=== PATIENT | female | born 1945 | race Caucasian/White ===

== ENCOUNTER 2017-09-01 10:08 | Inpatient (IN) | payer MEDICARE, OTHER, SELFPAY ==
[2017-09-01] VITALS (12 sets, daily range): BP systolic 94–143; BP diastolic 57–99; PULSE 80–101; RESP 16–22; TEMP 36.3–36.8; O2SAT 88–100; BMI 32.6; BMI 32.4; BMI 32.7
--- NOTE | 2017-09-01 10:24 | EKG12_ITS ---
Test Reason : SOB Blood Pressure : / mmHG Vent. Rate : 092 BPM Atrial Rate : 092 BPM P-R Int : 146 ms QRS Dur : 108 ms QT Int : 354 ms P-R-T Axes : 019 -01 181 degrees QTc Int : 437 ms Sinus rhythm with occasional Premature ventricular complexes T wave abnormality, consider inferolateral ischemia Abnormal ECG Confirmed by CT MCCOLLUM ([id number]), sports editor MAT VARGAS ([id number]) on 09/05/2017 1:48:45 PM Referred By: PAOLO Confirmed By:CT MCCOLLUM
--- NOTE | 2017-09-01 10:30 | RAD_ITS ---
STUDY: X-RAY CHEST REASON FOR EXAM: Female, 72 years old. Dyspnea. Lower extremity edema. History of prior aortic valve replacement. TECHNIQUE: Single AP portable view of the chest. COMPARISON: None. FINDINGS: EKG electrodes are seen. There is elevation of the right hemidiaphragm. Small bilateral pleural effusions with bibasilar atelectasis superimposed on CHF. Sternal cerclage wires are present from a prior sternotomy. Mild cardiomegaly. Normal mediastinum and micaela. Normal visualized pulmonary arteries. There is atherosclerotic tortuosity of the aortic arch and descending thoracic aorta. There are diffuse degenerative changes of the visualized thoracic spine. Normal visualized ribs, clavicles, and shoulders. There is no demonstrated abnormality of the visualized soft tissue structures of the upper abdomen. RAD/Chest 1 View (Portable) IMPRESSION: CHF with small bilateral pleural effusions and bibasilar atelectasis. Elevation of the right hemidiaphragm. Electronically Signed: Lloyd Johnson MD at 10:56 EDT Tel [phone], Service support ,
[2017-09-01 11:00] LABS: International Normalized Ratio 1.2; Prothrombin Time (Protime)PT. 15.2 SECONDS (11.7-14.9)
[2017-09-01 11:01] LABS: Partial Thromboplast Time 30.1 Seconds (24.1-36.2)
--- NOTE | 2017-09-01 11:01 | ED.VISSUMM ---
- ER Visit Summary Date of Service: 09/01/17 Chief Complaint: [Shortness of breath and bilateral leg swelling] History of Present Illness: The patient is a 72 F [resents the emergency department with complaint of progressive swelling in her legs and shortness of breath for several months. Patient developed some erythema of her lower extremities about a week and a half ago and was seen at urgent care 4 days ago and started on antibiotic. Per caregiver patient has gained about 20 pounds within the last month. Patient has a history of an aortic valve replacement but is not currently on any blood thinners. Patient only takes a baby aspirin a day. No other significant medical history. Patient denies any chest pain. Patient does describe exertional dyspnea and orthopnea. Patient denies any fever. She has had a nonproductive cough.] Physical Examination: [HEENT-PERRLA, EOMI. Cranial nerves II through XII grossly intact. TMs clear. Mucous membranes moist. No adenopathy. Cardiovascular-regular rate and rhythm with occasional ectopy noted. Heart sounds are somewhat distant without any obvious murmurs noted. Lungs-diminished breath sounds in both lung bases with some Rales noted bilaterally. Mild tachypnea. No accessory muscle use or retractions. Abdomen-normoactive bowel sounds, soft, nontender, no rebound or rigidity, no peritoneal signs. Extremities-intact ?4, normal range of motion, normal pulses, atraumatic. Patient has +3 edema both lower extremities with faint erythema noted to both lower extremities below the knee to the feet. Test Results: [On arrival showed a sinus rhythm with a ventricular rate of 92 bpm with occasional PVCs. Patient had nonspecific ST changes noted. No old EKGs available for comparison. Chest x-ray obtained showed CHF with bilateral effusions.] CBC with differential showed a white count 6.5, hemoglobin 14, hematocrit 47, platelets 103. Chemistries unremarkable. LFTs unremarkable. INR was 1.2. BNP was 2877. Troponin was less than 0.02. TSH was slightly elevated 3.78. Emergency Department Course and Treatment: [Patient received Lasix 40 mg IV in the department. Patient case was discussed with hospitalist Dr. Bubba Lee who will evaluate patient for admission.] Treatment Plan: [Admit for further workup and evaluation of new onset CHF as well as diuresis.] Disposition: [Admit Impression: [CHF-new onset Cellulitis bilateral lower extremities] This note was generated with [employer] dictation software. It may contain incorrect words, spelling, and punctuation that were not noted in review of the chart prior to signing ED Disposition - Plan for ED Patient: Chief Complaint: Edema Referrals: Care Physician,No Primary [Primary Care Provider] -
[2017-09-01 11:07] LABS: Absolute Lymphocyte Count 0.53 X10^3/ul (0.83-4.51); Absolute Neutrophil Count 5.4 X10^3/uL (2.0-7.7); Basophil# 0.02 X10^3/uL; Basophil% 0.3 % (0-1); Differential Indicated SCAN CRITERIA MET; Eosinophil# 0.06 X10^3/uL; Eosinophils% 0.9 % (0-5); Hematocrit 46.7 % (37-47); Lymphocyte # 0.53 X10^3/ul (4.0); Lymphocyte % 8.1 % (19-41); Mean Corpuscular Hgb 25.8 pg (27.0-32.0); Mean Corpuscular Volume 86.2 fL (81-99); Monocyte# 0.47 X10^3/uL; Monocyte% 7.2 % (0-10); Neutrophil # 5.43 X10^3/uL (2.7-7.7); Neutrophil % 83.3 % (47-70); POSITIVE COUNT NO; POSITIVE DIFFERENTIAL YES; POSITIVE MORPHOLOGY YES; Platelet Count 103 K/mm3 (150-450); RBC Distribution Width CV 18.4 % (11.6-14.6); RBC Distribution Width SD 56.6 fl (35.1-43.9); Red Blood Count 5.42 M/mm3 (4.2-5.4); White Blood Count 6.5 K/mm3 (4.4-11.0)
[2017-09-01 11:12] LABS: ALB/GLOB Ratio 1.2 RATIO (0.9-2.4); AST(SGOT) 31 U/L (15-37); Alanine Aminotransfer ALT/SGPT 20 U/L (13-56); Albumin, Serum 3.6 g/dL (3.2-5.0); Alkaline Phosphatase 89 U/L (45-117); Anion Gap 8 (5-15); BUN 21 mg/dL (7-18); BUN/Creat Ratio 18.9 RATIO (10-20); Calcium,Total 9.2 mg/dL (8.5-10.1); Chloride 107 mmol/L (98-107); Creatinine, Serum 1.11 mg/dL (0.55-1.02); EST Glomerular Filtration Rate 51 mL/min (>60); Est Glom Filt Rate - Afr Amer 62 mL/min (>60); Estimated Creatinine Clearance 34.57 ml/min; Globulin 3.1 g/dL (2.2-4.2); Glucose 97 mg/dL (74-106); Potassium 4.4 mmol/L (3.5-5.1); Protein, Total 6.7 g/dL (6.4-8.2); Sodium Level 143 mmol/L (136-145); Thyroid Stim Hormone (TSH) 3.78 uIU/mL (0.358-3.74)
[2017-09-01] MEDS: Furosemide 40 MG/4 ML Vial IV ×3 (11:12→21:33)
--- NOTE | 2017-09-01 11:56 | HP.PCM_ITS ---
Problem List (1) CHF (congestive heart failure) Status: Acute Qualifiers: Heart failure type: unspecified Heart failure chronicity: acute Qualified Code(s): I50.9 - Heart failure, unspecified (2) H/O aortic valve replacement Status: Chronic (3) Stasis dermatitis of both legs Status: Chronic (4) General learning disability Status: Chronic (5) BMI 32.0-32.9,adult Status: Chronic History of Present Illness Date of Admission: 09/01/17 Chief Complaint: Shortness of breath and weight gain The patient is a 72 year old F with past medical history significant for aortic valve replacement, learning disability brought to the emergency department by sister on account of shortness of breath. Review of patient's learning disability much of the history was taken from the sister who did notice increasing weight gain and swelling involving both lower and upper extremities. Patient was also noted to be more dyspneic at rest. Patient symptoms have been ongoing apparently for months however in view of the progressive of his symptoms she was brought to the emergency department where assessment was consistent with acute congestive heart failure. Lasix was initiated and patient admitted to a regular nursing floor for further management Past Medical History Past Medical History (Chronic Problems): Chronic Problems H/O aortic valve replacement (Chronic) Stasis dermatitis of both legs (Chronic) General learning disability (Chronic) BMI 32.0-32.9,adult (Chronic) Allergies Sulfa (Sulfonamide Antibiotics) Allergy (Verified 09/01/17 10:09) Other Home Medications: Ambulatory Orders Medication Instructions Recorded Aspirin [Aspirin, Baby] 81 mg PO DAILY@0800 09/01/17 Smoking Status: Never smoker - *Family History Maternal History Items: Heart Disease - mom had congestive heart failure Review of Systems Constitutional: Denies: Anorexia, Chills, Fever, Night Sweats, Weight Change Eyes: Denies: Blurred vision HEENT: Denies: Head Aches, Sinus Congestion, Sinus Drainage Cardiovascular: Reports: Edema. Denies: Chest Pain Respiratory: Reports: Cough, Shortness of breath upon exertion Gastrointestinal: Denies: Abdominal Pain, Hematemesis, Hematochezia, Nausea, Melena, Vomiting Genitourinary: Denies: Dysuria, Frequency, Hematuria, Urgency Musculoskeletal: Denies: Joint Pain, Joint Tenderness Skin: Reports: Pruritis, Rash, Skin Changes Neurological: Denies: Focal weakness, Numbness, Tingling Psychiatric: Denies: Homicidal Ideations, Suicidal Ideations Hematologic/ Lymphatic: Denies: Easy Bruising, Easy Bleeding VTE Information - Inpt Only VTE Present on Admission: No VTE Mechan Device Prophylaxis: Knee High TRA Hose VTE Pharm Prophylaxis ordered?: Yes Patient Problems: Active and Suspected Problems CHF (congestive heart failure) (Acute) Objective: GENERAL: Patient dyspneic at rest HEENT: Clear conjunctiva, NECK; supple, normal thyroid, CHEST: Diminished to auscultation bilaterally, with bibasilar Rales HEART: Regular S1 S2, no audible murmurs ABDOMEN: soft, non-tender, normoactive bowel sounds, RECTAL: deferred EXTREMITIES: +1 bilateral edema 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 SKIN: Dermatitis involving both lower extremities, - Physical Exam Vital Signs Temp Pulse Resp BP Pulse Ox 98.2 F 99 22 H 115/91 H 98 09/01/17 10:10 09/01/17 11:23 09/01/17 11:23 09/01/17 11:23 09/01/17 11:24 Oxygen Flow Rate (L/min) 2 Oxygen Delivery Method Nasal Cannula Weight: 78.471 kg Body Mass Index (BMI) 32.6 Laboratory Tests Past 24 Hrs 09/01/17 09/01/17 09/01/17 10:34 10:34 10:34 WBC 6.5 RBC 5.42 H Hgb 14.0 Hct 46.7 MCV 86.2 MCH 25.8 L MCHC 30.0 L RDW 18.4 H RDW Differential 56.6 H Plt Count 103 L Immature Gran % (Auto) 0.200 Neut % (Auto) 83.3 H Lymph % (Auto) 8.1 L [place] % (Auto) 7.2 Eos % (Auto) 0.9 Baso % (Auto) 0.3 Absolute Neuts (auto) 5.4 Absolute Lymphs (auto) 0.53 L Total Counted Not Reportable Differential Comment COMMENT PT 15.2 H INR 1.2 APTT 30.1 Sodium 143 Potassium 4.4 Chloride 107 Carbon Dioxide 28.0 Anion Gap 8 BUN 21 H Creatinine 1.11 H Estim Creat Clear Calc 34.57 Est GFR (MDRD) Af Amer 62 Est GFR (MDRD) Non-Af 51 L BUN/Creatinine Ratio 18.9 Glucose 97 Calcium 9.2 Total Bilirubin 1.30 H AST 31 ALT 20 Alkaline Phosphatase 89 Troponin I 0.06 B-Natriuretic Peptide Total Protein 6.7 Albumin 3.6 Globulin 3.1 Albumin/Globulin Ratio 1.2 TSH 3.78 H 09/01/17 10:34 WBC RBC Hgb Hct MCV MCH MCHC RDW RDW Differential Plt Count Immature Gran % (Auto) Neut % (Auto) Lymph % (Auto) [place] % (Auto) Eos % (Auto) Baso % (Auto) Absolute Neuts (auto) Absolute Lymphs (auto) Total Counted Differential Comment PT INR APTT Sodium Potassium Chloride Carbon Dioxide Anion Gap BUN Creatinine Estim Creat Clear Calc Est GFR (MDRD) Af Amer Est GFR (MDRD) Non-Af BUN/Creatinine Ratio Glucose Calcium Total Bilirubin AST ALT Alkaline Phosphatase Troponin I B-Natriuretic Peptide 2877.1 H Total Protein Albumin Globulin Albumin/Globulin Ratio TSH Assessment/Plan Active and Suspected Problems CHF (congestive heart failure) (Acute) Patient is a 72-year-old lady presented with progressive shortness of breath and assessment of acute congestive heart failure made admitted to monitored bed for subsequent management 1. Acute congestive heart failure: Patient has been admitted to monitored bed managed with strict input and output, daily weights, fluid restriction to 1500 cc per 24 hours, IV Lasix. 2D echo was ordered for further evaluation 2. History of aortic valve replacement. Patient is not aware of the history however sister suspect patient had a bioprosthetic valve and echo has been ordered for further evaluation as stated above 3. Learning disability ~ supportive care 4. Obesity with BMI of 32.4 weight loss advised 5. Chronic stasis dermatitis involving both lower extremities 6. DVT prophylaxis SC Lovenox Code Visit Inpatient E&M: 45706 Subs Hosp L3
--- NOTE | 2017-09-01 12:57 | ECHOCS_ITS ---
Reason For Study: CHF Procedure This was a 2D Doppler, Color Flow transthoracic echocardiogram. Exam performed portable in patient room. Left Ventricle Severely dilated left ventricle. The estimated ejection fraction is 10-15 %. Stage 2 diastolic dysfunction. There is severe global hypokinesis of the left ventricle. Right Ventricle Moderately dilated right ventricle. Moderately severe global right ventricular systolic dysfunction. Atria The left atrium is mildly enlarged. Normal right atrium. Normal atrial septum. Mitral Valve The mitral valve is structurally normal. No prolapse or stenosis seen. Tricuspid Valve Normal tricuspid valve. Mild (1+) tricuspid valve insufficiency. Right ventricular systolic pressure estimated to be 42 mmHg. Mild pulmonary hypertension. Aortic Valve Peak aortic valve gradient 46 mmHg. Mean aortic valve gradient 30 mmHg. Calculated aortic valve area (continuity equation) is 1.1 cm2. Moderate aortic stenosis. Trivial aortic valve insufficiency. Bioprosthetic aortic valve. Pulmonic Valve Normal pulmonic valve. Mild (1+) pulmonic valve insufficiency. Great Vessels Calcified aortic root. Normal arch. The inferior vena cava is dilated. No collapse of the inferior vena cava. Pericardium/Pleural No pericardial effusion. Moderate size left pleural effusion. Medication Definity0.3ml given slow IV push to enhance endocardial definition. MMode/2D Measurements & Calculations LVIDd: 5.4 cm IVSd: 0.87 cm LVOT diam: 2.0 cm LVIDs: 5.1 cm LVPWd: 0.80 cm LVOT area: 3.2 cm2 RVDd: 4.2 cm FS: 5.3 % Ao root diam: 3.2 cm LAV(MOD-bp): 61.2 ml LA dimension: 3.9 cm LAV(MOD-bp) Indexed: 34.4 ml/m2 LA A4 area: 19.5 cm2 LAV(MOD-sp2): 61.9 ml LAV(MOD-sp4): 51.7 ml RA A4 area: 11.1 cm2 Doppler Measurements & Calculations MV E max salo: 86.1 cm/sec Lat Peak E' Salo: 10.5 cm/sec Med Peak E' Salo: 3.7 cm/sec MV A max salo: 54.2 cm/sec E/E' lat: 8.2 E/E' med: 23.0 MV E/A: 1.6 Ao V2 max: 339.2 cm/sec LV V1 max: 112.4 cm/sec SV(LVOT): 71.9 ml Ao max P.0 mmHg LV V1 max P.1 mmHg Ao V2 mean: 254.0 cm/sec LV V1 mean P.1 mmHg Ao mean P.8 mmHg LV V1 mean: 83.0 cm/sec Ao V2 VTI: 65.1 cm LV V1 VTI: 22.4 cm CE(I,D): 1.1 cm2 CE(V,D): 1.1 cm2 PA V2 max: 118.4 cm/sec PI end-d salo: 150.1 cm/sec TR max salo: 269.4 cm/sec TR max P.1 mmHg Interpretation Summary Severely dilated left ventricle. The estimated ejection fraction is 10-15 %. There is severe global hypokinesis of the left ventricle. Stage 2 diastolic dysfunction. Moderately dilated right ventricle. Moderately severe global right ventricular systolic dysfunction. The left atrium is mildly enlarged. Mild (1+) tricuspid valve insufficiency. Right ventricular systolic pressure estimated to be 42 mmHg. Mild pulmonary hypertension. Moderate aortic stenosis. Trivial aortic valve insufficiency. Moderate size left pleural effusion. The study was technically difficult. There is no comparison study available. Contrast injection was performed. Ordering Physician: Bubba Lee Performed By: Gretel Maurice, KING, RVT
[2017-09-01] MEDS: 0.9% Saline Lock 10 ML Syringe IV (15:08)
[2017-09-01] MEDS: 0.9% NaCl Peripheral Flush Adult/Peds IV (21:33)
[2017-09-01] MEDS: Docusate Sodium 100 MG Capsule PO (21:33)
[2017-09-02] VITALS (12 sets, daily range): BP systolic 97–110; BP diastolic 59–65; PULSE 76–153; RESP 14–18; TEMP 36.3–36.8; O2SAT 93–98
[2017-09-02] MEDS: Furosemide 40 MG/4 ML Vial IV ×2 (05:22→13:43)
[2017-09-02] MEDS: 0.9% NaCl Peripheral Flush Adult/Peds IV (05:23)
[2017-09-02 07:46] LABS: Anion Gap 8 (5-15); BUN 20 mg/dL (7-18); BUN/Creat Ratio 18.3 RATIO (10-20); Calcium,Total 8.8 mg/dL (8.5-10.1); Chloride 104 mmol/L (98-107); Creatinine, Serum 1.09 mg/dL (0.55-1.02); EST Glomerular Filtration Rate 52 mL/min (>60); Est Glom Filt Rate - Afr Amer 63 mL/min (>60); Glucose 83 mg/dL (74-106); Potassium 3.6 mmol/L (3.5-5.1); Sodium Level 140 mmol/L (136-145)
[2017-09-02 08:25] LABS: Hematocrit 42.8 % (37-47); Hemoglobin 12.9 g/dl (12.0-15.0); Mean Corp Hgb Conc 30.1 g/gl (32-36); Mean Corpuscular Hgb 25.7 pg (27.0-32.0); Mean Corpuscular Volume 85.3 fL (81-99); Platelet Count 74 K/mm3 (150-450); RBC Distribution Width CV 18.4 % (11.6-14.6); RBC Distribution Width SD 56.6 fl (35.1-43.9); Red Blood Count 5.02 M/mm3 (4.2-5.4); Scan Indicated on CBC? Y/N YES- FLAGS NOTED; White Blood Count 4.3 K/mm3 (4.4-11.0)
[2017-09-02] MEDS: Aspirin 81 MG TAB.CHEW PO (10:01)
[2017-09-02] MEDS: Docusate Sodium 100 MG Capsule PO ×2 (10:01→22:34)
--- NOTE | 2017-09-02 11:47 | PCM.PN.HOSP ---
Patient Problems: Active and Suspected Problems CHF (congestive heart failure) (Acute) Subjective: Negative fluid balance of 2.1 L been admitted. 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 SKIN: Dermatitis involving both lower extremities, Vitals/I&O's: Vital Signs Temp Pulse Resp BP Pulse Ox 98.2 F 94 16 97/65 97 09/02/17 11:18 09/02/17 11:18 09/02/17 11:18 09/02/17 11:18 09/02/17 11:18 Oxygen Flow Rate (L/min) 2 Oxygen Delivery Method Room Air Weight: 75.1 kg Body Mass Index (BMI) 32.4 Intake and Output for Last 24 Hours 08/31/17 09/01/17 09/02/17 23:59 23:59 23:59 Intake Total 960 / 960 400 / 400 Output Total 1550 / 1550 2500 / 2500 Balance -590 / -590 -2100 / -2100 Laboratory Results 09/01/17 14:05: Troponin I 0.06 09/01/17 18:29: Troponin I 0.08 H 09/02/17 00:24: Troponin I 0.07 H 09/02/17 06:55: Sodium 140, Potassium 3.6, Chloride 104, Carbon Dioxide 28.0, Anion Gap 8, BUN 20 H, Creatinine 1.09 H, Estim Creat Clear Calc 35.20, Est GFR (MDRD) Af Amer 63, Est GFR (MDRD) Non-Af 52 L, BUN/Creatinine Ratio 18.3, Glucose 83, Calcium 8.8, Magnesium 2.0 09/02/17 06:55: WBC 4.3 L, RBC 5.02, Hgb 12.9, Hct 42.8, MCV 85.3, MCH 25.7 L, MCHC 30.1 L, RDW 18.4 H, RDW Differential 56.6 H, Plt Count 74 L, Differential Comment Current Medications Acetaminophen (Tylenol) 650 mg PO Q6H PRN PRN PRN Reason: Mild Pain (scale 0-3)/T>100.7 Al Hydroxide/Mg Hydroxide (Mylanta Ii) 30 ml PO Q6H PRN PRN PRN Reason: Gastric burning Aspirin (Aspirin, Baby) 81 mg PO DAILY@0800 [facility] Last Admin: 09/02/17 10:01 Dose: 81 mg Docusate Sodium (Colace) 100 mg PO BID [facility] Last Admin: 09/02/17 10:01 Dose: 100 mg Enoxaparin Sodium (Lovenox) 40 mg SC DAILY@1000 [facility] Last Admin: 09/02/17 10:44 Dose: Not Given Furosemide (Lasix) 40 mg IV Q8 [facility] Last Admin: 09/02/17 05:22 Dose: 40 mg Magnesium Hydroxide (Milk Of Magnesia) 30 ml PO DAILY PRN PRN Reason: Constipation Multi-Ingredient Cream (Eucerin) 1 applic TOPICAL BID [facility] PRN Reason: Protocol Last Admin: 09/02/17 10:01 Dose: 1 applicatio Ondansetron HCl (Zofran) 4 mg IV Q8H PRN PRN PRN Reason: NAUSEA Oxycodone HCl (Oxyir) 5 mg PO Q4H PRN PRN PRN Reason: Moderate Pain (pain scale 4-5) Psyllium Hydrophilic Mucilloid (Metamucil) 1 packet PO DAILY PRN PRN PRN Reason: CONSTIPATION Sodium Chloride () 5 - 30 ml IV UD PRN PRN Reason: SALINE FLUSH Last Admin: 09/02/17 05:23 Dose: 10 ml Zolpidem Tartrate (Ambien (Generic)) 5 mg PO QHS PRN PRN PRN Reason: INSOMNIA Assessment/Plan Active and Suspected Problems CHF (congestive heart failure) (Acute) Patient is a 72-year-old lady presented with progressive shortness of breath and assessment of acute congestive heart failure made admitted to monitored bed for subsequent management 1. Acute congestive heart failure: Patient has been admitted to monitored bed managed with strict input and output, daily weights, fluid restriction to 1500 cc per 24 hours, IV Lasix. 2D echo was ordered for further evaluation Severely dilated left ventricle. The estimated ejection fraction is 10-15 %. There is severe global hypokinesis of the left ventricle. Stage 2 diastolic dysfunction. Moderately dilated right ventricle. Moderately severe global right ventricular systolic dysfunction. The left atrium is mildly enlarged. Mild (1+) tricuspid valve insufficiency. Right ventricular systolic pressure estimated to be 42 mmHg. Mild pulmonary hypertension. Moderate aortic stenosis. Trivial aortic valve insufficiency. Moderate size left pleural effusion. Patient's 2D echo results are as above. Based on patient's Low EF of 10-15% consultation was placed to cardiology. Dr FernandezInformed of consult patient placed on martita inhibitors as well as 2. History of aortic valve replacement. Patient is not aware of the history however sister suspect patient had a bioprosthetic valve and echo has been ordered for further evaluation as stated above 3. Learning disability ~ supportive care 4. Obesity with BMI of 32.4 weight loss advised 5. Chronic stasis dermatitis involving both lower extremities 6. DVT prophylaxis bilateral TRA hoses for now Lovenox discontinued in view of low platelet counts Code Visit Inpatient E&M: 01014 Subs Hosp L3
--- NOTE | 2017-09-02 11:50 | PN_ITS ---
Patient Problems: Active and Suspected Problems CHF (congestive heart failure) (Acute) Subjective: Negative fluid balance of 2.1 L been admitted. 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 SKIN: Dermatitis involving both lower extremities, Vitals/I&O's: Vital Signs Temp Pulse Resp BP Pulse Ox 98.2 F 94 16 97/65 97 09/02/17 11:18 09/02/17 11:18 09/02/17 11:18 09/02/17 11:18 09/02/17 11:18 Oxygen Flow Rate (L/min) 2 Oxygen Delivery Method Room Air Weight: 75.1 kg Body Mass Index (BMI) 32.4 Intake and Output for Last 24 Hours 08/31/17 09/01/17 09/02/17 23:59 23:59 23:59 Intake Total 960 / 960 400 / 400 Output Total 1550 / 1550 2500 / 2500 Balance -590 / -590 -2100 / -2100 Laboratory Results 09/01/17 14:05: Troponin I 0.06 09/01/17 18:29: Troponin I 0.08 H 09/02/17 00:24: Troponin I 0.07 H 09/02/17 06:55: Sodium 140, Potassium 3.6, Chloride 104, Carbon Dioxide 28.0, Anion Gap 8, BUN 20 H, Creatinine 1.09 H, Estim Creat Clear Calc 35.20, Est GFR (MDRD) Af Amer 63, Est GFR (MDRD) Non-Af 52 L, BUN/Creatinine Ratio 18.3, Glucose 83, Calcium 8.8, Magnesium 2.0 09/02/17 06:55: WBC 4.3 L, RBC 5.02, Hgb 12.9, Hct 42.8, MCV 85.3, MCH 25.7 L, MCHC 30.1 L, RDW 18.4 H, RDW Differential 56.6 H, Plt Count 74 L, Differential Comment Current Medications Acetaminophen (Tylenol) 650 mg PO Q6H PRN PRN PRN Reason: Mild Pain (scale 0-3)/T>100.7 Al Hydroxide/Mg Hydroxide (Mylanta Ii) 30 ml PO Q6H PRN PRN PRN Reason: Gastric burning Aspirin (Aspirin, Baby) 81 mg PO DAILY@0800 [facility] Last Admin: 09/02/17 10:01 Dose: 81 mg Docusate Sodium (Colace) 100 mg PO BID [facility] Last Admin: 09/02/17 10:01 Dose: 100 mg Enoxaparin Sodium (Lovenox) 40 mg SC DAILY@1000 [facility] Last Admin: 09/02/17 10:44 Dose: Not Given Furosemide (Lasix) 40 mg IV Q8 [facility] Last Admin: 09/02/17 05:22 Dose: 40 mg Magnesium Hydroxide (Milk Of Magnesia) 30 ml PO DAILY PRN PRN Reason: Constipation Multi-Ingredient Cream (Eucerin) 1 applic TOPICAL BID [facility] PRN Reason: Protocol Last Admin: 09/02/17 10:01 Dose: 1 applicatio Ondansetron HCl (Zofran) 4 mg IV Q8H PRN PRN PRN Reason: NAUSEA Oxycodone HCl (Oxyir) 5 mg PO Q4H PRN PRN PRN Reason: Moderate Pain (pain scale 4-5) Psyllium Hydrophilic Mucilloid (Metamucil) 1 packet PO DAILY PRN PRN PRN Reason: CONSTIPATION Sodium Chloride () 5 - 30 ml IV UD PRN PRN Reason: SALINE FLUSH Last Admin: 09/02/17 05:23 Dose: 10 ml Zolpidem Tartrate (Ambien (Generic)) 5 mg PO QHS PRN PRN PRN Reason: INSOMNIA Assessment/Plan Active and Suspected Problems CHF (congestive heart failure) (Acute) Patient is a 72-year-old lady presented with progressive shortness of breath and assessment of acute congestive heart failure made admitted to monitored bed for subsequent management 1. Acute congestive heart failure: Patient has been admitted to monitored bed managed with strict input and output, daily weights, fluid restriction to 1500 cc per 24 hours, IV Lasix. 2D echo was ordered for further evaluation Severely dilated left ventricle. The estimated ejection fraction is 10-15 %. There is severe global hypokinesis of the left ventricle. Stage 2 diastolic dysfunction. Moderately dilated right ventricle. Moderately severe global right ventricular systolic dysfunction. The left atrium is mildly enlarged. Mild (1+) tricuspid valve insufficiency. Right ventricular systolic pressure estimated to be 42 mmHg. Mild pulmonary hypertension. Moderate aortic stenosis. Trivial aortic valve insufficiency. Moderate size left pleural effusion. Patient's 2D echo results are as above. Based on patient's Low EF of 10-15% consultation was placed to cardiology. Dr FernandezInformed of consult patient placed on martita inhibitors as well as 2. History of aortic valve replacement. Patient is not aware of the history however sister suspect patient had a bioprosthetic valve and echo has been ordered for further evaluation as stated above 3. Learning disability ~ supportive care 4. Obesity with BMI of 32.4 weight loss advised 5. Chronic stasis dermatitis involving both lower extremities 6. DVT prophylaxis bilateral TRA hoses for now Lovenox discontinued in view of low platelet counts Code Visit Inpatient E&M: 46645 Subs Hosp L3
--- NOTE | 2017-09-02 11:50 | CASEMGMT ---
Face to Face with patient for initial transition planning/care coordination assessment. RN JAK introduced self and role at [facility], pt voices understanding and consents to assessment but asks this RN CM to call Sofia su for all questions. Pt sitting up in chair in no distress at this time. This RN CM spoke with Sofia su, via phone at this time and she answers all questions at this time. Care providers, pharmacy, and demographics verified. See attached link. Sister voices no further concerns/needs at this time. Advised sister to ask for CM if any further questions/concerns/needs arise, voices understanding. Sister did state that she missed Dr. Lee this am and would like to know update on pt. Dr. Lee willing to speak with sister via phone at this time. [place]AN[place] [facility]
--- NOTE | 2017-09-02 15:48 | PCM.CONS.C ---
Problem List (1) Lower extremity edema Status: Acute (2) Cardiomyopathy Status: Acute (3) CHF (congestive heart failure) Status: Acute Qualifiers: Heart failure type: unspecified Heart failure chronicity: acute Qualified Code(s): I50.9 - Heart failure, unspecified (4) H/O aortic valve replacement Status: Chronic Reason for Consult Date of Consultation: 09/02/17 Reason for Consultation: New onset congestive heart failure, cardiomyopathy, status post aortic valve replacement, lower extremity edema History of Present Illness: The patient is a 72 year old F, with a history of bioprosthetic aortic valve replacement on 02/23/2007 at [facility] by Dr. Guerrero. As best the patient can remember she did not have associated bypass surgery although she cannot recall. Patient has never been told she had congestive heart failure, and apparently she has never followed up with a rhythmic gymnastics coach that she can recall. Patient may have some mental challenges, and a baseline learning disability, and has requested that I contact her sister regarding clarification of her medical history. The patient is a nondiabetic, and apparently lives with her 2 sisters all of which apparently caught the flu in June. Her 2 sisters improved, however the patient developed worsening lower extremity edema, orthopnea with 8 pillows, shortness of breath, dyspnea on exertion. She apparently went to the emergency room on Tuesday of this past week, and was subsequently sent home despite her lower extremity edema. When her symptoms did not improve she returned yesterday and was admitted with new onset heart failure. An echocardiogram was performed today which demonstrated severe global LV dysfunction with an EF around 10-15%, bioprosthetic aortic valve, with moderate aortic stenosis, RVSP of 42 mmHg, with a left-sided pleural effusion. Currently the patient is sitting in a chair, no acute distress, conversing well. She states that she was never told she had heart failure prior to her illness in June. She denies any lower extremity edema prior to the recent weeks. She denies any chest pain, angina, presyncope or syncope. [] Past Medical History Allergies/Adverse Reactions: Allergies Sulfa (Sulfonamide Antibiotics) Allergy (Verified 09/01/17 10:09) Other Home Medications: Ambulatory Orders Medication Instructions Recorded Aspirin [Aspirin, Baby] 81 mg PO DAILY@0800 09/01/17 Past Medical History (Chronic Problems): Chronic Problems H/O aortic valve replacement (Chronic) Stasis dermatitis of both legs (Chronic) General learning disability (Chronic) BMI 32.0-32.9,adult (Chronic) - *Family History Maternal History Items: Heart Disease - mom had congestive heart failure Smoking Status: Never smoker Review of Systems - Review of Systems Cardiovascular: Reports: Shortness of Breath at Rest, Shortness of Breath with Exertion Respiratory: Denies: Cough, Sputum Production, Hemoptysis Gastrointestinal: Denies: Hematemesis, Hematochezia, Melena Genitourinary: Denies: Dysuria, Hematuria Skin: Denies: Rash Subjectve: Patient sitting in a chair, no acute distress. Objective: Vital Signs Temp Pulse Resp BP Pulse Ox 98.2 F 94 16 97/65 97 09/02/17 11:18 09/02/17 11:18 09/02/17 11:18 09/02/17 11:18 09/02/17 11:18 Oxygen Flow Rate (L/min) 2 Oxygen Delivery Method Room Air Weight: 165 lb 9.074 oz Body Mass Index (BMI) 32.4 Intake and Output for Last 24 Hours 08/31/17 09/01/17 09/02/17 23:59 23:59 23:59 Intake Total 960 / 960 400 / 400 Output Total 1550 / 1550 2500 / 2500 Balance -590 / -590 -2100 / -2100 General: Awake, Alert, Oriented x 3 HEENT: PERRL, EOMI, Sclera Non Icteric Neck: Supple, Good ROM, No Lymph Node Enlargement Lungs: Diminished Left Base, Rales - Iker Bases Cardiovascular: Regular Rhythm, Normal S1, Normal S2, No Rubs, No Gallops Murmur Murmur: Grade 3/6, Crescendo-Decrescendo Vascular: No Carotid Bruits, Normal Femoral Pulses, Normal Radial Pulses, Normal Dorsalis Pedal Pulse, Normal Posterior Tibial Pulses Abdomen: Bowel Sounds Present, Soft, Non Tender, No HSM, No Organomegaly Extremities: No Cyanosis, No Clubbing, Bilateral Edema +3 Neurological: No Focal Motor or Sensory Deficit 09/01/17 18:29: Troponin I 0.08 H 09/02/17 00:24: Troponin I 0.07 H 09/02/17 06:55: Sodium 140, Potassium 3.6, Chloride 104, Carbon Dioxide 28.0, Anion Gap 8, BUN 20 H, Creatinine 1.09 H, Est GFR (MDRD) Af Amer 63, Est GFR (MDRD) Non-Af 52 L, BUN/Creatinine Ratio 18.3, Glucose 83, Calcium 8.8, Magnesium 2.0 09/02/17 06:55: WBC 4.3 L, RBC 5.02, Hgb 12.9, Hct 42.8, MCV 85.3, MCH 25.7 L, MCHC 30.1 L, RDW 18.4 H, RDW Differential 56.6 H, Plt Count 74 L Rhythm: EKG: Normal sinus rhythm with left bundle branch block, PVCs. ECHO: As above Stress Test: Cardiac Cath: PCI: CT Surgery: Holter monitor: EPS: PPM: CXR: Large right pleural effusion, moderate left pleural effusion. Chest CT Scan: Assessment/Plan 1. 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 Her 2 sisters appeared to improve, but she never quite felt better. She has evidence of severe biventricular failure with bilateral pleural effusions, right greater than left, bilateral lower extremity edema, orthopnea, PND. Given the patient's massive fluid overload, I recommend that we start her on a Bumex drip at 0.5 mg/h, followed by metolazone 2.5 mg ?1 now. Would repeat metolazone every 3 days in order to facilitate diuresis. A Crandall has already been started. In addition I would recommend holding beta-ramakrishna therapy until she is optimized her dry weight, and would recommend a 1500 cc fluid restriction until she is reached her dry weight. When she is able to lay down flat, she will require a repeat left and right heart catheterization to assess her pulmonary pressures, and coronary anatomy. It is possible the patient may have contracted a viral illness in June [address] to a viral cardiomyopathy. Previous echocardiograms would be very helpful. Unfortunately the patient does not recall her previous rhythmic gymnastics coach. In addition to may be beneficial for therapeutic thoracentesis particularly of the right pleural space. 2. Aortic valve replacement: We will need to try and get a hold of her previous rhythmic gymnastics coach to determine when her LV function deteriorated. The patient has a generalized learning disability, and may not fully recall the specifics of her cardiac issues. Patient's bioprosthetic aortic valve is approximately 11 years old, and may require replacement if this is an option given her severe LV dysfunction. 3. Lower extremity edema: I agree with DVT prophylaxis as well as Stalin bandage wraps to facilitate venous return. 4. Discussed with Dr. Lee. Thank you very much for the opportunity to participate in the cardiac care of your patient. Consultation time between 330 and 4 PM.
--- NOTE | 2017-09-02 16:00 | CON.PCM_ITS ---
Problem List (1) Lower extremity edema Status: Acute (2) Cardiomyopathy Status: Acute (3) CHF (congestive heart failure) Status: Acute Qualifiers: Heart failure type: unspecified Heart failure chronicity: acute Qualified Code(s): I50.9 - Heart failure, unspecified (4) H/O aortic valve replacement Status: Chronic Reason for Consult Date of Consultation: 09/02/17 Reason for Consultation: New onset congestive heart failure, cardiomyopathy, status post aortic valve replacement, lower extremity edema History of Present Illness: The patient is a 72 year old F, with a history of bioprosthetic aortic valve replacement on 02/23/2007 at [facility] by Dr. Guerrero. As best the patient can remember she did not have associated bypass surgery although she cannot recall. Patient has never been told she had congestive heart failure, and apparently she has never followed up with a sign language teacher that she can recall. Patient may have some mental challenges, and a baseline learning disability, and has requested that I contact her sister regarding clarification of her medical history. The patient is a nondiabetic, and apparently lives with her 2 sisters all of which apparently caught the flu in June. Her 2 sisters improved, however the patient developed worsening lower extremity edema, orthopnea with 8 pillows , shortness of breath, dyspnea on exertion. She apparently went to the emergency room on Tuesday of this past week, and was subsequently sent home despite her lower extremity edema. When her symptoms did not improve she returned yesterday and was admitted with new onset heart failure. An echocardiogram was performed today which demonstrated severe global LV dysfunction with an EF around 10-15%, bioprosthetic aortic valve, with moderate aortic stenosis, RVSP of 42 mmHg, with a left-sided pleural effusion. Currently the patient is sitting in a chair, no acute distress, conversing well. She states that she was never told she had heart failure prior to her illness in June. She denies any lower extremity edema prior to the recent weeks. She denies any chest pain, angina, presyncope or syncope. [] Past Medical History Allergies/Adverse Reactions: Allergies Sulfa (Sulfonamide Antibiotics) Allergy (Verified 09/01/17 10:09) Other Home Medications: Ambulatory Orders Medication Instructions Recorded Aspirin [Aspirin, Baby] 81 mg PO DAILY@0800 09/01/17 Past Medical History (Chronic Problems): Chronic Problems H/O aortic valve replacement (Chronic) Stasis dermatitis of both legs (Chronic) General learning disability (Chronic) BMI 32.0-32.9,adult (Chronic) - *Family History Maternal History Items: Heart Disease - mom had congestive heart failure Smoking Status: Never smoker Review of Systems - Review of Systems Cardiovascular: Reports: Shortness of Breath at Rest, Shortness of Breath with Exertion Respiratory: Denies: Cough, Sputum Production, Hemoptysis Gastrointestinal: Denies: Hematemesis, Hematochezia, Melena Genitourinary: Denies: Dysuria, Hematuria Skin: Denies: Rash Subjectve: Patient sitting in a chair, no acute distress. Objective: Vital Signs Temp Pulse Resp BP Pulse Ox 98.2 F 94 16 97/65 97 09/02/17 11:18 09/02/17 11:18 09/02/17 11:18 09/02/17 11:18 09/02/17 11:18 Oxygen Flow Rate (L/min) 2 Oxygen Delivery Method Room Air Weight: 165 lb 9.074 oz Body Mass Index (BMI) 32.4 Intake and Output for Last 24 Hours 08/31/17 09/01/17 09/02/17 23:59 23:59 23:59 Intake Total 960 / 960 400 / 400 Output Total 1550 / 1550 2500 / 2500 Balance -590 / -590 -2100 / -2100 General: Awake, Alert, Oriented x 3 HEENT: PERRL, EOMI, Sclera Non Icteric Neck: Supple, Good ROM, No Lymph Node Enlargement Lungs: Diminished Left Base, Rales - Iker Bases Cardiovascular: Regular Rhythm, Normal S1, Normal S2, No Rubs, No Gallops Murmur Murmur: Grade 3/6, Crescendo-Decrescendo Vascular: No Carotid Bruits, Normal Femoral Pulses, Normal Radial Pulses, Normal Dorsalis Pedal Pulse, Normal Posterior Tibial Pulses Abdomen: Bowel Sounds Present, Soft, Non Tender, No HSM, No Organomegaly Extremities: No Cyanosis, No Clubbing, Bilateral Edema +3 Neurological: No Focal Motor or Sensory Deficit 09/01/17 18:29: Troponin I 0.08 H 09/02/17 00:24: Troponin I 0.07 H 09/02/17 06:55: Sodium 140, Potassium 3.6, Chloride 104, Carbon Dioxide 28.0, Anion Gap 8, BUN 20 H, Creatinine 1.09 H, Est GFR (MDRD) Af Amer 63, Est GFR ( MDRD) Non-Af 52 L, BUN/Creatinine Ratio 18.3, Glucose 83, Calcium 8.8, Magnesium 2.0 09/02/17 06:55: WBC 4.3 L, RBC 5.02, Hgb 12.9, Hct 42.8, MCV 85.3, MCH 25.7 L, MCHC 30.1 L, RDW 18.4 H, RDW Differential 56.6 H, Plt Count 74 L Rhythm: EKG: Normal sinus rhythm with left bundle branch block, PVCs. ECHO: As above Stress Test: Cardiac Cath: PCI: CT Surgery: Holter monitor: EPS: PPM: CXR: Large right pleural effusion, moderate left pleural effusion. Chest CT Scan: Assessment/Plan 1. 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 Her 2 sisters appeared to improve, but she never quite felt better. She has evidence of severe biventricular failure with bilateral pleural effusions, right greater than left, bilateral lower extremity edema, orthopnea, PND. Given the patient's massive fluid overload, I recommend that we start her on a Bumex drip at 0.5 mg/h, followed by metolazone 2.5 mg ?1 now. Would repeat metolazone every 3 days in order to facilitate diuresis. A Crandall has already been started. In addition I would recommend holding beta-ramakrishna therapy until she is optimized her dry weight, and would recommend a 1500 cc fluid restriction until she is reached her dry weight. When she is able to lay down flat, she will require a repeat left and right heart catheterization to assess her pulmonary pressures, and coronary anatomy. It is possible the patient may have contracted a viral illness in June [address] to a viral cardiomyopathy. Previous echocardiograms would be very helpful. Unfortunately the patient does not recall her previous sign language teacher. In addition to may be beneficial for therapeutic thoracentesis particularly of the right pleural space. 2. Aortic valve replacement: We will need to try and get a hold of her previous sign language teacher to determine when her LV function deteriorated. The patient has a generalized learning disability, and may not fully recall the specifics of her cardiac issues. Patient's bioprosthetic aortic valve is approximately 11 years old, and may require replacement if this is an option given her severe LV dysfunction. 3. Lower extremity edema: I agree with DVT prophylaxis as well as Stalin bandage wraps to facilitate venous return. 4. Discussed with Dr. Lee. Thank you very much for the opportunity to participate in the cardiac care of your patient. Consultation time between 330 and 4 PM.
[2017-09-02] MEDS: Metolazone 2.5 MG Tablet PO (16:56)
[2017-09-02] MEDS: Bumetanide 25 MG in CONTAINER,EMPTY 1 BAG CONT INF (16:56)
[2017-09-03] VITALS (13 sets, daily range): BP systolic 88–102; BP diastolic 54–60; PULSE 86–114; RESP 14–18; TEMP 36.6–36.7; O2SAT 92–97
[2017-09-03 07:40] LABS: Hematocrit 42.9 % (37-47); Hemoglobin 13.3 g/dl (12.0-15.0); Mean Corpuscular Hgb 26.2 pg (27.0-32.0); Mean Corpuscular Volume 84.6 fL (81-99); Platelet Count 76 K/mm3 (150-450); RBC Distribution Width CV 18.3 % (11.6-14.6); RBC Distribution Width SD 54.8 fl (35.1-43.9); Red Blood Count 5.07 M/mm3 (4.2-5.4); White Blood Count 4.9 K/mm3 (4.4-11.0)
[2017-09-03 07:43] LABS: Scan Indicated on CBC? Y/N YES- FLAGS NOTED
[2017-09-03 07:48] LABS: Anion Gap 10 (5-15); BUN 20 mg/dL (7-18); BUN/Creat Ratio 18.3 RATIO (10-20); Chloride 99 mmol/L (98-107); Creatinine, Serum 1.09 mg/dL (0.55-1.02); EST Glomerular Filtration Rate 52 mL/min (>60); Est Glom Filt Rate - Afr Amer 63 mL/min (>60); Glucose 95 mg/dL (74-106); Sodium Level 142 mmol/L (136-145)
--- NOTE | 2017-09-03 07:51 | NURSING ---
pt with episodes of nonsustaining a-fib w/ RVR. pt's rhythm goes back into SR or Stach. Per Dr. Fernandez's note, he is aware
[2017-09-03] MEDS: Docusate Sodium 100 MG Capsule PO ×2 (08:43→21:26)
[2017-09-03] MEDS: Aspirin 81 MG TAB.CHEW PO (08:43)
[2017-09-03 08:55] LABS: Differential Comment SCANNED
--- NOTE | 2017-09-03 10:28 | PCM.PN.CARD ---
Subjectve: Patient markedly improved over yesterday. Diuresing nicely. Net -7 L since admission, and lower extremity edema has markedly improved although still present. Patient reports that her shortness of breath has improved but still not able to lay down flat. Chest x-ray yesterday demonstrated a large right pleural effusion and a moderate-sized left pleural effusion. Telemetry overnight showed normal sinus rhythm with occasional atrial fibrillation with rapid ventricular response, PVC. Objective: Vital Signs Temp Pulse Resp BP Pulse Ox 97.8 F 89 16 102/54 L 94 09/03/17 09:10 09/03/17 09:10 09/03/17 09:10 09/03/17 09:10 09/03/17 09:10 Oxygen Flow Rate (L/min) 2 Oxygen Delivery Method Room Air Weight: 154 lb 8.705 oz Body Mass Index (BMI) 32.4 Intake and Output for Last 24 Hours 09/01/17 09/02/17 09/03/17 23:59 23:59 23:59 Intake Total 960 / 960 774.5 / 774.5 131.2 / 131.2 Output Total 1550 / 1550 6150 / 6150 2300 / 2300 Balance -590 / -590 -5375.5 / -5375.5 -2168.8 / -2168.8 General: Awake, Alert, Oriented x 3 HEENT: PERRL, EOMI, Sclera Non Icteric Neck: Supple, Good ROM, No Lymph Node Enlargement Lungs: Diminished Iker Bases, Dullness to Percussion-Iker Cardiovascular: Regular Rhythm, Normal S1, Normal S2, No Rubs, No Gallops Murmur Murmur: Grade 3/6, Crescendo-Decrescendo Vascular: No Carotid Bruits, Normal Femoral Pulses, Normal Radial Pulses, Normal Dorsalis Pedal Pulse, Normal Posterior Tibial Pulses Abdomen: Bowel Sounds Present, Soft, Non Tender, No HSM, No Organomegaly Extremities: No Cyanosis, No Clubbing, Bilateral Edema +2 Neurological: No Focal Motor or Sensory Deficit 09/03/17 06:40: Sodium 142, Potassium 3.0 L, Chloride 99, Carbon Dioxide 33.0 H, Anion Gap 10, BUN 20 H, Creatinine 1.09 H, Est GFR (MDRD) Af Amer 63, Est GFR (MDRD) Non-Af 52 L, BUN/Creatinine Ratio 18.3, Glucose 95, Calcium 9.0 09/03/17 06:40: WBC 4.9, RBC 5.07, Hgb 13.3, Hct 42.9, MCV 84.6, MCH 26.2 L, MCHC 31.0 L, RDW 18.3 H, RDW Differential 54.8 H, Plt Count 76 L, MPV TNP Rhythm: EKG: ECHO: Stress Test: Cardiac Cath: PCI: CT Surgery: Holter monitor: EPS: PPM: CXR: Chest CT Scan: Medical Necessity - Tobacco Use Smoking Status: Never smoker Assessment/Plan 1. 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 Her 2 sisters appeared to improve, but she never quite felt better. She has evidence of severe biventricular failure with bilateral pleural effusions, right greater than left, bilateral lower extremity edema, orthopnea, PND. Given the patient's massive fluid overload, I recommend that we start her on a Bumex drip at 0.5 mg/h, followed by metolazone 2.5 mg ?1 which occurred on 09/02/17.. With this therapy so far the patient has had a net -7 L out, and markedly improved lower extremity edema although her pleural effusions appear to be about the same. A Crandall has already been started. In addition I would recommend holding beta-ramakrishna therapy until she is optimized her dry weight, and would recommend a 1500 cc fluid restriction until she is reached her dry weight. When she is able to lay down flat, she will require a repeat left and right heart catheterization to assess her pulmonary pressures, and coronary anatomy. Would not recommend any more metolazone unless her diuresis markedly drops off. In the meantime, would recommend Bumex drip for at least 1 more day, potassium and magnesium replacement. Ideally we would hope to get her back to her dry weight prior to catheterization. She may require at least right-sided pleurocentesis to assist with her pleural effusion in order to facilitate her laying down flat. Would hold off on anticoagulation at this time. It is possible the patient may have contracted a viral illness in June [address] to a viral cardiomyopathy. Previous echocardiograms would be very helpful. Unfortunately the patient does not recall her previous mobile product manager. In addition to may be beneficial for therapeutic thoracentesis particularly of the right pleural space. Will reassess chest x-ray on Tuesday morning. 2. Aortic valve replacement: We will need to try and get a hold of her previous mobile product manager to determine when her LV function deteriorated. The patient has a generalized learning disability, and may not fully recall the specifics of her cardiac issues. Patient's bioprosthetic aortic valve is approximately 11 years old, and may require replacement if this is an option given her severe LV dysfunction. 3. Lower extremity edema: I agree with DVT prophylaxis as well as Stalin bandage wraps to facilitate venous return. 4. Paroxysmal atrial fibrillation: While she is undergoing diuresis she had episodes of atrial fibrillation although she appears to be in sinus rhythm this morning. We will hold off on anticoagulation at this time given her pleural effusions. 5. Discussed with Dr. Lee. Thank you very much for the opportunity to participate in the cardiac care of your patient. Code Visit Inpatient E&M: 76078 Subs Hosp L2
--- NOTE | 2017-09-03 10:34 | PN.CARD_ITS ---
Subjectve: Patient markedly improved over yesterday. Diuresing nicely. Net -7 L since admission, and lower extremity edema has markedly improved although still present. Patient reports that her shortness of breath has improved but still not able to lay down flat. Chest x-ray yesterday demonstrated a large right pleural effusion and a moderate-sized left pleural effusion. Telemetry overnight showed normal sinus rhythm with occasional atrial fibrillation with rapid ventricular response, PVC. Objective: Vital Signs Temp Pulse Resp BP Pulse Ox 97.8 F 89 16 102/54 L 94 09/03/17 09:10 09/03/17 09:10 09/03/17 09:10 09/03/17 09:10 09/03/17 09:10 Oxygen Flow Rate (L/min) 2 Oxygen Delivery Method Room Air Weight: 154 lb 8.705 oz Body Mass Index (BMI) 32.4 Intake and Output for Last 24 Hours 09/01/17 09/02/17 09/03/17 23:59 23:59 23:59 Intake Total 960 / 960 774.5 / 774.5 131.2 / 131.2 Output Total 1550 / 1550 6150 / 6150 2300 / 2300 Balance -590 / -590 -5375.5 / -5375.5 -2168.8 / -2168.8 General: Awake, Alert, Oriented x 3 HEENT: PERRL, EOMI, Sclera Non Icteric Neck: Supple, Good ROM, No Lymph Node Enlargement Lungs: Diminished Iker Bases, Dullness to Percussion-Iker Cardiovascular: Regular Rhythm, Normal S1, Normal S2, No Rubs, No Gallops Murmur Murmur: Grade 3/6, Crescendo-Decrescendo Vascular: No Carotid Bruits, Normal Femoral Pulses, Normal Radial Pulses, Normal Dorsalis Pedal Pulse, Normal Posterior Tibial Pulses Abdomen: Bowel Sounds Present, Soft, Non Tender, No HSM, No Organomegaly Extremities: No Cyanosis, No Clubbing, Bilateral Edema +2 Neurological: No Focal Motor or Sensory Deficit 09/03/17 06:40: Sodium 142, Potassium 3.0 L, Chloride 99, Carbon Dioxide 33.0 H , Anion Gap 10, BUN 20 H, Creatinine 1.09 H, Est GFR (MDRD) Af Amer 63, Est GFR (MDRD) Non-Af 52 L, BUN/Creatinine Ratio 18.3, Glucose 95, Calcium 9.0 09/03/17 06:40: WBC 4.9, RBC 5.07, Hgb 13.3, Hct 42.9, MCV 84.6, MCH 26.2 L, MCHC 31.0 L, RDW 18.3 H, RDW Differential 54.8 H, Plt Count 76 L, MPV TNP Rhythm: EKG: ECHO: Stress Test: Cardiac Cath: PCI: CT Surgery: Holter monitor: EPS: PPM: CXR: Chest CT Scan: Medical Necessity - Tobacco Use Smoking Status: Never smoker Assessment/Plan 1. 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 Her 2 sisters appeared to improve, but she never quite felt better. She has evidence of severe biventricular failure with bilateral pleural effusions, right greater than left, bilateral lower extremity edema, orthopnea, PND. Given the patient's massive fluid overload, I recommend that we start her on a Bumex drip at 0.5 mg/h, followed by metolazone 2.5 mg ?1 which occurred on .. With this therapy so far the patient has had a net -7 L out, and markedly improved lower extremity edema although her pleural effusions appear to be about the same. A Crandall has already been started. In addition I would recommend holding beta-ramakrishna therapy until she is optimized her dry weight, and would recommend a 1500 cc fluid restriction until she is reached her dry weight. When she is able to lay down flat, she will require a repeat left and right heart catheterization to assess her pulmonary pressures, and coronary anatomy. Would not recommend any more metolazone unless her diuresis markedly drops off. In the meantime, would recommend Bumex drip for at least 1 more day, potassium and magnesium replacement. Ideally we would hope to get her back to her dry weight prior to catheterization. She may require at least right-sided pleurocentesis to assist with her pleural effusion in order to facilitate her laying down flat. Would hold off on anticoagulation at this time. It is possible the patient may have contracted a viral illness in June [address] to a viral cardiomyopathy. Previous echocardiograms would be very helpful. 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 In addition to may be beneficial for therapeutic thoracentesis particularly of the right pleural space. Will reassess chest x-ray on Tuesday morning. 2. Aortic valve replacement: We will need to try and get a hold of her previous laboratory miller to determine when her LV function deteriorated. The patient has a generalized learning disability, and may not fully recall the specifics of her cardiac issues. Patient's bioprosthetic aortic valve is approximately 11 years old, and may require replacement if this is an option given her severe LV dysfunction. 3. Lower extremity edema: I agree with DVT prophylaxis as well as Stalin bandage wraps to facilitate venous return. 4. Paroxysmal atrial fibrillation: While she is undergoing diuresis she had episodes of atrial fibrillation although she appears to be in sinus rhythm this morning. We will hold off on anticoagulation at this time given her pleural effusions. 5. Discussed with Dr. Lee. Thank you very much for the opportunity to participate in the cardiac care of your patient. Code Visit Inpatient E&M: 55746 Subs Hosp L2
--- NOTE | 2017-09-03 15:30 | PCM.PROGNOTE ---
Patient Problems: Active and Suspected Problems CHF (congestive heart failure) (Acute) Lower extremity edema (Acute) Cardiomyopathy (Acute) Subjective: She feels better today. She is still having dyspnea with mild exertion, but doing much better since the time of admission. - Physical Exam General: Alert, Oriented x3, Cooperative HEENT: Atraumatic, PERRLA, Normocephalic Neck: Supple, No JVD Lungs: Rales - mild at bases. Cardiovascular: Regular rate, Regular Rhythm, Normal S1, Normal S2, No murmurs, No Ectopic Activity Abdomen: Bowel Sounds Present, Soft, Non Tender, Non-Distended, No Hepato-splenomegaly Extremities: No clubbing, No cyanosis, Edema - SHAISTA wrap to lower extremities bilaterally. No edema above knee. Skin: No rashes, No breakdown Musculoskeletal: No Tenderness to Palpation of Joints or Extremities, No Muscle Wasting Lymphatic: No Cervical, Supraclavicular, or Inguinal Adenopathy Neurological: Cranial nerves II-XII grossly intact, Neuro grossly intact Psych/Mental Status: Normal Affect Vital Signs Temp Pulse Resp BP Pulse Ox 98.1 F 114 H 18 101/60 94 09/03/17 15:28 09/03/17 15:28 09/03/17 15:28 09/03/17 15:28 09/03/17 15:28 Oxygen Flow Rate (L/min) 2 Oxygen Delivery Method Room Air Weight: 154 lb 8.705 oz Body Mass Index (BMI) 32.4 Intake and Output for Last 24 Hours 09/01/17 09/02/17 09/03/17 23:59 23:59 23:59 Intake Total 960 / 960 774.5 / 774.5 371.2 / 371.2 Output Total 1550 / 1550 6150 / 6150 3100 / 3100 Balance -590 / -590 -5375.5 / -5375.5 -2728.8 / -2728.8 Laboratory Tests Past 24 Hrs 09/03/17 09/03/17 06:40 06:40 WBC 4.9 RBC 5.07 Hgb 13.3 Hct 42.9 MCV 84.6 MCH 26.2 L MCHC 31.0 L RDW 18.3 H RDW Differential 54.8 H Plt Count 76 L MPV TNP Differential Comment SCANNED Sodium 142 Potassium 3.0 L Chloride 99 Carbon Dioxide 33.0 H Anion Gap 10 BUN 20 H Creatinine 1.09 H Estim Creat Clear Calc 35.20 Est GFR (MDRD) Af Amer 63 Est GFR (MDRD) Non-Af 52 L BUN/Creatinine Ratio 18.3 Glucose 95 Calcium 9.0 Diagnostic Data Chest X-Ray 09/01/17 10:30 IMPRESSION: CHF with small bilateral pleural effusions and bibasilar atelectasis. Elevation of the right hemidiaphragm. Electronically Signed: Lloyd Johnson MD at 10:56 EDT Tel [phone], Service support , Medical Necessity - Tobacco Use Smoking Status: Never smoker Assessment/Plan Active and Suspected Problems CHF (congestive heart failure) (Acute) Lower extremity edema (Acute) Cardiomyopathy (Acute) Patient is a 72-year-old lady presented with progressive shortness of breath and assessment of acute congestive heart failure made admitted to monitored bed for subsequent management. She had aortic valve replacement in 2006, but since then she did not have any medical care. Her sister said that she was healthy and did not have any problems. #1 Acute congestive heart failure: With bi-ventricular systolic failure and diastolic dysfunction. Patient has been admitted to monitored bed managed with strict input and output, daily weights, fluid restriction to 1500 cc per 24 hours, IV Lasix. 2D echo showed: Severely dilated left ventricle. The estimated ejection fraction is 10-15 %. There is severe global hypokinesis of the left ventricle. Stage 2 diastolic dysfunction. Moderately dilated right ventricle. Moderately severe global right ventricular systolic dysfunction. The left atrium is mildly enlarged. Mild (1+) tricuspid valve insufficiency. Right ventricular systolic pressure estimated to be 42 mmHg. Mild pulmonary hypertension. Moderate aortic stenosis. Trivial aortic valve insufficiency. Moderate size left pleural effusion. Because of severe global dysfunction, cardiology was consulted. She was started on Bumex 0.5 mg/hr GGT. She has negative fluid balance 8.5 liter, and weight loss of 17 lbs. Continue Bumex drip. Monitor BMP closely. plan to repeat CXR on Tuesday. If she has persisting pleural effusion, consider thoracentesis. #2 History of aortic valve replacement. Patient is not aware of the history however sister suspect patient had a bioprosthetic valve and echo has been ordered for further evaluation as stated above #3 Learning disability ~ supportive care #4 Chronic stasis dermatitis involving both lower extremities #5 Thrombocytopenia. Etiology is not clear. No previous labs to compare. Monitor CBC. DVT prophylaxis bilateral TRA hoses for now Lovenox discontinued in view of low platelet counts. GIP prophylaxis: PPI po. She is full code. Disposition: To be determined. PT/OT. Code Visit Inpatient E&M: 68249 Subs Hosp L2
--- NOTE | 2017-09-03 15:44 | PN_ITS ---
Patient Problems: Active and Suspected Problems CHF (congestive heart failure) (Acute) Lower extremity edema (Acute) Cardiomyopathy (Acute) Subjective: She feels better today. She is still having dyspnea with mild exertion, but doing much better since the time of admission. - Physical Exam General: Alert, Oriented x3, Cooperative HEENT: Atraumatic, PERRLA, Normocephalic Neck: Supple, No JVD Lungs: Rales - mild at bases. Cardiovascular: Regular rate, Regular Rhythm, Normal S1, Normal S2, No murmurs, No Ectopic Activity Abdomen: Bowel Sounds Present, Soft, Non Tender, Non-Distended, No Hepato- splenomegaly Extremities: No clubbing, No cyanosis, Edema - SHAISTA wrap to lower extremities bilaterally. No edema above knee. Skin: No rashes, No breakdown Musculoskeletal: No Tenderness to Palpation of Joints or Extremities, No Muscle Wasting Lymphatic: No Cervical, Supraclavicular, or Inguinal Adenopathy Neurological: Cranial nerves II-XII grossly intact, Neuro grossly intact Psych/Mental Status: Normal Affect Vital Signs Temp Pulse Resp BP Pulse Ox 98.1 F 114 H 18 101/60 94 09/03/17 15:28 09/03/17 15:28 09/03/17 15:28 09/03/17 15:28 09/03/17 15:28 Oxygen Flow Rate (L/min) 2 Oxygen Delivery Method Room Air Weight: 154 lb 8.705 oz Body Mass Index (BMI) 32.4 Intake and Output for Last 24 Hours 09/01/17 09/02/17 09/03/17 23:59 23:59 23:59 Intake Total 960 / 960 774.5 / 774.5 371.2 / 371.2 Output Total 1550 / 1550 6150 / 6150 3100 / 3100 Balance -590 / -590 -5375.5 / -5375.5 -2728.8 / -2728.8 Laboratory Tests Past 24 Hrs 09/03/17 09/03/17 06:40 06:40 WBC 4.9 RBC 5.07 Hgb 13.3 Hct 42.9 MCV 84.6 MCH 26.2 L MCHC 31.0 L RDW 18.3 H RDW Differential 54.8 H Plt Count 76 L MPV TNP Differential Comment SCANNED Sodium 142 Potassium 3.0 L Chloride 99 Carbon Dioxide 33.0 H Anion Gap 10 BUN 20 H Creatinine 1.09 H Estim Creat Clear Calc 35.20 Est GFR (MDRD) Af Amer 63 Est GFR (MDRD) Non-Af 52 L BUN/Creatinine Ratio 18.3 Glucose 95 Calcium 9.0 Diagnostic Data Chest X-Ray 09/01/17 10:30 IMPRESSION: CHF with small bilateral pleural effusions and bibasilar atelectasis. Elevation of the right hemidiaphragm. Electronically Signed: Lloyd Johnson MD at 10:56 EDT Tel [phone], Service support , Medical Necessity - Tobacco Use Smoking Status: Never smoker Assessment/Plan Active and Suspected Problems CHF (congestive heart failure) (Acute) Lower extremity edema (Acute) Cardiomyopathy (Acute) Patient is a 72-year-old lady presented with progressive shortness of breath and assessment of acute congestive heart failure made admitted to monitored bed for subsequent management. She had aortic valve replacement in 2006, but since then she did not have any medical care. Her sister said that she was healthy and did not have any problems. #1 Acute congestive heart failure: With bi-ventricular systolic failure and diastolic dysfunction. Patient has been admitted to monitored bed managed with strict input and output , daily weights, fluid restriction to 1500 cc per 24 hours, IV Lasix. 2D echo showed: Severely dilated left ventricle. The estimated ejection fraction is 10-15 %. There is severe global hypokinesis of the left ventricle. Stage 2 diastolic dysfunction. Moderately dilated right ventricle. Moderately severe global right ventricular systolic dysfunction. The left atrium is mildly enlarged. Mild (1+) tricuspid valve insufficiency. Right ventricular systolic pressure estimated to be 42 mmHg. Mild pulmonary hypertension. Moderate aortic stenosis. Trivial aortic valve insufficiency. Moderate size left pleural effusion. Because of severe global dysfunction, cardiology was consulted. She was started on Bumex 0.5 mg/hr GGT. She has negative fluid balance 8.5 liter, and weight loss of 17 lbs. Continue Bumex drip. Monitor BMP closely. plan to repeat CXR on Tuesday. If she has persisting pleural effusion, consider thoracentesis. #2 History of aortic valve replacement. Patient is not aware of the history however sister suspect patient had a bioprosthetic valve and echo has been ordered for further evaluation as stated above #3 Learning disability ~ supportive care #4 Chronic stasis dermatitis involving both lower extremities #5 Thrombocytopenia. Etiology is not clear. No previous labs to compare. Monitor CBC. DVT prophylaxis bilateral TRA hoses for now Lovenox discontinued in view of low platelet counts. GIP prophylaxis: PPI po. She is full code. Disposition: To be determined. PT/OT. Code Visit Inpatient E&M: 57039 Subs Hosp L2
[2017-09-04] VITALS (15 sets, daily range): BP systolic 80–112; BP diastolic 48–68; PULSE 72–108; RESP 16–18; TEMP 36.4–36.9; O2SAT 93–99
[2017-09-04 06:12] LABS: Hematocrit 46.2 % (37-47); Hemoglobin 14.5 g/dl (12.0-15.0); Mean Corp Hgb Conc 31.4 g/gl (32-36); Mean Corpuscular Hgb 26.1 pg (27.0-32.0); Mean Corpuscular Volume 83.2 fL (81-99); Mean Platelet Vol. 13.2 fl (6.2-12.0); Platelet Count 108 K/mm3 (150-450); RBC Distribution Width CV 18.5 % (11.6-14.6); RBC Distribution Width SD 55.3 fl (35.1-43.9); Red Blood Count 5.55 M/mm3 (4.2-5.4); White Blood Count 6.4 K/mm3 (4.4-11.0)
[2017-09-04 06:14] LABS: Scan Indicated on CBC? Y/N NO
[2017-09-04 06:19] LABS: Anion Gap 7 (5-15); BUN 21 mg/dL (7-18); BUN/Creat Ratio 17.9 RATIO (10-20); Calcium,Total 9.4 mg/dL (8.5-10.1); Chloride 90 mmol/L (98-107); Creatinine, Serum 1.17 mg/dL (0.55-1.02); EST Glomerular Filtration Rate 48 mL/min (>60); Est Glom Filt Rate - Afr Amer 58 mL/min (>60); Glucose 103 mg/dL (74-106); Potassium 3.1 mmol/L (3.5-5.1); Sodium Level 137 mmol/L (136-145)
[2017-09-04] MEDS: Enoxaparin 40 MG/0.4 ML Syringe SC (09:03)
[2017-09-04] MEDS: Docusate Sodium 100 MG Capsule PO ×2 (09:03→23:04)
[2017-09-04] MEDS: Pantoprazole Sodium 20 MG Tablet PO (09:04)
[2017-09-04] MEDS: Aspirin 81 MG TAB.CHEW PO (09:04)
--- NOTE | 2017-09-04 09:55 | PCM.PN.CARD ---
Subjectve: Patient continues to slowly improve, lower extremity edema markedly improved almost back to baseline, patient reports improved shortness of breath but still not able to completely lay down flat. Telemetry shows normal sinus rhythm with PVC and 5 beats of nonsustained V. tach. Patient is approximately 15 L negative since initiating IV diuresis with Bumex drip. Objective: Vital Signs Temp Pulse Resp BP Pulse Ox 98.4 F 89 16 112/68 95 09/04/17 03:25 09/04/17 07:52 09/04/17 03:25 09/04/17 03:25 09/04/17 07:17 Oxygen Flow Rate (L/min) 2 Oxygen Delivery Method Room Air Weight: 138 lb 7.205 oz Body Mass Index (BMI) 32.4 Intake and Output for Last 24 Hours 09/02/17 09/03/17 09/04/17 23:59 23:59 23:59 Intake Total 774.5 / 774.5 754.2 / 754.2 354.3 / 354.3 Output Total 6150 / 6150 6750 / 6750 4600 / 4600 Balance -5375.5 / -5375.5 -5995.8 / -5995.8 -4245.7 / -4245.7 General: Awake, Alert, Oriented x 3 HEENT: PERRL, EOMI, Sclera Non Icteric Neck: Supple, Good ROM, No Lymph Node Enlargement Lungs: Clear to auscultation Cardiovascular: Regular Rhythm, Normal S1, Normal S2, No Rubs, No Gallops Murmur Murmur: Grade 3/6, Crescendo-Decrescendo Vascular: No Carotid Bruits, Normal Femoral Pulses, Normal Radial Pulses, Normal Dorsalis Pedal Pulse, Normal Posterior Tibial Pulses Abdomen: Bowel Sounds Present, Soft, Non Tender, No HSM, No Organomegaly Extremities: No Cyanosis, No Clubbing, No edema Neurological: No Focal Motor or Sensory Deficit 09/04/17 05:58: Sodium 137, Potassium 3.1 L, Chloride 90 L, Carbon Dioxide 40.0 H, Anion Gap 7, BUN 21 H, Creatinine 1.17 H, Est GFR (MDRD) Af Amer 58 L, Est GFR (MDRD) Non-Af 48 L, BUN/Creatinine Ratio 17.9, Glucose 103, Calcium 9.4 09/04/17 05:58: WBC 6.4, RBC 5.55 H, Hgb 14.5, Hct 46.2, MCV 83.2, MCH 26.1 L, MCHC 31.4 L, RDW 18.5 H, RDW Differential 55.3 H, Plt Count 108 L, MPV 13.2 H Rhythm: EKG: ECHO: Stress Test: Cardiac Cath: PCI: CT Surgery: Holter monitor: EPS: PPM: CXR: Chest CT Scan: Medical Necessity - Tobacco Use Smoking Status: Never smoker Assessment/Plan 1. 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 Her 2 sisters appeared to improve, but she never quite felt better. She has evidence of severe biventricular failure with bilateral pleural effusions, right greater than left, bilateral lower extremity edema, orthopnea, PND. Since initiating IV Bumex drip, and metolazone ?1, the patient has had a fairly decent diuresis of approximately 15 L, or around 30 pounds. A Crandall has already been started and would recommend continuing this until diuresis has been completed. In addition I would recommend holding beta-ramakrishna therapy until she is optimized her dry weight, and would recommend a 1500 cc fluid restriction until she is reached her dry weight. When she is able to lay down flat, she will require a repeat left and right heart catheterization to assess her pulmonary pressures, and coronary anatomy. Would not recommend any more metolazone unless her diuresis markedly drops off. Recommend discontinuation of IV Bumex drip, and starting her on Lasix 40 mg p.o. daily for maintenance at this time. In addition we will start her on Cozaar 25 mg p.o. daily for afterload reduction. We will repeat her PA and lateral chest x-ray tomorrow to determine if she requires a thoracentesis. She may require at least right-sided pleurocentesis to assist with her pleural effusion in order to facilitate her laying down flat. Would hold off on anticoagulation at this time. It is possible the patient may have contracted a viral illness in June [address] to a viral cardiomyopathy. Previous echocardiograms would be very helpful. 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 I am hesitant to place the patient on anticoagulant therapy despite her severe LV dysfunction and would recommend repeat echocardiogram in 3 months time to determine if her LV function has improved. The patient may require a transient LifeVest to prevent sudden cardiac . Recommend replacement of potassium to keep it above 4.0. Patient may require periodic metolazone 2.5 mg either weekly or 2 times per week to maintain euvolemic. 2. Aortic valve replacement: We will need to try and get a hold of her previous assistant real estate manager to determine when her LV function deteriorated. The patient has a generalized learning disability, and may not fully recall the specifics of her cardiac issues. Patient's bioprosthetic aortic valve is approximately 11 years old, and may require replacement if this is an option given her severe LV dysfunction. 3. Lower extremity edema: I agree with DVT prophylaxis as well as Stalin bandage wraps to facilitate venous return. 4. Paroxysmal atrial fibrillation: While she is undergoing diuresis she had episodes of atrial fibrillation although she appears to be in sinus rhythm this morning. We will hold off on anticoagulation at this time given her pleural effusions. 5. Thank you very much for the opportunity to participate in the cardiac care of your patient. Code Visit Inpatient E&M: 27209 Subs Hosp L2
[2017-09-04] MEDS: Furosemide 40 MG Tablet PO (11:17)
[2017-09-04] MEDS: Losartan Potassium 25 MG Tablet PO (11:18)
--- NOTE | 2017-09-04 11:36 | PCM.PROGNOTE ---
Patient Problems: Active and Suspected Problems CHF (congestive heart failure) (Acute) Lower extremity edema (Acute) Cardiomyopathy (Acute) Subjective: She feels well today, improved breathing. She denied of any dizziness, palpitations, or chest pain. - Physical Exam General: Alert, Oriented x3, Cooperative HEENT: Atraumatic, PERRLA, Normocephalic Neck: Supple, No JVD Lungs: Rales - mild at bases. Cardiovascular: Regular rate, Regular Rhythm, Normal S1, Normal S2, No murmurs, No Ectopic Activity Abdomen: Bowel Sounds Present, Soft, Non Tender, Non-Distended, No Hepato-splenomegaly Extremities: No clubbing, No cyanosis, Edema - SHAISTA wrap to lower extremities bilaterally. No edema above knee. Skin: No rashes, No breakdown Musculoskeletal: No Tenderness to Palpation of Joints or Extremities, No Muscle Wasting Lymphatic: No Cervical, Supraclavicular, or Inguinal Adenopathy Neurological: Cranial nerves II-XII grossly intact, Neuro grossly intact Psych/Mental Status: Normal Affect - Physical Exam Vital Signs Temp Pulse Resp BP Pulse Ox 97.5 F L 96 16 101/53 L 93 09/04/17 09:25 09/04/17 10:00 09/04/17 10:00 09/04/17 09:25 09/04/17 10:00 Oxygen Flow Rate (L/min) 2 Oxygen Delivery Method Room Air Weight: 138 lb 7.205 oz Body Mass Index (BMI) 32.4 Intake and Output for Last 24 Hours 09/02/17 09/03/17 09/04/17 23:59 23:59 23:59 Intake Total 774.5 / 774.5 754.2 / 754.2 354.3 / 354.3 Output Total 6150 / 6150 6750 / 6750 4600 / 4600 Balance -5375.5 / -5375.5 -5995.8 / -5995.8 -4245.7 / -4245.7 Laboratory Tests Past 24 Hrs 09/04/17 09/04/17 05:58 05:58 WBC 6.4 RBC 5.55 H Hgb 14.5 Hct 46.2 MCV 83.2 MCH 26.1 L MCHC 31.4 L RDW 18.5 H RDW Differential 55.3 H Plt Count 108 L MPV 13.2 H Sodium 137 Potassium 3.1 L Chloride 90 L Carbon Dioxide 40.0 H Anion Gap 7 BUN 21 H Creatinine 1.17 H Estim Creat Clear Calc 32.80 Est GFR (MDRD) Af Amer 58 L Est GFR (MDRD) Non-Af 48 L BUN/Creatinine Ratio 17.9 Glucose 103 Calcium 9.4 Diagnostic Data Chest X-Ray 09/01/17 10:30 IMPRESSION: CHF with small bilateral pleural effusions and bibasilar atelectasis. Elevation of the right hemidiaphragm. Electronically Signed: Lloyd Johnson MD at 10:56 EDT Tel [phone], Service support , Medical Necessity - Tobacco Use Smoking Status: Never smoker Assessment/Plan Active and Suspected Problems CHF (congestive heart failure) (Acute) Lower extremity edema (Acute) Cardiomyopathy (Acute) Patient is a 72-year-old lady presented with progressive shortness of breath and assessment of acute congestive heart failure made admitted to monitored bed for subsequent management. She had aortic valve replacement in 2006, but since then she did not have any medical care. Her sister said that she was healthy and did not have any problems. #1 Acute congestive heart failure with systolic dysfunction. With bi-ventricular systolic failure and diastolic dysfunction. Patient has been admitted to monitored bed managed with strict input and output, daily weights, fluid restriction to 1500 cc per 24 hours, IV Lasix. Because of severe global dysfunction, cardiology was consulted. She was started on Bumex 0.5 mg/hr GGT (09/02). She has negative fluid balance 16 liter since admission, with weight reduction of 33 lbs. Bumex drip discontinued on 09/04, start Lasix 40 mg po qd. She may need sporadic use of metolazone. Losartan 25 mg po qd started. Plan to repeat CXR on Tuesday. If she has persisting pleural effusion, consider thoracentesis. 2D echo showed: Severely dilated left ventricle. The estimated ejection fraction is 10-15 %. There is severe global hypokinesis of the left ventricle. Stage 2 diastolic dysfunction. Moderately dilated right ventricle. Moderately severe global right ventricular systolic dysfunction. The left atrium is mildly enlarged. Mild (1+) tricuspid valve insufficiency. Right ventricular systolic pressure estimated to be 42 mmHg. Mild pulmonary hypertension. Moderate aortic stenosis. Trivial aortic valve insufficiency. Moderate size left pleural effusion. #2 History of aortic valve replacement. Patient is not aware of the history however sister suspect patient had a bioprosthetic valve. Echo result as above. She has moderate . #3 Learning disability ~ supportive care #4 Chronic stasis dermatitis involving both lower extremities. Continue skin care. #5 Thrombocytopenia. Etiology is not clear. No previous labs to compare. 74,000 at lowest, improved to 108,000. Monitor CBC. #6 Paroxysmal atrial fibrillation. Transient episodes. Converted back to sinus rhythm. Continue telemetry monitoring. Anticoagulation was not recommended at this time given for pleural effusion per cardiology. DVT prophylaxis bilateral TRA hoses SHAISTA wrap for now Lovenox discontinued in view of low platelet counts. Start heparin SQ for improved platelet count (09/04) GIP prophylaxis: PPI po. She is full code. Disposition: To be determined. PT/OT. Code Visit Inpatient E&M: 87895 Subs Hosp L3
--- NOTE | 2017-09-04 11:49 | PN_ITS ---
Patient Problems: Active and Suspected Problems CHF (congestive heart failure) (Acute) Lower extremity edema (Acute) Cardiomyopathy (Acute) Subjective: She feels well today, improved breathing. She denied of any dizziness, palpitations, or chest pain. - Physical Exam General: Alert, Oriented x3, Cooperative HEENT: Atraumatic, PERRLA, Normocephalic Neck: Supple, No JVD Lungs: Rales - mild at bases. Cardiovascular: Regular rate, Regular Rhythm, Normal S1, Normal S2, No murmurs, No Ectopic Activity Abdomen: Bowel Sounds Present, Soft, Non Tender, Non-Distended, No Hepato- splenomegaly Extremities: No clubbing, No cyanosis, Edema - SHAISTA wrap to lower extremities bilaterally. No edema above knee. Skin: No rashes, No breakdown Musculoskeletal: No Tenderness to Palpation of Joints or Extremities, No Muscle Wasting Lymphatic: No Cervical, Supraclavicular, or Inguinal Adenopathy Neurological: Cranial nerves II-XII grossly intact, Neuro grossly intact Psych/Mental Status: Normal Affect - Physical Exam Vital Signs Temp Pulse Resp BP Pulse Ox 97.5 F L 96 16 101/53 L 93 09/04/17 09:25 09/04/17 10:00 09/04/17 10:00 09/04/17 09:25 09/04/17 10:00 Oxygen Flow Rate (L/min) 2 Oxygen Delivery Method Room Air Weight: 138 lb 7.205 oz Body Mass Index (BMI) 32.4 Intake and Output for Last 24 Hours 09/02/17 09/03/17 09/04/17 23:59 23:59 23:59 Intake Total 774.5 / 774.5 754.2 / 754.2 354.3 / 354.3 Output Total 6150 / 6150 6750 / 6750 4600 / 4600 Balance -5375.5 / -5375.5 -5995.8 / -5995.8 -4245.7 / -4245.7 Laboratory Tests Past 24 Hrs 09/04/17 09/04/17 05:58 05:58 WBC 6.4 RBC 5.55 H Hgb 14.5 Hct 46.2 MCV 83.2 MCH 26.1 L MCHC 31.4 L RDW 18.5 H RDW Differential 55.3 H Plt Count 108 L MPV 13.2 H Sodium 137 Potassium 3.1 L Chloride 90 L Carbon Dioxide 40.0 H Anion Gap 7 BUN 21 H Creatinine 1.17 H Estim Creat Clear Calc 32.80 Est GFR (MDRD) Af Amer 58 L Est GFR (MDRD) Non-Af 48 L BUN/Creatinine Ratio 17.9 Glucose 103 Calcium 9.4 Diagnostic Data Chest X-Ray 09/01/17 10:30 IMPRESSION: CHF with small bilateral pleural effusions and bibasilar atelectasis. Elevation of the right hemidiaphragm. Electronically Signed: Lloyd Johnson MD at 10:56 EDT Tel [phone], Service support , Medical Necessity - Tobacco Use Smoking Status: Never smoker Assessment/Plan Active and Suspected Problems CHF (congestive heart failure) (Acute) Lower extremity edema (Acute) Cardiomyopathy (Acute) Patient is a 72-year-old lady presented with progressive shortness of breath and assessment of acute congestive heart failure made admitted to monitored bed for subsequent management. She had aortic valve replacement in 2006, but since then she did not have any medical care. Her sister said that she was healthy and did not have any problems. #1 Acute congestive heart failure with systolic dysfunction. With bi-ventricular systolic failure and diastolic dysfunction. Patient has been admitted to monitored bed managed with strict input and output , daily weights, fluid restriction to 1500 cc per 24 hours, IV Lasix. Because of severe global dysfunction, cardiology was consulted. She was started on Bumex 0.5 mg/hr GGT (09/02). She has negative fluid balance 16 liter since admission, with weight reduction of 33 lbs. Bumex drip discontinued on 09/04, start Lasix 40 mg po qd. She may need sporadic use of metolazone. Losartan 25 mg po qd started. Plan to repeat CXR on Tuesday. If she has persisting pleural effusion, consider thoracentesis. 2D echo showed: Severely dilated left ventricle. The estimated ejection fraction is 10-15 %. There is severe global hypokinesis of the left ventricle. Stage 2 diastolic dysfunction. Moderately dilated right ventricle. Moderately severe global right ventricular systolic dysfunction. The left atrium is mildly enlarged. Mild (1+) tricuspid valve insufficiency. Right ventricular systolic pressure estimated to be 42 mmHg. Mild pulmonary hypertension. Moderate aortic stenosis. Trivial aortic valve insufficiency. Moderate size left pleural effusion. #2 History of aortic valve replacement. Patient is not aware of the history however sister suspect patient had a bioprosthetic valve. Echo result as above. She has moderate . #3 Learning disability ~ supportive care #4 Chronic stasis dermatitis involving both lower extremities. Continue skin care. #5 Thrombocytopenia. Etiology is not clear. No previous labs to compare. 74,000 at lowest, improved to 108,000. Monitor CBC. #6 Paroxysmal atrial fibrillation. Transient episodes. Converted back to sinus rhythm. Continue telemetry monitoring. Anticoagulation was not recommended at this time given for pleural effusion per cardiology. DVT prophylaxis bilateral TRA hoses SHAISTA wrap for now Lovenox discontinued in view of low platelet counts. Start heparin SQ for improved platelet count (09/04 ) GIP prophylaxis: PPI po. She is full code. Disposition: To be determined. PT/OT. Code Visit Inpatient E&M: 32718 Subs Hosp L3
[2017-09-05] VITALS (12 sets, daily range): BP systolic 68–95; BP diastolic 37–66; PULSE 83–101; RESP 14–18; TEMP 36.4–36.8; O2SAT 93–97
[2017-09-05] MEDS: 0.9% NaCl Peripheral Flush Adult/Peds IV (06:17)
[2017-09-05 06:22] LABS: Hemoglobin 14.4 g/dl (12.0-15.0); Mean Corp Hgb Conc 31.3 g/gl (32-36); Mean Corpuscular Hgb 26.4 pg (27.0-32.0); Mean Corpuscular Volume 84.4 fL (81-99); Mean Platelet Vol. 13.3 fl (6.2-12.0); Platelet Count 115 K/mm3 (150-450); RBC Distribution Width CV 18.3 % (11.6-14.6); RBC Distribution Width SD 55.8 fl (35.1-43.9); Red Blood Count 5.45 M/mm3 (4.2-5.4); White Blood Count 6.4 K/mm3 (4.4-11.0)
[2017-09-05 06:40] LABS: Scan Indicated on CBC? Y/N NO
[2017-09-05 06:42] LABS: Anion Gap 7 (5-15); BUN 24 mg/dL (7-18); BUN/Creat Ratio 21.6 RATIO (10-20); Calcium,Total 8.9 mg/dL (8.5-10.1); Chloride 90 mmol/L (98-107); Creatinine, Serum 1.11 mg/dL (0.55-1.02); EST Glomerular Filtration Rate 51 mL/min (>60); Est Glom Filt Rate - Afr Amer 62 mL/min (>60); Estimated Creatinine Clearance 34.57 ml/min; Glucose 91 mg/dL (74-106); Potassium 3.2 mmol/L (3.5-5.1); Sodium Level 138 mmol/L (136-145)
--- NOTE | 2017-09-05 07:00 | RAD_ITS ---
STUDY: X-RAY CHEST REASON FOR EXAM: Female, 72 years old. History of CHF. TECHNIQUE: PA and lateral views of the chest. COMPARISON: Comparison is made with prior study dated September 01, 2017. FINDINGS: EKG electrodes are seen. Since prior study, there has been a moderate degree of improvement of the CHF. There is evidence of residual small right pleural effusion with underlying atelectasis. Mild blunting of left costophrenic angle. Sternal cerclage wires and vascular clips are present from a prior sternotomy and coronary artery bypass graft procedure (CABG). Normal mediastinum and micaela. Normal visualized pulmonary arteries. There is atherosclerotic calcification of the aortic arch with tortuosity. There are diffuse degenerative changes of the visualized thoracic spine. Normal visualized ribs, clavicles, and shoulders. There is no demonstrated abnormality of the visualized soft tissue structures of the upper abdomen. RAD/Chest PA and Lateral IMPRESSION: Moderate improvement in the CHF with residual small right pleural effusion with underlying atelectasis and/or infiltrate. Electronically Signed: Lloyd Johnson MD at 9:29 EDT Tel [phone], Service support ,
[2017-09-05] MEDS: Aspirin 81 MG TAB.CHEW PO (08:04)
[2017-09-05] MEDS: Docusate Sodium 100 MG Capsule PO ×2 (09:17→21:15)
[2017-09-05] MEDS: Furosemide 40 MG Tablet PO (09:18)
[2017-09-05] MEDS: Pantoprazole Sodium 20 MG Tablet PO (09:18)
--- NOTE | 2017-09-05 10:56 | PCM.PN.CARD ---
Subjectve: Patient looking markedly better, reports improved appetite, chest x-ray today shows markedly improved right-sided and left-sided pleural effusion. It does not appear the patient would benefit from thoracentesis on the right at this time. She is diuresing nicely, her lower extremities are much better, her EKG shows normal sinus rhythm with PACs and a rare 5 beat run of nonsustained ventricular tachycardia. Patient slightly hypotensive with systolic pressure in the 90s. Objective: Vital Signs Temp Pulse Resp BP Pulse Ox 97.8 F 94 18 95/66 97 09/05/17 09:20 09/05/17 09:20 09/05/17 09:20 09/05/17 09:20 09/05/17 09:20 Oxygen Flow Rate (L/min) 2 Oxygen Delivery Method Room Air Weight: 135 lb 9.349 oz Body Mass Index (BMI) 32.4 Intake and Output for Last 24 Hours 09/03/17 09/04/17 09/05/17 23:59 23:59 23:59 Intake Total 754.2 / 754.2 1054.3 / 1054.3 440 / 440 Output Total 6750 / 6750 6200 / 6200 775 / 775 Balance -5995.8 / -5995.8 -5145.7 / -5145.7 -335 / -335 General: Awake, Alert, Oriented x 3 HEENT: PERRL, EOMI, Sclera Non Icteric Neck: Supple, Good ROM, No Lymph Node Enlargement Lungs: Clear to auscultation, Diminished Right Base Cardiovascular: Regular Rhythm, Normal S1, Normal S2, No Rubs, No Gallops Murmur Murmur: Grade 3/6, Crescendo-Decrescendo Vascular: No Carotid Bruits, Normal Femoral Pulses, Normal Radial Pulses, Normal Dorsalis Pedal Pulse, Normal Posterior Tibial Pulses Abdomen: Bowel Sounds Present, Soft, Non Tender, No HSM, No Organomegaly Extremities: No Cyanosis, No Clubbing, No edema Neurological: No Focal Motor or Sensory Deficit 09/05/17 05:58: WBC 6.4, RBC 5.45 H, Hgb 14.4, Hct 46.0, MCV 84.4, MCH 26.4 L, MCHC 31.3 L, RDW 18.3 H, RDW Differential 55.8 H, Plt Count 115 L, MPV 13.3 H 09/05/17 05:58: Sodium 138, Potassium 3.2 L, Chloride 90 L, Carbon Dioxide 41.0 H, Anion Gap 7, BUN 24 H, Creatinine 1.11 H, Est GFR (MDRD) Af Amer 62, Est GFR (MDRD) Non-Af 51 L, BUN/Creatinine Ratio 21.6 H, Glucose 91, Calcium 8.9 Rhythm: EKG: ECHO: Stress Test: Cardiac Cath: PCI: CT Surgery: Holter monitor: EPS: PPM: CXR: Chest CT Scan: Medical Necessity - Tobacco Use Smoking Status: Never smoker Assessment/Plan 1. 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 Her 2 sisters appeared to improve, but she never quite felt better. She has evidence of severe biventricular failure with bilateral pleural effusions, right greater than left, bilateral lower extremity edema, orthopnea, PND. Since initiating IV Bumex drip, and metolazone ?1, the patient has had a fairly decent diuresis of approximately 15 L, or around 30 pounds which is now beginning to slow since switching over to p.o. Lasix.. A Crandall has already been started and would recommend continuing this until diuresis has been completed. In addition I would recommend holding beta-ramakrishna therapy until she is optimized her dry weight, and would recommend a 1500 cc fluid restriction until she is reached her dry weight. When she is able to lay down flat, she will require a repeat left and right heart catheterization to assess her pulmonary pressures, and coronary anatomy. Would not recommend any more metolazone unless her diuresis markedly drops off. Recommended discontinuation of IV Bumex drip, and starting her on Lasix 40 mg p.o. daily for maintenance at this time. Repeat chest x-ray this morning shows markedly improved right-sided pleural effusion however it is still present. I do not believe the patient would benefit from thoracentesis on the right side at this time given the improvement. We will cancel thoracentesis for right now. Patient may eat this morning. Would hold off on anticoagulation at this time. It is possible the patient may have contracted a viral illness in June [address] to a viral cardiomyopathy. Previous echocardiograms would be very helpful. 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 I am hesitant to place the patient on anticoagulant therapy despite her severe LV dysfunction and would recommend repeat echocardiogram in 3 months time to determine if her LV function has improved. The patient may require a transient LifeVest to prevent sudden cardiac . Recommend replacement of potassium to keep it above 4.0. Patient may require periodic metolazone 2.5 mg either weekly or 2 times per week to maintain euvolemic state. 2. 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 The patient has a generalized learning disability, and may not fully recall the specifics of her cardiac issues. Patient's bioprosthetic aortic valve is approximately 11 years old, and may require replacement if this is an option given her severe LV dysfunction. Patient's sisters will return this afternoon and hopefully will have a chance to talk with them about getting her old records, as well as proceeding with catheterization. 3. Lower extremity edema: I agree with DVT prophylaxis as well as Stalin bandage wraps to facilitate venous return. 4. Paroxysmal atrial fibrillation: While she is undergoing diuresis she had episodes of atrial fibrillation although she appears to be in sinus rhythm this morning. We will hold off on anticoagulation at this time given her pleural effusions. 5. Thank you very much for the opportunity to participate in the cardiac care of your patient. Code Visit Inpatient E&M: 21770 Subs Hosp L2
[2017-09-05] MEDS: Enoxaparin 40 MG/0.4 ML Syringe SC (10:58)
[2017-09-05] MEDS: Acetaminophen 325 MG Tablet 650 MG PO (12:56)
--- NOTE | 2017-09-05 15:31 | PCM.PN.HOSP ---
Patient Problems: Active and Suspected Problems CHF (congestive heart failure) (Acute) Lower extremity edema (Acute) Cardiomyopathy (Acute) Subjective: Patient was seen and examined. Complains of abdominal discomfort since morning. Denies chest pain or worsening shortness of breath Objective: Physical Exam General: Alert, Oriented x3, Cooperative HEENT: Atraumatic, PERRLA, Normocephalic Neck: Supple, No JVD Lungs: Rales - mild at bases. Cardiovascular: Regular rate, Regular Rhythm, Normal S1, Normal S2, No murmurs, No Ectopic Activity Abdomen: Bowel Sounds Present, Soft, Non Tender, Non-Distended, No Hepato-splenomegaly Extremities: No clubbing, No cyanosis, Edema - STALIN wrap to lower extremities bilaterally. No edema above knee. Skin: No rashes, No breakdown Musculoskeletal: No Tenderness to Palpation of Joints or Extremities, No Muscle Wasting Lymphatic: No Cervical, Supraclavicular, or Inguinal Adenopathy Neurological: Cranial nerves II-XII grossly intact, Neuro grossly intact Psych/Mental Status: Normal Affect Vitals/I&O's: Vital Signs Temp Pulse Resp BP Pulse Ox 97.8 F 99 18 95/66 97 09/05/17 09:20 09/05/17 14:59 09/05/17 09:20 09/05/17 09:20 09/05/17 09:20 Oxygen Flow Rate (L/min) 2 Oxygen Delivery Method Room Air Weight: 61.5 kg Body Mass Index (BMI) 32.4 Intake and Output for Last 24 Hours 09/03/17 09/04/17 09/05/17 23:59 23:59 23:59 Intake Total 754.2 / 754.2 1054.3 / 1054.3 680 / 680 Output Total 6750 / 6750 6200 / 6200 1375 / 1375 Balance -5995.8 / -5995.8 -5145.7 / -5145.7 -695 / -695 Laboratory Results 09/05/17 05:58: WBC 6.4, RBC 5.45 H, Hgb 14.4, Hct 46.0, MCV 84.4, MCH 26.4 L, MCHC 31.3 L, RDW 18.3 H, RDW Differential 55.8 H, Plt Count 115 L, MPV 13.3 H 09/05/17 05:58: Sodium 138, Potassium 3.2 L, Chloride 90 L, Carbon Dioxide 41.0 H, Anion Gap 7, BUN 24 H, Creatinine 1.11 H, Estim Creat Clear Calc 34.57, Est GFR (MDRD) Af Amer 62, Est GFR (MDRD) Non-Af 51 L, BUN/Creatinine Ratio 21.6 H, Glucose 91, Calcium 8.9 Current Medications Acetaminophen (Tylenol) 650 mg PO Q6H PRN PRN PRN Reason: Mild Pain (scale 0-3)/T>100.7 Last Admin: 09/05/17 12:56 Dose: 650 mg Al Hydroxide/Mg Hydroxide (Mylanta Ii) 30 ml PO Q6H PRN PRN PRN Reason: Gastric burning Aspirin (Aspirin, Baby) 81 mg PO DAILY@0800 [facility] Last Admin: 09/05/17 08:04 Dose: 81 mg Docusate Sodium (Colace) 100 mg PO BID [facility] Last Admin: 09/05/17 09:17 Dose: 100 mg Enoxaparin Sodium (Lovenox) 40 mg SC DAILY@1000 [facility] Last Admin: 09/05/17 10:58 Dose: 40 mg Furosemide (Lasix) 40 mg PO DAILY [facility] Last Admin: 09/05/17 09:18 Dose: 40 mg Magnesium Hydroxide (Milk Of Magnesia) 30 ml PO DAILY PRN PRN Reason: Constipation Multi-Ingredient Cream (Eucerin) 1 applic TOPICAL BID [facility] PRN Reason: Protocol Last Admin: 09/05/17 09:18 Dose: 1 applicatio Ondansetron HCl (Zofran) 4 mg IV Q8H PRN PRN PRN Reason: NAUSEA Oxycodone HCl (Oxyir) 5 mg PO Q4H PRN PRN PRN Reason: Moderate Pain (pain scale 4-5) Pantoprazole Sodium (Protonix) 20 mg PO DAILY [facility] Last Admin: 09/05/17 09:18 Dose: 20 mg Potassium [facility]Dur[facility] Last Admin: 09/05/17 08:04 Dose: 20 meq Psyllium Hydrophilic Mucilloid (Metamucil) 1 packet PO DAILY PRN PRN PRN Reason: CONSTIPATION Sodium Chloride () 5 - 30 ml IV UD PRN PRN Reason: SALINE FLUSH Last Admin: 03/19/18 06:17 Dose: 10 ml Zolpidem Tartrate (Ambien (Generic)) 5 mg PO QHS PRN PRN PRN Reason: INSOMNIA Medical Necessity - Tobacco Use Smoking Status: Never smoker Tobacco Use: Non-smoker Assessment/Plan Active and Suspected Problems CHF (congestive heart failure) (Acute) Lower extremity edema (Acute) Cardiomyopathy (Acute) 72-year-old lady admitted with progressive shortness of breath and managed as acute biventricular congestive heart failure. 1. Acute biventricular congestive heart failure, EF 10-15% with severe global hypokinesis and stage II diastolic dysfunction, pulmonary hypertension with moderate aortic stenosis. Patient underlying etiology for the severe global hypokinesis is on today, pathology following, plans on both left and right heart cath when patient can lie flat patient appears well diuresed, lost almost 8 kg over the last 2 days. She has good urine output, patient is relatively hypotensive with systolic in the 80s, asymptomatic, switched to oral Lasix 40, losartan stopped. Chest x-ray shows moderate improvement in CHF with residual small right pleural effusion. Plan: Decrease Lasix to 20 mg p.o. daily in light of hypotension, continue to monitor vitals closely with strict I's and O's, to hold up in the light of hypertension, 2. Hypokalemia, replaced, started on daily replacement, recheck BMP in a.m. 3. Hypotension, relative, secondary to medication side effect, meds adjusted, narcotic medications held 4. History of aortic valve replacement, now with moderate aortic stenosis 5. Learning disability 6. Bilateral leg edema secondary to acute CHF and chronic stasis dermatitis, this was Stalin wraps 7. Thrombocytopenia, Improved and stable at 115 compared to previous values 76 and 108. 8. Paroxysmal atrial fibrillation, in NSR 9. DVT prophylaxis - On Lovenox SC Code Visit Inpatient E&M: 78423 Subs Hosp L2
--- NOTE | 2017-09-05 15:52 | PN_ITS ---
Patient Problems: Active and Suspected Problems CHF (congestive heart failure) (Acute) Lower extremity edema (Acute) Cardiomyopathy (Acute) Subjective: Patient was seen and examined. Complains of abdominal discomfort since morning. Denies chest pain or worsening shortness of breath Objective: Physical Exam General: Alert, Oriented x3, Cooperative HEENT: Atraumatic, PERRLA, Normocephalic Neck: Supple, No JVD Lungs: Rales - mild at bases. Cardiovascular: Regular rate, Regular Rhythm, Normal S1, Normal S2, No murmurs, No Ectopic Activity Abdomen: Bowel Sounds Present, Soft, Non Tender, Non-Distended, No Hepato- splenomegaly Extremities: No clubbing, No cyanosis, Edema - STALIN wrap to lower extremities bilaterally. No edema above knee. Skin: No rashes, No breakdown Musculoskeletal: No Tenderness to Palpation of Joints or Extremities, No Muscle Wasting Lymphatic: No Cervical, Supraclavicular, or Inguinal Adenopathy Neurological: Cranial nerves II-XII grossly intact, Neuro grossly intact Psych/Mental Status: Normal Affect Vitals/I&O's: Vital Signs Temp Pulse Resp BP Pulse Ox 97.8 F 99 18 95/66 97 09/05/17 09:20 09/05/17 14:59 09/05/17 09:20 09/05/17 09:20 09/05/17 09:20 Oxygen Flow Rate (L/min) 2 Oxygen Delivery Method Room Air Weight: 61.5 kg Body Mass Index (BMI) 32.4 Intake and Output for Last 24 Hours 09/03/17 09/04/17 09/05/17 23:59 23:59 23:59 Intake Total 754.2 / 754.2 1054.3 / 1054.3 680 / 680 Output Total 6750 / 6750 6200 / 6200 1375 / 1375 Balance -5995.8 / -5995.8 -5145.7 / -5145.7 -695 / -695 Laboratory Results 09/05/17 05:58: WBC 6.4, RBC 5.45 H, Hgb 14.4, Hct 46.0, MCV 84.4, MCH 26.4 L, MCHC 31.3 L, RDW 18.3 H, RDW Differential 55.8 H, Plt Count 115 L, MPV 13.3 H 09/05/17 05:58: Sodium 138, Potassium 3.2 L, Chloride 90 L, Carbon Dioxide 41.0 H, Anion Gap 7, BUN 24 H, Creatinine 1.11 H, Estim Creat Clear Calc 34.57, Est GFR (MDRD) Af Amer 62, Est GFR (MDRD) Non-Af 51 L, BUN/Creatinine Ratio 21.6 H, Glucose 91, Calcium 8.9 Current Medications Acetaminophen (Tylenol) 650 mg PO Q6H PRN PRN PRN Reason: Mild Pain (scale 0-3)/T>100.7 Last Admin: 09/05/17 12:56 Dose: 650 mg Al Hydroxide/Mg Hydroxide (Mylanta Ii) 30 ml PO Q6H PRN PRN PRN Reason: Gastric burning Aspirin (Aspirin, Baby) 81 mg PO DAILY@0800 [facility] Last Admin: 09/05/17 08:04 Dose: 81 mg Docusate Sodium (Colace) 100 mg PO BID [facility] Last Admin: 09/05/17 09:17 Dose: 100 mg Enoxaparin Sodium (Lovenox) 40 mg SC DAILY@1000 [facility] Last Admin: 09/05/17 10:58 Dose: 40 mg Furosemide (Lasix) 40 mg PO DAILY [facility] Last Admin: 09/05/17 09:18 Dose: 40 mg Magnesium Hydroxide (Milk Of Magnesia) 30 ml PO DAILY PRN PRN Reason: Constipation Multi-Ingredient Cream (Eucerin) 1 applic TOPICAL BID [facility] PRN Reason: Protocol Last Admin: 09/05/17 09:18 Dose: 1 applicatio Ondansetron HCl (Zofran) 4 mg IV Q8H PRN PRN PRN Reason: NAUSEA Oxycodone HCl (Oxyir) 5 mg PO Q4H PRN PRN PRN Reason: Moderate Pain (pain scale 4-5) Pantoprazole Sodium (Protonix) 20 mg PO DAILY [facility] Last Admin: 09/05/17 09:18 Dose: 20 mg Potassium Ch[facility] (K[facility]) [facility] Last Admin: 09/05/17 08:04 Dose: 20 meq Psyllium Hydrophilic Mucilloid (Metamucil) 1 packet PO DAILY PRN PRN PRN Reason: CONSTIPATION Sodium Chloride () 5 - 30 ml IV UD PRN PRN Reason: SALINE FLUSH Last Admin: 03/19/18 06:17 Dose: 10 ml Zolpidem Tartrate (Ambien (Generic)) 5 mg PO QHS PRN PRN PRN Reason: INSOMNIA Medical Necessity - Tobacco Use Smoking Status: Never smoker Tobacco Use: Non-smoker Assessment/Plan Active and Suspected Problems CHF (congestive heart failure) (Acute) Lower extremity edema (Acute) Cardiomyopathy (Acute) 72-year-old lady admitted with progressive shortness of breath and managed as acute biventricular congestive heart failure. 1. Acute biventricular congestive heart failure, EF 10-15% with severe global hypokinesis and stage II diastolic dysfunction, pulmonary hypertension with moderate aortic stenosis. Patient underlying etiology for the severe global hypokinesis is on today, pathology following, plans on both left and right heart cath when patient can lie flat patient appears well diuresed, lost almost 8 kg over the last 2 days. She has good urine output, patient is relatively hypotensive with systolic in the 80s, asymptomatic, switched to oral Lasix 40, losartan stopped. Chest x- ray shows moderate improvement in CHF with residual small right pleural effusion. Plan: Decrease Lasix to 20 mg p.o. daily in light of hypotension, continue to monitor vitals closely with strict I's and O's, to hold up in the light of hypertension, 2. Hypokalemia, replaced, started on daily replacement, recheck BMP in a.m. 3. Hypotension, relative, secondary to medication side effect, meds adjusted, narcotic medications held 4. History of aortic valve replacement, now with moderate aortic stenosis 5. Learning disability 6. Bilateral leg edema secondary to acute CHF and chronic stasis dermatitis, this was Stalin wraps 7. Thrombocytopenia, Improved and stable at 115 compared to previous values 76 and 108. 8. Paroxysmal atrial fibrillation, in NSR 9. DVT prophylaxis - On Lovenox SC Code Visit Inpatient E&M: 49686 Subs Hosp L2
[2017-09-05] MEDS: MELATONIN 3 MG TABLET PO (21:15)
[2017-09-06] VITALS (14 sets, daily range): BP systolic 84–100; BP diastolic 48–68; PULSE 78–95; RESP 16–18; TEMP 36.3–36.8; O2SAT 93–97
--- NOTE | 2017-09-06 05:43 | NURSING ---
This RN reviewed charting completed by chief nursing executive Finn Denis and agrees with completed charting.
--- NOTE | 2017-09-06 08:59 | CM.UR ---
Plan for patient to undergo heart cath this admission. The patient's primary insurance is [facility] so patient may transfer to tertiary facility of choice. SALLIE GravesN, RN-BC, CCM
[2017-09-06] MEDS: Aspirin 81 MG TAB.CHEW PO (10:19)
[2017-09-06] MEDS: Docusate Sodium 100 MG Capsule PO ×2 (10:20→21:33)
[2017-09-06] MEDS: Enoxaparin 40 MG/0.4 ML Syringe SC (10:21)
[2017-09-06] MEDS: Pantoprazole Sodium 20 MG Tablet PO (10:22)
--- NOTE | 2017-09-06 12:38 | PCM.PN.CARD ---
Subjectve: Patient continues to improve markedly, and was able to lay down flat all last night for the first time in many weeks. No 24 hour events. Telemetry showed normal sinus rhythm with 10 beats of nonsustained ventricular tachycardia. Diuresis slowing down. Objective: Vital Signs Temp Pulse Resp BP Pulse Ox 98.2 F 89 16 92/68 97 09/06/17 10:20 09/06/17 10:39 09/06/17 10:20 09/06/17 10:20 09/06/17 10:20 Oxygen Flow Rate (L/min) 2 Oxygen Delivery Method Room Air Weight: 132 lb 0.91 oz Body Mass Index (BMI) 32.4 Intake and Output for Last 24 Hours 09/04/17 09/05/17 09/06/17 23:59 23:59 23:59 Intake Total 1054.3 / 1054.3 920 / 920 250 / 250 Output Total 6200 / 6200 1725 / 1725 475 / 475 Balance -5145.7 / -5145.7 -805 / -805 -225 / -225 General: Awake, Alert, Oriented x 3 HEENT: PERRL, EOMI, Sclera Non Icteric Neck: Supple, Good ROM, No Lymph Node Enlargement Lungs: Clear to auscultation Cardiovascular: Regular Rhythm, Normal S1, Normal S2, No Rubs, No Gallops Murmur Murmur: Grade 3/6, Crescendo-Decrescendo Vascular: No Carotid Bruits, Normal Femoral Pulses, Normal Radial Pulses, Normal Dorsalis Pedal Pulse, Normal Posterior Tibial Pulses Abdomen: Bowel Sounds Present, Soft, Non Tender, No HSM, No Organomegaly Extremities: No Cyanosis, No Clubbing, No edema Neurological: No Focal Motor or Sensory Deficit Rhythm: EKG: ECHO: Stress Test: Cardiac Cath: PCI: CT Surgery: Holter monitor: EPS: PPM: CXR: Chest CT Scan: Medical Necessity - Tobacco Use Smoking Status: Never smoker Tobacco Use: Non-smoker Assessment/Plan 1. 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 Her 2 sisters appeared to improve, but she never quite felt better. She has evidence of severe biventricular failure with bilateral pleural effusions, right greater than left, bilateral lower extremity edema, orthopnea, PND. Since initiating IV Bumex drip, and metolazone ?1, the patient has had a fairly decent diuresis of approximately 15 L, or around 30 pounds which is now beginning to slow since switching over to p.o. Lasix.. A Crandall has already been started and would recommend continuing this until diuresis has been completed. In addition I would recommend holding beta-ramakrishna therapy until she is optimized her dry weight, and would recommend a 1500 cc fluid restriction until she is reached her dry weight. When she is able to lay down flat, she will require a repeat left and right heart catheterization to assess her pulmonary pressures, and coronary anatomy. Patient's diuresis has slowly tapered off, but I believe she will require higher doses of Lasix going forward when she goes home. We will increase Lasix to 40 mg p.o. daily. Repeat chest x-ray this morning shows markedly improved right-sided pleural effusion however it is still present. I do not believe the patient would benefit from thoracentesis on the right side at this time given the improvement. We will cancel thoracentesis for right now. Patient may eat this morning. Would hold off on anticoagulation at this time until after catheterization is been completed. It is possible the patient may have contracted a viral illness in June [address] to a viral cardiomyopathy. Previous echocardiograms would be very helpful. Unfortunately the patient does not recall her previous neurological surgery teacher. I am hesitant to place the patient on anticoagulant therapy despite her severe LV dysfunction and would recommend repeat echocardiogram in 3 months time to determine if her LV function has improved. The patient may require a transient LifeVest to prevent sudden cardiac . Recommend replacement of potassium to keep it above 4.0. Patient may require periodic metolazone 2.5 mg either weekly or 2 times per week to maintain euvolemic state. Since the patient has been able to lay down flat overnight, I believe it is appropriate to proceed with repeat left heart catheterization to define her coronary anatomy. In anticipation of possible intervention we will load her with 300 mg of Plavix tonight followed by 75 mg daily. If she does not require any intervention would discontinue Plavix and continue baby aspirin. Patient will then be evaluated for chronic anticoagulation therapy given her severe LV dysfunction, severe right ventricular dysfunction, and increased risk for DVT, pulmonary embolism, and LV apical thrombi. The risks/benefits of the procedure were thoroughly explained to the patient and her sister last evening, 09/05/17 in the presence of the patient's brother as well. Specific attention was paid to lack of on-site surgical backup, and the patient has agreed to proceed with left heart catheterization. We will plan for this tomorrow morning. 2. Aortic valve replacement: We will need to try and get a hold of her previous neurological surgery teacher to determine when her LV function deteriorated. The patient has a generalized learning disability, and may not fully recall the specifics of her cardiac issues. Patient's bioprosthetic aortic valve is approximately 11 years old, and may require replacement if this is an option given her severe LV dysfunction. Patient's sisters will return this afternoon and hopefully will have a chance to talk with them about getting her old records, as well as proceeding with catheterization. 3. Lower extremity edema: I agree with DVT prophylaxis as well as Stalin bandage wraps to facilitate venous return. 4. Paroxysmal atrial fibrillation: While she is undergoing diuresis she had episodes of atrial fibrillation although she appears to be in sinus rhythm this morning. We will hold off on anticoagulation at this time given her pleural effusions need for catheterization. However recommend anticoagulation after catheterizations been completed. 5. Thank you very much for the opportunity to participate in the cardiac care of your patient. Code Visit Inpatient E&M: 18953 Subs Hosp L2
[2017-09-06] MEDS: Clopidogrel Bisulfate 300 MG Tablet PO (14:16)
--- NOTE | 2017-09-06 18:27 | PCM.PN.HOSP ---
Patient Problems: Active and Suspected Problems CHF (congestive heart failure) (Acute) Lower extremity edema (Acute) Cardiomyopathy (Acute) Subjective: Patient was seen and examined. BP remains low. Off any BP meds and narcotics. Patient is completely asymptomatic. Denies any worsening SOB, chest pain, dizziness or light-headedness. Objective: Physical Exam General: Alert, Oriented x3, Cooperative HEENT: Atraumatic, PERRLA, Normocephalic Neck: Supple, No JVD Lungs: Diminished at lung bases but clinically clear to auscultation Cardiovascular: Regular rate, Regular Rhythm, Normal S1, Normal S2, No murmurs, No Ectopic Activity Abdomen: Bowel Sounds Present, Soft, Non Tender, Non-Distended, No Hepato-splenomegaly Extremities: No clubbing, No cyanosis, Edema - STALIN wrap to lower extremities bilaterally. No edema above knee. Skin: No rashes, No breakdown Musculoskeletal: No Tenderness to Palpation of Joints or Extremities, No Muscle Wasting Lymphatic: No Cervical, Supraclavicular, or Inguinal Adenopathy Neurological: Cranial nerves II-XII grossly intact, Neuro grossly intact Psych/Mental Status: Normal Affect Vitals/I&O's: Vital Signs Temp Pulse Resp BP Pulse Ox 97.9 F 89 16 100/50 L 96 09/06/17 17:27 09/06/17 17:27 09/06/17 17:27 09/06/17 17:27 09/06/17 17:27 Oxygen Flow Rate (L/min) 2 Oxygen Delivery Method Room Air Weight: 59.9 kg Body Mass Index (BMI) 32.4 Intake and Output for Last 24 Hours 09/04/17 09/05/17 09/06/17 23:59 23:59 23:59 Intake Total 1054.3 / 1054.3 920 / 920 870 / 870 Output Total 6200 / 6200 1725 / 1725 955 / 955 Balance -5145.7 / -5145.7 -805 / -805 -85 / -85 Current Medications Acetaminophen (Tylenol) 650 mg PO Q6H PRN PRN PRN Reason: Mild Pain (scale 0-3)/T>100.7 Last Admin: 09/05/17 12:56 Dose: 650 mg Al Hydroxide/Mg Hydroxide (Mylanta Ii) 30 ml PO Q6H PRN PRN PRN Reason: Gastric burning Aspirin (Aspirin, Baby) 81 mg PO DAILY@0800 [facility] Last Admin: 09/06/17 10:19 Dose: 81 mg Clopidogrel Bisulfate (Plavix) 75 mg PO DAILY [facility] Diphenhydramine HCl (Benadryl) 50 mg PO X1 ONE Stop: 09/07/17 07:01 Docusate Sodium (Colace) 100 mg PO BID [facility] Last Admin: 09/06/17 10:20 Dose: 100 mg Enoxaparin Sodium (Lovenox) 40 mg SC DAILY@1000 [facility] Last Admin: 09/06/17 10:21 Dose: 40 mg Furosemide (Lasix) 40 mg PO DAILY [facility] Sodium Chloride () 1,000 mls @ 0 mls/hr IV .Q0M [facility] PRN Reason: KVO Magnesium Hydroxide (Milk Of Magnesia) 30 ml PO DAILY PRN PRN Reason: Constipation Melatonin (Melatonin) 3 mg PO QHS PRN PRN Reason: INSOMNIA Last Admin: 09/05/17 21:15 Dose: 3 mg Multi-Ingredient Cream (Eucerin) 1 applic TOPICAL BID [facility] PRN Reason: Protocol Last Admin: 09/06/17 10:20 Dose: 1 applicatio Ondansetron HCl (Zofran) 4 mg IV Q8H PRN PRN PRN Reason: NAUSEA Pantoprazole Sodium (Protonix) 20 mg PO DAILY [facility] Last Admin: 09/06/17 10:22 Dose: 20 mg Potassium Chloride (K-Dur) 20 meq PO DAILYCM [facility] Last Admin: 09/06/17 10:19 Dose: 20 meq Psyllium Hydrophilic Mucilloid (Metamucil) 1 packet PO DAILY PRN PRN PRN Reason: CONSTIPATION Sodium Chloride () 5 - 30 ml IV UD PRN PRN Reason: SALINE FLUSH Last Admin: 09/05/17 06:17 Dose: 10 ml Medical Necessity - Tobacco Use Smoking Status: Never smoker Tobacco Use: Non-smoker Assessment/Plan Active and Suspected Problems CHF (congestive heart failure) (Acute) Lower extremity edema (Acute) Cardiomyopathy (Acute) 72-year-old lady admitted with progressive shortness of breath and managed as acute biventricular congestive heart failure. 1. Acute biventricular congestive heart failure, EF 10-15% with severe global hypokinesis and stage II diastolic dysfunction, pulmonary hypertension with moderate aortic stenosis. 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 Cardiology following, Cardiac cath planned for tomorrow. Off Lasix on account of hypotension. Plan: Continue on lasix to 20 mg p.o. daily, strict I's and O's, 2. Hypokalemia, replaced, on daily replacement, BMP in a.m. 3. Hypotension, relative, secondary to medication side effect, meds adjusted, narcotic medications held, will continue to monitor 4. History of aortic valve replacement, now with moderate aortic stenosis 5. Learning disability 6. Bilateral leg edema secondary to acute CHF and chronic stasis dermatitis, this was Stalin wraps 7. Thrombocytopenia, Improved and stable at 115 compared to previous values 76 and 108. 8. Paroxysmal atrial fibrillation, in NSR, off anticoagulation for now. 9. DVT prophylaxis - On Lovenox SC Code Visit Inpatient E&M: 51792 Subs Hosp L2
[2017-09-06] MEDS: MELATONIN 3 MG TABLET PO (21:33)
[2017-09-06] MEDS: Ondansetron 4 MG/2 ML Vial IV (21:33)
[2017-09-06] MEDS: 0.9% NaCl Peripheral Flush Adult/Peds IV (21:33)
[2017-09-07] VITALS (15 sets, daily range): BP systolic 86–103; BP diastolic 53–67; PULSE 68–102; RESP 16; TEMP 36.5–36.8; O2SAT 94–99
[2017-09-07] MEDS: 0.9% NaCl Peripheral Flush Adult/Peds IV (04:59)
[2017-09-07] MEDS: 0.9% Normal Saline 1,000 ML 15 ML IV (04:59)
[2017-09-07 05:24] LABS: Mucous, Urine 0 SEEN /hpf (<or=2+)
[2017-09-07 05:31] LABS: Absolute Lymphocyte Count 0.77 X10^3/ul (0.83-4.51); Basophil# 0.03 X10^3/uL; Basophil% 0.5 % (0-1); Eosinophil# 0.26 X10^3/uL; Eosinophils% 4.5 % (0-5); Hematocrit 43.6 % (37-47); Hemoglobin 13.4 g/dl (12.0-15.0); Lymphocyte # 0.77 X10^3/ul (4.0); Lymphocyte % 13.4 % (19-41); Mean Corp Hgb Conc 30.7 g/gl (32-36); Mean Corpuscular Hgb 26.3 pg (27.0-32.0); Mean Corpuscular Volume 85.5 fL (81-99); Monocyte# 0.69 X10^3/uL; Neutrophil # 3.98 X10^3/uL (2.7-7.7); Neutrophil % 69.4 % (47-70); Platelet Count 116 K/mm3 (150-450); RBC Distribution Width CV 18.1 % (11.6-14.6); RBC Distribution Width SD 56.2 fl (35.1-43.9); White Blood Count 5.7 K/mm3 (4.4-11.0)
[2017-09-07 05:33] LABS: Color, Urine Amber (Yellow); Glucose, Dipstick Normal (Normal); Ketone-Dipstick Negative (Negative); Leukocyte Esterase-Dipstick 500 /ul (Negative); Nitrite-Dipstick Negative (Negative); Occult Blood-Urine 250 /ul (Negative); Protein-Dipstick 100 mg/dl (Negative); Specific Gravity, Urine 1.015 (1.002-1.030); Urine Clarity Turbid (Clear); Urine Urobilinogen 8 mg/dl (Normal)
[2017-09-07 05:45] LABS: Anion Gap 7 (5-15); BUN 31 mg/dL (7-18); BUN/Creat Ratio 30.4 RATIO (10-20); Calcium,Total 8.7 mg/dL (8.5-10.1); Chloride 96 mmol/L (98-107); Creatinine, Serum 1.02 mg/dL (0.55-1.02); EST Glomerular Filtration Rate 57 mL/min (>60); Est Glom Filt Rate - Afr Amer 68 mL/min (>60); Estimated Creatinine Clearance 37.62 ml/min; Glucose 100 mg/dL (74-106); Potassium 3.6 mmol/L (3.5-5.1); Sodium Level 138 mmol/L (136-145)
[2017-09-07 05:47] LABS: POSITIVE COUNT NO; POSITIVE DIFFERENTIAL NO; POSITIVE MORPHOLOGY NO
[2017-09-07] MEDS: Aspirin 81 MG TAB.CHEW PO (05:56)
[2017-09-07] MEDS: Clopidogrel Bisulfate 75 MG Tablet PO (05:57)
[2017-09-07 06:02] LABS: Urine Bilirubin Dipstick 1 mg/dL (Negative)
[2017-09-07 06:03] LABS: Bacteria 2+ /hpf (None Seen); Red Blood Cells-Urine 25-50 SEEN /hpf (0-5); Squamous Epithelial Cells - UA 0-5 SEEN /hpf (5-10); White Blood Cells 25-50 SEEN /hpf (0-5)
[2017-09-07 06:03] LABS: International Normalized Ratio 1.1; Prothrombin Time (Protime)PT. 14.3 SECONDS (11.7-14.9)
[2017-09-07] MEDS: DiphenhydrAMINE 25 MG Capsule 50 MG PO (10:50)
--- NOTE | 2017-09-07 11:45 | CL.D_ITS ---
Patient Name: ELISEO ZAMORA Study Date: 09/07/2017 Performing: Brandt Fernandez MD Ht: 61 inches 154.94 cm : 1945 Wt: 131 lbs 59.421 kg Age: 72 Gender: female BSA: 1.58 PROCEDURE(S) PERFORMED [id number] ROOT ANGIO WITH HEART CATH CLINICAL PROFILE AND INDICATIONS INDICATIONS: Valvular heart disease, Aortic valve stenosis, Dilated Idiopathic Cardiomyopathy, Co ngestive Heart Failure, New onset with suspected CAD Stress/Imaging Stress/Image Study Performed: No Angina Classification Anginal Classification w/in 2 Weeks: CCS IV Comorbidities/Risk Factors: Hypertension Prior CHF Prior Valve Surgery/Procedure CONCLUSIONS Non obstructive coronary arteries Cardiomyopathy: Dilated by echo; unable to cross AV due to previous AVR. RECOMMENDATIONS Recommend dobutamine echo to evaluate dynamic vs fixed low output aortic stenosis for possible redo A VR. Echo report showed peak/mean aortic gradient of 46/29 mm Hg iwth RVSP at least 42 mm Hg. F/u with Dr Cuenca. DESCRIPTION OF PROCEDURE The patient arrived to the procedure lab. The risks and benefits of the procedure as well as a full d escription of our services here and current unavailability of surgical backup were fully explained to the patient and/or their significant other prior to the catheterization. The Timeout was completed, verifying the correct patient and procedure. The patient's procedural site was prepped and draped in the usual fashion. Local anesthetic was given subcutaneously to right groin region with Lidocaine 2%. Using a modified Seldinger technique, arterial access was obtained via the right femoral artery, a 4 Fr sheath was inserted, arterial access was obtained via the right femoral artery, a 4Fr sheath was i nserted Left Coronary Artery selective angiography was performed in multiple views using a 4 Fr. JL5 catheter. Right Coronary Artery selective angiography was then performed in multiple views using a 4 Fr. 3DRC catheter.The arterial sheath was pulled and manual compression applied until hemostasis is achieved. CORONARY ANGIOGRAPHY DOMINANCE: Right Dominant LEFT MAIN: Angiographically normal LEFT ANTERIOR DECENDING ARTERY: MID LAD: 30 % Stenosis CIRCUMFLEX ARTERY: Angiographically normal RIGHT CORONARY ARTERY: Angiographically normal AORTIC ROOT: Angiographically normal No significant aortic insufficiency noted. COMPLICATIONS No Complications PROCEDURE MEDICATIONS Oxygen: 2 L/min via nasal cannula SUMMARY OF HEMODYNAMIC DATA Time AIR REST ECG 11:16:43 AO 88/61 (73) SA 11:25:21 Signed By Brandt Fernandez MD On 09/07/2017 11:44:53 Brandt Fernandez MD
--- NOTE | 2017-09-07 12:00 | PCM.PN.CARD ---
Subjectve: Patient doing well this morning, once again able to lay down flat last night. Edema much improved. Left her catheterization performed today which showed minimal nonobstructive disease of her LAD, and no significant aortic insufficiency. Unable to cross the valve due to her aortic valve replacement, LV not assessed. Objective: Vital Signs Temp Pulse Resp BP Pulse Ox 97.7 F L 90 16 90/53 L 99 09/07/17 08:11 09/07/17 10:55 09/07/17 08:11 09/07/17 08:11 09/07/17 08:11 Oxygen Flow Rate (L/min) 2 Oxygen Delivery Method Room Air Weight: 131 lb 2.801 oz Body Mass Index (BMI) 32.4 Intake and Output for Last 24 Hours 09/05/17 09/06/17 09/07/17 23:59 23:59 23:59 Intake Total 920 / 920 870 / 870 255.5 / 255.5 Output Total 1725 / 1725 955 / 955 550 / 550 Balance -805 / -805 -85 / -85 -294.5 / -294.5 General: Awake, Alert, Oriented x 3 HEENT: PERRL, EOMI, Sclera Non Icteric Neck: Supple, Good ROM, No Lymph Node Enlargement Lungs: Clear to auscultation Cardiovascular: Regular Rhythm, Normal S1, Normal S2, No Rubs, No Gallops Murmur Murmur: Grade 3/6, Crescendo-Decrescendo Vascular: No Carotid Bruits, Normal Femoral Pulses, Normal Radial Pulses, Normal Dorsalis Pedal Pulse, Normal Posterior Tibial Pulses Abdomen: Bowel Sounds Present, Soft, Non Tender, No HSM, No Organomegaly Extremities: No Cyanosis, No Clubbing, No edema Neurological: No Focal Motor or Sensory Deficit 09/07/17 04:45: Urine Color Enriqueta, Urine Clarity Turbid, Urine pH 8.0, Ur Specific [place] 1.015, Urine Protein 100 H, Urine Glucose (UA) Normal, Urine Ketones Negative, Urine Occult Blood 250 H, Urine Nitrite Negative, Urine Bilirubin 1 H, Urine Urobilinogen 8 H, Ur Leukocyte Esterase 500 H, Urine RBC 25-50 SEEN, Urine WBC 25-50 SEEN 09/07/17 05:12: Sodium 138, Potassium 3.6, Chloride 96 L, Carbon Dioxide 35.0 H, Anion Gap 7, BUN 31 H, Creatinine 1.02, Est GFR (MDRD) Af Amer 68, Est GFR (MDRD) Non-Af 57 L, BUN/Creatinine Ratio 30.4 H, Glucose 100, Calcium 8.7 09/07/17 05:12: WBC 5.7, RBC 5.10, Hgb 13.4, Hct 43.6, MCV 85.5, MCH 26.3 L, MCHC 30.7 L, RDW 18.1 H, RDW Differential 56.2 H, Plt Count 116 L, MPV 13.0 H, Immature Gran % (Auto) 0.200, Neut % (Auto) 69.4, Lymph % (Auto) 13.4 L, [place] % (Auto) 12.0 H, Eos % (Auto) 4.5, Baso % (Auto) 0.5, Absolute Neuts (auto) 4.0, Total Counted Not Reportable 09/07/17 05:12: PT 14.3, INR 1.1, APTT 33.0 Rhythm: EKG: ECHO: Stress Test: Cardiac Cath: PCI: CT Surgery: Holter monitor: EPS: PPM: CXR: Chest CT Scan: Medical Necessity - Tobacco Use Smoking Status: Never smoker Tobacco Use: Non-smoker Assessment/Plan 1. 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 Her 2 sisters appeared to improve, but she never quite felt better. She has evidence of severe biventricular failure with bilateral pleural effusions, right greater than left, bilateral lower extremity edema, orthopnea, PND. Since initiating IV Bumex drip, and metolazone ?1, the patient has had a fairly decent diuresis of approximately 15 L, or around 30 pounds which is now beginning to slow since switching over to p.o. Lasix.. A Crandall has already been started and would recommend continuing this until diuresis has been completed. In addition I would recommend holding beta-ramakrishna therapy until she is optimized her dry weight, and would recommend a 1500 cc fluid restriction until she is reached her dry weight. When she is able to lay down flat, she will require a repeat left and right heart catheterization to assess her pulmonary pressures, and coronary anatomy. Patient's diuresis has slowly tapered off, but I believe she will require higher doses of Lasix going forward when she goes home. We will increase Lasix to 40 mg p.o. daily. Repeat chest x-ray this morning shows markedly improved right-sided pleural effusion however it is still present. I do not believe the patient would benefit from thoracentesis on the right side at this time given the improvement. We will cancel thoracentesis for right now. Patient may eat this morning. Would hold off on anticoagulation at this time until after catheterization is been completed. It is possible the patient may have contracted a viral illness in June [address] to a viral cardiomyopathy. Previous echocardiograms would be very helpful. 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 Recommend replacement of potassium to keep it above 4.0. Patient may require periodic metolazone 2.5 mg either weekly or 2 times per week to maintain euvolemic state. Patient underwent successful left heart catheterization this morning, which demonstrated nonobstructive disease of her mid LAD, normal RCA normal left circumflex. There was no evidence of aortic insufficiency by a sending aortogram. At this point we will discontinue her Plavix but continue baby aspirin for her nonobstructive coronary disease. In addition I recommend that she undergo a dobutamine echocardiogram in 2 weeks time to determine if she has LV reserve as well as to evaluate her aortic valvular gradient with dobutamine. The patient has at least moderate aortic stenosis with her bioprosthetic aortic valve placed in 2006 and this is with an EF around 10-15%. If the patient has LV reserve and has dynamic aortic valvular gradient, she may require aortic valve replacement. I have pose this to the patient as well as to her family, who is her DURABLE POWER OF MULTI SPINDLE OPERATOR, and they will discuss it as the family should this be recommended. Given her severe biventricular failure, recommend initiating Xarelto 10 mg p.o. daily for LV dysfunction, RV dysfunction, pulmonary hypertension, and risk for thrombi. She will return to our office in 1 week's time to be seen by 1 of her GOLDSMITH APPRENTICE's. She will continue Lasix 40 mg p.o. daily as an outpatient, Stalin bandages. She is too hypotensive for STALIN inhibitor or Coreg therapy at this time particularly until we get the aortic valve evaluated. I would have a low threshold to increase her Lasix to 40 mg p.o. twice daily or pursue once or twice a week metolazone as this seemed to enhance her diuresis quite well. 2. 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 The patient has a generalized learning disability, and may not fully recall the specifics of her cardiac issues. Patient's bioprosthetic aortic valve is approximately 11 years old, and may require replacement if this is an option given her severe LV dysfunction. Patient's sisters will return this afternoon and hopefully will have a chance to talk with them about getting her old records, as well as proceeding with catheterization. 3. Lower extremity edema: I agree with DVT prophylaxis as well as Stalin bandage wraps to facilitate venous return. 4. Paroxysmal atrial fibrillation: While she is undergoing diuresis she had episodes of atrial fibrillation although she appears to be in sinus rhythm this morning. We will proceed with anticoagulation with Xarelto 10 mg p.o. daily. Patient remains in normal sinus rhythm. 5. Thank you very much for the opportunity to participate in the cardiac care of your patient. Patient may be discharged home today and follow-up with me going forward. Code Visit Inpatient E&M: [id number] [facility] Hosp L2
--- NOTE | 2017-09-07 12:07 | PN.CARD_ITS ---
Subjectve: Patient doing well this morning, once again able to lay down flat last night. Edema much improved. Left her catheterization performed today which showed minimal nonobstructive disease of her LAD, and no significant aortic insufficiency. Unable to cross the valve due to her aortic valve replacement, LV not assessed. Objective: Vital Signs Temp Pulse Resp BP Pulse Ox 97.7 F L 90 16 90/53 L 99 09/07/17 08:11 09/07/17 10:55 09/07/17 08:11 09/07/17 08:11 09/07/17 08:11 Oxygen Flow Rate (L/min) 2 Oxygen Delivery Method Room Air Weight: 131 lb 2.801 oz Body Mass Index (BMI) 32.4 Intake and Output for Last 24 Hours 09/05/17 09/06/17 09/07/17 23:59 23:59 23:59 Intake Total 920 / 920 870 / 870 255.5 / 255.5 Output Total 1725 / 1725 955 / 955 550 / 550 Balance -805 / -805 -85 / -85 -294.5 / -294.5 General: Awake, Alert, Oriented x 3 HEENT: PERRL, EOMI, Sclera Non Icteric Neck: Supple, Good ROM, No Lymph Node Enlargement Lungs: Clear to auscultation Cardiovascular: Regular Rhythm, Normal S1, Normal S2, No Rubs, No Gallops Murmur Murmur: Grade 3/6, Crescendo-Decrescendo Vascular: No Carotid Bruits, Normal Femoral Pulses, Normal Radial Pulses, Normal Dorsalis Pedal Pulse, Normal Posterior Tibial Pulses Abdomen: Bowel Sounds Present, Soft, Non Tender, No HSM, No Organomegaly Extremities: No Cyanosis, No Clubbing, No edema Neurological: No Focal Motor or Sensory Deficit 09/07/17 04:45: Urine Color Enriqueta, Urine Clarity Turbid, Urine pH 8.0, Ur Specific [place] 1.015, Urine Protein 100 H, Urine Glucose (UA) Normal, Urine Ketones Negative, Urine Occult Blood 250 H, Urine Nitrite Negative, Urine Bilirubin 1 H, Urine Urobilinogen 8 H, Ur Leukocyte Esterase 500 H, Urine RBC 25 -50 SEEN, Urine WBC 25-50 SEEN 09/07/17 05:12: Sodium 138, Potassium 3.6, Chloride 96 L, Carbon Dioxide 35.0 H , Anion Gap 7, BUN 31 H, Creatinine 1.02, Est GFR (MDRD) Af Amer 68, Est GFR ( MDRD) Non-Af 57 L, BUN/Creatinine Ratio 30.4 H, Glucose 100, Calcium 8.7 09/07/17 05:12: WBC 5.7, RBC 5.10, Hgb 13.4, Hct 43.6, MCV 85.5, MCH 26.3 L, MCHC 30.7 L, RDW 18.1 H, RDW Differential 56.2 H, Plt Count 116 L, MPV 13.0 H, Immature Gran % (Auto) 0.200, Neut % (Auto) 69.4, Lymph % (Auto) 13.4 L, [place] % (Auto) 12.0 H, Eos % (Auto) 4.5, Baso % (Auto) 0.5, Absolute Neuts (auto) 4.0, Total Counted Not Reportable 09/07/17 05:12: PT 14.3, INR 1.1, APTT 33.0 Rhythm: EKG: ECHO: Stress Test: Cardiac Cath: PCI: CT Surgery: Holter monitor: EPS: PPM: CXR: Chest CT Scan: Medical Necessity - Tobacco Use Smoking Status: Never smoker Tobacco Use: Non-smoker Assessment/Plan 1. 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 Her 2 sisters appeared to improve, but she never quite felt better. She has evidence of severe biventricular failure with bilateral pleural effusions, right greater than left, bilateral lower extremity edema, orthopnea, PND. Since initiating IV Bumex drip, and metolazone ?1, the patient has had a fairly decent diuresis of approximately 15 L, or around 30 pounds which is now beginning to slow since switching over to p.o. Lasix.. A Crandall has already been started and would recommend continuing this until diuresis has been completed. In addition I would recommend holding beta-ramakrishna therapy until she is optimized her dry weight, and would recommend a 1500 cc fluid restriction until she is reached her dry weight. When she is able to lay down flat, she will require a repeat left and right heart catheterization to assess her pulmonary pressures, and coronary anatomy. Patient's diuresis has slowly tapered off, but I believe she will require higher doses of Lasix going forward when she goes home. We will increase Lasix to 40 mg p.o. daily. Repeat chest x-ray this morning shows markedly improved right-sided pleural effusion however it is still present. I do not believe the patient would benefit from thoracentesis on the right side at this time given the improvement. We will cancel thoracentesis for right now. Patient may eat this morning. Would hold off on anticoagulation at this time until after catheterization is been completed. It is possible the patient may have contracted a viral illness in June [address] to a viral cardiomyopathy. Previous echocardiograms would be very helpful. 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 Recommend replacement of potassium to keep it above 4.0. Patient may require periodic metolazone 2.5 mg either weekly or 2 times per week to maintain euvolemic state. Patient underwent successful left heart catheterization this morning, which demonstrated nonobstructive disease of her mid LAD, normal RCA normal left circumflex. There was no evidence of aortic insufficiency by a sending aortogram. At this point we will discontinue her Plavix but continue baby aspirin for her nonobstructive coronary disease. In addition I recommend that she undergo a dobutamine echocardiogram in 2 weeks time to determine if she has LV reserve as well as to evaluate her aortic valvular gradient with dobutamine. The patient has at least moderate aortic stenosis with her bioprosthetic aortic valve placed in 2006 and this is with an EF around 10-15%. If the patient has LV reserve and has dynamic aortic valvular gradient, she may require aortic valve replacement. I have pose this to the patient as well as to her family, who is her DURABLE POWER OF PHYSICIAN OFFICE CLIN ASST, and they will discuss it as the family should this be recommended. Given her severe biventricular failure, recommend initiating Xarelto 10 mg p.o. daily for LV dysfunction, RV dysfunction, pulmonary hypertension, and risk for thrombi. She will return to our office in 1 week's time to be seen by 1 of her PATIENT SERVICE COORDINATOR's. She will continue Lasix 40 mg p.o. daily as an outpatient, Stalin bandages. She is too hypotensive for STALIN inhibitor or Coreg therapy at this time particularly until we get the aortic valve evaluated. I would have a low threshold to increase her Lasix to 40 mg p.o. twice daily or pursue once or twice a week metolazone as this seemed to enhance her diuresis quite well. 2. Aortic valve replacement: We will need to try and get a hold of her previous sports anchor to determine when her LV function deteriorated. The patient has a generalized learning disability, and may not fully recall the specifics of her cardiac issues. Patient's bioprosthetic aortic valve is approximately 11 years old, and may require replacement if this is an option given her severe LV dysfunction. Patient's sisters will return this afternoon and hopefully will have a chance to talk with them about getting her old records , as well as proceeding with catheterization. 3. Lower extremity edema: I agree with DVT prophylaxis as well as Stalin bandage wraps to facilitate venous return. 4. Paroxysmal atrial fibrillation: While she is undergoing diuresis she had episodes of atrial fibrillation although she appears to be in sinus rhythm this morning. We will proceed with anticoagulation with Xarelto 10 mg p.o. daily. Patient remains in normal sinus rhythm. 5. Thank you very much for the opportunity to participate in the cardiac care of your patient. Patient may be discharged home today and follow-up with me going forward. Code Visit Inpatient E&M: [id number] [facility] Hosp L2
[2017-09-07] MEDS: Docusate Sodium 100 MG Capsule PO (12:23)
[2017-09-07] MEDS: Furosemide 40 MG Tablet PO (12:24)
[2017-09-07] MEDS: Pantoprazole Sodium 20 MG Tablet PO (12:24)
--- NOTE | 2017-09-07 13:08 | DCINST_ITS ---
- Discharge Diagnoses Current Active Problems: Current Active and Chronic Problems CHF (congestive heart failure) (Acute) H/O aortic valve replacement (Chronic) Stasis dermatitis of both legs (Chronic) General learning disability (Chronic) BMI 32.0-32.9,adult (Chronic) Lower extremity edema (Acute) Cardiomyopathy (Acute) Reason(s) for Visit for Discharge Instructions: Shortness of breath, weight gain You will use the following diet at home:: Cardiac Your food should be the consistency of: Regular Your liquids should be the consistency of: Regular/Thin Discharge Activity: Return to Normal Activity Additional Instructions: Take all your medications. Weigh yourself everyday. You will need to follow-up for dobutamine ECHO testing. You should be on a low- salt diet. It is recommended that you should be on coumadin and follow a coumadin diet. You should have INR checked in the outpatient lab. Allergies/Adverse Reactions: Allergies Sulfa (Sulfonamide Antibiotics) Allergy (Verified 09/01/17 10:09) Other Medications to take at Discharge Aspirin [Aspirin, Baby] 81 mg PO DAILY@0800 09/01/17 Furosemide [Lasix] 40 mg PO DAILY #30 tab 09/07/17 Potassium Chloride [K-Dur] 20 meq PO DAILYCM #30 tab 09/07/17 Warfarin [Coumadin ([facility])] 5 mg PO DAILY #30 tab 09/07/17 The following prescriptions were given: Furosemide [Lasix] 40 mg PO DAILY #30 tab Potassium Chloride [K-Dur] 20 meq PO DAILYCM #30 tab Warfarin [Coumadin ([facility])] 5 mg PO DAILY #30 tab Primary Care Physician: Care Physician,No Primary [NON-STAFF] - Please follow up with your Primary Care Physician in: within 2 weeks of discharge Please Follow Up With: Brandt Fernandez MD When: within 2 weeks Proposed Discharge Date: 09/07/17
--- NOTE | 2017-09-07 13:15 | CASEMGMT ---
RN JAK called patient's sister Vicenta to notify of disposition plan. RN JAK left [facility] with request for return call. SAWYER Graves, RN-BC, CCM
--- NOTE | 2017-09-07 13:57 | CASEMGMT ---
TATE BENEDICT spoke with patient's sister Sofia re: transition planning. TATE BENEDICT notified Sofia patient will be transitioned back to home today. TATE BENEDICT confirmed patient does not have prescription drug insurance. TATE BENEDICT notified Sofia a social insurance specialist would provide prescription drug resources, when she arrives to the hospital to pick patient up. Sofia then informs this RN JAK that she will not be coming to pick patient up until 4pm. TATE BENEDICT let Sofia know the social insurance specialist will be gone by 4 and that resources will be left in room. Sofia reports she won't likely need these as all medications patient is going to be discharged with are generic, per Dr. Ríos. TATE BENEDICT informed Sofia one of the medications being ordered is Xarelto which is available in generic, but is still quite expensive. Sofia reports she can't afford any expensive medications. TATE BENEDICT reiterated resources will be left in the room, and Sofia's concerns will be relayed to hospitalist, Dr. Marx, re: medication costs. TATE BENEDICT notified Dr. Marx that patient does not have prescription drug coverage, and Sofia has concerns re: medication costs. Rosi Del Toro BSN, RN-BC, CCM
--- NOTE | 2017-09-07 14:06 | CASEMGMT ---
Disposition Plan: Home with sister.
--- NOTE | 2017-09-07 14:12 | CASEMGMT ---
TATE BENEDICT called [facility] and found the copay is $442.02 for Rivaroxaban. TATE BENEDICT notified Dr. Marx of this. TATE BENEDICT spoke with Lucy HALL, and she reports will call patient's sister, Sofia, to update about medications. SALLIE GravesN, RN-, CCM
--- NOTE | 2017-09-07 14:37 | CASEMGMT ---
Patient does not have prescription coverage. SW spoke with patient's sister who is her caregiver and told her the paperwork SW was leaving in patient's room. SW told her about help with Medicare Part D and help with Medicare premiums. She said patient already gets help with her Medicare premiums. SW told her SW will leave the paperwork in the room. SW also left a Medicaid application. Lucy ESCOBAR MSW
--- NOTE | 2017-09-07 14:41 | CASEMGMT ---
Physician called patient's sister, Sofia, to discuss anticoagulant regimen. TATE BENEDICT continuing to follow for final transition plan. SAWYER Graves, RN-BC, CCM
--- NOTE | 2017-09-07 14:51 | CASEMGMT ---
TATE BENEDICT spoke with patient's sister, Sofia, she is going to think about whether she would like home health set-up. Per Sofia, she will need 24 hours to think about it. TATE BENEDICT will call back tomorrow, and will arrange if this is the decision. Rosi Del Toro BSN, RN-, CCM
--- NOTE | 2017-09-07 14:51 | PCM.DC.SUM ---
Discharge Date and Diagnosis Date of Admission: 09/01/17 Date of Discharge: 09/07/17 - Primary Discharge Diagnosis Active and Suspected Problems CHF (congestive heart failure) (Acute) Lower extremity edema (Acute) Cardiomyopathy (Acute) - Secondary Discharge Diagnosis Chronic Problems H/O aortic valve replacement (Chronic) Stasis dermatitis of both legs (Chronic) General learning disability (Chronic) BMI 32.0-32.9,adult (Chronic) Hospital Course and Treatment Imaging Results: Clinical Impression(s) from Imaging Studies Chest X-Ray 09/01/17 10:30 IMPRESSION: CHF with small bilateral pleural effusions and bibasilar atelectasis. Elevation of the right hemidiaphragm. Electronically Signed: Lloyd Johnson MD at 10:56 EDT Tel [phone], Service support , Chest X-Ray 09/05/17 07:00 IMPRESSION: Moderate improvement in the CHF with residual small right pleural effusion with underlying atelectasis and/or infiltrate. Electronically Signed: Lloyd Johnson MD at 9:29 EDT Tel [phone], Service support , None Operations: None Procedures: 2-D Echocardiogram, Cardiac catheterization Summary of Care Provided: 72-year-old lady admitted with progressive shortness of breath and managed as acute biventricular congestive heart failure. 1. Acute biventricular congestive heart failure, EF 10-15% with severe global hypokinesis and stage II diastolic dysfunction, pulmonary hypertension with moderate aortic stenosis. 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 Heart showed minimal non-obstructive disease, managed conservatively, discharged home on Lasix, recommended for patient to have anticoagulation the light of poor EF. Patient was initially prescribed Xarelto but could not afford it because of co-pays with $400 a month, prescriptions for Coumadin and follow up with prescribed and patient's sister who is a healthcare power of operations manager/coordinator refused to have patient on Coumadin and said it was cumbersome to manage. She however could not afford the co-pays for Xarelto or Eliquis. I explained this in detail with her sister and strongly advocated that patient should be on that and she will follow-up with Dr. Fernandez who wants evaluation of her aortic valve 2. Hypokalemia, replaced, repeat BMP in the outpatient. 3. Hypotension, relative, secondary to medication side effect, meds adjusted, narcotic medications held 4. History of aortic valve replacement, now with moderate aortic stenosis, will need to follow-up with cardiology and cardiothoracic surgery to have evaluation of her aortic valve 5. Learning disability, with his sister who is healthcare power of operations manager/coordinator 6. Bilateral leg edema secondary to acute CHF and chronic stasis dermatitis, improved with Stalin wraps 7. Thrombocytopenia, stable 8. Paroxysmal atrial fibrillation, in NSR, recommended to be on Coumadin with INR checks. Discharge Diet: Low fat/ Low Cholesterol, 8 Cup Fluid Restriciton, 2000 mg Sodium Diet Discharge Activity: Return to Normal Activity Home Medications: Medications to take at Discharge Aspirin [Aspirin, Baby] 81 mg PO DAILY@0800 09/01/17 Furosemide [Lasix] 40 mg PO DAILY #30 tab 09/07/17 Potassium Chloride [K-Dur] 20 meq PO DAILYCM #30 tab 09/07/17 Warfarin [Coumadin ([facility])] 5 mg PO DAILY #30 tab 09/07/17 Following Prescrptions Were Given to Patient: Furosemide [Lasix] 40 mg PO DAILY #30 tab Potassium Chloride [K-Dur] 20 meq PO DAILYCM #30 tab Warfarin [Coumadin ([facility])] 5 mg PO DAILY #30 tab Primary Care Physician: Care Physician,No Primary [NON-STAFF] - Please follow up with your Primary Care Physician in: within 2 weeks of discharge Please Follow Up With: Brandt Fernandez MD When: within 2 weeks Disposition: Home Minutes spent on discharge:: 25 Patient Condition:: Stable Medical Necessity - Tobacco Use Smoking Status: Never smoker Tobacco Use: Non-smoker Meaningful Use Info Meaningful Use Diagnoses (Choose all that apply): CHF - CHF STALIN/ARB ordered at discharge?: No Reason STALIN/ARB not ordered?: Hypotension Documented LVEF (%): 15 Code Visit Inpatient E&M: 26925 Disch Hosp
--- NOTE | 2017-09-07 16:36 | NURSING ---
Bedrest up, ambulated the hallways. Site to Right groin is clean and dry, no bleeding, no hematoma, no c/o pain. Family at bedside. Discharge instructions post cath given and family verbalizes that that they understand instructions.
== END 2017-09-07 16:53 | disposition home or self-care (01) | DRG 287 ==
LOC: ED 10:59 → PCU 12:32
PROVIDERS: Family Medicine; Internal Medicine Cardiovascular Disease; Admitting Provider Internal Medicine; Emergency Provider Emergency Medicine; Family Provider Internal Medicine; PCP Internal Medicine; Visit Provider Internal Medicine
DX: I50.82 Biventricular heart failure (principal); I47.2 Ventricular tachycardia; D69.6 Thrombocytopenia, unspecified; I27.20 Pulmonary hypertension, unspecified; I87.2 Venous insufficiency (chronic) (peripheral); I35.0 Nonrheumatic aortic (valve) stenosis; E66.9 Obesity, unspecified; Z68.32 Body mass index [BMI] 32.0-32.9, adult; F81.9 Developmental disorder of scholastic skills, unspecified; E87.6 Hypokalemia; I48.0 Paroxysmal atrial fibrillation; I95.2 Hypotension due to drugs; T50.905A Adverse effect of unspecified drugs, medicaments and biological substances, initial encounter; Z95.3 Presence of xenogenic heart valve; B33.24 Viral cardiomyopathy
CPT/HCPCS: 36415; 71045; 71046; 80048; 80053; 81001; 83735; 83880; 84443; 84484; 85025; 85027; 85610; 85730; 93005; 93306; 93454; 93567; 97110; 97116; 97162; 97165; 97530; 97535; 97802; 99251; 99285; J7030; J7040; Q9957; Q9967; A4216; C1769; C1894; C8929; G0463; J1940; J2405

== ENCOUNTER → 2017-09-12 08:03 | Outpatient (CLI) | payer MEDICARE, OTHER, SELFPAY ==
[2017-09-12 08:34] LABS: International Normalized Ratio 1.7; Prothrombin Time (Protime)PT. 20.3 SECONDS (11.7-14.9)
[2017-09-12 08:43] LABS: Anion Gap 5 (5-15); BUN 35 mg/dL (7-18); BUN/Creat Ratio 35.3 RATIO (10-20); Calcium,Total 9.4 mg/dL (8.5-10.1); Chloride 106 mmol/L (98-107); Creatinine, Serum 0.99 mg/dL (0.55-1.02); EST Glomerular Filtration Rate 58 mL/min (>60); Est Glom Filt Rate - Afr Amer 71 mL/min (>60); Glucose 106 mg/dL (74-106); Potassium 3.7 mmol/L (3.5-5.1); Sodium Level 145 mmol/L (136-145)
== END ==
PROVIDERS: Family Provider Internal Medicine; PCP Internal Medicine; Visit Provider Internal Medicine
DX: Z79.01 Long term (current) use of anticoagulants (principal); T50.905A Adverse effect of unspecified drugs, medicaments and biological substances, initial encounter
CPT/HCPCS: 36415; 80048; 85610

== ENCOUNTER → 2017-09-23 07:49 | Outpatient (CLI) | payer MEDICARE, OTHER, SELFPAY ==
[2017-09-23 08:33] LABS: Prothrombin Time (Protime)PT. 36.5 SECONDS (11.7-14.9)
[2017-09-23 08:38] LABS: International Normalized Ratio 3.6
== END ==
PROVIDERS: Family Provider Internal Medicine; PCP Internal Medicine; Visit Provider Physician Assistant Medical
DX: I50.9 Heart failure, unspecified (principal)
CPT/HCPCS: 36415; 85610

== ENCOUNTER → 2017-09-29 13:23 | Outpatient (CLI) | payer MEDICARE, OTHER, SELFPAY ==
--- NOTE | 2017-09-29 13:24 | STEWCON_ITS ---
Stress Results Protocol: Dobutamine Maximum Predicted HR: 148 bpm Target HR: 126 bpm% Maximum Predicted HR: 109 % DurationHeart Rate Stage (mm:ss) (bpm) BPCom ment Baseline 75 105/67 10 mcg 3:48 82 128/65 20 mcg 3:21 89 127/59 30 mcg 4:10 11 3 121/61Atropine 0.25 mg given ivp @ 1409 40 mcg 3:52 16 2 112/78SVT Recovery 88 94/63 Stress Duration: 15:11 mm:ss Maximum Stress HR: 162 bpm Baseline Echocardiogram Findings The estimated ejection fraction is 15 %. Severely Stress Echo Wall motion Data Resting WMIntermediate WMStress WM Wall Motion Stress No regional wall motion abnormalities noted. EKG Data The patient was titrated from 10 mcg to a maximum of 40 mcg of dobutamine during the stress. This was 109% of maximum predicted heart rate. Interpretation Summary The estimated ejection fraction is 15 %. Severely dilated left ventricle. Abnormal baseline echo with resting ejection fraction of 10-15%. Normal adequate dobutamine echocardiogram, negative for ischemia by echocardiographic criteria. No anginal symptoms noted. Patient developed ventricular bigeminy and a burst of supraventricular tachycardia at peak infusion which resolved spontaneously into recovery. Patient had no associated symptoms during that time. Patient's baseline peak aortic valve gradient was approximately 36 mmHg. Peak dobutamine aortic valve gradient slightly worse, with mean gradient of around 28-32 mmHg. This does not appear to be significant aortic stenosis to warrant redo aortic valve replacement. Decreased sensitivity due to poor echo windows and need for Definity agent. Test terminated due to attainment of THR. Doppler Measurements & Calculations Ao V2 max: 308.2 cm/sec Ao max P.0 mmHg Ao V2 mean: 207.2 cm/sec Ao mean P.5 mmHg Ao V2 VTI: 62.4 cm Ordering Physician: Giorgi Maurice Referring Physician: Giorgi Maurice Performed By: Crystal Gutierrez RDCS, RVT
== END ==
PROVIDERS: Family Provider Internal Medicine; PCP Internal Medicine; Visit Provider Nurse Practitioner Family
DX: R06.02 Shortness of breath (principal); I50.9 Heart failure, unspecified; Z95.2 Presence of prosthetic heart valve
CPT/HCPCS: 93017; 93350; J7030; Q9957; A4216; C8928

== ENCOUNTER 2017-10-07 08:39 | Outpatient (RCR) | payer MEDICARE, OTHER, SELFPAY ==
[2017-09-30 09:58] LABS: International Normalized Ratio 4.4; Prothrombin Time (Protime)PT. 42.3 SECONDS (11.7-14.9)
[2017-10-07 09:12] LABS: International Normalized Ratio 2.7
== END 2017-10-07 09:00 | disposition home or self-care (01) ==
LOC: LAB 08:39
PROVIDERS: Family Provider Internal Medicine; PCP Internal Medicine; Visit Provider Physician Assistant Medical
DX: I50.9 Heart failure, unspecified (principal)
CPT/HCPCS: 36415; 85610

== ENCOUNTER 2017-11-11 08:37 | Outpatient (RCR) | payer MEDICARE, OTHER, SELFPAY ==
[2017-10-21 08:53] LABS: Prothrombin Time (Protime)PT. 35.4 SECONDS (11.7-14.9)
[2017-10-21 09:01] LABS: International Normalized Ratio 3.5
[2017-10-28 12:26] LABS: International Normalized Ratio 3.2; Prothrombin Time (Protime)PT. 33.2 SECONDS (11.7-14.9)
[2017-11-11 09:28] LABS: International Normalized Ratio 2.3; Prothrombin Time (Protime)PT. 25.7 SECONDS (11.7-14.9)
== END 2017-11-11 09:00 | disposition home or self-care (01) ==
LOC: LAB 08:37
PROVIDERS: Family Provider Internal Medicine; PCP Internal Medicine; Visit Provider Physician Assistant Medical
DX: I50.9 Heart failure, unspecified (principal)
CPT/HCPCS: 36415; 85610

== ENCOUNTER → 2017-12-01 07:53 | Outpatient (CLI) | payer MEDICARE, OTHER, SELFPAY ==
--- NOTE | 2017-12-01 08:06 | PCM.CR.ITP ---
General Information - General Information Admitting Diagnosis: Heart Failure, Cardiomyopathy - Education/Goals Barriers to Learning: Knowledge Deficit - Mentally challenged, Sister is with her to help with answering questions. Cardiac Rehabilitation Goals: 1. Maintain the individual as the primary focus of care. 2. To improve the patient's quality of life. 3. Identification of cardiac risk factors and provide cardiac risk factor management. 4. Enhance the psychosocial status of the patient. 5. Reconditioning enough to allow the patient to resume customary activities. 6. Control symptoms of cardiac disease Scale for measuring improvement of personal goals: Enter appropriate number in Comments. 2 = Unchanged. 3 = Slightly Better. 4 = Moderate Improvement. 5 = Met my Goal
--- NOTE | 2017-12-01 08:09 | PCM.CR.HP2 ---
CR - History & Physical - General Arrival date:: 12/01/17 Arrival time:: 08:09 Date of Referral:: 12/01/17 Date of CR Evaluation:: 12/01/17 Referring Physician: Dr. Ez Fernandez Primary Diagnosis: Cardiomyopathy, CHF S/P AVR - History of Present Cardiac Event Onset Date: Enter Onset Date of cardiac illnesses in Comment field below Current stable Angina Pectoris:: No Acute Myocardial Infarction within 12 months:: No Coronary Artery Bypass Graft:: No Heart valve replacement or repair:: Yes - 02/23/07 PTCA or coronary stenting:: No Heart or Heart-Lung Transplant:: No Heart Failure EF <35%:: Yes - 10-15% after viral infection and HF on 09/07/17 tests Type of Symptoms:: LE edema, orthopnea with 8 pillows, SOB, PINON. - Medications Home Medications: Ambulatory Orders Medication Instructions Recorded Aspirin [Aspirin, Baby] 81 mg PO DAILY@0800 09/01/17 carvedilol 3.125 mg tablet 3.125 mg PO QDAY #90 tab 09/14/17 furosemide 40 mg tablet 40 mg PO DAILY #90 tab 09/14/17 potassium chloride ER 20 mEq 20 meq PO DAILYCM #90 tab 09/14/17 tablet,extended release(part/cryst) warfarin 5 mg tablet 5 mg PO .COMPLEX #90 tab 10/28/17 - Allergies Allergies/Adverse Reactions: Allergies Sulfa (Sulfonamide Antibiotics) Allergy (Verified 10/24/17 19:02) Other - Sleep Disorder Evaluation Hx of Sleep Apnea: No Do you snore loudly (louder than talking or can be heard through closed doors)?: No Do you often feel tired/ fatigued/ sleepy during daytime?: No Has anyone observed you stop breathing during sleep?: No History of Hypertension (for STOP score): No STOP Results: Negative Past Medical History - Past Medical Illness Medical History: Past Medical History (Last Updated 10/28/17 @ 12:09 by Alysha Rausch) Paroxysmal atrial fibrillation (Chronic) I48.0 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 Fernandez @ [facility]: Lad 30% stenosis, all other coronaries normal; no significant AI noted; (also prior to AVR in 02/2007 ? facility) H/O aortic valve replacement (Chronic) Z95.2 02/23/[address] [facility], as well as closure of PFO per Dr. Alexander Guerrero [facility] - Family History Summary Family History: Family History (Last Reviewed 10/28/17 @ 11:02 by Alysha Rausch) Father CVA (cerebral vascular accident) Mother CHF (congestive heart failure) Hypertension Sister High cholesterol Sister H/O heart valve replacement with porcine valve Rheumatic fever Risk Factor Assessment - For Smoking Smoking Risk Guidelines: Smoking Low Risk: None or quit greater than 6 months ago. Smoking Moderate Risk: Smoker or quit 6 months or less ago. Smoking High Risk: Smoker - For Dyslipidemia Dyslipidemia Risk Guidelines: Low Risk: Moderate Risk: High Risk: 15-25% fat 25.1-29% fat >/= 30% fat. <7% sat fat 7-9% sat fat >9% sat fat. <150 mg chol 150-299 mg chol >/= 300 mg chol. LDL <100 LDL 100-129 LDL >/= 130. Chol/HDL ratio <5.0 Chol/HDL ratio 5.0-6.0 Chol/HDL ratio >6.0. Triglycerides <100 Triglycerides 100-149 Triglycerides >/= 150 - For Diabetes Mellitus Diabetes Risk Guidelines: Diabetes Low Risk: HgA1c <6.5% and/or FBG <120. Diabetes Moderate Risk: HgA1c 6.6-7.9% and/or FBG 120-180. Diabetes High Risk: HgA1c >/= 8% and/or FBG >180 - For Obesity/Overweight Obesity/Overweight Risk Guidelines: Obesity Low Risk: BMI <25.0. Obesity Moderate Risk: BMI 25-29.9. Obesity High Risk: BMI >/= 30.0 - For Hypertension Hypertension Risk Guidelines: Hypertension Low Risk: Systolic <120 and Diastolic <80. Hypertension Moderate Risk: Systolic 120-139 and Diastolic 80-89. Hypertension High Risk: Systolic >/= 140 and Diastolic >/= 90 - For Sedentary Lifestyle Sedentary Lifestyle Risk Guidelines: Sedentary Lifestyle Low Risk: >/= 1,500 kcal/week. Sedentary Lifestyle Moderate Risk: 700-1,499 kcal/week. Sedentary Lifestyle High Risk: < 700 kcal/week - For Depression Depression Risk Guidelines: Depression Low Risk: Not clinically depressed. Depression Moderate Risk: Mildly depressed. Depression High Risk: Clinically depressed - Family History Family History: Family History (Last Reviewed 10/28/17 @ 11:02 by Alysha Rausch) Father CVA (cerebral vascular accident) Mother CHF (congestive heart failure) Hypertension Sister High cholesterol Sister H/O heart valve replacement with porcine valve Rheumatic fever
--- NOTE | 2017-12-01 08:23 | CR.HP_ITS ---
CR - History & Physical - General Arrival date:: 12/01/17 Arrival time:: 08:09 Date of Referral:: 12/01/17 Date of CR Evaluation:: 12/01/17 Referring Physician: Dr. Ez Fernandez Primary Diagnosis: Cardiomyopathy, CHF S/P AVR - History of Present Cardiac Event Onset Date: Enter Onset Date of cardiac illnesses in Comment field below Current stable Angina Pectoris:: No Acute Myocardial Infarction within 12 months:: No Coronary Artery Bypass Graft:: No Heart valve replacement or repair:: Yes - 02/23/07 PTCA or coronary stenting:: No Heart or Heart-Lung Transplant:: No Heart Failure EF <35%:: Yes - 10-15% after viral infection and HF on 09/07/17 tests Type of Symptoms:: LE edema, orthopnea with 8 pillows, SOB, PINON. - Medications Home Medications: Ambulatory Orders Medication Instructions Recorded Aspirin [Aspirin, Baby] 81 mg PO DAILY@0800 09/01/17 carvedilol 3.125 mg tablet 3.125 mg PO QDAY #90 tab 09/14/17 furosemide 40 mg tablet 40 mg PO DAILY #90 tab 09/14/17 potassium chloride ER 20 mEq 20 meq PO DAILYCM #90 tab 09/14/17 tablet,extended release(part/cryst) warfarin 5 mg tablet 5 mg PO .COMPLEX #90 tab 10/28/17 - Allergies Allergies/Adverse Reactions: Allergies Sulfa (Sulfonamide Antibiotics) Allergy (Verified 10/24/17 19:02) Other - Sleep Disorder Evaluation Hx of Sleep Apnea: No Do you snore loudly (louder than talking or can be heard through closed doors)? : No Do you often feel tired/ fatigued/ sleepy during daytime?: No Has anyone observed you stop breathing during sleep?: No History of Hypertension (for STOP score): No STOP Results: Negative Past Medical History - Past Medical Illness Medical History: Past Medical History (Last Updated 10/28/17 @ 12:09 by Alysha Rausch) Paroxysmal atrial fibrillation (Chronic) I48.0 longterm (current) use of anticoagulants (Chronic) Z79.01 Stasis dermatitis of both legs (Chronic) I87.2 General learning disability (Chronic) F81.9 Lower extremity edema (Resolved) R60.0 - Past Surgical History Surgical History: Past Surgical History (Last Reviewed 10/28/17 @ 11:02 by Alysha Rausch) History of left heart catheterization (Chronic) Z98.890 09/07/[address] Fernandez @ [facility]: Lad 30% stenosis, all other coronaries normal ; no significant AI noted; (also prior to AVR in 02/2007 ? facility) H/O aortic valve replacement (Chronic) Z95.2 02/23/[address] #[address] [facility], as well as closure of PFO per Dr. Alexander Guerrero [facility] - Family History Summary Family History: Family History (Last Reviewed 10/28/17 @ 11:02 by Alysha Rausch) Father CVA (cerebral vascular accident) Mother CHF (congestive heart failure) Hypertension Sister High cholesterol Sister H/O heart valve replacement with porcine valve Rheumatic fever Risk Factor Assessment - For Smoking Smoking Risk Guidelines: Smoking Low Risk: None or quit greater than 6 months ago. Smoking Moderate Risk: Smoker or quit 6 months or less ago. Smoking High Risk: Smoker - For Dyslipidemia Dyslipidemia Risk Guidelines: Low Risk: Moderate Risk: High Risk: 15-25% fat 25.1-29% fat >/= 30% fat. <7% sat fat 7-9% sat fat >9% sat fat. <150 mg chol 150-299 mg chol >/= 300 mg chol. LDL <100 LDL 100-129 LDL >/= 130. Chol/HDL ratio <5.0 Chol/HDL ratio 5.0-6.0 Chol/HDL ratio >6.0. Triglycerides <100 Triglycerides 100-149 Triglycerides >/= 150 - For Diabetes Mellitus Diabetes Risk Guidelines: Diabetes Low Risk: HgA1c <6.5% and/or FBG <120. Diabetes Moderate Risk: HgA1c 6.6-7.9% and/or FBG 120-180. Diabetes High Risk: HgA1c >/= 8% and/or FBG >180 - For Obesity/Overweight Obesity/Overweight Risk Guidelines: Obesity Low Risk: BMI <25.0. Obesity Moderate Risk: BMI 25-29.9. Obesity High Risk: BMI >/= 30.0 - For Hypertension Hypertension Risk Guidelines: Hypertension Low Risk: Systolic <120 and Diastolic <80. Hypertension Moderate Risk: Systolic 120-139 and Diastolic 80-89. Hypertension High Risk: Systolic >/= 140 and Diastolic >/= 90 - For Sedentary Lifestyle Sedentary Lifestyle Risk Guidelines: Sedentary Lifestyle Low Risk: >/= 1 ,500 kcal/week. Sedentary Lifestyle Moderate Risk: 700-1,499 kcal/week. Sedentary Lifestyle High Risk: < 700 kcal/week - For Depression Depression Risk Guidelines: Depression Low Risk: Not clinically depressed. Depression Moderate Risk: Mildly depressed. Depression High Risk: Clinically depressed - Family History Family History: Family History (Last Reviewed 10/28/17 @ 11:02 by Alysha Rausch) Father CVA (cerebral vascular accident) Mother CHF (congestive heart failure) Hypertension Sister High cholesterol Sister H/O heart valve replacement with porcine valve Rheumatic fever
== END ==
PROVIDERS: Family Provider Internal Medicine; PCP Internal Medicine; Visit Provider Internal Medicine Cardiovascular Disease
DX: Z53.9 Procedure and treatment not carried out, unspecified reason (principal)

== ENCOUNTER 2017-12-15 10:02 | Outpatient (RCR) | payer MEDICARE, OTHER, SELFPAY ==
[2017-12-01 09:18] LABS: International Normalized Ratio 1.8; Prothrombin Time (Protime)PT. 20.9 SECONDS (11.7-14.9)
[2017-12-15 11:33] LABS: International Normalized Ratio 2.8; Prothrombin Time (Protime)PT. 29.9 SECONDS (11.7-14.9)
== END 2017-12-15 11:00 | disposition home or self-care (01) ==
LOC: LAB 10:02
PROVIDERS: Family Provider Internal Medicine; PCP Internal Medicine; Visit Provider Physician Assistant Medical
DX: I50.9 Heart failure, unspecified (principal)
CPT/HCPCS: 36415; 85610

== ENCOUNTER 2018-01-13 07:00 | Outpatient (RCR) | payer MEDICARE, OTHER, SELFPAY ==
[2018-01-13 08:46] LABS: International Normalized Ratio 2.1
== END 2018-01-13 08:00 | disposition home or self-care (01) ==
LOC: LAB 07:00
PROVIDERS: Family Provider Internal Medicine; PCP Internal Medicine; Visit Provider Physician Assistant Medical
DX: I50.9 Heart failure, unspecified (principal)
CPT/HCPCS: 36415; 85610

== ENCOUNTER 2018-02-10 06:56 | Outpatient (RCR) | payer MEDICARE, OTHER, SELFPAY ==
[2018-02-10 08:07] LABS: International Normalized Ratio 2.5; Prothrombin Time (Protime)PT. 26.8 SECONDS (11.7-14.9)
== END 2018-02-10 08:00 | disposition home or self-care (01) ==
LOC: LAB 06:56
PROVIDERS: Family Provider Internal Medicine; PCP Internal Medicine; Visit Provider Physician Assistant Medical
DX: I50.9 Heart failure, unspecified (principal)
CPT/HCPCS: 36415; 85610

== ENCOUNTER → 2018-03-01 09:43 | Outpatient (CLI) | payer MEDICARE, OTHER, SELFPAY ==
--- NOTE | 2018-03-01 09:46 | ECHOCS_ITS ---
Reason For Study: CHF Procedure This was a 2D Doppler, Color Flow transthoracic echocardiogram. Exam performed in department. Left Ventricle Moderately dilated left ventricle. Mid cavitary false tendon noted. The estimated ejection fraction is 10-15 %. Stage 1 diastolic dysfunction. There is severe global hypokinesis of the left ventricle. Right Ventricle Mildly dilated right ventricle. Normal systolic function. Atria Normal left atrium. Normal right atrium. Normal atrial septum. Mitral Valve The mitral valve is structurally normal. No prolapse or stenosis seen. Mild (1+) mitral valve insufficiency. Tricuspid Valve Normal tricuspid valve. Trivial tricuspid valve insufficiency. Right ventricular systolic pressure estimated to be 28 mmHg. Aortic Valve Peak aortic valve gradient 49 mmHg. Mean aortic valve gradient 24 mmHg. Moderate aortic stenosis. Bioprosthetic aortic valve. Pulmonic Valve Normal pulmonic valve. Trivial pulmonic valve insufficiency. Great Vessels Normal aortic root. Normal arch. Normal inferior vena cava. Inferior vena cava collapse with sniff. Pericardium/Pleural No pericardial effusion. Medication 22 gauge I.V. with prn adaptor inserted into left arm. Diluted definity 3ml given slow IV push to enhance endocardial definition. MMode/2D Measurements & Calculations LVIDd: 4.9 cm IVSd: 1.1 cm LVOT diam: 2.0 cm LVIDs: 4.4 cm LVPWd: 1.0 cm LVOT area: 3.1 cm2 RVDd: 3.8 cm FS: 9.8 % Ao root diam: 3.1 cm LAV(MOD-bp): 57.3 ml LA dimension: 3.8 cm LAV(MOD-bp) Indexed: 37.3 ml/m2 LA A4 area: 19.1 cm2 LAV(MOD-sp2): 51.9 ml LAV(MOD-sp4): 61.0 ml RA A4 area: 10.6 cm2 Time Measurements MV dec time: 0.16 sec Doppler Measurements & Calculations MV E max salo: 60.8 cm/sec Lat Peak E' Salo: 3.4 cm/sec Med Peak E' Salo: 3.9 cm/sec MV A max salo: 78.9 cm/sec E/E' lat: 18.1 E/E' med: 15.7 MV E/A: 0.77 MV V2 max: 99.2 cm/sec MV P1/2t max salo: 80.9 cm/sec Ao V2 max: 348.4 cm/sec MV max P.9 mmHg MV P1/2t: 76.2 msec Ao max P.6 mmHg MV V2 mean: 55.6 cm/sec MV dec slope: 311.1 cm/sec2 Ao V2 mean: 224.5 cm/sec MV mean P.5 mmHg MVA(P1/2t): 2.9 cm2 Ao mean P.0 mmHg MV V2 VTI: 21.2 cm Ao V2 VTI: 72.7 cm MVA(VTI): 3.1 cm2 CE(I,D): 0.90 cm2 CE(V,D): 0.95 cm2 AI max salo: 428.6 cm/sec LV V1 max: 106.0 cm/sec SV(LVOT): 65.6 ml AI max P.5 mmHg LV V1 max P.5 mmHg AI dec slope: 246.6 cm/sec2 LV V1 mean P.2 mmHg AI P1/2t: 509.1 msec LV V1 mean: 67.2 cm/sec LV V1 VTI: 21.0 cm PA V2 max: 107.9 cm/sec TR max salo: 231.0 cm/sec TR max P.4 mmHg Interpretation Summary Moderately dilated left ventricle. The estimated ejection fraction is 10-15 %. Stage 1 diastolic dysfunction. There is severe global hypokinesis of the left ventricle. Mild (1+) mitral valve insufficiency. Trivial tricuspid valve insufficiency. Right ventricular systolic pressure estimated to be 28 mmHg. Peak aortic valve gradient 49 mmHg. Mean aortic valve gradient 24 mmHg. Moderate aortic stenosis but appears to be subvalvular in origin. Compared to echo report dated 09/02/2017, LV function has remained the same and RVSP has decreased from 42 to 28 mm HG. The study was technically difficult. Contrast injection was performed. Ordering Physician: Brandt Fernandez Referring Physician: Brandt Fernandez Performed By: Anthony Valles RCS
== END ==
PROVIDERS: Family Provider Internal Medicine; PCP Internal Medicine; Visit Provider Internal Medicine Cardiovascular Disease
DX: I42.8 Other cardiomyopathies (principal)
CPT/HCPCS: 93306; Q9957; A4216; C8929

== ENCOUNTER 2018-03-10 08:58 | Outpatient (RCR) | payer MEDICARE, OTHER, SELFPAY ==
[2018-03-10 09:20] LABS: International Normalized Ratio 2.2; Prothrombin Time (Protime)PT. 24.1 SECONDS (11.7-14.9)
== END 2018-03-10 10:00 | disposition home or self-care (01) ==
LOC: LAB 08:58
PROVIDERS: Family Provider Internal Medicine; PCP Internal Medicine; Visit Provider Physician Assistant Medical
DX: I50.9 Heart failure, unspecified (principal)
CPT/HCPCS: 36415; 85610

== ENCOUNTER 2018-04-06 09:48 | Outpatient (RCR) | payer MEDICARE, OTHER, SELFPAY ==
[2018-04-06 10:41] LABS: International Normalized Ratio 2.2; Prothrombin Time (Protime)PT. 24.4 SECONDS (11.7-14.9)
== END 2018-04-06 11:00 | disposition home or self-care (01) ==
LOC: LAB 09:48
PROVIDERS: Family Provider Internal Medicine; PCP Internal Medicine; Referring Provider Physician Assistant Medical; Visit Provider Physician Assistant Medical
DX: I50.9 Heart failure, unspecified (principal)
CPT/HCPCS: 36415; 85610

== ENCOUNTER 2018-05-05 08:54 | Outpatient (RCR) | payer MEDICARE, OTHER, SELFPAY ==
[2018-05-05 09:54] LABS: International Normalized Ratio 2.5; Prothrombin Time (Protime)PT. 27.2 SECONDS (11.7-14.9)
== END 2018-05-19 09:37 | disposition home or self-care (01) ==
LOC: LAB 08:54
PROVIDERS: Family Provider Internal Medicine; PCP Internal Medicine; Referring Provider Physician Assistant Medical; Visit Provider Physician Assistant Medical
DX: I50.9 Heart failure, unspecified (principal)
CPT/HCPCS: 36415; 85610

== ENCOUNTER 2018-06-02 07:25 | Outpatient (RCR) | payer MEDICARE, OTHER, SELFPAY ==
[2018-06-02 07:51] LABS: International Normalized Ratio 2.4
--- OUTSIDE RECORDS SUMMARY | 2018-07-18 19:06 | XMS RPT_ITS ---
:1945 Author Organization OHIP Support Name Relationship Address Phone BITTINGER, TRACI Unavailable [address] + [place] [address] BITTINGER, AZA Unavailable [address] [place] [address] RD + [place] [address] R Unavailable Unavailable Unavailable BITTINGER, TRACI Unavailable [address] [place] [address] RD + [place] [address] BITTINGER, AZA Unavailable [address] [place] [address] RD + [place] [address] R Unavailable Unavailable Unavailable BITTINGER, TRACI Unavailable [address] [place] [address] RD + [place] [address] BITTINGER, AZA Unavailable [address] + [place] [address] R Unavailable Unavailable Unavailable BITTINGER, TRACI Unavailable [address] [place] [address] RD + [place] [address] BITTINGER, AZA Unavailable [address] + [place] [address] R Unavailable Unavailable Unavailable BITTINGER, TRACI Unavailable [address] + [place] [address] BITTINGER, AZA Unavailable [address] [place] [address] RD + [place] [address] R Unavailable Unavailable Unavailable BITTINGER, TRACI Unavailable [address] [place] [address] RD + [place] [address] BITTINGER, AZA Unavailable [address] [place] [address] RD + [place] [address] R Unavailable Unavailable Unavailable BITTINGER, TRACI Unavailable [address] [place] [address] RD + [place] [address] BITTINGER, AZA Unavailable [address] [place] [address] RD + [place] [address] R Unavailable Unavailable Unavailable BITTINGER, TRACI Unavailable [address] + [place] [address] BITTINGER, AZA Unavailable [address] + [place] [address] R Unavailable Unavailable Unavailable BITTINGER, TRACI Unavailable [address] + [place] [address] BITTINGER, AZA Unavailable [address] + [place] [address] R Unavailable Unavailable Unavailable BITTINGER, TRACI Unavailable [address] [place] [address] RD + [place] [address] BITTINGER, AZA Unavailable [address] [place] [address] RD + [place] [address] R Unavailable Unavailable Unavailable BITTINGER, TRACI Unavailable Unavailable + [place] [address] BITTINGER, AZA Unavailable Unavailable + [place] [address] R Unavailable Unavailable Unavailable BITTINGER, TRACI Unavailable . + [place] [address] BITTINGER, AZA Unavailable . + [place] [address] R Unavailable Unavailable Unavailable BITTINGER, TRACI Unavailable . + [place] [address] BITTINGER, AZA Unavailable . + [place] [address] R Unavailable Unavailable Unavailable BITTINGER, TRACI Unavailable . + [place] [address] BITTINGER, AZA Unavailable . + [place] [address] R Unavailable Unavailable Unavailable BITTINGER, TRACI Unavailable Unavailable + [place] [address] BITTINGER, AZA Unavailable Unavailable + [place] [address] R Unavailable Unavailable Unavailable BITTINGER, TRACI Unavailable Unavailable + [place] [address] BITTINGER, AZA Unavailable Unavailable + [place] [address] R Unavailable Unavailable Unavailable BITTINGER, TRACI Unavailable Unavailable + [place] [address] BITTINGER, AZA Unavailable Unavailable + [place] [address] R Unavailable Unavailable Unavailable BITTINGER, TRACI Unavailable Unavailable + [place] [address] BITTINGER, AZA Unavailable Unavailable + [place] [address] R Unavailable Unavailable Unavailable BITTINGER, TRACI Unavailable Unavailable + [place] [address] BITTINGER, AZA Unavailable Unavailable + [place] [address] R Unavailable Unavailable Unavailable BITTINGER, TRACI Unavailable . + [place] [address] R Unavailable Unavailable Unavailable BITTINGER, TRACI Unavailable Unavailable + R Unavailable Unavailable Unavailable BITTINGER, TRACI Unavailable Unavailable + R Unavailable Unavailable Unavailable BITTINGER, TRACI Unavailable Unavailable + R Unavailable Unavailable Unavailable BITTINGER, TRACI Unavailable Unavailable + R Unavailable Unavailable Unavailable BITTINGER, TRACI Unavailable Unavailable + R Unavailable Unavailable Unavailable BITTINGER, TRACI Unavailable Unavailable + R Unavailable Unavailable Unavailable BITTINGER, TRACI Unavailable Unavailable + [place] [address] BITTINGER, AZA Unavailable Unavailable + [place] [address] R Unavailable Unavailable Unavailable BITTINGER, TRACI Unavailable Unavailable + R Unavailable Unavailable Unavailable BITTINGER, TRACI Unavailable Unavailable + [place] [address] BITTINGER, AZA Unavailable Unavailable + [place] [address] R Unavailable Unavailable Unavailable BITTINGER, TRACI Unavailable Unavailable + R Unavailable Unavailable Unavailable BITTINGER, TRACI Unavailable Unavailable + R Unavailable Unavailable Unavailable BITTINGER, TRACI Unavailable Unavailable + R Unavailable Unavailable Unavailable BITTINGER, TRACI Unavailable Unavailable + R Unavailable Unavailable Unavailable BITTINGER, TRACI Unavailable Unavailable + R Unavailable Unavailable Unavailable BITTINGERJONAHTRACI Unavailable Unavailable + R Unavailable Unavailable Unavailable BITTINGER, TRACI Unavailable Unavailable + [place] [address] BITTINGER, AZA Unavailable Unavailable + [place] [address] R Unavailable Unavailable Unavailable Care Team Providers Name Role Phone CANDIS HILLIARD ([facility]) Referring Unavailable HAAGENBROOKLYNN ([facility]) Attending Unavailable HAAGENBROOKLYNN ([facility]) Referring Unavailable CARIDAD SMITH ([facility]) Attending Unavailable TALAMPAS, CAITIE D Attending Unavailable LouisNimco Attending Unavailable Nimco Louis Referring Unavailable Talampas, Caitie Primary Care Unavailable Brandt Mccollum Attending Unavailable Talampas, Caitie Referring Unavailable KitBubba jones Admitting Unavailable Brandt Mccollum Consulting Unavailable Paintsil, [place] Attending Unavailable Talampas, Caitie Primary Care Unavailable KitBubba jones Admitting Unavailable Bubba Lee Attending Unavailable Primay Care Physicia, No Primary Care Unavailable Bubba Lee Consulting Unavailable Bubba Lee Admitting Unavailable Bubba Lee Attending Unavailable Primay Care Physicia, No Primary Care Unavailable Bubba Lee Consulting Unavailable Bubba Lee Admitting Unavailable Brandt Mccollum Attending Unavailable Primay Care Physicia, No Primary Care Unavailable Brandt Mccollum Consulting Unavailable Bubba Lee Consulting Unavailable Bubba Lee Admitting Unavailable Brandt Mccollum Attending Unavailable Primay Care Physicia, No Primary Care Unavailable Brandt Mccollum Consulting Unavailable Cedrick, Yoichi Consulting Unavailable Bubba Lee Admitting Unavailable Primay Care Physicia, No Primary Care Unavailable Brandt Mccollum Consulting Unavailable Paintsil, [place] Attending Unavailable Imnasima, Yoichi Consulting Unavailable Bubba Lee Admitting Unavailable Brandt Mccollum Attending Unavailable Primay Care Physicia, No Primary Care Unavailable Brandt Mccollum Consulting Unavailable Imnasima, Yoichi Consulting Unavailable Bubba Lee Admitting Unavailable Primay Care Physicia, No Primary Care Unavailable Brandt Mccollum Consulting Unavailable Paintsil, [place] Attending Unavailable Imnasima, Yoichi Consulting Unavailable Bubba Lee Admitting Unavailable Brandt Mccollum Attending Unavailable Primay Care Physicia, No Primary Care Unavailable Brandt Mccollum Consulting Unavailable Paintsil, [place] Consulting Unavailable Bubba Lee Admitting Unavailable Paintsil, [place] Attending Unavailable Primay Care Physicia, No Primary Care Unavailable Brandt Mccollum Consulting Unavailable Paintsil, [place] Consulting Unavailable KittoeBubba Admitting Unavailable Brandt Mccollum Attending Unavailable Primay Care Physicia, No Primary Care Unavailable Brandt Mccollum Consulting Unavailable Paintsil, [place] Consulting Unavailable Bubba Lee Admitting Unavailable Paintsil, [place] Attending Unavailable Primay Care Physicia, No Primary Care Unavailable Brandt Mccollum Consulting Unavailable Paintsil, [place] Consulting Unavailable Kittoe, Bubba Admitting Unavailable Brandt Mccollum Attending Unavailable Primay Care Physicia, No Primary Care Unavailable Brandt Mccollum Consulting Unavailable Paintsil, [place] Consulting Unavailable Kittoe, Bubba Admitting Unavailable Paintsil, [place] Attending Unavailable Talampas, Caitie Primary Care Unavailable Brandt Mccollum Consulting Unavailable Paintsil, [place] Consulting Unavailable Paintsil, [place] Attending Unavailable Paintsil, [place] Referring Unavailable Talampas, Caitie Primary Care Unavailable Nimco Louis Attending Unavailable Primay Care Physicia, No Referring Unavailable Talampas, Caitie Primary Care Unavailable Nimco Louis Attending Unavailable Nimco Louis Referring Unavailable Talampas, Caitie Primary Care Unavailable RoofGiorgi H Attending Unavailable Giorgi Maurice H Referring Unavailable Talampas, Caitie Primary Care Unavailable Nimco Louis Attending Unavailable Nimco Louis Referring Unavailable Talampas, Caitie Primary Care Unavailable Nimco Louis Attending Unavailable Nimco Louis Referring Unavailable Talampas, Caitie Primary Care Unavailable Brandt Mccollum Attending Unavailable Esau Ríos Attending Unavailable Paintsil, [place] Referring Unavailable JenniferIgnacia Attending Unavailable Brandt Mccollum Attending Unavailable Talampas, Caitie Referring Unavailable Talampas, Caitie Primary Care Unavailable Nimco Louis Attending Unavailable Nimco Louis Referring Unavailable Talampas, Caitie Primary Care Unavailable Brandt Mccollum Attending Unavailable Brandt Mccollum Referring Unavailable Talampas, Caitie Primary Care Unavailable Nimco Louis Attending Unavailable Nimco Louis Referring Unavailable Talampas, Caitie Primary Care Unavailable Nimco Louis Attending Unavailable Nimco Louis Referring Unavailable Talampas, Caitie Primary Care Unavailable Nimco Louis Attending Unavailable Nimco Louis Referring Unavailable Talampas, Caitie Primary Care Unavailable Brandt Mccollum Attending Unavailable Brandt Mccollum Referring Unavailable Talampas, Caitie Primary Care Unavailable Nimco Louis Attending Unavailable Nimco Louis Referring Unavailable Talampas, Caitie Primary Care Unavailable Brandt Mccollum Attending Unavailable Brandt Mccollum Referring Unavailable Nimco Louis Attending Unavailable Nimco Louis Referring Unavailable Talampas, Caitie Primary Care Unavailable Nimco Louis Attending Unavailable Nimco Louis Referring Unavailable Talampas, Caitie Primary Care Unavailable PROBLEMS PROBLEMS DATE TYPE CONDITION / CODE ATTENDING STATUS SOURCE 06/26/2018 Unknown I42.8 - Other Brandt Mccollum Active [place] cardiomyopathies / Community I42.8(ICD-10) Hospital Repository 06/26/2018 Unknown Z95.2 - Presence of Brandt Mccolulm Active [facility] prosthetic heart valve [facility] / Z95.2(ICD-10) Hospital Repository 06/19/2018 Unknown I50.9 - Heart failure, Missy Active [place] unspecified / Nim[facility] I50.9(ICD-10) Hospital Repository 12/01/2017 Unknown Z95.4 - Presence of Brandt Mccollum Active [facility] other heart-valve Community replacement / Hospital Z95.4(ICD-10) Repository 09/29/2017 Unknown R06.02 - Shortness of RoofGiorgi Active [place] breath / Community R06.02(ICD-10) Hospital Repository 10/19/2017 Unknown R94.31 - Abnormal [place], [place] Active [place] electrocardiogram Community [ECG] [EKG] / Hospital R94.31(ICD-10) Repository 09/01/2017 Active Thrombocytopenia, NA Active [facility] unspecified / Clinic Main D69.6(ICD-10) [place] Repository 08/29/2017 Active Other specified soft NA Active [facility] tissue disorders / Clinic Main M79.89(ICD-10) [place] Repository PROCEDURES PROCEDURES No Procedure Records FoundRESULTS RESULTS PROTHROMBIN TIME W/INR Collected: 06/30/2018 Status: F Source: [place] [facility] TYPE CODE TESTS RESULT OUT OF RANGE REFERENCE UNITS LAB L300.4150 11.7-14.9 SECONDS High PROTIME 28.9 LAB L300.4200 Normal INR 2.7 Performed By: #### L300.3900 #### [facility] [address] [place], [address] CARDIOLOGY VISIT Observed: 06/26/2018 Status: F Source: [place] REPORT 11:23 AM [facility] REPOSITORY [facility] [address] [place] [address] OFFICE VISIT Date of Service: 06/26/18 MR#: [id number] Acct: [id number] Name: ELISEO MCKINLEY Rep #: [id number] : 1945 Provider: Brandt Mccollum MD Age/Sex: 73/F Location: [facility] Status: Signed HPI HPI Chief Complaint: Routine f/u Details: The patient is a 73 year old F, with a history of bioprosthetic aortic valve replacement on 02/23/2007 at [facility] by Dr. Rose. As best the patient can remember she did not have associated bypass surgery although she cannot recall. 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 Patient may have some mental challenges, and a baseline learning disability, and has requested that I contact her sister regarding clarification of her medical history. The patient is a nondiabetic, and apparently lives with her 2 sisters all of which apparently caught the flu in June. Her 2 sisters improved, however the patient developed worsening lower extremity edema, orthopnea with 8 pillows, shortness of breath, dyspnea on exertion. She apparently went to the emergency room on Tuesday prior to her hospital admission on 09/07/17, and was subsequently sent home despite her lower extremity edema. When her symptoms did not improve she returned yesterday and was admitted with new onset heart failure. An echocardiogram was performed on 09/02/17 which demonstrated severe global LV dysfunction with an EF around 10-15%, bioprosthetic aortic valve, with moderate aortic stenosis, RVSP of 42 mmHg, with a left-sided pleural effusion. Patient underwent dobutamine echocardiogram to determine if she had a significant dynamic aortic valvular gradient, which appeared to be negative for dynamic gradient. I do not believe she requires repeat AVR at this time. In addition she underwent a cardiac catheterization on 09/07/17 which demonstrated normal coronary arteries. It was felt that her cardiomyopathy was most likely result of a recent viral illness. Repeat echocardiogram on 03/01/18 showed cardiomyopathy with an EF around 10-15% but improvement of her RVSP from 42-18 mmHg. She is now here in follow-up. Since being discharged, the patient has been doing fairly well at home, exercising on a elliptical. I am pleased to hear that she has no chest pain, angina or shortness of breath and appears to be slowly improving. He denies any palpitations, presyncope or syncope. In our office today her blood pressure is 92/50, pulse 80 and regular. Physical exam is as below. [] Intake Vital Signs06/26/18 Height 5 ft 1 in 06/26/18 Weight: 129 lb 06/26/18 Body Mass Index (BMI) 24.3 06/26/18 Blood Pressure 92/50 L Intake Visit Reasons: 6 M Label Maker Required: No Accompanied by: Sister Is patient in pain?: No Allergies Sulfa (Sulfonamide Antibiotics) Allergy (Verified 06/22/18 17:16) Other Medications Aspirin [Aspirin, Baby] 81 mg PO DAILY@0800 09/01/17 [History Confirmed 06/22/18] warfarin 5 mg tablet 5 mg PO .COMPLEX #90 tab 10/28/17 [Rx Confirmed 06/22/18] carvedilol 3.125 mg tablet 3.125 mg PO QDAY #90 tab 06/26/18 [Rx Confirmed 06/26/18] furosemide 40 mg tablet 40 mg PO DAILY #90 tab 06/26/18 [Rx] potassium chloride ER 20 mEq tablet,extended release(part/cryst) 20 meq PO DAILYCM #90 tab 06/26/18 [Rx Confirmed 06/26/18] [facility] Medical History Paroxysmal atrial fibrillation (Chronic) 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) Stasis dermatitis of both legs (Chronic) General learning disability (Chronic) Lower extremity edema (Resolved) Surgical History History of left heart catheterization (Chronic 09/07/17) H/O aortic valve replacement (Chronic 02/23/07) Family History Father CVA (cerebral vascular accident) Mother CHF (congestive heart failure) Hypertension Sister High cholesterol Sister H/O heart valve replacement with porcine valve Rheumatic fever Social History Smoking Status: Never smoker alcohol intake: current alcohol intake frequency: holidays/special occasions only Alcohol type: beer, wine, hard liquor substance use type: does not use caffeine: Yes Type: coffee what type of physical activity do you participate in: bicycling frequency: 3-4 times per week duration: 15-30 minutes/day seatbelt use: always do you feel safe at home: Yes ROS Const Const: Positive for other (Feels well. Lives with sister); negative for fatigue, weakness, body ache, fever(s), headache(s), chills, frequent falls, night sweats, daytime sleepiness, difficulty sleeping, excessive sweating, weight gain, weight loss, increased appetite, poor appetite or anorexia Eyes Eyes: Negative for blind spots, loss of peripheral vision, transient loss of vision, blurry vision, change in vision, double vision, floaters, tunnel vision or other ENT ENT: Negative for headache(s), dizziness, hearing loss, tinnitus, Nosebleed/epistaxis, balance problems, post nasal drip, lip swelling, tongue swelling, bleeding gums, hoarseness, neck pain, dry mouth or other Cardio Chest Pain: No Palpitations: No Edema: None Muscle aches with walking: None Resp Respiratory: Negative for SOB with activity, SOB at rest, SOB orthopnea\SOB lying down, Cough, Coughing up blood/hemoptysis, chest congestion, pain on inspiration, snoring, stridor, wheezing, crackles, paroxysmal nocturnal dyspnea or other GI GI: Negative nausea, vomiting, heartburn, constipation, belching, bloating, cramping, vomiting blood/hematemesis, bright, red blood in stools, black,tarry stools, loose stools, Difficulty Swallowing or other : Negative for hematuria, frequent nighttime urination/ nocturia, erectile dysfunction or abnormal vaginal bleeding Musc Musc: Negative for balance problems, muscle aches/ myalgia, muscle weakness or joint pain Skin Skin: Negative redness, non-healing lesions, rash, unusual bruising, skin ulcer, wounds, jaundice or other Neuro Neuro: Negative for weakness, headache(s), frequent falls, blurry vision, double vision, dizziness, lightheadedness, near syncope, syncope, orthostatic symptoms, confusion, memory loss, restless legs, vertigo, seizures, lack of coordination or other Miguel Hematologic/Lymphatic: Negative for easy bleeding, easy bruising, enlarged lymph nodes or other Endo Endo: Negative for fatigue, excessive sweating, cold intolerance, heat intolerance, flushing, increased thirst/drinking, increased hunger, hair loss, hair growth or other Psych Psych: Negative for anxiety, depression, thoughts of harming anyone, thoughts of harming yourself, visual hallucinations, panic attacks or audible hallucinations Allergy Allergy/Immunology: Negative for lip swelling, Negative for tongue swelling, Negative for rash, Negative for throat swelling, Negative for hives Cardiology Exam Cardio Heart sounds: S2 normal Murmur: Grade 2/6 and crescendo-decrescendo Assessment AND Plan 1. Non-ischemic cardiomyopathy I42.8 Plan 1. Nonischemic cardia myopathy: The patient's cardiac apathy has persisted despite maximal medical therapy. It appears to be due to a viral illness although she does have an aortic valve replacement from 2006. Her pulmonary pressures have improved down to normal on her most recent echocardiogram in February 2018. She continues to exercise without any difficulty whatsoever. She denies any lightheadedness or dizziness. Recommend that she continue her baby aspirin, Coreg, Lasix and potassium. Also recommend lifelong anticoagulation for both her paroxysmal atrial fibrillation and her LV dysfunction for thrombus prevention. 2. H/O aortic valve replacement Z95.2 02/23/[address] #[address] [facility] [employer], as well as closure of PFO per Dr. Alexander Guerrero [facility] Plan 2. Aortic valve replacement: The patient was given an updated SBE prophylaxis card today. Continue present management. 3. Return office in 6 months. This note was generated using a voice recognition system and there may be incorrect words, spelling or punctuation that were not noted when reviewing the office note prior to saving. Plan Detail Other Medications New: carvedilol (Coreg) give with food (meal/3.125 mg PO QDAY 90 tabs 3RF Brandt Mccollum MD snack) Refilled: Follow Up +6M (Jim) Coding Level of Care Code Off vis,est,level 3 Diagnoses Non-ischemic cardiomyopathy I42.8 H/O aortic valve replacement Z95.2 Coding Level of Care Code Off vis,est,level 3 Diagnoses Non-ischemic cardiomyopathy I42.8 H/O aortic valve replacement Z95.2 Supplemental Info Supplemental Information Diagnostics Electrocardiogram 09/14/17 Echocardiogram 03/01/18 Stress Echocardiogram 09/29/17 Cardiac Catheterization 09/07/17 Chest X-Ray 09/05/17 06/26/18 1123 <Electronically signed by Brandt Mccollum MD> Date Brandt Mccollum MD Cosigner Signature: Date (if applicable) CC: Caitie Caban MD PROTHROMBIN TIME W/INR Collected: 06/02/2018 Status: F Source: [place] 7:27 AM [facility] REPOSITORY TYPE CODE TESTS RESULT OUT OF RANGE REFERENCE UNITS LAB L300.4150 11.7-14.9 SECONDS High PROTIME 26.0 LAB L300.4200 Normal INR 2.4 Performed By: #### L300.3900 #### [facility] [address] [place], [place], [id number] PROTHROMBIN TIME W/INR Collected: 05/05/2018 Status: F Source: [place] 8:59 AM [facility] REPOSITORY TYPE CODE TESTS RESULT OUT OF RANGE REFERENCE UNITS LAB L300.4150 11.7-14.9 SECONDS High PROTIME 27.2 LAB L300.4200 Normal INR 2.5 Performed By: #### L300.3900 #### [facility] [address] [place], [place], [id number] PROTHROMBIN TIME W/INR Collected: 04/06/2018 Status: F Source: [place] 9:56 AM [facility] REPOSITORY TYPE CODE TESTS RESULT OUT OF RANGE REFERENCE UNITS LAB L300.4150 11.7-14.9 SECONDS High PROTIME 24.4 LAB L300.4200 Normal INR 2.2 Performed By: #### L300.3900 #### [facility] [address] [place], [address] PROTHROMBIN TIME W/INR Collected: 03/10/2018 Status: F Source: [place] 9:01 AM [facility] REPOSITORY TYPE CODE TESTS RESULT OUT OF RANGE REFERENCE UNITS LAB L300.4150 11.7-14.9 SECONDS High PROTIME 24.1 LAB L300.4200 Normal INR 2.2 Performed By: #### L300.3900 #### [facility] [address] [place], [address] ECHO, COMPLETE W/ Observed: 03/01/2018 Status: F Source: [place] CONTRAST 11:45 AM [facility] REPOSITORY [facility] Cardiovascular Services [address] [place] [address] Echo Complete W/ Contrast 03/01/18 0949 MR#: [id number] Acct: [id number] Name: ELISEO MCKINLEY Rep #: [id number] : 1945 72 From: Brandt Mccollum MD Attending Dr: Brandt Mccollum MD Status: REG CLI Ordering Dr: Brandt Mccollum MD Date: 03/01/18 Location: [facility] Sex: F C Admitted: Reason For Study: CHF Procedure This was a 2D Doppler, Color Flow transthoracic echocardiogram. Exam performed in department. Left Ventricle Moderately dilated left ventricle. Mid cavitary false tendon noted. The estimated ejection fraction is 10-15 %. Stage 1 diastolic dysfunction. There is severe global hypokinesis of the left ventricle. Right Ventricle Mildly dilated right ventricle. Normal systolic function. Atria Normal left atrium. Normal right atrium. Normal atrial septum. Mitral Valve The mitral valve is structurally normal. No prolapse or stenosis seen. Mild (1+) mitral valve insufficiency. Tricuspid Valve Normal tricuspid valve. Trivial tricuspid valve insufficiency. Right ventricular systolic pressure estimated to be 28 mmHg. Aortic Valve Peak aortic valve gradient 49 mmHg. Mean aortic valve gradient 24 mmHg. Moderate aortic stenosis. Bioprosthetic aortic valve. Pulmonic Valve Normal pulmonic valve. Trivial pulmonic valve insufficiency. Great Vessels Normal aortic root. Normal arch. Normal inferior vena cava. Inferior vena cava collapse with sniff. Pericardium/Pleural No pericardial effusion. Medication 22 gauge I.V. with prn adaptor inserted into left arm. Diluted definity 3ml given slow IV push to enhance endocardial definition. MMode/2D Measurements AND Calculations LVIDd: 4.9 cm IVSd: 1.1 cm LVOT diam: 2.0 cm LVIDs: 4.4 cm LVPWd: 1.0 cm LVOT area: 3.1 cm2 RVDd: 3.8 cm FS: 9.8 % Ao root diam: 3.1 cm LAV(MOD-bp): 57.3 ml LA dimension: 3.8 cm LAV(MOD-bp) Indexed: 37.3 ml/m2 LA A4 area: 19.1 cm2 LAV(MOD-sp2): 51.9 ml LAV(MOD-sp4): 61.0 ml RA A4 area: 10.6 cm2 Time Measurements MV dec time: 0.16 sec Doppler Measurements AND Calculations MV E max jas: 60.8 cm/sec Lat Peak E' Jas: 3.4 cm/sec Med Peak E' Jas: 3.9 cm/sec MV A max jas: 78.9 cm/sec E/E' lat: 18.1 E/E' med: 15.7 MV E/A: 0.77 MV V2 max: 99.2 cm/sec MV P1/2t max jas: 80.9 cm/sec Ao V2 max: 348.4 cm/sec MV max P.9 mmHg MV P1/2t: 76.2 msec Ao max P.6 mmHg MV V2 mean: 55.6 cm/sec MV dec slope: 311.1 cm/sec2 Ao V2 mean: 224.5 cm/sec MV mean P.5 mmHg MVA(P1/2t): 2.9 cm2 Ao mean P.0 mmHg MV V2 VTI: 21.2 cm Ao V2 VTI: 72.7 cm MVA(VTI): 3.1 cm2 CE(I,D): 0.90 cm2 CE(V,D): 0.95 cm2 AI max jas: 428.6 cm/sec LV V1 max: 106.0 cm/sec SV(LVOT): 65.6 ml AI max P.5 mmHg LV V1 max P.5 mmHg AI dec slope: 246.6 cm/sec2 LV V1 mean P.2 mmHg AI P1/2t: 509.1 msec LV V1 mean: 67.2 cm/sec LV V1 VTI: 21.0 cm PA V2 max: 107.9 cm/sec TR max jas: 231.0 cm/sec TR max P.4 mmHg Interpretation Summary Moderately dilated left ventricle. The estimated ejection fraction is 10-15 %. Stage 1 diastolic dysfunction. There is severe global hypokinesis of the left ventricle. Mild (1+) mitral valve insufficiency. Trivial tricuspid valve insufficiency. Right ventricular systolic pressure estimated to be 28 mmHg. Peak aortic valve gradient 49 mmHg. Mean aortic valve gradient 24 mmHg. Moderate aortic stenosis but appears to be subvalvular in origin. Compared to echo report dated 09/02/2017, LV function has remained the same and RVSP has decreased from 42 to 28 mm HG. The study was technically difficult. Contrast injection was performed. Ordering Physician: Brandt Mccollum Referring Physician: Brandt Mccollum Performed By: Anthony Valles RCS 03/01/18 1144 Date Brandt Mccollum MD CC: Brandt Mccollum MD; Caitie Caban MD Date Dictated: 03/01/1849 Date Transcribed: 03/01/18 1144 Manager Law: Signed PROTHROMBIN TIME W/INR Collected: 02/10/2018 Status: F Source: [place] 6:58 AM [facility] REPOSITORY TYPE CODE TESTS RESULT OUT OF RANGE REFERENCE UNITS LAB L300.4150 11.7-14.9 SECONDS High PROTIME 26.8 LAB L300.4200 Normal INR 2.5 Performed By: #### L300.3900 #### [facility] [address] [place], [address] PROGRESS Observed: 01/16/2018 Status: COMPLETED Source: [place] 3:00 PM [facility] [place] REPOSITORY HNO ID: [id number] Author: Caitie Caban Service: (none) Author Type: Physician Type: Progress Notes Filed: 02/07/2018 10:42 AM Note Text: HISTORY Eliseo Mckinley is a 72 year old lady here to be formally established with me. Feet swelling and weight gain improved after ER evaluation. Had cold at [place] time. Ended up in ER then treated for cardiac issues. Has Advanced Directives already. PAST MEDICAL HISTORY Diagnosis Date - Acute congestive heart failure (HCC) 09/20/2017 - History of acquired CHF (congestive heart failure) 01/16/2018 cardiomycopathy presumed viral when was admitted to [facility]; Dr. Mccollum following - MR (mental retardation) - Paroxysmal atrial fibrillation (HCC) 09/01/2017 - TIA (transient ischemic attack) Current Outpatient Prescriptions: warfarin (COUMADIN) 5 mg tablet Take 1 tablet by mouth once daily. potassium chloride 20 mEq TbER Take 1 tablet by mouth once daily. furosemide (LASIX) 40 mg tablet Take 1 tablet by mouth once daily. carvedilol (COREG) 3.125 mg tablet 1 tablet once daily. Managed by [facility] aspirin, enteric coated (ASPIRIN, ENTERIC COATED) 81 mg EC tablet Take 81 mg by mouth once daily. MULTIVIT-MINERALS/FERROUS FUM (MULTI VITAMIN ORAL) Take by mouth. No current facility-administered medications for this visit. ALLERGIES Allergen Reactions - Sulfa (Sulfonamide * - Vioxx [Rofecoxib] PAST SURGICAL HISTORY Procedure Laterality Date - REPLACE AORTIC VALVE OPEN TRANSAORTIC APPROACH 2006 Aortic valve replacement #21 [employer] and closure of patent foramen No family history on file. Social History Marital status: Single Spouse name: Years of education: Number of children: Social History Main Topics Smoking status: Never Smoker Smokeless tobacco: Never Used Alcohol use: Yes Comment: occasionally Drug use: No REVIEW OF SYSTEMS Aside from above, Constitutional, HEENT, CV, PULM, GI, , PSYCH, DERM, HEM/ONC, NEURO negative. PHYSICAL EXAMINATION: Blood pressure 104/62, pulse 73, resp. rate 16, height 154.9 cm (5' 1), weight 55.5 kg (122 lb 6.4 oz), SpO2 93 %. Body mass index is 23.13 kg/m?. Last 5 Encounter BP Readings: Date: BP: 01/16/2018 104/62 09/20/2017 98/70 09/01/2017 122/74 08/29/2017 118/88 03/07/2017 130/80 Last 5 Encounter Wt Readings: Date: Wt: 01/16/2018 55.5 kg (122 lb 6.4 oz) 09/20/2017 61.7 kg (136 lb) 09/01/2017 78.5 kg (173 lb) 08/29/2017 78.5 kg (173 lb) 03/07/2017 64.8 kg (142 lb 12.8 oz) General appearance: well appearing, in no acute distress, well-hydrated, well nourished Skin: Skin color, texture, turgor normal. No significant rashes or lesions. Mild dryness pf skin Head: Normal Eyes: Anicteric sclera. Pupils are equally round and reactive to light. Extraocular movements are intact. Ears: External ears normal. Canals clear. TM's unremarkable. Nose/Sinuses: negative Oropharynx: Lips, mucosa, and tongue normal. Teeth and gums fine. Oropharynx normal. Neck: Neck supple, no adenopathy; thyroid symmetric, normal size, no bruits. Lungs: Lungs clear to auscultation Heart: negative. RRR without murmur (?II/ systolic murmur LSB), gallop, or rubs. No ectopy. Abdomen: Abdomen soft, non-tender. Bowel sounds normal. No masses, organomegaly Extremities: Extremities normal. No deformities or skin discoloration. Good capillary refill. Musculoskeletal: grossly normal Peripheral pulses: Normal Neuro: Gait normal. Reflexes normal and symmetric. Sensation grossly intact. No gross focal neurological deficits. ASSESSMENT AND PLAN See diagnoses and orders Encounter Diagnosis ICD-10-CM 1. 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 History of acquired CHF (congestive heart failure) Z86.79 cardiomycopathy presumed viral when was admitted to [facility]; Dr. Mccollum following 3. Paroxysmal atrial fibrillation (HCC) I48.0 had during hospital stay then resolved after hospitalization 72 year old lady here to be formally established with me. History and medications reviewed. Epic updated as needed Above issues addressed with patient. Patient involved in shared decision making for management of her medical issues. Refills taken care of and meds adjusted as indicated after reviewed history, exam and labs. Health Maintenance reviewed. Updated record and/or ordered tests as recorded. Encouraged on efforts at healthy diet and regular exercise and adequate sleep. Will continue management of cardiac issues with Dr. Mccollum. The majority of the visit was spent counseling and/or coordinating care for the patient. Keii-on-curp time was at least 40 minutes. Caitie Caban MD at [facility] CNOV Observed: 01/16/2018 Status: COMPLETED Source: [place] 2:20 PM [facility] REPOSITORY Office Visit (INTMWS) ELISEO MCKINLEY ([id number]) 1945 F Date Time Provider Department 01/16/18 2:20 PM CAITIE CABAN INTMWS During your visit today, we recorded the following information about you: Pulse Respiration Blood pressure Weight 73/minute 16/minute 104/62 55.5 kg Height 1.549 m Caitie Caban MD 02/07/2018 10:42 AM Signed HISTORY Eliseo Mckinley is a 72 year old lady here to be formally established with me. Feet swelling and weight gain improved after ER evaluation. Had cold at [place] time. Ended up in ER then treated for cardiac issues. Has Advanced Directives already. PAST MEDICAL HISTORY Diagnosis Date - Acute congestive heart failure (HCC) 09/20/2017 - History of acquired CHF (congestive heart failure) 01/16/2018 cardiomycopathy presumed viral when was admitted to [facility]; Dr. Mccollum following - MR (mental retardation) - Paroxysmal atrial fibrillation (HCC) 09/01/2017 - TIA (transient ischemic attack) Current Outpatient Prescriptions: warfarin (COUMADIN) 5 mg tablet Take 1 tablet by mouth once daily. potassium chloride 20 mEq TbER Take 1 tablet by mouth once daily. furosemide (LASIX) 40 mg tablet Take 1 tablet by mouth once daily. carvedilol (COREG) 3.125 mg tablet 1 tablet once daily. Managed by [facility] aspirin, enteric coated (ASPIRIN, ENTERIC COATED) 81 mg EC tablet Take 81 mg by mouth once daily. MULTIVIT-MINERALS/FERROUS FUM (MULTI VITAMIN ORAL) Take by mouth. No current facility-administered medications for this visit. ALLERGIES Allergen Reactions - Sulfa (Sulfonamide * - Vioxx [Rofecoxib] PAST SURGICAL HISTORY Procedure Laterality Date - REPLACE AORTIC VALVE OPEN TRANSAORTIC APPROACH 2006 Aortic valve replacement #21 [employer] and closure of patent foramen No family history on file. Social History Marital status: Single Spouse name: Years of education: Number of children: Social History Main Topics Smoking status: Never Smoker Smokeless tobacco: Never Used Alcohol use: Yes Comment: occasionally Drug use: No REVIEW OF SYSTEMS Aside from above, Constitutional, HEENT, CV, PULM, GI, , PSYCH, DERM, HEM/ONC, NEURO negative. PHYSICAL EXAMINATION: Blood pressure 104/62, pulse 73, resp. rate 16, height 154.9 cm (5' 1), weight 55.5 kg (122 lb 6.4 oz), SpO2 93 %. Body mass index is 23.13 kg/m?. Last 5 Encounter BP Readings: Date: BP: 01/16/2018 104/62 09/20/2017 98/70 09/01/2017 122/74 08/29/2017 118/88 03/07/2017 130/80 Last 5 Encounter Wt Readings: Date: Wt: 01/16/2018 55.5 kg (122 lb 6.4 oz) 09/20/2017 61.7 kg (136 lb) 09/01/2017 78.5 kg (173 lb) 08/29/2017 78.5 kg (173 lb) 03/07/2017 64.8 kg (142 lb 12.8 oz) General appearance: well appearing, in no acute distress, well-hydrated, well nourished Skin: Skin color, texture, turgor normal. No significant rashes or lesions. Mild dryness pf skin Head: Normal Eyes: Anicteric sclera. Pupils are equally round and reactive to light. Extraocular movements are intact. Ears: External ears normal. Canals clear. TM's unremarkable. Nose/Sinuses: negative Oropharynx: Lips, mucosa, and tongue normal. Teeth and gums fine. Oropharynx normal. Neck: Neck supple, no adenopathy; thyroid symmetric, normal size, no bruits. Lungs: Lungs clear to auscultation Heart: negative. RRR without murmur (?II/ systolic murmur LSB), gallop, or rubs. No ectopy. Abdomen: Abdomen soft, non-tender. Bowel sounds normal. No masses, organomegaly Extremities: Extremities normal. No deformities or skin discoloration. Good capillary refill. Musculoskeletal: grossly normal Peripheral pulses: Normal Neuro: Gait normal. Reflexes normal and symmetric. Sensation grossly intact. No gross focal neurological deficits. ASSESSMENT AND PLAN See diagnoses and orders Encounter Diagnosis ICD-10-CM 1. 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 History of acquired CHF (congestive heart failure) Z86.79 cardiomycopathy presumed viral when was admitted to [facility]; Dr. Mccollum following 3. Paroxysmal atrial fibrillation (HCC) I48.0 had during hospital stay then resolved after hospitalization 72 year old lady here to be formally established with me. History and medications reviewed. Epic updated as needed Above issues addressed with patient. Patient involved in shared decision making for management of her medical issues. Refills taken care of and meds adjusted as indicated after reviewed history, exam and labs. Health Maintenance reviewed. Updated record and/or ordered tests as recorded. Encouraged on efforts at healthy diet and regular exercise and adequate sleep. Will continue management of cardiac issues with Dr. Mccollum. The majority of the visit was spent counseling and/or coordinating care for the patient. Edqf-yk-rybx time was at least 40 minutes. Caitie Caban MD at [facility] Caitie Caban MD 01/16/2018 3:[address] Caraballo --folding machine operator in [place]. Referring Provider: SELF [200] Allergies As of Date: 01/16/2018 Noted Allergy Reaction SULFA (SULFONAMIDE ANTIBIOTICS) 02/17/2007 VIOXX (ROFECOXIB) 02/17/2007 Date Reviewed: 01/16/2018 Reviewed by: Lindsey Marte Ma - Fully Assessed Reason for Visit: Establish Care [42] Primary Visit Diagnosis:Viral cardiomyopathy (HCC) [B33.24] Other Visit Diagnoses:History of acquired CHF (congestive heart failure) [Z86.79] Comment:cardiomycopathy presumed viral when was admitted to [facility]; Dr. Mccollum following Paroxysmal atrial fibrillation (HCC) [I48.0] Comment:had during hospital stay then resolved after hospitalization Prescriptions as of 01/16/2018 Sig: WARFARIN 5 MG TABLET Take 1 tablet by mouth once d* POTASSIUM CHLORIDE ER 20 MEQ * Take 1 tablet by mouth once d* FUROSEMIDE 40 MG TABLET Take 1 tablet by mouth once d* CARVEDILOL 3.125 MG TABLET 1 tablet once daily. Managed * ASPIRIN 81 MG TABLET,DELAYED * Take 81 mg by mouth once vida* MULTI VITAMIN ORAL Take by mouth. Problem List As Of Date 01/16/2018 Noted Resolved Paroxysmal atrial fibrillation (HCC) [I48.0] INVALID FOR* Acute congestive heart failure (HCC) [I50.9] INVALID FOR*01/16/2018 Viral cardiomyopathy (HCC) [B33.24] INVALID FOR* History of acquired CHF (congestive heart failu*INVALID FOR* More... Other instructions from your clinician: Dr. Caraballo --folding machine operator in [place]. Disposition: Return in about 6 months (around 07/19/2018) for 6 months follow up. Follow-up and Disposition History Recorded Encounter Status:Closed by CAITIE CABAN MD on 02/07/18 PROTHROMBIN TIME W/INR Collected: 01/13/2018 Status: F Source: [place] 7:03 AM [facility] REPOSITORY TYPE CODE TESTS RESULT OUT OF RANGE REFERENCE UNITS LAB L300.4150 11.7-14.9 SECONDS High PROTIME 24.0 LAB L300.4200 Normal INR 2.1 Performed By: #### [id number] #### [facility] [address] [place], [place], [id number] PROTHROMBIN TIME W/INR Collected: 12/23/2017 Status: F Source: [place] 8:07 AM [facility] REPOSITORY TYPE CODE TESTS RESULT OUT OF RANGE REFERENCE UNITS LAB L300.4150 11.7-14.9 SECONDS High PROTIME 31.0 LAB L300.4200 Normal INR 3.0 Performed By: #### [id number] #### [facility] [address] [place], [place], [id number] PROTHROMBIN TIME W/INR Collected: 12/15/2017 Status: F Source: [place] 10:05 AM [facility] REPOSITORY TYPE CODE TESTS RESULT OUT OF RANGE REFERENCE UNITS LAB L300.4150 11.7-14.9 SECONDS High PROTIME 29.9 LAB L300.4200 Normal INR 2.8 Performed By: #### [id number] #### [facility] [address] [place], [address] PROTHROMBIN TIME W/INR Collected: 12/01/2017 Status: F Source: [place] 8:37 AM [facility] REPOSITORY TYPE CODE TESTS RESULT OUT OF RANGE REFERENCE UNITS LAB L300.4150 11.7-14.9 SECONDS High PROTIME 20.9 LAB L300.4200 Normal INR 1.8 Performed By: #### L300.3900 #### [facility] [address] [place], [address] PROTHROMBIN TIME W/INR Collected: 11/11/2017 Status: F Source: [place] 8:39 AM [facility] REPOSITORY TYPE CODE TESTS RESULT OUT OF RANGE REFERENCE UNITS LAB L300.4150 11.7-14.9 SECONDS High PROTIME 25.7 LAB L300.4200 Normal INR 2.3 Performed By: #### L300.3900 #### [facility] [address] [place], [address] PROTHROMBIN TIME W/INR Collected: 10/28/2017 Status: F Source: [place] 11:59 AM [facility] REPOSITORY TYPE CODE TESTS RESULT OUT OF RANGE REFERENCE UNITS LAB L300.4150 11.7-14.9 SECONDS High PROTIME 33.2 LAB L300.4200 Normal INR 3.2 Performed By: #### L300.3900 #### [facility] [address] [place], [address] CARDIOLOGY VISIT Observed: 10/28/2017 Status: F Source: [place] REPORT 11:36 AM [facility] REPOSITORY [facility] [address] [place] [address] OFFICE VISIT Date of Service: 10/28/17 MR#: [id number] Acct: [id number] Name: ELISEO MCKINLEY Rep #: [id number] : 1945 Provider: Brandt Mccollum MD Age/Sex: 72/F Location: [facility] Status: Signed HPI HPI Chief Complaint: Routine and hosptial f/u Details: The patient is a 72 year old F, with a history of bioprosthetic aortic valve replacement on 02/23/2007 at [facility] by Dr. Rose. As best the patient can remember she did not have associated bypass surgery although she cannot recall. 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 Patient may have some mental challenges, and a baseline learning disability, and has requested that I contact her sister regarding clarification of her medical history. The patient is a nondiabetic, and apparently lives with her 2 sisters all of which apparently caught the flu in June. Her 2 sisters improved, however the patient developed worsening lower extremity edema, orthopnea with 8 pillows, shortness of breath, dyspnea on exertion. She apparently went to the emergency room on Tuesday prior to her hospital admission on 09/07/17, and was subsequently sent home despite her lower extremity edema. When her symptoms did not improve she returned yesterday and was admitted with new onset heart failure. An echocardiogram was performed on 09/02/17 which demonstrated severe global LV dysfunction with an EF around 10-15%, bioprosthetic aortic valve, with moderate aortic stenosis, RVSP of 42 mmHg, with a left-sided pleural effusion. Patient underwent dobutamine echocardiogram to determine if she had a significant dynamic aortic valvular gradient, which appeared to be negative for dynamic gradient. I do not believe she requires repeat AVR at this time. In addition she underwent a cardiac catheterization on 09/07/17 which demonstrated normal coronary arteries. It was felt that her cardiomyopathy was most likely result of a recent viral illness. She is now here in follow-up. Since being discharged, the patient has been doing fairly well at home, exercising on a treadmill. I am pleased to hear that she has no chest pain, angina or shortness of breath and appears to be slowly improving. He denies any palpitations, presyncope or syncope. In our office today her blood pressure is 98/50, pulse 76 and regular. Physical exam is as below. [] Intake Vital Signs10/28/17 Height 5 ft 1 in Intake Visit Reasons: 4-6 wk f/u Allergies Sulfa (Sulfonamide Antibiotics) Allergy (Verified 10/24/17 19:02) Other Medications Aspirin [Aspirin, Baby] 81 mg PO DAILY@0800 09/01/17 [History Confirmed 10/24/17] carvedilol 3.125 mg tablet 3.125 mg PO QDAY #90 tab 09/14/17 [Rx Confirmed 10/24/17] furosemide 40 mg tablet 40 mg PO DAILY #90 tab 09/14/17 [Rx Confirmed 10/24/17] potassium chloride ER 20 mEq tablet,extended release(part/cryst) 20 meq PO DAILYCM #90 tab 09/14/17 [Rx Confirmed 10/24/17] warfarin 5 mg tablet 5 mg PO .COMPLEX #90 tab 10/07/17 [Rx Confirmed 10/24/17] [facility] Medical History Paroxysmal atrial fibrillation (Chronic) half-way (current) use of anticoagulants (Chronic) CHF (congestive heart failure) (Chronic) Stasis dermatitis of both legs (Chronic) General learning disability (Chronic) Lower extremity edema (Chronic) Cardiomyopathy (Chronic) Surgical History History of left heart catheterization (Chronic) H/O aortic valve replacement (Chronic) Family History Father CVA (cerebral vascular accident) Mother CHF (congestive heart failure) Hypertension Sister High cholesterol Sister H/O heart valve replacement with porcine valve Rheumatic fever Social History Smoking Status: Never smoker alcohol intake: current alcohol intake frequency: holidays/special occasions only Alcohol type: beer, wine, hard liquor substance use type: does not use caffeine: Yes Type: coffee what type of physical activity do you participate in: bicycling frequency: 3-4 times per week duration: 15-30 minutes/day seatbelt use: always do you feel safe at home: Yes ROS Const Const: Negative for fatigue, weakness, difficulty sleeping, frequent falls, headache(s) or excessive sweating Eyes Eyes: Negative for loss of peripheral vision, transient loss of vision, blurry vision or double vision ENT ENT: Negative for headache(s), dizziness, Nosebleed/epistaxis or balance problems Cardio Chest Pain: No Edema: None Muscle aches with walking: None Resp Respiratory: Negative for SOB with activity, SOB at rest, SOB orthopnea\SOB lying down or paroxysmal nocturnal dyspnea GI GI: Negative nausea or heartburn : Negative for hematuria Musc Musc: Negative for muscle aches/ myalgia, muscle weakness, joint pain or balance problems Skin Skin: Negative non-healing lesions, unusual bruising or rash Neuro Neuro: Negative for weakness, frequent falls, blurry vision, headache(s), dizziness, lightheadedness, orthostatic symptoms or double vision Mi[place]el Hematologic/Lymphatic: Negative for easy bruising Endo Endo: Negative for fatigue, excessive sweating or increased thirst/drinking Psych Psych: Negative for anxiety or depression Allergy Allergy/Immunology: Negative for hives, Negative for rash Cardiology Exam Const Appearance: cooperative, healthy appearing and no acute distress Nutritional Appearance: well nourished Orientation: alert, oriented x3 and oriented to person Head Head: normal to inspection, atraumatic and normocephalic Nose: external nose normal Face and Sinus: face symmetric Mouth: oral mucosae normal Eyes General: appearance normal, both eyes and all related structures Eyelids: eyelids normal Conjunctivae: conjunctivae normal Pupils: PERRL and normal by confrontation EOM: EOM intact bilaterally Neck Neck: normal visual inspection and full ROM Carotids: normal carotid upstroke Chest Chest inspection: normal inspection of the chest Auscultation: Bilateral: Clear to Auscultation Cardio Palpation: normal PMI Rate: regular rate Rhythm: regular rhythm Heart sounds: S1 normal and S2 normal GI GI: normal to inspection, no hepatosplenomegaly and bowel sounds present Neuro General: alert, oriented x3, awake, CN's II-XI intact bilaterally and moves all extremities Skin Skin: no rashes or lesions noted Extremities Pulses: Normal: Right Femoral Pulse, Left Femoral Pulse, Right Dorsalis Pedis Pulse, Left Dorsalis Pedis Pulse, Right Posterior Tibial Pulse, Left Posterior Tibial Pulse, Right Radial Pulse, Left Radial Pulse Lower Extremity Edema: None: Bilateral Psych Psychological: normal affect Assessment AND Plan 1. Acute congestive heart failure, unspecified heart failure type I50.9 Plan 1. Congestive heart failure: My suspicion is the patient may have contracted a viral illness which is caused a viral cardiomyopathy superimposed on her aortic valve replacement. It does not appear that her aortic valve is materially impacting on her LV function as her LV dysfunction is out of proportion to her peak and mean gradient. Her catheterization shows normal coronary arteries so does not appear to be an ischemic cardiomyopathy. The patient has responded well to Jovani, Lasix. I had a long and thorough discussion with the patient and her aircraft dispatcher who is her sister and of highly recommended that the patient undergo cardiac rehab to assure that she has rhythm monitoring while she is rehabilitating as she is at higher risk for ventricular arrhythmias which may cause sudden cardiac while she is exercising. The patient's sister, gave several reasons why cardiac rehab was not necessary according to historical experience with her mother. Majority of our visit centered around the importance of cardiac rehab to ensure the patient is monitored during her rehab process and does not overextend herself during her cardiac convalescence. Patient's sister wishes to think about it for 24 hours and then get back to us. Whether the patient goes to cardiac rehab or not, recommend a repeat echocardiogram in 3 months time. Orders Referrals: 2. H/O aortic valve replacement Z95.2 02/23/[address] #21 [employer] Biocor, as well as closure of PFO per Dr. Alexander Guerrero [facility] Plan 2. Aortic valve replacement: Patient's bioprosthetic aortic valve appears to be operating within nominal limits given its age. Continue warfarin therapy continue Lasix therapy. Orders Referrals: 3. Paroxysmal atrial fibrillation I48.0 Plan 3. Paroxysmal atrial fibrillation: The patient appears to be in sinus rhythm by clinical exam. Continue Coreg and warfarin. 4. Return office in 6 months. This note was generated using a voice recognition system and there may be incorrect words, spelling or punctuation that were not noted when reviewing the office note prior to saving. Plan Detail Other Orders Orders: Referrals: Follow Up +6M (Jim) Coding Level of Care Code Off vis,est,level 3 Diagnoses Acute congestive heart failure, unspecified heart failure type I50.9 Heart failure type: unspecified Heart failure chronicity: acute H/O aortic valve replacement Z95.2 Paroxysmal atrial fibrillation I48.0 Coding Level of Care Code Off vis,est,level 3 Diagnoses Acute congestive heart failure, unspecified heart failure type I50.9 Heart failure type: unspecified Heart failure chronicity: acute H/O aortic valve replacement Z95.2 Paroxysmal atrial fibrillation I48.0 10/28/17 1136 <Electronically signed by Brandt Mccollum MD> Date Brandt [facility]ccollum [facility] Signature: Date (if applicable) CC: PROTHROMBIN TIME W/INR Collected: 10/21/2017 Status: F Source: [place] 7:45 AM [facility] REPOSITORY TYPE CODE TESTS RESULT OUT OF REFERENCE UNITS RANGE LAB L300.4150 11.7-14.9 SECONDS High PROTIME 35.4 LAB L300.4200 High alert INR 3.5 Result Comment: CRITICAL VALUE VERIFIED. CALLED TO JOSE A AT 'S OFFICE. 10/21/17 0901 Eric Antonio. RESULTS READ BACK BY SAME. Performed By: #### L300.3900 #### [facility] [address] [place], [place], [id number] PROTHROMBIN TIME W/INR Collected: 10/07/2017 Status: F Source: [place] 8:44 AM [facility] REPOSITORY TYPE CODE TESTS RESULT OUT OF RANGE REFERENCE UNITS LAB L300.4150 11.7-14.9 SECONDS High PROTIME 29.0 LAB L300.4200 Normal INR 2.7 Performed By: #### L300.3900 #### [facility] [address] [place], [address] STRESS TEST ECHO W/ Observed: 09/30/2017 Status: F Source: [place] CONTRAST 3:50 PM [facility] REPOSITORY [facility] [address] [place] [id number] Stress Test Echo W/Contrast MR#: [id number] Acct: [id number] Name: ELISEO MCKINLEY Rep #: [id number] : 1945 72 From: Brandt Mccollum MD Primary Care: Caitie Caban MD Status: REG CLI Ordering Dr: 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 Severely Stress Echo Wall motion Data Resting WMIntermediate WMStress WM Wall Motion Stress No regional wall motion abnormalities noted. EKG Data The patient was titrated from 10 mcg to a maximum of 40 mcg of dobutamine during the stress. This was 109% of maximum predicted heart rate. Interpretation Summary The estimated ejection fraction is 15 %. Severely dilated left ventricle. Abnormal baseline echo with resting ejection fraction of 10- 15%. Normal adequate dobutamine echocardiogram, negative for ischemia by echocardiographic criteria. No anginal symptoms noted. Patient developed ventricular bigeminy and a burst of supraventricular tachycardia at peak infusion which resolved spontaneously into recovery. Patient had no associated symptoms during that time. Patient's baseline peak aortic valve gradient was approximately 36 mmHg. Peak dobutamine aortic valve gradient slightly worse, with mean gradient of around 28-32 mmHg. This does not appear to be significant aortic stenosis to warrant redo aortic valve replacement. Decreased sensitivity due to poor echo windows and need for Definity agent. Test terminated due to attainment of THR. Doppler Measurements AND Calculations Ao V2 max: 308.2 cm/sec Ao max P.0 mmHg Ao V2 mean: 207.2 cm/sec Ao mean P.5 mmHg Ao V2 VTI: 62.4 cm Ordering Physician: Giorgi Maurice Referring Physician: Giorgi Maurice Performed By: Crystal Gutierrez, KING, RVT 09/30/17 1549 Date Brandt Mccollum MD CC: SUSANA Maurice; Caitie Caban MD Date Dictated: 09/29/17 1340 Date Transcribed: 09/30/17 154 Manager Law: Signed PROTHROMBIN TIME W/INR Collected: 09/30/2017 Status: F Source: [place] 9:25 AM [facility] REPOSITORY Order Comment: CRITICAL VALUE VERIFIED. CALLED TO IGNACIA 09/30/17 1012 Karissa Holley. RESULTS READ BACK BY LIDIA . TYPE CODE TESTS RESULT OUT OF REFERENCE UNITS RANGE LAB L300.4150 11.7-14.9 SECONDS High PROTIME 42.3 LAB L300.4200 High alert INR 4.4 Performed By: #### L300.3900 #### [facility] [address] [place], [address] PROTHROMBIN TIME W/INR Collected: 09/23/2017 Status: F Source: [place] 7:52 AM [facility] REPOSITORY Order Comment: Comments: Standing Comments: Standing TYPE CODE TESTS RESULT OUT OF REFERENCE UNITS RANGE LAB L300.4150 11.7-14.9 SECONDS High PROTIME 36.5 LAB L300.4200 High alert INR 3.6 Result Comment: CRITICAL VALUE VERIFIED. CALLED TO GOLDEN AT [place] [facility] 09/23/17 0837 Maya Owens. RESULTS READ BACK BY LISETTE . Performed By: #### L300.3900 #### [facility] [address] [place], [address] PROGRESS Observed: 09/20/2017 Status: COMPLETED Source: [place] 7:45 AM [facility] REPOSITORY O ID: [id number] Author: Caridad (Momo) Older Service: (none) Author Type: Nurse Practitioner Type: Progress Notes Filed: 09/20/2017 8:20 AM Note Text: CC: Patient presents with: [facility] Follow up HPI Eliseo Mckinley is a 72 year old female who presents today for hospital follow-up. Reason for visit: SOB Which facility: [facility] Date of visit: 09/01 to 09/07 Diagnosis: new onset CHF, cardiomyopathy, severe global hypokinesis Testing done: Echocardiogram- and cardiac cath. Chest x-ray 09/01 small bilateral pleural effusions and bibasilar atelectasis, chest x-ray 09/05 moderate improvement in CHF with residual sm right pleural effusion, Labs-hypokalemia, stable thrombocytopenia, Treatment given: Lasix, Coumadin. Discharged home on Lasix 40 mg daily, Potassium 20 meq daily, Coumadin 5 mg daily, Aspirin 81 mg daily Current symptoms: Patient feeling well. Accompanied by her sister today. Positive for mild SOB with exertion. No chest pain, heart palpitations, weight gain or increase in swelling. No PND or orthopnea. Had cardiology appointment last week. Started on Coreg but only once a day for now because of low blood pressure. REVIEW OF SYSTEMS General: no fevers, no chills, no night sweats, no change in appetite, no change in energy and no significant changes in weight Respiratory: no cough, no wheezing PAST MEDICAL HISTORY Diagnosis Date - MR (mental retardation) - TIA (transient ischemic attack) PAST SURGICAL HISTORY Procedure Laterality Date - REPLACE AORTIC VALVE OPEN TRANSAORTIC APPROACH 2006 Aortic valve replacement #21 [employer] Biocor and closure of patent foramen ALLERGIES Sulfa (Sulfonamide Antibiotics); Vioxx [Rofecoxib] MEDICATIONS warfarin (COUMADIN) 5 mg tablet Take 1 tablet by mouth once daily. potassium chloride 20 mEq TbER Take 1 tablet by mouth once daily. furosemide (LASIX) 40 mg tablet Take 1 tablet by mouth once daily. aspirin, enteric coated (ASPIRIN, ENTERIC COATED) 81 mg EC tablet Take 81 mg by mouth once daily. MULTIVIT-MINERALS/FERROUS FUM (MULTI VITAMIN ORAL) Take by mouth. No family history on file. Social History Substance Use Topics - Smoking status: Never Smoker - Smokeless tobacco: Never Used - Alcohol use Yes Comment: occasionally PHYSICAL EXAM BP 98/70 Pulse 80 Temp (!) 35.8 ?C (96.5 ?F) (Temporal Artery) Resp 16 Wt 61.7 kg (136 lb) SpO2 97% General Appearance: well appearing, in no acute distress, alert Lungs: Lungs clear to auscultation. No wheezing, rhonchi, rales Heart: Irregular rhythm, rate regular. Soft 2/6 murmur. No gallop or rubs. No ectopy Extremities: Good capillary refill. , Pulses: 1+, Edema: Trace, mildly pitting edema to bilateral lower legs. Skin very dry and flaky. ASSESSMENT/PLAN: 1. Acute congestive heart failure, unspecified heart failure type (HCC) - ICD9: 428.0, ICD10: I50.9 (primary diagnosis) Patient doing well on current medication regimen, managed by [facility] including coumadin/INR Continue with medications and follow-ups as advised Follow-up with Dr. Caban in December to establish care as scheduled or sooner as needed 2. Viral cardiomyopathy (HCC) - ICD9: 425.4, ICD10: B33.24 As above 3. Venous stasis dermatitis of both lower extremities - ICD9: 454.1, ICD10: I87.2 Discussed skin care including emollient lotions such as Eucerin Call office for any open areas or sores Follow-up as above 4. Atrial fibrillation, unspecified type (HCC) - ICD9: 427.31, ICD10: I48.91 See #1 Prescription instructions reviewed with patient as applicable. Potential red flag symptoms discussed with the patient. Reviewed appropriate action plan to take if red flag symptoms occur. Patient agreeable to treatment plan. Caridad Smith APRN.CNP CNOV Observed: 09/20/2017 Status: COMPLETED Source: [place] 7:40 AM [facility] REPOSITORY Office Visit (INTMWS) ELISEO MCKINLEY ([id number]) 1945 F Date Time Provider Department 09/20/17 7:40 AM CARIDAD SMITH (MOMO) INTMWS During your visit today, we recorded the following information about you: Temperature Pulse Respiration Blood pressure 96.5 degrees 80/minute 16/minute 98/70 Weight 61.7 kg Caridad Smith APRN.CNP 09/20/2017 8:20 AM Signed CC: Patient presents with: [facility] Follow up HPI Eliseo Mckinley is a 72 year old female who presents today for hospital follow-up. Reason for visit: SOB Which facility: [facility] Date of visit: 09/01 to 09/07 Diagnosis: new onset CHF, cardiomyopathy, severe global hypokinesis Testing done: Echocardiogram- and cardiac cath. Chest x-ray 09/01 small bilateral pleural effusions and bibasilar atelectasis, chest x-ray 09/05 moderate improvement in CHF with residual sm right pleural effusion, Labs-hypokalemia, stable thrombocytopenia, Treatment given: Lasix, Coumadin. Discharged home on Lasix 40 mg daily, Potassium 20 meq daily, Coumadin 5 mg daily, Aspirin 81 mg daily Current symptoms: Patient feeling well. Accompanied by her sister today. Positive for mild SOB with exertion. No chest pain, heart palpitations, weight gain or increase in swelling. No PND or orthopnea. Had cardiology appointment last week. Started on Coreg but only once a day for now because of low blood pressure. REVIEW OF SYSTEMS General: no fevers, no chills, no night sweats, no change in appetite, no change in energy and no significant changes in weight Respiratory: no cough, no wheezing PAST MEDICAL HISTORY Diagnosis Date - MR (mental retardation) - TIA (transient ischemic attack) PAST SURGICAL HISTORY Procedure Laterality Date - REPLACE AORTIC VALVE OPEN TRANSAORTIC APPROACH 2006 Aortic valve replacement #21 [employer]oc[employer] and closure of patent foramen ALLERGIES Sulfa (Sulfonamide Antibiotics); Vioxx [Rofecoxib] MEDICATIONS warfarin (COUMADIN) 5 mg tablet Take 1 tablet by mouth once daily. potassium chloride 20 mEq TbER Take 1 tablet by mouth once daily. furosemide (LASIX) 40 mg tablet Take 1 tablet by mouth once daily. aspirin, enteric coated (ASPIRIN, ENTERIC COATED) 81 mg EC tablet Take 81 mg by mouth once daily. MULTIVIT-MINERALS/FERROUS FUM (MULTI VITAMIN ORAL) Take by mouth. No family history on file. Social History Substance Use Topics - Smoking status: Never Smoker - Smokeless tobacco: Never Used - Alcohol use Yes Comment: occasionally PHYSICAL EXAM BP 98/70 Pulse 80 Temp (!) 35.8 ?C (96.5 ?F) (Temporal Artery) Resp 16 Wt 61.7 kg (136 lb) SpO2 97% General Appearance: well appearing, in no acute distress, alert Lungs: Lungs clear to auscultation. No wheezing, rhonchi, rales Heart: Irregular rhythm, rate regular. Soft 2/6 murmur. No gallop or rubs. No ectopy Extremities: Good capillary refill. , Pulses: 1+, Edema: Trace, mildly pitting edema to bilateral lower legs. Skin very dry and flaky. ASSESSMENT/PLAN: 1. Acute congestive heart failure, unspecified heart failure type (HCC) - ICD9: 428.0, ICD10: I50.9 (primary diagnosis) Patient doing well on current medication regimen, managed by [facility] including coumadin/INR Continue with medications and follow-ups as advised Follow-up with Dr. Caban in December to establish care as scheduled or sooner as needed 2. Viral cardiomyopathy (HCC) - ICD9: 425.4, ICD10: B33.24 As above 3. Venous stasis dermatitis of both lower extremities - ICD9: 454.1, ICD10: I87.2 Discussed skin care including emollient lotions such as Eucerin Call office for any open areas or sores Follow-up as above 4. Atrial fibrillation, unspecified type (HCC) - ICD9: 427.31, ICD10: I48.91 See #1 Prescription instructions reviewed with patient as applicable. Potential red flag symptoms discussed with the patient. Reviewed appropriate action plan to take if red flag symptoms occur. Patient agreeable to treatment plan. Caridad Smith APRN.[employer] Referring Provider: SELF [[id number]] Allergies As of Date: 09/20/2017 Noted Allergy Reaction SULFA (SULFONAMIDE ANTIBIOTICS) 02/17/2007 VIOXX (ROFECOXIB) 02/17/2007 Date Reviewed: 09/20/2017 Reviewed by: Jennifer Ferrer Plant Maintenance Supervisor - Fully Assessed Reason for Visit: [facility] Follow up [Other] Primary Visit Diagnosis:Acute congestive heart failure, unspecified heart failure type (HCC) [I50.9] Other Visit Diagnoses:Viral cardiomyopathy (HCC) [B33.24] Venous stasis dermatitis of both lower extremities [I87.2] Atrial fibrillation, unspecified type (HCC) [I48.91] Order(s):carvedilol (COREG) 3.125 mg tablet1 tablet once daily. [facility]: Rfl: Prescriptions as of 09/20/2017 Sig: WARFARIN 5 MG TABLET Take 1 tablet by mouth once d* POTASSIUM CHLORIDE ER 20 MEQ * Take 1 tablet by mouth once d* FUROSEMIDE 40 MG TABLET Take 1 tablet by mouth once d* ASPIRIN 81 MG TABLET,DELAYED * Take 81 mg by mouth once vida* MULTI VITAMIN ORAL Take by mouth. CARVEDILOL 3.125 MG TABLET 1 tablet once daily. Managed * Problem List As Of Date 09/20/2017 Noted Resolved Atrial fibrillation (HCC) [I48.91] INVALID FOR* Acute congestive heart failure (HCC) [I50.9] INVALID FOR* Viral cardiomyopathy (HCC) [B33.24] INVALID FOR* Prescriptions ordered this encounter Disp Refills Start End CARVEDILOL 3.125 MG TABLET 09/20/2017 Class: Med Update Si tablet once daily. Managed by [facility] Medications Discontinued During This Encounter carvedilol (COREG) 3.125 mg tablet 09/14/2017 09/20/2017 Class: Historical Med Sig: Disc: Reason for discontinue is not on file. Encounter Status:Closed by CARIDAD SMITH CNP on 09/20/17 CARDIOLOGY VISIT Observed: 09/14/2017 Status: F Source: [place] REPORT 3:20 PM [facility] REPOSITORY [facility] [address] [place] [address] OFFICE VISIT Date of Service: 09/14/17 MR#: [id number] Acct: [id number] Name: ELISEO MCKINLEY Rep #: [id number] : 1945 Provider: Nimco Louis Age/Sex: 72/F Location: [facility] Status: Signed HPI HPI Details: ELISEO MCKINLEY, is a 72 F who presents to the office today for for a hospital follow-up. Patient was admitted on September 01, 2017 with congestive heart failure and acute biventricular cardiomyopathy. She does have a history of aortic valve replacement, paroxysmal atrial fibrillation. She also has a general learning disability in which her sister is her POA. During her hospitalization she was treated with IV diuretics in which she diuresed approximately 30 pounds. She underwent a heart catheterization which did not demonstrate any significant coronary artery disease and no significant aortic insufficiency however they were unable to cross the valve area and the LV function was not assessed. She was discharged home on oral Lasix, potassium and Coumadin due to her severe LV dysfunction. The plan at discharge was to obtain a dobutamine stress echocardiogram to reevaluate her LV function as well as evaluate her AV gradient. It was felt that patient has at least moderate aortic stenosis of her bioprosthetic aortic valve She was not started on an SHAISTA inhibitor or Coreg for cardiomyopathy at time of discharge due to her severe hypo-tension. It was also felt that that sometime in the future she may need an repeat left and right heart catheterization. Patient states that she is feeling much better since going home. She is now noted an increase in exercise tolerance where she can walk up and down the steps without needing to stop. She is now able to sleep in bed with 2 pillows, previous to hospital stay she was using 10 pillows. She does not have any chest heaviness or tightness. She does occasionally have palpitations. She has noticed that this is more frequent since being sick. She does have some lower extremity edema. She does not have any near-syncope or syncope or lightheadedness or dizziness. Intake Vital Signs09/14/17 Height 5 ft 1 in 09/14/17 Weight: 132 lb 09/14/17 Body Mass Index (BMI) 24.9 09/14/17 Blood Pressure 100/74 09/14/17 Blood Pressure Location Lt brachial Intake Visit Reasons: 1 wk post cath Label Maker Required: No Accompanied by: Sister Is patient in pain?: No Allergies Sulfa (Sulfonamide Antibiotics) Allergy (Verified 09/14/17 10:20) Other Medications Aspirin [Aspirin, Baby] 81 mg PO DAILY@0800 09/01/17 [History Confirmed 09/14/17] carvedilol 3.125 mg tablet 3.125 mg PO QDAY #90 tab 09/14/17 [Rx Confirmed 09/14/17] furosemide 40 mg tablet 40 mg PO DAILY #90 tab 09/14/17 [Rx Confirmed 09/14/17] potassium chloride ER 20 mEq tablet,extended release(part/cryst) 20 meq PO DAILYCM #90 tab 09/14/17 [Rx Confirmed 09/14/17] warfarin 5 mg tablet 5 mg PO DAILY #90 tab 09/14/17 [Rx Confirmed 09/14/17] Ejection fraction %: 10 to 14 PFSH Medical History CHF (congestive heart failure) (Acute) Cardiomyopathy (Acute) Surgical History H/O aortic valve replacement (Chronic) Family History Father CVA (cerebral vascular accident) Mother CHF (congestive heart failure) Hypertension Sister High cholesterol Sister H/O heart valve replacement with porcine valve Rheumatic fever Social History Smoking Status: Never smoker alcohol intake: current alcohol intake frequency: holidays/special occasions only Alcohol type: beer, wine, hard liquor substance use type: does not use caffeine: Yes Type: coffee what type of physical activity do you participate in: bicycling frequency: 3-4 times per week duration: 15-30 minutes/day seatbelt use: always do you feel safe at home: Yes Cardiology Exam Const Appearance: cooperative, no acute distress and well developed Orientation: alert, awake and oriented x3 Head Head: normocephalic and atraumatic Mouth: moist mucous membranes Eyes General: appearance normal, both eyes and all related structures Conjunctivae: conjunctivae normal Pupils: PERRL EOM: EOM intact bilaterally Neck Neck: normal visual inspection, no lymphadenopathy and no JVD Carotids: Negative bruit Neck Mass: Negative Neck mass Chest Chest inspection: normal inspection of the chest, symmetric chest movement and midline sternotomy incision Auscultation: Bilateral: Clear to Auscultation Cardio Palpation: normal PMI Rate: regular rate Rhythm: regular rhythm and ectopic beats (frequent) Heart sounds: S1 normal, S2 normal and murmur; negative rub or gallop Murmur: Grade 2/6 and mid systolic GI GI: normal to inspection, soft, no hepatosplenomegaly and bowel sounds present; negative tender Neuro General: alert, awake, oriented x3, CN's II-XI intact bilaterally and moves all extremities Extremities Pulses: Normal: Right Posterior Tibial Pulse, Left Posterior Tibial Pulse, Right Radial Pulse, Left Radial Pulse Lower Extremity Edema: +1: Bilateral, Color Changes: Bilateral Psych Psychological: normal affect Supplemental Info Left heart catheterization demonstrated no obstructive coronary artery disease unable to cross the AV due to previous AVR. So unable to assess LV function. Echocardiogram demonstrated severely dilated LV with an estimated ejection fraction of 10-15%. Severe global hypokinesis of the LV. Stage II diastolic dysfunction. Moderately dilated right ventricle. Moderately severe global right ventricular systolic dysfunction. Left atrium mildly enlarged. Mild tricuspid insufficiency. RVSP 42 mmHg. Mild pulmonary hypertension. Moderate aortic stenosis. Trivial aortic insufficiency. Moderate sized left pleural effusion. Assessment AND Plan 1. Dilated cardiomyopathy I42.0 Plan - JANE Farias Patient does have a documented ejection fraction of 10-15%. She was unable to tolerate a beta-ramakrishna or SHAISTA inhibitor during hospital stay due to low blood pressure readings. Will attempt a low dose Coreg. Sister is concerned who is the POA about medications. Will try this at once a day with the goal of going to twice a day. Have asked him to monitor their blood pressure readings. Patient is scheduled to undergo a dobutamine stress echocardiogram in the near future to reevaluate LV function and aortic valve gradient. Further adjustments will be based upon this. Remains anticoagulated as there was concerns with her biventricular dysfunction and significant cardiomyopathy that she may develop a thrombus. Goal is to keep INR between 2-3. If ejection fraction remains at 10-15% may need to consider prophylactic ICD placement. Patient Instructions - JANE Farias I started you on Coreg, It is supposed to be twice a day. I will start it at once a day. Please monitor her Bp readings at home. Let us know if it is low. 2. Aortic valve disease I35.9 Plan - JANE Farias Patient does have a history of aortic valve replacement in 2006. She does have moderate aortic stenosis. This will be reevaluated with a mean stress echocardiogram in the near future. There was concern with her worsening ejection fraction that she may need to be reevaluated for a redo of her aortic valve. They are aware of antibiotic prophylaxis. Plan Detail Other Orders Orders: Other Medications New: Refilled: Additional Comments - JANE Farias Questions were explained in detail to patient and sister who is POA. Will follow patient closely. The above patient was discussed with Dr. Ríos and Dr. Mccollum's absence, he agrees with plan of care. Thank you for allowing us to participate in patient's plan of care, if you have any questions please do not hesitate to call. This note was generated using a voice recognition system and there may be incorrect words, spelling or punctuation errors that were not noted when reviewing the office note prior to saving. Follow Up 09/14/17 (Please obtain MR from [facility] and [facility].) 1 Month (NORTH/CESAR/RUBY 4-6 weeks) Coding Level of Care Code Off vis,est,level 4 Diagnoses Dilated cardiomyopathy I42.0 Cardiomyopathy type: dilated Aortic valve disease I35.9 Coding Level of Care Code Off vis,est,level 4 Diagnoses Dilated cardiomyopathy I42.0 Cardiomyopathy type: dilated Aortic valve disease I35.9 09/14/17 1219 <Electronically signed by Nimco LARA> Date Nimco LARA 09/14/17 1520<Electronically signed by Esau Ríos MD> Cosigner Signature: Date (if applicable) Esau Ríos MD CC: Caitie Caban MD 12 LEAD EKG PERFORMED Observed: 09/14/2017 Status: F Source: [place] [facility] 10:[id number] [place] [address] 12 Lead EKG performed by [facility] 09/14/17 1052 MR#: [id number] Acct: [id number] Name: ELISEO MCKINLEY Rep #: [id number] : 1945 72 From: Nimco LARA Attending Dr: Nimco Louis Status: DEP AMB Ordering Dr: Nimco Louis Date: 09/14/17 Location: [facility] Sex: F C Admitted: [facility]/12 Lead EKG performed by [facility] ECG Report Interpretation Sinus Tachycardia - requent multiform ectopic ventricular beats # VECs = 2, # types 2Voltage riteria for LVH (S(V2) exceeds 3.00 mV). -Poor R-wave progression -may e secondary to left ventricular hypertrophy consider old anterior nfarct. -Nonspecific ST depression + T-abnormality - Seen with eft ventricular hypertrophy (strain) or digitalis effect consider nterolateral ischemia. ABNORMAL Electronically signed on 10/31/2017 at 09:28 by 10/31/17 0931 Date Nimco LARA CC: Caitie Caban MD Date Dictated: 09/14/171051 Date Transcribed: 09/14/171051 Manager Law: NORTH Signed PROTHROMBIN TIME W/INR Collected: 09/12/2017 Status: F Source: [place] 8:10 AM [facility] REPOSITORY Order Comment: Send Results To: PCP Reason for Laboratory Test follow up on chronic coumadin therapy TYPE CODE TESTS RESULT OUT OF RANGE REFERENCE UNITS LAB L300.4150 11.7-14.9 SECONDS High PROTIME 20.3 LAB L300.4200 Normal INR 1.7 Performed By: #### L300.3900 #### [facility] [address] [place], [address] BASIC METABOLIC Collected: 09/12/2017 Status: F Source: [place] PROFILE (BMP) 8:10 AM [facility] REPOSITORY Order Comment: Send Results To: PCP Reason for Laboratory Test follow-up for medication side-effects TYPE CODE TESTS RESULT OUT OF RANGE REFERENCE UNITS LAB L501.0100 74-106 mg/dL Normal GLU 106 Result Comment: Fasting Glucose result from 100 to 125 mg/dL suggests IMPAIRED HOMEOSTASIS per A.D.A. criteria. Please note revised GLUCOSE reference range effective 2017. LAB L501.1000 7-18 mg/dL High BUN 35 LAB L501.1100 0.55-1.02 mg/dL Normal CREAT,SERUM 0.99 Result Comment: The validity of the calculated GFR AND GFRAA in patients over 70 years has not been determined. Clinical correlation is essential. LAB L501.1110 >60 mL/min Low EST GFR 58 Result Comment: Non- GFR Calc LAB L501.1115 >60 mL/min Normal EST GFR - AA 71 Result Comment: GFR Calc LAB L501.1300 10-20 RATIO High BUN/CRE 35.3 LAB L501.2200 8.5-10.1 mg/dL CA Normal 9.4 LAB L501.5300 136-145 mmol/L NA Normal 145 LAB L501.5600 3.5-5.1 mmol/L K Normal 3.7 LAB L501.5900 98-107 mmol/L CL Normal 106 LAB L501.6100 21.0-32.0 mmol/L High CO2 34.0 LAB L501.6200 5-15 Normal GAP 5 Performed By: #### L500.2500 #### [facility] [address] [place], [address] DISCHARGE SUMMARY Observed: 09/09/2017 Status: F Source: [place] 8:23 [facility] REPOSITORY [facility] Medical Records Department [address] [place] [address] Discharge Summary 09/07/17 1451 MR#: [id number] Acct: [id number] Name: ELISEO MCKINLEY Rep #: [id number] : 1945 72 From: Sabiha Marx MD PCP: Caitie Caban MD Status: DIS IN Y Location: [address] Discharge Date and Diagnosis Date of Admission: 09/01/17 Date of Discharge: 09/07/17 - Primary Discharge Diagnosis Active and Suspected Problems CHF (congestive heart failure) (Acute) Lower extremity edema (Acute) Cardiomyopathy (Acute) - Secondary Discharge Diagnosis Chronic Problems H/O aortic valve replacement (Chronic) Stasis dermatitis of both legs (Chronic) General learning disability (Chronic) BMI 32.0-32.9,adult (Chronic) Hospital Course and Treatment Imaging Results: Clinical Impression(s) from Imaging Studies Chest X-Ray 09/01/17 10:30 IMPRESSION: CHF with small bilateral pleural effusions and bibasilar atelectasis. Elevation of the right hemidiaphragm. Electronically Signed: Lloyd Johnson MD at 10:56 EDT Tel [phone], Service support , Chest X-Ray 09/05/17 07:00 IMPRESSION: Moderate improvement in the CHF with residual small right pleural effusion with underlying atelectasis and/or infiltrate. Electronically Signed: Lloyd Johnson MD at 9:29 EDT Tel [phone], Service support , None Operations: None Procedures: 2-D Echocardiogram, Cardiac catheterization Summary of Care Provided: 72-year-old lady admitted with progressive shortness of breath and managed as acute biventricular congestive heart failure. 1. Acute biventricular congestive heart failure, EF 10-15% with severe global hypokinesis and stage II diastolic dysfunction, pulmonary hypertension with moderate aortic stenosis. 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 Heart showed minimal non-obstructive disease, managed conservatively, discharged home on Lasix, recommended for patient to have anticoagulation the light of poor EF. Patient was initially prescribed Xarelto but could not afford it because of co-pays with $400 a month, prescriptions for Coumadin and follow up with prescribed and patient's sister who is a healthcare power of assistant prosecuting attorney refused to have patient on Coumadin and said it was cumbersome to manage. She however could not afford the co-pays for Xarelto or Eliquis. I explained this in detail with her sister and strongly advocated that patient should be on that and she will follow-up with Dr. Mccollum who wants evaluation of her aortic valve 2. Hypokalemia, replaced, repeat BMP in the outpatient. 3. Hypotension, relative, secondary to medication side effect, meds adjusted, narcotic medications held 4. History of aortic valve replacement, now with moderate aortic stenosis, will need to follow-up with cardiology and cardiothoracic surgery to have evaluation of her aortic valve 5. Learning disability, with his sister who is healthcare power of assistant prosecuting attorney 6. Bilateral leg edema secondary to acute CHF and chronic stasis dermatitis, improved with Shaista wraps 7. Thrombocytopenia, stable 8. Paroxysmal atrial fibrillation, in NSR, recommended to be on Coumadin with INR checks. Discharge Diet: Low fat/ Low Cholesterol, 8 Cup Fluid Restriciton, 2000 mg Sodium Diet Discharge Activity: Return to Normal Activity Home Medications: Medications to take at Discharge Aspirin [Aspirin, Baby] 81 mg PO DAILY@0800 09/01/17 Furosemide [Lasix] 40 mg PO DAILY #30 tab 09/07/17 Potassium Chloride [K-Dur] 20 meq PO DAILYCM #30 tab 09/07/17 Warfarin [Coumadin ([facility])] 5 mg PO DAILY #30 tab 09/07/17 Following Prescrptions Were Given to Patient: Furosemide [Lasix] 40 mg PO DAILY #30 tab Potassium Chloride [K-Dur] 20 meq PO DAILYCM #30 tab Warfarin [Coumadin ([facility])] 5 mg PO DAILY #30 tab Primary Care Physician: Care Physician,No Primary [NON-STAFF] - Please follow up with your Primary Care Physician in: within 2 weeks of discharge Please Follow Up With: Brandt Mccollum MD When: within 2 weeks Disposition: Home Minutes spent on discharge:: 25 Patient Condition:: Stable Medical Necessity - Tobacco Use Smoking Status: Never smoker Tobacco Use: Non-smoker Meaningful Use Info Meaningful Use Diagnoses (Choose all that apply): CHF - CHF SHIASTA/ARB ordered at discharge?: No Reason SHAISTA/ARB not ordered?: Hypotension Documented LVEF (%): 15 Code Visit Inpatient E AND M: [id number] Disch Hosp 09/09/17 0823 <Electronically signed by Sabiha Marx MD> Date Sabiha Marx MD Cosigner Signature (if applicable): Date CC: Sabiha Marx MD; Caitie Caban MD Signed DISCHARGE INSTRUCTION Observed: 09/07/2017 Status: F Source: [place] 2:53 PM [facility] REPOSITORY [facility] Medical Records Department [address] [place] [address] Instructions for Home/Discharge Instructions 09/07/17 1307 MR#: [id number] Acct: [id number] Name: ELISEO MCKINLEY Rep #: [id number] : 1945 72 From: Sabiha Marx MD PCP: Caitie Caban MD Status: ADM IN ADDENDUM by Sabiha Marx MD on 09/07/17 at 1453 INR check in 3 days with primary care doctor. Date Sabiha Marx MD cc: Brandt Mccollum MD; Caitie Caban MD * Signed - Discharge Diagnoses Current Active Problems: Current Active and Chronic Problems CHF (congestive heart failure) (Acute) H/O aortic valve replacement (Chronic) Stasis dermatitis of both legs (Chronic) General learning disability (Chronic) BMI 32.0-32.9,adult (Chronic) Lower extremity edema (Acute) Cardiomyopathy (Acute) Reason(s) for Visit for Discharge Instructions: Shortness of breath, weight gain You will use the following diet at home:: Cardiac Your food should be the consistency of: Regular Your liquids should be the consistency of: Regular/Thin Discharge Activity: Return to Normal Activity Additional Instructions: Take all your medications. Weigh yourself everyday. You will need to follow-up for dobutamine ECHO testing. You should be on a low-salt diet. It is recommended that you should be on coumadin and follow a coumadin diet. You should have INR checked in the outpatient lab. Allergies/Adverse Reactions: Allergies Sulfa (Sulfonamide Antibiotics) Allergy (Verified 09/01/17 10:09) Other Medications to take at Discharge Aspirin [Aspirin, Baby] 81 mg PO DAILY@0800 09/01/17 Furosemide [Lasix] 40 mg PO DAILY #30 tab 09/07/17 Potassium Chloride [K-Dur] 20 meq PO DAILYCM #30 tab 09/07/17 Warfarin [Coumadin ([facility])] 5 mg PO DAILY #30 tab 09/07/17 The following prescriptions were given: Furosemide [Lasix] 40 mg PO DAILY #30 tab Potassium Chloride [K-Dur] 20 meq PO DAILYCM #30 tab Warfarin [Coumadin ([facility])] 5 mg PO DAILY #30 tab Primary Care Physician: Care Physician,No Primary [NON-STAFF] - Please follow up with your Primary Care Physician in: within 2 weeks of discharge Please Follow Up With: Brandt Mccollum MD When: within 2 weeks Proposed Discharge Date: 09/07/17 09/07/17 1459 <Electronically signed by Sabiha Marx MD> Date Sabiha Marx MD CC: Brandt Mccollum MD; Caitie Caban MD BASIC METABOLIC Collected: 09/07/2017 Status: F Source: [place] PROFILE (BMP) 5:12 AM [facility] REPOSITORY TYPE CODE TESTS RESULT OUT OF RANGE REFERENCE UNITS LAB L501.0100 74-106 mg/dL Normal GLU 100 Result Comment: Fasting Glucose result from 100 to 125 mg/dL suggests IMPAIRED HOMEOSTASIS per A.D.A. criteria. Please note revised GLUCOSE reference range effective 2017. LAB L501.1000 7-18 mg/dL High BUN 31 LAB L501.1100 0.55-1.02 mg/dL Normal CREAT,SERUM 1.02 Result Comment: The validity of the calculated GFR AND GFRAA in patients over 70 years has not been determined. Clinical correlation is essential. LAB L501.1110 >60 mL/min Low EST GFR 57 Result Comment: Non- GFR Calc LAB L501.1115 >60 mL/min Normal EST GFR - AA 68 Result Comment: GFR Calc LAB L501.1255 ml/min Normal Estimated CRCL 37.62 LAB L501.1300 10-20 RATIO High BUN/CRE 30.4 LAB L501.2200 8.5-10 mg/dL Normal .1 CA 8.7 LAB L501.5300 136-14 mmol/L Normal 5 NA 138 LAB L501.5600 3.5-5. mmol/L Normal 1 K 3.6 LAB L501.5900 98-107 mmol/L Low CL 96 LAB L501.6100 21.0-3 mmol/L High 2.0 CO2 35.0 LAB L501.6200 5-15 Normal GAP 7 Performed By: #### L500.2500 #### [facility] [address] [place], [address] CBC W/DIFF, AUTOMATED Collected: 09/07/2017 Status: F Source: [place] 5:12 AM [facility] REPOSITORY TYPE CODE TESTS RESULT OUT OF RANGE REFERENCE UNITS LAB L100.1000 4.4-11.0 K/mm3 Normal WBC 5.7 LAB L100.1200 4.2-5.4 M/mm3 Normal RBC 5.10 LAB L100.1300 12.0-15.0 g/dl Normal HGB 13.4 LAB L100.1400 37-47 % Normal HCT 43.6 LAB L100.1500 81-99 fL Normal MCV 85.5 LAB L100.1600 27.0-32.0 pg Low MCH 26.3 LAB L100.1700 32-36 g/gl Low MCHC 30.7 LAB L100.1810 11.6-14.6 % High RDW CV 18.1 LAB L100.1820 35.1-43.9 fl High RDW SD 56.2 LAB L100.1900 150-450 K/mm3 Low PLT 116 LAB L100.2000 6.2-12.0 fl High MPV 13.0 LAB L100.2100 47-70 % Normal NEUT% 69.4 LAB L100.2200 19-41 % Low LY% 13.4 LAB L100.2300 0-10 % High MONO% 12.0 LAB L100.2400 0-5 % Normal EO% 4.5 LAB L100.2500 0-1 % Normal BASO% 0.5 LAB L100.2550 0.0-0.9 % Normal IM GRAN % 0.200 Result Comment: IG% - Immature Granulocytes (promyelocytes, myelocytes and metamyelocytes) > 1% indicates that a LEFT SHIFT is Present. LAB L100.2620 2.0-7.7 X10 3/uL Normal Absolute Neut 4.0 LAB L100.2720 0.83-4.51 X10 3/ul Low Absolute Lymph 0.77 Performed By: #### L100.0100 #### [facility] [address] [place], [place], [address] PROTHROMBIN TIME W/INR Collected: 09/07/2017 Status: F Source: [place] 5:12 AM [facility] REPOSITORY TYPE CODE TESTS RESULT OUT OF RANGE REFERENCE UNITS LAB L300.4150 11.7-14.9 SECONDS Normal PROTIME 14.3 LAB L300.4200 Normal INR 1.1 Performed By: #### L300.3900, L300.4310 #### [facility] [address] [place], [place], [address] PARTIAL THROMBOPLAST Collected: 09/07/2017 Status: F Source: [place] TIME 5:12 AM [facility] REPOSITORY TYPE CODE TESTS RESULT OUT OF RANGE REFERENCE UNITS LAB L300.4310 24.1-36.2 Seconds Normal PTT 33.0 Performed By: #### L300.3900, L300.4310 #### [facility] [address] [place], [place], [address] URINALYSIS, COMPLETE Collected: 09/07/2017 Status: F Source: [place] 4:45 AM [facility] REPOSITORY Order Comment: Order Date: 09/07/17 COLOR OF URINE MAY AFFECT DIPSTICK RESULTS. How was Urine Obtained? CATHETER SPECIMEN TYPE CODE TESTS RESULT OUT OF RANGE REFERENCE UNITS LAB L400.3000 Yellow COLOR Normal Enriqueta LAB L400.3050 Clear Normal CLARITY Turbid LAB L400.3200 Normal mg/dl Normal GLUCOSE, UR Normal LAB L400.3300 Negative mg/dL High BILIRUBIN URINE 1 Result Comment: COLOR OF URINE MAY AFFECT DIPSTICK RESULTS. LAB L400.3400 Negative mg/dl Normal KETONE UR Negative LAB L400.3465 1.002-1.030 Normal SP.GR. DIPSTX 1.015 LAB L400.3550 5.0 - 8.0 pH Normal UR 8.0 LAB L400.3600 Negative mg/dl High PROT DIPSTX 100 LAB L400.3700 Normal mg/dl High UROBILI 8 LAB L400.3750 Negative Normal NITRITE UR Negative LAB L400.3780 Negative /ul High OCCULT 250 BLOOD-UR LAB L400.3800 Negative /ul High LEUK ESTERASE 500 LAB L400.4050 0-5 /hpf Normal WBC 25-50 SEEN LAB L400.4100 0-5 /hpf Normal RBC-UA 25-50 SEEN LAB L400.4150 5-10 /hpf Normal SQUAM EPI 0-5 SEEN LAB L400.4300 None Seen /hpf Normal BACTERIA 2+ LAB L400.4350 <or=2+ /hpf Normal MUCUS, URINE 0 SEEN Performed By: #### L400.0001 #### [facility] [address] [place], [address] 12 LEAD ELECTROCARDIOGRAM Observed: 09/05/2017 Status: F Source: [place] 1:49 PM [facility] REPOSITORY [facility] Cardiovascular Services [address] [place] [address] 12 Lead EKG 09/01/17 1042 MR#: [id number] Acct: [id number] Name: ELISEO MCKINLEY Rep #: [id number] : 1945 72 From: Brandt Mccollum MD Attending Dr: Sabiha Marx MD Status: ADM IN Ordering Dr: Mychal Cleaning DO Date: 09/01/17 Location: [facility] Sex: F C Admitted: 09/01/17 Test Reason : SOB Blood Pressure : / mmHG Vent. Rate : 092 BPM Atrial Rate : 092 BPM P-R Int : 146 ms QRS Dur : 108 ms QT Int : 354 ms P-R-T Axes : 019 -01 181 degrees QTc Int : 437 ms Sinus rhythm with occasional Premature ventricular complexes T wave abnormality, consider inferolateral ischemia Abnormal ECG Confirmed by BRANDT MCCOLLUM ([id number]), web editor MAT VARGAS ([id number]) on 09/05/2017 1:48:45 PM Referred By: PAOLO Confirmed By:BRANDT MCCOLLUM 09/05/17 1348 Date Brandt Mccollum MD CC: No Primary Care Physician; Mychal Cleaning DO Signed CBC-COMPLETE BLOOD CNT Collected: 09/05/2017 Status: F Source: [place] NO DIFF 5:58 AM [facility] REPOSITORY TYPE CODE TESTS RESULT OUT OF RANGE REFERENCE UNITS LAB L100.1000 4.4-11.0 K/mm3 Normal WBC 6.4 LAB L100.1200 4.2-5.4 M/mm3 High RBC 5.45 LAB L100.1300 12.0-15.0 g/dl Normal HGB 14.4 LAB L100.1400 37-47 % Normal HCT 46.0 LAB L100.1500 81-99 fL Normal MCV 84.4 LAB L100.1600 27.0-32.0 pg Low MCH 26.4 LAB L100.1700 32-36 g/gl Low MCHC 31.3 LAB L100.1810 11.6-14.6 % High RDW CV 18.3 LAB L100.1820 35.1-43.9 fl High RDW SD 55.8 LAB L100.1900 150-450 K/mm3 Low PLT 115 LAB L100.2000 6.2-12.0 fl High MPV 13.3 Performed By: #### L100.0500 #### [facility] [address] [place], [address] BASIC METABOLIC Collected: 09/05/2017 Status: F Source: [place] PROFILE (BMP) 5:58 AM [facility] REPOSITORY TYPE CODE TESTS RESULT OUT OF RANGE REFERENCE UNITS LAB L501.0100 74-106 mg/dL Normal GLU 91 Result Comment: Please note revised GLUCOSE reference range effective 2017. LAB L501.1000 7-18 mg/dL High BUN 24 LAB L501.1100 0.55-1.02 mg/dL High CREAT,SERUM 1.11 Result Comment: The validity of the calculated GFR AND GFRAA in patients over 70 years has not been determined. Clinical correlation is essential. LAB L501.1110 >60 mL/min Low EST GFR 51 Result Comment: Non- GFR Calc LAB L501.1115 >60 mL/min Normal EST GFR - AA 62 Result Comment: GFR Calc LAB L501.1255 ml/min Normal Estimated CRCL 34.57 LAB L501.1300 10-20 RATIO High BUN/CRE 21.6 LAB L501.2200 8.5-10 mg/dL Normal .1 CA 8.9 LAB L501.5300 136-14 mmol/L Normal 5 NA 138 LAB L501.5600 3.5-5. mmol/L Low 1 K 3.2 LAB L501.5900 98-107 mmol/L Low CL 90 LAB L501.6100 21.0-3 mmol/L High 2.0 CO2 41.0 LAB L501.6200 5-15 Normal GAP 7 Performed By: #### L500.2500 #### [facility] [address] [place], [address] CHEST PA AND LATERAL Observed: 09/05/2017 Status: F Source: [place] 12:00 AM [facility] REPOSITORY [facility] Imaging Services [address] [place] [address] Chest PA and Lateral MR#: [id number] Acct: [id number] Name: ELISEO MCKINLEY Rep #: [id number] : 1945 F 72 From: Lloyd Johnson MD PCP: Care Physician, No Primary Status: ADM IN Study: Chest PA and Lateral Date of Exam: 09/05/17 Exam# [id number] Ordering Dr: Brandt Mccollum MD STUDY: X-RAY CHEST REASON FOR EXAM: Female, 72 years old. History of CHF. TECHNIQUE: PA and lateral views of the chest. COMPARISON: Comparison is made with prior study dated September 01, 2017. FINDINGS: EKG electrodes are seen. Since prior study, there has been a moderate degree of improvement of the CHF. There is evidence of residual small right pleural effusion with underlying atelectasis. Mild blunting of left costophrenic angle. Sternal cerclage wires and vascular clips are present from a prior sternotomy and coronary artery bypass graft procedure (CABG). Normal mediastinum and micaela. Normal visualized pulmonary arteries. There is atherosclerotic calcification of the aortic arch with tortuosity. There are diffuse degenerative changes of the visualized thoracic spine. Normal visualized ribs, clavicles, and shoulders. There is no demonstrated abnormality of the visualized soft tissue structures of the upper abdomen. RAD/Chest PA and Lateral IMPRESSION: Moderate improvement in the CHF with residual small right pleural effusion with underlying atelectasis and/or infiltrate. Electronically Signed: Lloyd Johnson MD at 9:29 EDT Tel [phone], Service support , CC: No Primary Care Physician; Brandt Mccollum MD Manager Law: Signed CBC-COMPLETE BLOOD CNT Collected: 09/04/2017 Status: F Source: [place] NO DIFF [facility]:58 [facility] TYPE CODE TESTS RESULT OUT OF RANGE REFERENCE UNITS LAB L100.1000 4.4-11.0 K/mm3 Normal WBC 6.4 LAB L100.1200 4.2-5.4 M/mm3 High RBC 5.55 LAB L100.1300 12.0-15.0 g/dl Normal HGB 14.5 LAB L100.1400 37-47 % Normal HCT 46.2 LAB L100.1500 81-99 fL Normal MCV 83.2 LAB L100.1600 27.0-32.0 pg Low MCH 26.1 LAB L100.1700 32-36 g/gl Low MCHC 31.4 LAB L100.1810 11.6-14.6 % High RDW CV 18.5 LAB L100.1820 35.1-43.9 fl High RDW SD 55.3 LAB L100.1900 150-450 K/mm3 Low PLT 108 LAB L100.2000 6.2-12.0 fl High MPV 13.2 Performed By: #### L100.0500 #### [facility] [address] [place], [address] BASIC METABOLIC Collected: 09/04/2017 Status: F Source: [place] PROFILE (BMP) 5:58 AM [facility] REPOSITORY TYPE CODE TESTS RESULT OUT OF RANGE REFERENCE UNITS LAB L501.0100 74-106 mg/dL Normal GLU 103 Result Comment: Fasting Glucose result from 100 to 125 mg/dL suggests IMPAIRED HOMEOSTASIS per A.D.A. criteria. Please note revised GLUCOSE reference range effective 2017. LAB L501.1000 7-18 mg/dL High BUN 21 LAB L501.1100 0.55-1.02 mg/dL High CREAT,SERUM 1.17 Result Comment: The validity of the calculated GFR AND GFRAA in patients over 70 years has not been determined. Clinical correlation is essential. LAB L501.1110 >60 mL/min Low EST GFR 48 Result Comment: Non- GFR Calc LAB L501.1115 >60 mL/min Low EST GFR - AA 58 Result Comment: GFR Calc LAB L501.1255 ml/min Normal Estimated CRCL 32.80 LAB L501.1300 10-20 RATIO Normal BUN/CRE 17.9 LAB L501.2200 8.5-10 mg/dL Normal .1 CA 9.4 LAB L501.5300 136-14 mmol/L Normal 5 NA 137 LAB L501.5600 3.5-5. mmol/L Low 1 K 3.1 LAB L501.5900 98-107 mmol/L Low CL 90 LAB L501.6100 21.0-3 mmol/L High 2.0 CO2 40.0 LAB L501.6200 5-15 Normal GAP 7 Performed By: #### L500.2500 #### [facility] [address] [place], [place], [id number] CBC-COMPLETE BLOOD CNT Collected: 09/03/2017 Status: F Source: [place] NO DIFF 6:40 AM [facility] REPOSITORY TYPE CODE TESTS RESULT OUT OF RANGE REFERENCE UNITS LAB L100.1000 4.4-11.0 K/mm3 4.9 Normal WBC LAB L100.1200 4.2-5.4 M/mm3 5.07 Normal RBC LAB L100.1300 12.0-15.0 g/dl 13.3 Normal HGB LAB L100.1400 37-47 % 42.9 Normal HCT LAB L100.1500 81-99 fL 84.6 Normal MCV LAB L100.1600 27.0-32.0 pg Low 26.2 MCH LAB L100.1700 32-36 g/gl Low 31.0 MCHC LAB L100.1810 11.6-14.6 % High 18.3 RDW CV LAB L100.1820 35.1-43.9 fl High 54.8 RDW SD LAB L100.1900 150-450 K/mm3 Low 76 PLT LAB L100.2000 6.2-12.0 fl Test Normal MPV not performed Performed By: #### L100.0500, L100.4500 #### [facility] [address] [place], [place], [id number] DIFFERENTIAL COMMENT Collected: 09/03/2017 Status: F Source: [place] 6:40 AM [facility] REPOSITORY TYPE CODE TESTS RESULT OUT OF RANGE REFERENCE UNITS LAB L100.4500 Normal SMEAR COMMENT SCANNED Result Comment: MODERATELY DECREASED PLATELETS NOTED LARGE PLATELETS NOTED Performed By: #### L100.0500, L100.4500 #### [facility] [address] [place], [address] BASIC METABOLIC Collected: 09/03/2017 Status: F Source: [place] PROFILE (BMP) 6:40 AM [facility] REPOSITORY TYPE CODE TESTS RESULT OUT OF RANGE REFERENCE UNITS LAB L501.0100 74-106 mg/dL Normal GLU 95 Result Comment: Please note revised GLUCOSE reference range effective 2017. LAB L501.1000 7-18 mg/dL High BUN 20 LAB L501.1100 0.55-1.02 mg/dL High CREAT,SERUM 1.09 Result Comment: The validity of the calculated GFR AND GFRAA in patients over 70 years has not been determined. Clinical correlation is essential. LAB L501.1110 >60 mL/min Low EST GFR 52 Result Comment: Non- GFR Calc LAB L501.1115 >60 mL/min Normal EST GFR - AA 63 Result Comment: GFR Calc LAB L501.1255 ml/min Normal Estimated CRCL 35.20 LAB L501.1300 10-20 RATIO Normal BUN/CRE 18.3 LAB L501.2200 8.5-10 mg/dL Normal .1 CA 9.0 LAB L501.5300 136-14 mmol/L Normal 5 NA 142 LAB L501.5600 3.5-5. mmol/L Low 1 K 3.0 LAB L501.5900 98-107 mmol/L Normal CL 99 LAB L501.6100 21.0-3 mmol/L High 2.0 CO2 33.0 LAB L501.6200 5-15 Normal GAP 10 Performed By: #### L500.2500 #### [facility] [address] [place], [address] CONSULTATION Observed: 09/02/2017 Status: F Source: N[place] 4:01 PM [facility] REPOSITORY [facility] Medical Records Department [address] [place] [address] Consultation 09/02/17 1548 MR#: [id number] Acct: [id number] Name: ELISEO MCKINLEY Rep #: [id number] : 1945 72 From: Brandt Mccollum MD PCP: Care Physician, No Primary Status: ADM IN Y Location: [place] [address]1 Problem List (1) Lower extremity edema Status: Acute (2) Cardiomyopathy Status: Acute (3) CHF (congestive heart failure) Status: Acute Qualifiers: Heart failure type: unspecified Heart failure chronicity: acute Qualified Code(s): I50.9 - Heart failure, unspecified (4) H/O aortic valve replacement Status: Chronic Reason for Consult Date of Consultation: 09/02/17 Reason for Consultation: New onset congestive heart failure, cardiomyopathy, status post aortic valve replacement, lower extremity edema History of Present Illness: The patient is a 72 year old F, with a history of bioprosthetic aortic valve replacement on 02/23/2007 at [facility] by Dr. Guerrero. As best the patient can remember she did not have associated bypass surgery although she cannot recall. 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 Patient may have some mental challenges, and a baseline learning disability, and has requested that I contact her sister regarding clarification of her medical history. The patient is a nondiabetic, and apparently lives with her 2 sisters all of which apparently caught the flu in June. Her 2 sisters improved, however the patient developed worsening lower extremity edema, orthopnea with 8 pillows, shortness of breath, dyspnea on exertion. She apparently went to the emergency room on Tuesday of this past week, and was subsequently sent home despite her lower extremity edema. When her symptoms did not improve she returned yesterday and was admitted with new onset heart failure. An echocardiogram was performed today which demonstrated severe global LV dysfunction with an EF around 10-15%, bioprosthetic aortic valve, with moderate aortic stenosis, RVSP of 42 mmHg, with a left-sided pleural effusion. Currently the patient is sitting in a chair, no acute distress, conversing well. She states that she was never told she had heart failure prior to her illness in June. She denies any lower extremity edema prior to the recent weeks. She denies any chest pain, angina, presyncope or syncope. [] Past Medical History Allergies/Adverse Reactions: Allergies Sulfa (Sulfonamide Antibiotics) Allergy (Verified 09/01/17 10:09) Other Home Medications: Ambulatory Orders Medication Instructions Recorded Aspirin [Aspirin, Baby] 81 mg PO DAILY@0800 09/01/17 Past Medical History (Chronic Problems): Chronic Problems H/O aortic valve replacement (Chronic) Stasis dermatitis of both legs (Chronic) General learning disability (Chronic) BMI 32.0-32.9,adult (Chronic) - *Family History Maternal History Items: Heart Disease - mom had congestive heart failure Smoking Status: Never smoker Review of Systems - Review of Systems Cardiovascular: Reports: Shortness of Breath at Rest, Shortness of Breath with Exertion Respiratory: Denies: Cough, Sputum Production, Hemoptysis Gastrointestinal: Denies: Hematemesis, Hematochezia, Melena Genitourinary: Denies: Dysuria, Hematuria Skin: Denies: Rash Subjectve: Patient sitting in a chair, no acute distress. Objective: Vital Signs Temp Pulse Resp BP Pulse Ox 98.2 F 94 16 97/65 97 09/02/17 11:18 09/02/17 11:18 09/02/17 11:18 09/02/17 11:18 09/02/17 11:18 Oxygen Flow Rate (L/min) 2 Oxygen Delivery Method Room Air Weight: 165 lb 9.074 oz Body Mass Index (BMI) 32.4 Intake and Output for Last 24 Hours Intake Total 960 / 960 400 / 400 Output Total 1550 / 1550 2500 / 2500 Balance -590 / -590 -2100 / -2100 General: Awake, Alert, Oriented x 3 HEENT: PERRL, EOMI, Sclera Non Icteric Neck: Supple, Good ROM, No Lymph Node Enlargement Lungs: Diminished Left Base, Rales - Iker Bases Cardiovascular: Regular Rhythm, Normal S1, Normal S2, No Rubs, No Gallops Murmur Murmur: Grade 3/6, Crescendo-Decrescendo Vascular: No Carotid Bruits, Normal Femoral Pulses, Normal Radial Pulses, Normal Dorsalis Pedal Pulse, Normal Posterior Tibial Pulses Abdomen: Bowel Sounds Present, Soft, Non Tender, No HSM, No Organomegaly Extremities: No Cyanosis, No Clubbing, Bilateral Edema +3 Neurological: No Focal Motor or Sensory Deficit 09/01/17 18:29: Troponin I 0.08 H 09/02/17 00:24: Troponin I 0.07 H 09/02/17 06:55: Sodium 140, Potassium 3.6, Chloride 104, Carbon Dioxide 28.0, Anion Gap 8, BUN 20 H, Creatinine 1.09 H, Est GFR (MDRD) Af Amer 63, Est GFR (MDRD) Non-Af 52 L, BUN/Creatinine Ratio 18.3, Glucose 83, Calcium 8.8, Magnesium 2.0 09/02/17 06:55: WBC 4.3 L, RBC 5.02, Hgb 12.9, Hct 42.8, MCV 85.3, MCH 25.7 L, MCHC 30.1 L, RDW 18.4 H, RDW Differential 56.6 H, Plt Count 74 L Rhythm: EKG: Normal sinus rhythm with left bundle branch block, PVCs. ECHO: As above Stress Test: Cardiac Cath: PCI: CT Surgery: Holter monitor: EPS: PPM: CXR: Large right pleural effusion, moderate left pleural effusion. Chest CT Scan: Assessment/Plan 1. 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 Her 2 sisters appeared to improve, but she never quite felt better. She has evidence of severe biventricular failure with bilateral pleural effusions, right greater than left, bilateral lower extremity edema, orthopnea, PND. Given the patient's massive fluid overload, I recommend that we start her on a Bumex drip at 0.5 mg/h, followed by metolazone 2.5 mg 1 now. Would repeat metolazone every 3 days in order to facilitate diuresis. A Crandall has already been started. In addition I would recommend holding beta-ramakrishna therapy until she is optimized her dry weight, and would recommend a 1500 cc fluid restriction until she is reached her dry weight. When she is able to lay down flat, she will require a repeat left and right heart catheterization to assess her pulmonary pressures, and coronary anatomy. It is possible the patient may have contracted a viral illness in June [address] to a viral cardiomyopathy. Previous echocardiograms would be very helpful. 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 In addition to may be beneficial for therapeutic thoracentesis particularly of the right pleural space. 2. Aortic valve replacement: We will need to try and get a hold of her previous folding machine operator to determine when her LV function deteriorated. The patient has a generalized learning disability, and may not fully recall the specifics of her cardiac issues. Patient's bioprosthetic aortic valve is approximately 11 years old, and may require replacement if this is an option given her severe LV dysfunction. 3. Lower extremity edema: I agree with DVT prophylaxis as well as Shaista bandage wraps to facilitate venous return. 4. Discussed with Dr. Lee. Thank you very much for the opportunity to participate in the cardiac care of your patient. Consultation time between 330 and 4 PM. 09/02/17 1601 <Electronically signed by Brandt Mccollum MD> Date Brandt Mccollum MD Cosigner Signature (if applicable): Date CC: No Primary Care Physician; Brandt Mccollum MD Signed ECHO, COMPLETE W/ Observed: 09/02/2017 Status: F Source: NERY CONTRAST 10:41 AM [facility] REPOSITORY [facility] Cardiovascular Services [address] [place] [address] Echo Complete W/ Contrast 09/02/17 0829 MR#: [id number] Acct: [id number] Name: ELISEO MCKINLEY Rep #: [id number] : 1945 72 From: Brandt Mccollum MD Attending Dr: Bubba Lee MD Status: ADM IN Ordering Dr: Bubba Lee MD Date: 09/01/17 Location: [facility] Sex: F C Admitted: 09/01/17 Reason For Study: CHF Procedure This was a 2D Doppler, Color Flow transthoracic echocardiogram. Exam performed portable in patient room. Left Ventricle Severely dilated left ventricle. The estimated ejection fraction is 10-15 %. Stage 2 diastolic dysfunction. There is severe global hypokinesis of the left ventricle. Right Ventricle Moderately dilated right ventricle. Moderately severe global right ventricular systolic dysfunction. Atria The left atrium is mildly enlarged. Normal right atrium. Normal atrial septum. Mitral Valve The mitral valve is structurally normal. No prolapse or stenosis seen. Tricuspid Valve Normal tricuspid valve. Mild (1+) tricuspid valve insufficiency. Right ventricular systolic pressure estimated to be 42 mmHg. Mild pulmonary hypertension. Aortic Valve Peak aortic valve gradient 46 mmHg. Mean aortic valve gradient 30 mmHg. Calculated aortic valve area (continuity equation) is 1.1 cm2. Moderate aortic stenosis. Trivial aortic valve insufficiency. Bioprosthetic aortic valve. Pulmonic Valve Normal pulmonic valve. Mild (1+) pulmonic valve insufficiency. Great Vessels Calcified aortic root. Normal arch. The inferior vena cava is dilated. No collapse of the inferior vena cava. Pericardium/Pleural No pericardial effusion. Moderate size left pleural effusion. Medication Definity0.3ml given slow IV push to enhance endocardial definition. MMode/2D Measurements AND Calculations LVIDd: 5.4 cm IVSd: 0.87 cm LVOT diam: 2.0 cm LVIDs: 5.1 cm LVPWd: 0.80 cm LVOT area: 3.2 cm2 RVDd: 4.2 cm FS: 5.3 % Ao root diam: 3.2 cm LAV(MOD-bp): 61.2 ml LA dimension: 3.9 cm LAV(MOD-bp) Indexed: 34.4 ml/m2 LA A4 area: 19.5 cm2 LAV(MOD-sp2): 61.9 ml LAV(MOD-sp4): 51.7 ml RA A4 area: 11.1 cm2 Doppler Measurements AND Calculations MV E max jas: 86.1 cm/sec Lat Peak E' Jas: 10.5 cm/sec Med Peak E' Jas: 3.7 cm/sec MV A max jas: 54.2 cm/sec E/E' lat: 8.2 E/E' med: 23.0 MV E/A: 1.6 Ao V2 max: 339.2 cm/sec LV V1 max: 112.4 cm/sec SV(LVOT): 71.9 ml Ao max P.0 mmHg LV V1 max P.1 mmHg Ao V2 mean: 254.0 cm/sec LV V1 mean P.1 mmHg Ao mean P.8 mmHg LV V1 mean: 83.0 cm/sec Ao V2 VTI: 65.1 cm LV V1 VTI: 22.4 cm CE(I,D): 1.1 cm2 CE(V,D): 1.1 cm2 PA V2 max: 118.4 cm/sec PI end-d ajs: 150.1 cm/sec TR max jas: 269.4 cm/sec TR max P.1 mmHg Interpretation Summary Severely dilated left ventricle. The estimated ejection fraction is 10-15 %. There is severe global hypokinesis of the left ventricle. Stage 2 diastolic dysfunction. Moderately dilated right ventricle. Moderately severe global right ventricular systolic dysfunction. The left atrium is mildly enlarged. Mild (1+) tricuspid valve insufficiency. Right ventricular systolic pressure estimated to be 42 mmHg. Mild pulmonary hypertension. Moderate aortic stenosis. Trivial aortic valve insufficiency. Moderate size left pleural effusion. The study was technically difficult. There is no comparison study available. Contrast injection was performed. Ordering Physician: Bubba Lee Performed By: Gretel Maurice, KING, RVT 09/02/17 1040 Date Brandt Mccollum MD CC: No Primary Care Physician; Bubba Lee MD Date Dictated: 09/02/17828 Date Transcribed: 09/02/171039 Manager Law: Signed BASIC METABOLIC Collected: 09/02/2017 Status: F Source: NERY PROFILE ([facility]) 6:55 AM [facility] REPOSITORY TYPE CODE TESTS RESULT OUT OF RANGE REFERENCE UNITS LAB L501.0100 74-106 mg/dL Normal GLU 83 Result Comment: Please note revised GLUCOSE reference range effective 2017. LAB L501.1000 7-18 mg/dL High BUN 20 LAB L501.1100 0.55-1.02 mg/dL High CREAT,SERUM 1.09 Result Comment: The validity of the calculated GFR AND GFRAA in patients over 70 years has not been determined. Clinical correlation is essential. LAB L501.1110 >60 mL/min Low EST GFR 52 Result Comment: Non- GFR Calc LAB L501.1115 >60 mL/min Normal EST GFR - AA 63 Result Comment: GFR Calc LAB L501.1255 ml/min Normal Estimated CRCL 35.20 LAB L501.1300 10-20 RATIO Normal BUN/CRE 18.3 LAB L501.2200 8.5-10 mg/dL Normal .1 CA 8.8 LAB L501.5300 136-14 mmol/L Normal 5 NA 140 LAB L501.5600 3.5-5. mmol/L Normal 1 K 3.6 LAB L501.5900 98-107 mmol/L Normal CL 104 LAB L501.6100 21.0-3 mmol/L Normal 2.0 CO2 28.0 LAB L501.6200 5-15 Normal GAP 8 Performed By: #### L500.2500, L501.5200 #### [facility] [address] [place], [address] MAGNESIUM Collected: 09/02/2017 Status: F Source: [place] 6:55 AM [facility] REPOSITORY TYPE CODE TESTS RESULT OUT OF RANGE REFERENCE UNITS LAB L501.5200 1.6-2.6 mg/dL Normal MG 2.0 Result Comment: Please note revised Magnesium reference range effective 2017. Performed By: #### L500.2500, L501.5200 #### [facility] [address] [place], [address] CBC-COMPLETE BLOOD CNT Collected: 09/02/2017 Status: F Source: [place] NO DIFF 6:55 AM [facility] REPOSITORY TYPE CODE TESTS RESULT OUT OF RANGE REFERENCE UNITS LAB L100.1000 4.4-11.0 K/mm3 Low WBC 4.3 LAB L100.1200 4.2-5.4 M/mm3 Normal RBC 5.02 LAB L100.1300 12.0-15.0 g/dl Normal HGB 12.9 LAB L100.1400 37-47 % Normal HCT 42.8 LAB L100.1500 81-99 fL Normal MCV 85.3 LAB L100.1600 27.0-32.0 pg Low MCH 25.7 LAB L100.1700 32-36 g/gl Low MCHC 30.1 LAB L100.1810 11.6-14.6 % High RDW CV 18.4 LAB L100.1820 35.1-43.9 fl High RDW SD 56.6 LAB L100.1900 150-450 K/mm3 Low PLT 74 Performed By: #### L100.0500, L100.4500 #### [facility] [address] [place], [place], [address] DIFFERENTIAL COMMENT Collected: 09/02/2017 Status: F Source: [place] 6:55 AM [facility] REPOSITORY TYPE CODE TESTS RESULT OUT OF RANGE REFERENCE UNITS LAB L100.4500 Normal SMEAR COMMENT Result Comment: THROMBOCYTOPENIA OVALOCYTES 2+ Performed By: #### L100.0500, L100.4500 #### [facility] [address] [place] [place], [address] TROPONIN-I Collected: 09/02/2017 Status: F Source: [place] 12:24 AM [facility] REPOSITORY Order Comment: 'TROP' Serial specimen #1, #2, #3, or #4: 4 TYPE CODE TESTS RESULT OUT OF RANGE REFERENCE UNITS LAB L501.4010 <0.06 ng/mL High 0.07 TROPONIN-I Result Comment: TROPONIN-I EXPECTED VALUES <0.05 NEGATIVE 0.06 - 0.59 AT RISK OF MS > OR = 0.60 SUGGEST MS Performed By: #### L501.4010 #### [facility] [address] [place] [place], [address] TROPONIN-I Collected: 09/01/2017 Status: F Source: [place] 6:29 PM [facility] REPOSITORY Order Comment: 'TROP' Serial specimen #1, #2, #3, or #4: 3 TYPE CODE TESTS RESULT OUT OF RANGE REFERENCE UNITS LAB L501.4010 <0.06 ng/mL High 0.08 TROPONIN-I Result Comment: TROPONIN-I EXPECTED VALUES <0.05 NEGATIVE 0.06 - 0.59 AT RISK OF MS > OR = 0.60 SUGGEST MS Performed By: #### L501.4010 #### [facility] [address] [place] [place], [address] EMERGENCY DEPARTMENT Observed: 09/01/2017 Status: F Source: [place] SUMMARY 4:27 PM [facility] REPOSITORY [facility] Medical Records Department [address] [place] [address] Emergency Department Summary 09/01/17 1101 MR#: [id number] Acct: [id number] Name: ELISEO MCKINLEY Rep #: [id number] : 1945 72 From: Mychal Cleaning DO PCP: Care Physician, No Primary Status: ADM IN - ER Visit Summary Date of Service: 09/01/17 Chief Complaint: [Shortness of breath and bilateral leg swelling] History of Present Illness: The patient is a 72 F [resents the emergency department with complaint of progressive swelling in her legs and shortness of breath for several months. Patient developed some erythema of her lower extremities about a week and a half ago and was seen at urgent care 4 days ago and started on antibiotic. Per caregiver patient has gained about 20 pounds within the last month. Patient has a history of an aortic valve replacement but is not currently on any blood thinners. Patient only takes a baby aspirin a day. No other significant medical history. Patient denies any chest pain. Patient does describe exertional dyspnea and orthopnea. Patient denies any fever. She has had a nonproductive cough.] Physical Examination: [HEENT-PERRLA, EOMI. Cranial nerves II through XII grossly intact. TMs clear. Mucous membranes moist. No adenopathy. Cardiovascular-regular rate and rhythm with occasional ectopy noted. Heart sounds are somewhat distant without any obvious murmurs noted. Lungs-diminished breath sounds in both lung bases with some Rales noted bilaterally. Mild tachypnea. No accessory muscle use or retractions. Abdomen-normoactive bowel sounds, soft, nontender, no rebound or rigidity, no peritoneal signs. Extremities-intact 4, normal range of motion, normal pulses, atraumatic. Patient has +3 edema both lower extremities with faint erythema noted to both lower extremities below the knee to the feet. Test Results: [On arrival showed a sinus rhythm with a ventricular rate of 92 bpm with occasional PVCs. Patient had nonspecific ST changes noted. No old EKGs available for comparison. Chest x-ray obtained showed CHF with bilateral effusions.] CBC with differential showed a white count 6.5, hemoglobin 14, hematocrit 47, platelets 103. Chemistries unremarkable. LFTs unremarkable. INR was 1.2. BNP was 2877. Troponin was less than 0.02. TSH was slightly elevated 3.78. Emergency Department Course and Treatment: [Patient received Lasix 40 mg IV in the department. Patient case was discussed with hospitalist Dr. Bubba Lee who will evaluate patient for admission.] Treatment Plan: [Admit for further workup and evaluation of new onset CHF as well as diuresis.] Disposition: [Admit Impression: [CHF-new onset Cellulitis bilateral lower extremities] This note was generated with [employer] dictation software. It may contain incorrect words, spelling, and punctuation that were not noted in review of the chart prior to signing ED Disposition - Plan for ED Patient: Chief Complaint: Edema Referrals: Care Physician,No Primary [Primary Care Provider] - What to do if you have Problems For any increased pain, shortness of breath, bleeding, nausea or vomiting, chest pain, or any unexpected problems, contact your Primary Care Provider. Call [facility] ([phone]) or report to the closest Emergency Room. Call 911 if necessary. 09/01/17 1627 <Electronically signed by Mychal Cleaning DO> Date Mychal Cleaning DO Cosigner Signature (If Indicated): Date CC: No Primary Care Physician TROPONIN-I Collected: 09/01/2017 Status: F Source: [place] 2:05 PM [facility] REPOSITORY Order Comment: 'TROP' Serial specimen #1, #2, #3, or #4: 2 TYPE CODE TESTS RESULT OUT OF RANGE REFERENCE UNITS LAB L501.4010 <0.06 ng/mL Normal 0.06 TROPONIN-I Result Comment: TROPONIN-I EXPECTED VALUES <0.05 NEGATIVE 0.06 - 0.59 AT RISK OF MS > OR = 0.60 SUGGEST MS Performed By: #### L501.4010 #### [facility] [address] [place], [address] HISTORY AND PHYSICAL Observed: 09/01/2017 Status: F Source: [place] EXAM 2:00 PM [facility] REPOSITORY [facility] Medical Records Department [address] [facility] [place] [address] History and Physical 09/01/17 1156 MR#: [id number] Acct: [id number] Name: ELISEO MCKINLEY Rep #: [id number] : 1945 72 From: Bubba Lee MD PCP: Care Physician, No Primary Status: ADM IN Location: [place] [address]1 Problem List (1) CHF (congestive heart failure) Status: Acute Qualifiers: Heart failure type: unspecified Heart failure chronicity: acute Qualified Code(s): I50.9 - Heart failure, unspecified (2) H/O aortic valve replacement Status: Chronic (3) Stasis dermatitis of both legs Status: Chronic (4) General learning disability Status: Chronic (5) BMI 32.0-32.9,adult Status: Chronic History of Present Illness Date of Admission: 09/01/17 Chief Complaint: Shortness of breath and weight gain The patient is a 72 year old F with past medical history significant for aortic valve replacement, learning disability brought to the emergency department by sister on account of shortness of breath. Review of patient's learning disability much of the history was taken from the sister who did notice increasing weight gain and swelling involving both lower and upper extremities. Patient was also noted to be more dyspneic at rest. Patient symptoms have been ongoing apparently for months however in view of the progressive of his symptoms she was brought to the emergency department where assessment was consistent with acute congestive heart failure. Lasix was initiated and patient admitted to a regular nursing floor for further management Past Medical History Past Medical History (Chronic Problems): Chronic Problems H/O aortic valve replacement (Chronic) Stasis dermatitis of both legs (Chronic) General learning disability (Chronic) BMI 32.0-32.9,adult (Chronic) Allergies Sulfa (Sulfonamide Antibiotics) Allergy (Verified 09/01/17 10:09) Other Home Medications: Ambulatory Orders Medication Instructions Recorded Aspirin [Aspirin, Baby] 81 mg PO DAILY@0800 09/01/17 Smoking Status: Never smoker - *Family History Maternal History Items: Heart Disease - mom had congestive heart failure Review of Systems Constitutional: Denies: Anorexia, Chills, Fever, Night Sweats, Weight Change Eyes: Denies: Blurred vision HEENT: Denies: Head Aches, Sinus Congestion, Sinus Drainage Cardiovascular: Reports: Edema. Denies: Chest Pain Respiratory: Reports: Cough, Shortness of breath upon exertion Gastrointestinal: Denies: Abdominal Pain, Hematemesis, Hematochezia, Nausea, Melena, Vomiting Genitourinary: Denies: Dysuria, Frequency, Hematuria, Urgency Musculoskeletal: Denies: Joint Pain, Joint Tenderness Skin: Reports: Pruritis, Rash, Skin Changes Neurological: Denies: Focal weakness, Numbness, Tingling Psychiatric: Denies: Homicidal Ideations, Suicidal Ideations Hematologic/ Lymphatic: Denies: Easy Bruising, Easy Bleeding VTE Information - Inpt Only VTE Present on Admission: No VTE Mechan Device Prophylaxis: Knee High TRA Hose VTE Pharm Prophylaxis ordered?: Yes Patient Problems: Active and Suspected Problems CHF (congestive heart failure) (Acute) Objective: GENERAL: Patient dyspneic at rest HEENT: Clear conjunctiva, NECK; supple, normal thyroid, CHEST: Diminished to auscultation bilaterally, with bibasilar Rales HEART: Regular S1 S2, no audible murmurs ABDOMEN: soft, non-tender, normoactive bowel sounds, RECTAL: deferred EXTREMITIES: +1 bilateral edema STRADDLE BUG DRIVER: Awake, no lateralizing signs. SKIN: Dermatitis involving both lower extremities, - Physical Exam Vital Signs Temp Pulse Resp BP Pulse Ox 98.2 F 99 22 H 115/91 H 98 09/01/17 10:10 09/01/17 11:23 09/01/17 11:23 09/01/17 11:23 09/01/17 11:24 Oxygen Flow Rate (L/min) 2 Oxygen Delivery Method Nasal Cannula Weight: 78.471 kg Body Mass Index (BMI) 32.6 Laboratory Tests Past 24 Hrs WBC 6.5 RBC 5.42 H WBC RBC Hgb Hct MCV MCH MCHC RDW RDW Differential Plt Count Immature Gran % (Auto) Assessment/Plan Active and Suspected Problems CHF (congestive heart failure) (Acute) Patient is a 72-year-old lady presented with progressive shortness of breath and assessment of acute congestive heart failure made admitted to monitored bed for subsequent management 1. Acute congestive heart failure: Patient has been admitted to monitored bed managed with strict input and output, daily weights, fluid restriction to 1500 cc per 24 hours, IV Lasix. 2D echo was ordered for further evaluation 2. History of aortic valve replacement. Patient is not aware of the history however sister suspect patient had a bioprosthetic valve and echo has been ordered for further evaluation as stated above 3. Learning disability supportive care 4. Obesity with BMI of 32.4 weight loss advised 5. Chronic stasis dermatitis involving both lower extremities 6. DVT prophylaxis SC Lovenox Code Visit Inpatient E AND M: [id number] Subs Hosp L3 09/01/17 1400 <Electronically signed by Bubba Lee MD> Date Bubba Lee MD Cosigner Signature: Date (if applicable) CC: No Primary Care Physician; Bubba Lee MD Signed CBC W/DIFF, AUTOMATED Collected: 09/01/2017 Status: F Source: [place] 10:34 AM [facility] REPOSITORY TYPE CODE TESTS RESULT OUT OF RANGE REFERENCE UNITS LAB L100.1000 4.4-11.0 K/mm3 Normal WBC 6.5 LAB L100.1200 4.2-5.4 M/mm3 High RBC 5.42 LAB L100.1300 12.0-15.0 g/dl Normal HGB 14.0 LAB L100.1400 37-47 % Normal HCT 46.7 LAB L100.1500 81-99 fL Normal MCV 86.2 LAB L100.1600 27.0-32.0 pg Low MCH 25.8 LAB L100.1700 32-36 g/gl Low MCHC 30.0 LAB L100.1810 11.6-14.6 % High RDW CV 18.4 LAB L100.1820 35.1-43.9 fl High RDW SD 56.6 LAB L100.1900 150-450 K/mm3 Low PLT 103 LAB L100.2100 47-70 % High NEUT% 83.3 LAB L100.2200 19-41 % Low LY% 8.1 LAB L100.2300 0-10 % Normal MONO% 7.2 LAB L100.2400 0-5 % Normal EO% 0.9 LAB L100.2500 0-1 % Normal BASO% 0.3 LAB L100.2550 0.0-0.9 % Normal IM GRAN % 0.200 Result Comment: IG% - Immature Granulocytes (promyelocytes, myelocytes and metamyelocytes) > 1% indicates that a LEFT SHIFT is Present. LAB L100.2620 2.0-7.7 X10 3/uL Normal Absolute Neut 5.4 LAB L100.2720 0.83-4.51 X10 3/ul Low Absolute Lymph 0.53 LAB L100.4500 Normal SMEAR COMMENT COMMENT Result Comment: SLIDE SCANNED - 1+ LARGE PLTS, LYMPHOPENIA NOTED. Performed By: #### L100.0100 #### [facility] [address] [place], [address] COMPREHENSIVE METABOLIC Collected: 09/01/2017 Status: F Source: NERY [facility] 10:34 AM [facility] REPOSITORY Order Comment: 'TROP' Serial specimen #1, #2, #3, or #4: 1 TYPE CODE TESTS RESULT OUT OF RANGE REFERENCE UNITS LAB L501.0100 74-106 mg/dL Normal GLU 97 Result Comment: Please note revised GLUCOSE reference range effective 2017. LAB L501.1000 7-18 mg/dL High BUN 21 LAB L501.1100 0.55-1.02 mg/dL High CREAT,SERUM 1.11 Result Comment: The validity of the calculated GFR AND GFRAA in patients over 70 years has not been determined. Clinical correlation is essential. LAB L501.1110 >60 mL/min Low EST GFR 51 Result Comment: Non- GFR Calc LAB L501.1115 >60 mL/min Normal EST GFR - AA 62 Result Comment: GFR Calc LAB L501.1255 ml/min Normal Estimated CRCL 34.57 LAB L501.1300 10-20 RATIO Normal BUN/CRE 18.9 LAB L501.1500 6.4-8. g/dL Normal 2 T PROT 6.7 LAB L501.1800 3.2-5. g/dL Normal 0 ALB 3.6 LAB L501.1950 2.2-4. g/dL Normal 2 GLOB 3.1 LAB L501.2000 0.9-2. RATIO Normal 4 A/G 1.2 LAB L501.2200 8.5-10 mg/dL Normal .1 CA 9.2 LAB L501.4100 15-37 U/L Normal AST 31 LAB L501.4305 45-117 U/L Normal ALK P 89 LAB L501.4405 13-56 U/L Normal ALT 20 Result Comment: Please note revised ALT reference range effective 2017. LAB L501.4600 0.20-1.00 mg/dL High T BILI 1.30 LAB L501.5300 136-145 mmol/L Normal NA 143 LAB L501.5600 3.5-5.1 mmol/L Normal K 4.4 LAB L501.5900 98-107 mmol/L Normal CL 107 LAB L501.6100 21.0-32.0 mmol/L Normal CO2 28.0 LAB L501.6200 5-15 Normal GAP 8 Performed By: #### L500.4050, L501.4010, L501.9520 #### [facility] [address] [place], [address] TROPONIN-I Collected: 09/01/2017 Status: F Source: [place] 10:34 AM [facility] REPOSITORY Order Comment: 'TROP' Serial specimen #1, #2, #3, or #4: 1 TYPE CODE TESTS RESULT OUT OF RANGE REFERENCE UNITS LAB L501.4010 <0.06 ng/mL Normal 0.06 TROPONIN-I Result Comment: TROPONIN-I EXPECTED VALUES <0.05 NEGATIVE 0.06 - 0.59 AT RISK OF MS > OR = 0.60 SUGGEST MS Performed By: #### L500.4050, L501.4010, L501.9520 #### [facility] [address] [place], [place], [id number] THYROID STIM HORMONE Collected: 09/01/2017 Status: F Source: [place] (TSH) 10:34 AM [facility] REPOSITORY Order Comment: 'TROP' Serial specimen #1, #2, #3, or #4: 1 TYPE CODE TESTS RESULT OUT OF RANGE REFERENCE UNITS LAB L501.9520 0.358-3.74 uIU/mL High TSH 3.78 Performed By: #### L500.4050, L501.4010, L501.9520 #### [facility] [address] [place], [place], [id number] PROTHROMBIN TIME W/INR Collected: 09/01/2017 Status: F Source: [place] 10:34 AM [facility] REPOSITORY TYPE CODE TESTS RESULT OUT OF RANGE REFERENCE UNITS LAB L300.4150 11.7-14.9 SECONDS High PROTIME 15.2 LAB L300.4200 Normal INR 1.2 Performed By: #### L300.3900, L300.4310 #### [facility] [address] [place], [address] PARTIAL THROMBOPLAST Collected: 09/01/2017 Status: F Source: [place] TIME 10:34 AM [facility] REPOSITORY TYPE CODE TESTS RESULT OUT OF RANGE REFERENCE UNITS LAB L300.4310 24.1-36.2 Seconds Normal PTT 30.1 Performed By: #### L300.3900, L300.4310 #### [facility] [address] [place], [address] BNP,B-TYPE NATRIURETIC Collected: 09/01/2017 Status: F Source: [place] 10:34 AM [facility] REPOSITORY TYPE CODE TESTS RESULT OUT OF RANGE REFERENCE UNITS LAB L503.6620 0-100 pg/mL High B-TYPE 2877.1 PADMINI PEP Performed By: #### L503.6620 #### [facility] [address] [place], [address] MAGNESIUM Collected: 09/01/2017 Status: F Source: [place] 10:34 AM [facility] REPOSITORY TYPE CODE TESTS RESULT OUT OF RANGE REFERENCE UNITS LAB L501.5200 1.6-2.6 mg/dL Normal MG 2.0 Result Comment: Please note revised Magnesium reference range effective 2017. Performed By: #### L501.5200 #### [facility] [address] [place], [address] CHEST 1 VIEW Observed: 09/01/2017 Status: F Source: [place] (PORTABLE) 10:26 AM [facility] REPOSITORY [facility] [address] [place] [address] Chest 1 View (Portable) MR#: [id number] Acct: [id number] Name: ELISEO MCKINLEY Rep #: [id number] : 1945 F 72 From: Lloyd Johnson MD PCP: Status: PRE ER Study: Chest 1 View (Portable) Date of Exam: 09/01/17 Exam# [id number] Ordering Dr: Mychal Cleaning DO STUDY: X-RAY CHEST REASON FOR EXAM: Female, 72 years old. Dyspnea. Lower extremity edema. History of prior aortic valve replacement. TECHNIQUE: Single AP portable view of the chest. COMPARISON: None. FINDINGS: EKG electrodes are seen. There is elevation of the right hemidiaphragm. Small bilateral pleural effusions with bibasilar atelectasis superimposed on CHF. Sternal cerclage wires are present from a prior sternotomy. Mild cardiomegaly. Normal mediastinum and micaela. Normal visualized pulmonary arteries. There is atherosclerotic tortuosity of the aortic arch and descending thoracic aorta. There are diffuse degenerative changes of the visualized thoracic spine. Normal visualized ribs, clavicles, and shoulders. There is no demonstrated abnormality of the visualized soft tissue structures of the upper abdomen. RAD/Chest 1 View (Portable) IMPRESSION: CHF with small bilateral pleural effusions and bibasilar atelectasis. Elevation of the right hemidiaphragm. Electronically Signed: Lloyd Johnson MD at 10:56 EDT Tel [phone], Service support , CC: Mychal Cleaning DO Manager Law: Signed PROGRESS Observed: 09/01/2017 Status: COMPLETED Source: [place] 10:00 AM [facility] REPOSITORY HNO ID: [id number] Author: Brooklynn Sandhu Service: (none) Author Type: Nurse Practitioner Type: Progress Notes Filed: 09/01/2017 11:59 AM Note Text: Chief Complaint Patient presents with: Recheck: Seen in urgent care on 08/29/17 [facility] Eliseo Mckinley is a 72 year old female who presents here today for urgent care follow-up, leg swelling, and rash. Pt has not been seen by a PCP in years. She presents today with her sister. Chart reviewed, pt with mild MR. She has a hx of AVR with closure of PFO in 2006. Only routine med is a baby ASA daily. Pt's sister reports that pt has been healthy up until about 2 weeks ago. Started having more swelling in the lower extremities and developed a rash of the lower extremities. The rash itches and leaks. They started taking an OTC diuretic. She was started on keflex by urgent care. She had labwork done by urgent care that revealed thrombocytopenia, decreased renal function (GFR 52, creat 1.04). REVIEW OF SYSTEMS GENERAL: Positive for significant weight gain -- unsure how much, sister reports she is just gaining. HEENT: Negative for frequent or significant headaches, No changes in hearing or vision, no nose bleeds or other nasal problems NECK: Negative for lumps, goiter, pain and significant neck swelling RESPIRATORY: Positive for cough, dyspnea, and shortness of breath CARDIOVASCULAR: Negative for chest pain, + leg swelling, + Palpitations at times. + orthopnea -- 8 pillows. GI: No nausea, vomiting, or diarrhea and Constipation : No history of dysuria, frequency or incontinence SKIN: + leg swelling, rash on her feet, and seeping. HEMATOLOGY/LYMPHOLOGY: Negative for prolonged bleeding, bruising easily or swollen nodes ENDOCRINE: Negative for cold or heat intolerance, polyuria, polydipsia and goiter NEURO: No history of headaches, syncope, paralysis, seizures or tremors Past medical history, appointments, medications, allergies reviewed. Previous Medical History No past medical history on file. Previous Surgical History PAST SURGICAL HISTORY Procedure Laterality Date - REPLACE AORTIC VALVE OPEN TRANSAORTIC APPROACH 2006 Family History No family history on file. Patient Allergies ALLERGIES Allergen Reactions - Sulfa (Sulfonamide * - Vioxx [Rofecoxib] Current Medications Current Outpatient Prescriptions on File Prior to Visit: cephALEXin (KEFLEX) 500 mg capsule Take 1 capsule by mouth twice daily for 7 days. aspirin, enteric coated (ASPIRIN, ENTERIC COATED) 81 mg EC tablet Take 81 mg by mouth once daily. MULTIVIT-MINERALS/FERROUS FUM (MULTI VITAMIN ORAL) Take by mouth. No current facility-administered medications on file prior to visit. Social History Social History Marital status: Single Spouse name: Years of education: Number of children: Social History Main Topics Smoking status: Never Smoker Smokeless status: Never Used Alcohol use: Yes Comment: occasionally Drug use: No EXAM: BP 122/74 (BP Site: Left Arm, BP Position: Sitting, BP Cuff Size: Regular Adult) Pulse 94 Resp 12 Wt 78.5 kg (173 lb) SpO2 96% General Appearance: Well appearing, alert, in no acute distress, well-hydrated, well nourished.. Skin: Skin dry -- cracks on dorsal hands that are bleeding. Papular rash around ankles. Head: Normocephalic, no masses, lesions, tenderness or abnormalities. Eyes: Anicteric sclera. Extraocular movements are intact. . Neck: Supple, no adenopathy; thyroid symmetric, normal size, no bruits. Lungs: Lungs course throughout. Dyspneic. Heart: irregularly irregular without murmur, gallop, or rubs. Abdomen: anasarca of the lower abdomen. Extremities: BLE skin taught. +2 pitting edema of the entire legs (pitting in the thighs, as well). Fluid swelling in the lower abd. Papular rash around ankles. Feet and lower legs seeping clear fluid. Peripheral Pulses: unable to palpate pedal pulses. + dp and pt pulses bilaterally via doppler. Neurologic: Gait normal with assist. ASSESSMENT/PLAN: 1. Atrial fibrillation, unspecified type (HCC) - ICD9: 427.31, ICD10: I48.91 (primary diagnosis) EKG - A fib -- controlled rate. 2. Anasarca - ICD9: 782.3, ICD10: R60.1 3. Orthopnea - ICD9: 786.02, ICD10: R06.01 4. SOB (shortness of breath) - ICD9: 786.05, ICD10: R06.02 5. Thrombocytopenia (HCC) - ICD9: 287.5, ICD10: D69.6 Discussed with patient and her sister. With her current status of A. Fib -- unsure of how long she has been in this rhythm, and the degree of swelling that she has -- suggest to ER for further evaluation and treatment. Pt and sister agreeable. Pt assisted out via wheelchair by nursing staff. Report to [place] BOBBY. MOMO GonzalesOV Observed: 09/01/2017 Status: COMPLETED Source: [place] 9:00 AM [facility] REPOSITORY [facility] ELISEO MCKINLEY ([id number]) 1945 F Date Time Provider Department 09/01/17 9:00 AM BROOKLYNN SANDHU (MOMO) CHRIS During your visit today, we recorded the following information about you: Pulse Respiration Blood pressure Weight 94/minute 12/minute 122/74 78.5 kg Brooklynn Sandhu CNP 09/01/2017 11:59 AM Signed Chief Complaint Patient presents with: Recheck: Seen in urgent care on 08/29/17 HPI Eliseo Mckinley is a 72 year old female who presents here today for urgent care follow-up, leg swelling, and rash. Pt has not been seen by a PCP in years. She presents today with her sister. Chart reviewed, pt with mild MR. She has a hx of AVR with closure of PFO in 2006. Only routine med is a baby ASA daily. Pt's sister reports that pt has been healthy up until about 2 weeks ago. Started having more swelling in the lower extremities and developed a rash of the lower extremities. The rash itches and leaks. They started taking an OTC diuretic. She was started on keflex by urgent care. She had labwork done by urgent care that revealed thrombocytopenia, decreased renal function (GFR 52, creat 1.04). REVIEW OF SYSTEMS GENERAL: Positive for significant weight gain -- unsure how much, sister reports she is just gaining. HEENT: Negative for frequent or significant headaches, No changes in hearing or vision, no nose bleeds or other nasal problems NECK: Negative for lumps, goiter, pain and significant neck swelling RESPIRATORY: Positive for cough, dyspnea, and shortness of breath CARDIOVASCULAR: Negative for chest pain, + leg swelling, + Palpitations at times. + orthopnea -- 8 pillows. GI: No nausea, vomiting, or diarrhea and Constipation : No history of dysuria, frequency or incontinence SKIN: + leg swelling, rash on her feet, and seeping. HEMATOLOGY/LYMPHOLOGY: Negative for prolonged bleeding, bruising easily or swollen nodes ENDOCRINE: Negative for cold or heat intolerance, polyuria, polydipsia and goiter NEURO: No history of headaches, syncope, paralysis, seizures or tremors Past medical history, appointments, medications, allergies reviewed. Previous Medical History No past medical history on file. Previous Surgical History PAST SURGICAL HISTORY Procedure Laterality Date - REPLACE AORTIC VALVE OPEN TRANSAORTIC APPROACH 2006 Family History No family history on file. Patient Allergies ALLERGIES Allergen Reactions - Sulfa (Sulfonamide * - Vioxx [Rofecoxib] Current Medications Current Outpatient Prescriptions on File Prior to Visit: cephALEXin (KEFLEX) 500 mg capsule Take 1 capsule by mouth twice daily for 7 days. aspirin, enteric coated (ASPIRIN, ENTERIC COATED) 81 mg EC tablet Take 81 mg by mouth once daily. MULTIVIT-MINERALS/FERROUS FUM (MULTI VITAMIN ORAL) Take by mouth. No current facility-administered medications on file prior to visit. Social History Social History Marital status: Single Spouse name: Years of education: Number of children: Social History Main Topics Smoking status: Never Smoker Smokeless status: Never Used Alcohol use: Yes Comment: occasionally Drug use: No EXAM: BP 122/74 (BP Site: Left Arm, BP Position: Sitting, BP Cuff Size: Regular Adult) Pulse 94 Resp 12 Wt 78.5 kg (173 lb) SpO2 96% General Appearance: Well appearing, alert, in no acute distress, well-hydrated, well nourished.. Skin: Skin dry -- cracks on dorsal hands that are bleeding. Papular rash around ankles. Head: Normocephalic, no masses, lesions, tenderness or abnormalities. Eyes: Anicteric sclera. Extraocular movements are intact. . Neck: Supple, no adenopathy; thyroid symmetric, normal size, no bruits. Lungs: Lungs course throughout. Dyspneic. Heart: irregularly irregular without murmur, gallop, or rubs. Abdomen: anasarca of the lower abdomen. Extremities: BLE skin taught. +2 pitting edema of the entire legs (pitting in the thighs, as well). Fluid swelling in the lower abd. Papular rash around ankles. Feet and lower legs seeping clear fluid. Peripheral Pulses: unable to palpate pedal pulses. + dp and pt pulses bilaterally via doppler. Neurologic: Gait normal with assist. ASSESSMENT/PLAN: 1. Atrial fibrillation, unspecified type (HCC) - ICD9: 427.31, ICD10: I48.91 (primary diagnosis) EKG - A fib -- controlled rate. 2. Anasarca - ICD9: 782.3, ICD10: R60.1 3. Orthopnea - ICD9: 786.02, ICD10: R06.01 4. SOB (shortness of breath) - ICD9: 786.05, ICD10: R06.02 5. Thrombocytopenia (HCC) - ICD9: 287.5, ICD10: D69.6 Discussed with patient and her sister. With her current status of A. Fib -- unsure of how long she has been in this rhythm, and the degree of swelling that she has -- suggest to ER for further evaluation and treatment. Pt and sister agreeable. Pt assisted out via wheelchair by nursing staff. Report to Nery Sandhu CNP Referring Provider: SELF [[id number]] Allergies As of Date: 09/01/2017 Noted Allergy Reaction SULFA (SULFONAMIDE ANTIBIOTICS) 02/17/2007 VIOXX (ROFECOXIB) 02/17/2007 Date Reviewed: 09/01/2017 Reviewed by: Lindsey Quinonez Plant Maintenance Supervisor - Fully Assessed Reason for Visit: Recheck [92] Cmt: Seen in urgent care on 08/29/17 Primary Visit Diagnosis:Atrial fibrillation, unspecified type (HCC) [I48.91] Other Visit Diagnoses:Anasarca [R60.1] Orthopnea [R06.01] SOB (shortness of breath) [R06.02] Thrombocytopenia (HCC) [D69.6] Order(s):ECG COMPLETE W INTERPRETATION [ECG01] Order #: [id number] FUTURE Prescriptions as of 09/01/2017 Sig: CEPHALEXIN 500 MG CAPSULE Take 1 capsule by mouth twice* ASPIRIN 81 MG TABLET,DELAYED * Take 81 mg by mouth once vida* MULTI VITAMIN ORAL Take by mouth. Problem List As Of Date 09/01/2017 Noted Resolved Atrial fibrillation (HCC) [I48.91] INVALID FOR* Encounter Status:Closed by BROOKLYNN SANDHU CNP on 09/01/17 CBC AND DIFFERENTIAL Collected: 08/29/2017 Status: F Source: [place] 2:51 PM [facility] REPOS[facility] TYPE CODE TESTS RESULT OUT OF REFERENCE UNITS RANGE LAB WBC 3.70-11.00 k/uL WBC 7.34 LAB RBC 3.90-5.20 m/uL RBC High 5.46 LAB HGB 11.5-15.5 g/dL Hemoglobin 14.0 LAB HCT 36.0-46.0 % High Hematocrit 48.6 LAB MCV 80.0-100.0 fL MCV 89.0 LAB MCH 26.0-34.0 pG Low MCH 25.6 LAB MCHC 30.5-36.0 g/dL Low MCHC 28.8 LAB RDWCV 11.5-15.0 % RDW-CV High 19.1 LAB PLTCT 150-400 k/uL Low Platelet Count 103 Result Comment: Result checked and verified No clot detected. LAB MPV 9.0-12.7 fL MPV <<DO NOT REPORT>> LAB ANEUT % Neut% 81.9 LAB AANEUT 1.45-7.50 k/uL Abs 5.99 Neut LAB ALYMP % 9.7 Lymph% LAB AALYMP 1.00-4.00 k/uL Abs 0.71 Low Lymph LAB AMONO % [place]% 7.2 LAB AAMONO <0.87 k/uL Abs 0.53 [place] LAB AEOS % 0.4 Eosin% LAB AAEOS <0.46 k/uL Abs 0.03 Eosin LAB ABASO % Baso% 0.8 LAB AABASO <0.11 k/uL Abs 0.06 Baso LAB AUNRBC 0 /100 WBC NRBCs 0.0 LAB ABNRBC <0.01 k/uL <0.01 Absolute nRBC LAB DTYP DTYPE Auto Diff Performed By: #### CBCDIF, CMP #### [facility] [address] [place], [place] [address] COMP METABOLIC PANEL Collected: 08/29/2017 Status: F Source: [place] 2:51 PM [facility] REPOSITORY TYPE CODE TESTS RESULT OUT OF REFERENCE UNITS RANGE LAB TP 6.3-8.0 g/dL Protein, Total 6.5 LAB ALB 3.9-4.9 g/dL Albumin 4.1 LAB CA 8.5-10.2 mg/dL Calcium, Total 9.6 LAB TBIL 0.2-1.3 mg/dL Bilirubin, Total 1.2 LAB ALKP 32-117 U/L Alkaline Phosphatase 70 LAB AST 13-35 U/L AST 31 LAB GLU 74-99 mg/dL Glucose High 102 Result Comment: The [place] Diabetes Association (ADA) provides guidance for cutoff values for fasting glucose and random glucose. The ADA defines fasting as no caloric intake for at least 8 hours. Fas ting plasma glucose results between 100 to 125 mg/dL indicate increased risk for diabetes (prediabetes). Fasting plasma glucose results greater than or equal to 126 mg/dL meet the criteria for diagnosis of diabetes. In the absence of unequivocal hyperglycemia, results should be confirmed by repeat testing. In a patient with classic symptoms of hyperglycemia or hyperglycemic crisis, random plasma glucose results greater than or equal to 200 mg/dL meet the criteria for diagnosis of diabetes. Reference: Standards of Medical Care in Diabetes 2016, [place] [employer] Association. Diabetes Care. 2016.39(Suppl 1). LAB BUN 7-21 mg/dL BUN 21 LAB CRET 0.58-0.96 mg/dL Creatinine High 1.04 LAB NA 136-144 mmol/L Sodium High 145 LAB K 3.7-5.1 mmol/L Potassium 4.4 LAB CL 97-105 mmol/L Chloride 104 LAB CO2 22-30 mmol/L CO2 26 LAB AGAP 9-18 mmol/L Anion Gap 15 LAB ALT 7-38 U/L ALT 13 LAB GFRAA eGFR- Amer. >60 LAB GFRNAA . eGFR-All Other Races 52 Result Comment: eGFR (Estimated GFR) Units of measure: mL/min/1.73 meters squared eGFR is derived from the reexpressed MDRD Study equation using the following parameters: serum creatinine, age, gender and race. The creatinine assay has been calibrated to be traceable to IDMS. An eGFR <60 mL/min/1.73m2 for >3 months is consistent with chronic kidney disease. Refer to KDOQI guidelines for clinical interpretation. In patients with unstable renal function, e.g. those with acute kidney injury, the eGFR may not accurately reflect actual GFR. Performed By: #### CBCDIF, CMP #### [facility] [employer] [address] [place], [place] [address] PROGRESS Observed: 08/29/2017 Status: COMPLETED Source: [place] 2:17 PM [facility] [place] REPOSITORY HNO ID: [id number] Author: Candis Hilliard Service: (none) Author Type: Nurse Practitioner Type: Progress Notes Filed: 08/29/2017 2:50 PM Note Text: Subjective Patient is a 72 year old female presenting with rash. The history is provided by the patient. No assistant speech language pathologist was used. Rash Pertinent negatives include no congestion, cough, fever, joint pain, shortness of breath or sore throat. HPI Eliseo Mckinley is a 72 year old female who presents with her sister today for CC of rash and swelling of lower extremities This started over the past week She is also having swelling and redness of lower extremities. Symptoms are worsened by nothing She has tried OTC diuretic and triamcinolone cream Risk factors none noted. PMH patient has not seen a primary care provider in sever years. BP 118/88 Pulse 80 Temp (!) 35.6 ?C (96 ?F) (Tympanic) Resp 20 Wt 78.5 kg (173 lb) ALLERGIES Allergen Reactions - Sulfa (Sulfonamide * - Vioxx [Rofecoxib] There is no problem list on file for this patient. No family history on file. Social History Marital status: Single Spouse name: Years of education: Number of children: Social History Main Topics Smoking status: Never Smoker Smokeless status: Never Used Alcohol use: Yes Comment: occasionally Drug use: No Review of Systems Constitutional: Negative. Negative for chills, fever and malaise/fatigue. HENT: Negative for congestion, ear pain, sinus pain and sore throat. Respiratory: Negative for cough, sputum production, shortness of breath and wheezing. Cardiovascular: Negative for chest pain. Genitourinary: Negative for dysuria. Musculoskeletal: Negative for joint pain and myalgias. Skin: Positive for rash (lower legs). Neurological: Negative for headaches. Objective Physical Exam Constitutional: She is oriented to person, place, and time and well-developed, well-nourished, and in no distress. No distress. HENT: Head: Normocephalic and atraumatic. Right Ear: Tympanic membrane, external ear and ear canal normal. Tympanic membrane is not injected, not erythematous, not retracted and not bulging. No middle ear effusion. Left Ear: Tympanic membrane, external ear and ear canal normal. Tympanic membrane is not injected, not erythematous, not retracted and not bulging. No middle ear effusion. Nose: Nose normal. Right sinus exhibits no maxillary sinus tenderness and no frontal sinus tenderness. Left sinus exhibits no maxillary sinus tenderness and no frontal sinus tenderness. Mouth/Throat: Uvula is midline, oropharynx is clear and moist and mucous membranes are normal. No oropharyngeal exudate, posterior oropharyngeal edema, posterior oropharyngeal erythema or tonsillar abscesses. Eyes: Conjunctivae and EOM are normal. Pupils are equal, round, and reactive to light. Neck: Normal range of motion. Neck supple. Cardiovascular: Normal rate, regular rhythm and normal heart sounds. Pulmonary/Chest: Effort normal and breath sounds normal. No respiratory distress. She has no decreased breath sounds. She has no wheezes. She has no rhonchi. She has no rales. Lymphadenopathy: Head (right side): No submental, no submandibular, no tonsillar, no preauricular and no posterior auricular adenopathy present. Head (left side): No submental, no submandibular, no tonsillar, no preauricular and no posterior auricular adenopathy present. She has no cervical adenopathy. Right cervical: No posterior cervical adenopathy present. Left cervical: No posterior cervical adenopathy present. Right: No supraclavicular adenopathy present. Left: No supraclavicular adenopathy present. Neurological: She is alert and oriented to person, place, and time. Skin: Skin is warm and dry. Rash noted. Rash is papular. There is erythema. Psychiatric: Affect normal. Nursing note and vitals reviewed. ASSESSMENT/PLAN: 1. Leg swelling - ICD9: 729.81, ICD10: M79.89 (primary diagnosis) - unsure of cause, venous insufficiency, HTN Will check labs and set up follow up appointment with office for recheck for further managment - COMP METABOLIC PANEL - CBC + DIFF 2. Vasculitis (HCC) - ICD9: 447.6, ICD10: I77.6 - inflammatory vs infective Will start on antibiotic and set appointment for recheck this week - CEPHALEXIN 500 MG CAPSULE Diagnosis and treatment plan were discussed and questions were answered to the patient's satisfaction. Pt acknowledged understanding of concepts and follow up plan. Specific signs and symptoms that would indicate the need for higher level of care were discussed in detail warranting prompt ER evaluation. Candis Hilliard CNP CNOV Observed: 08/29/2017 Status: COMPLETED Source: [place] [address]:00 PM [facility] REPOSITORY Office Visit ([facility]) ELISEO MCKINLEY ([id number]) 1945 F Date Time Provider Department 08/29/17 2:00 PM CANDIS HILLIARD ([facility] During your visit today, we recorded the following information about you: Temperature Pulse Respiration Blood pressure 96 degrees 80/minute 20/minute 118/88 Weight 78.5 kg Candis Hilliard CNP 08/29/2017 2:50 PM Signed Subjective Patient is a 72 year old female presenting with rash. The history is provided by the patient. No assistant speech language pathologist was used. Rash Pertinent negatives include no congestion, cough, fever, joint pain, shortness of breath or sore throat. HPI Eliseo Mckinley is a 72 year old female who presents with her sister today for CC of rash and swelling of lower extremities This started over the past week She is also having swelling and redness of lower extremities. Symptoms are worsened by nothing She has tried OTC diuretic and triamcinolone cream Risk factors none noted. [facility] patient has not seen a primary care provider in sever years. BP 118/88 Pulse 80 Temp (!) 35.6 ?C (96 ?F) (Tympanic) Resp 20 Wt 78.5 kg (173 lb) ALLERGIES Allergen Reactions - Sulfa (Sulfonamide * - Vioxx [Rofecoxib] There is no problem list on file for this patient. No family history on file. Social History Marital status: Single Spouse name: Years of education: Number of children: Social History Main Topics Smoking status: Never Smoker Smokeless status: Never Used Alcohol use: Yes Comment: occasionally Drug use: No Review of Systems Constitutional: Negative. Negative for chills, fever and malaise/fatigue. HENT: Negative for congestion, ear pain, sinus pain and sore throat. Respiratory: Negative for cough, sputum production, shortness of breath and wheezing. Cardiovascular: Negative for chest pain. Genitourinary: Negative for dysuria. Musculoskeletal: Negative for joint pain and myalgias. Skin: Positive for rash (lower legs). Neurological: Negative for headaches. Objective Physical Exam Constitutional: She is oriented to person, place, and time and well-developed, well-nourished, and in no distress. No distress. HENT: Head: Normocephalic and atraumatic. Right Ear: Tympanic membrane, external ear and ear canal normal. Tympanic membrane is not injected, not erythematous, not retracted and not bulging. No middle ear effusion. Left Ear: Tympanic membrane, external ear and ear canal normal. Tympanic membrane is not injected, not erythematous, not retracted and not bulging. No middle ear effusion. Nose: Nose normal. Right sinus exhibits no maxillary sinus tenderness and no frontal sinus tenderness. Left sinus exhibits no maxillary sinus tenderness and no frontal sinus tenderness. Mouth/Throat: Uvula is midline, oropharynx is clear and moist and mucous membranes are normal. No oropharyngeal exudate, posterior oropharyngeal edema, posterior oropharyngeal erythema or tonsillar abscesses. Eyes: Conjunctivae and EOM are normal. Pupils are equal, round, and reactive to light. Neck: Normal range of motion. Neck supple. Cardiovascular: Normal rate, regular rhythm and normal heart sounds. Pulmonary/Chest: Effort normal and breath sounds normal. No respiratory distress. She has no decreased breath sounds. She has no wheezes. She has no rhonchi. She has no rales. Lymphadenopathy: Head (right side): No submental, no submandibular, no tonsillar, no preauricular and no posterior auricular adenopathy present. Head (left side): No submental, no submandibular, no tonsillar, no preauricular and no posterior auricular adenopathy present. She has no cervical adenopathy. Right cervical: No posterior cervical adenopathy present. Left cervical: No posterior cervical adenopathy present. Right: No supraclavicular adenopathy present. Left: No supraclavicular adenopathy present. Neurological: She is alert and oriented to person, place, and time. Skin: Skin is warm and dry. Rash noted. Rash is papular. There is erythema. Psychiatric: Affect normal. Nursing note and vitals reviewed. ASSESSMENT/PLAN: 1. Leg swelling - ICD9: 729.81, ICD10: M79.89 (primary diagnosis) - unsure of cause, venous insufficiency, HTN Will check labs and set up follow up appointment with office for recheck for further managment - COMP METABOLIC PANEL - CBC + DIFF 2. Vasculitis (HCC) - ICD9: 447.6, ICD10: I77.6 - inflammatory vs infective Will start on antibiotic and set appointment for recheck this week - CEPHALEXIN 500 MG CAPSULE Diagnosis and treatment plan were discussed and questions were answered to the patient's satisfaction. Pt acknowledged understanding of concepts and follow up plan. Specific signs and symptoms that would indicate the need for higher level of care were discussed in detail warranting prompt ER evaluation. MOMO Ty CNP 08/29/2017 2:34 PM Signed ASSESSMENT/PLAN: 1. Leg swelling - ICD9: 729.81, ICD10: M79.89 (primary diagnosis) Will check labs and set up follow up appointment with office for recheck for further managment - COMP METABOLIC PANEL - CBC + DIFF 2. Vasculitis (HCC) - ICD9: 447.6, ICD10: I77.6 Will start on antibiotic and set appointment for recheck this week - CEPHALEXIN 500 MG CAPSULE Referring Provider: SELF [200] Allergies As of Date: 08/29/2017 Noted Allergy Reaction SULFA (SULFONAMIDE ANTIBIOTICS) 02/17/2007 VIOXX (ROFECOXIB) 02/17/2007 Date Reviewed: 08/29/2017 Reviewed by: Candis Hilliard - Fully Assessed Reason for Visit: Rash [1087] Cmt: on both ankles X 1 wk Primary Visit Diagnosis:Leg swelling [M79.89] Other Visit Diagnosis:Vasculitis (HCC) [I77.6] Order(s):cephALEXin (KEFLEX) 500 mg capsuleTake 1 capsule by mouth twice daily for 7 days.Disp: 14 capsuleRfl: 0 COMP METABOLIC PANEL [SQCMP] Order #: [id number] FUTURE CBC + DIFF [SQCBCDIF] Order #: [id number] FUTURE Prescriptions as of 08/29/2017 Sig: ASPIRIN 81 MG TABLET,DELAYED * Take 81 mg by mouth once vida* MULTI VITAMIN ORAL Take by mouth. CEPHALEXIN 500 MG CAPSULE Take 1 capsule by mouth twice* Problem List As Of Date: 08/29/2017 (None) Other instructions from your clinician: ASSESSMENT/PLAN: 1. Leg swelling - ICD9: 729.81, ICD10: M79.89 (primary diagnosis) Will check labs and set up follow up appointment with office for recheck for further managment - COMP METABOLIC PANEL - CBC + DIFF 2. Vasculitis (HCC) - ICD9: 447.6, ICD10: I77.6 Will start on antibiotic and set appointment for recheck this week - CEPHALEXIN 500 MG CAPSULE Prescriptions ordered this encounter Disp Refills Start End CEPHALEXIN 500 MG CAPSULE 14 c* 0 08/29/2017 09/05/2017 Route: ORAL Sig: Take 1 capsule by mouth twice daily for 7 days. Encounter Status:Closed by CANDIS HILLIARD CNP on 08/29/17 ALLERGIES ALLERGIES DATE TYPE / CODE NAME / CODE REACTION SEVERITY SOURCE 06/22/2018 Drug Sulfa Other Unknown [facility] Allergy/416 (Sulfonamide Hospital 162147(SNOM Antibiotics)/F00 Repository [address] CT) 0428607(RXNORM) 02/17/2007 Drug SULFA [facility] Class/47703 (SULFONAMIDE [address] [place] 1003(SNOMED ANTIBIOTICS) Repository CT) 02/17/2007 DRUG ROFECOXIB [facility] INGREDI/[address] [place] 304743(SNOM Repository ED CT) ENCOUNTERS ENCOUNTERS ADMIT/DISCHARGE ACCOUNT ADMITTING ENCOUNTER LOCATION SOURCE NUMBER CLASS 06/30/2018 [id number] [facility] ing:LAB Repository 06/26/2018/06/26/19 [id number] Ambulatory BMSBuilding:B [place] 19 [place].[facility] Repository 06/02/2018/06/02/20 [id number] Ambulatory [address] ing:LAB Repository 05/05/2018/05/19/20 [id number] Ambulatory [address] ing:LAB Repository 04/06/2018/04/06/20 [id number] Ambulatory [address] ing:LAB Repository 03/10/2018/03/10/[id number] ing:LAB Repository 03/01/2018 [id number] Ambulatory [facility] Hospital ing:[facility] Repository 03/01/2018 [id number] Ambulatory BMSBuilding:W [facility] Hospital Repository 02/10/2018/02/11/20 [id number] Ambulatory [address] Hospitalild Hospital ing:LAB Repository 01/16/2018/02/09/20 [id number] Ambulatory [address] [place] Repository 01/13/2018/01/14/20 [id number] Ambulatory [place] Hospitalild Hospital ing:LAB Repository 12/15/2017/12/16/19 [id number] Amb[place] HospitalBuild Hospital ing:LAB Repository 12/01/2017 [id number] Ambulatory [facility] Hospital ing:CR Repository 11/11/2017/11/12/19 [id number] Ambulatory [address] Hospitalild Hospital ing:LAB Repository 10/28/2017/10/29/19 [id number] Ambulatory BMSBuilding:B [place] 18 [place].[facility] Repository 10/24/2017 [id number] Ambulatory BMSBuilding:B [place] Repository 10/07/2017/10/08/19 [id number] [facility] [address] [facility] ing[facility]LAB Repository 09/29/2017 [id number] Ambulatory [facility] Hospital ing:[facility]S Repository 09/29/2017 [id number] Ambulatory BMSBuilding:W [facility] Repository 09/23/2017 [id number] Ambulatory [facility] Hospital ing:LAB Repository 09/20/2017/09/21/19 [id number] Ambulatory [address] Repository 09/14/2017/09/15/19 [id number] Ambulatory BMSBuilding:B [place] 18 [place].[facility] Repository 09/12/2017 [id number] Ambulatory [facility] Hospital ing:LAB Repository 09/01/2017/09/08/19 [id number] [facility] [address] Hospital ing:PCURoom: Repository IQB771Vmm: 1 09/01/2017 [id number] [facility] Ambulatory BMSBuilding:B [place].[facility] Repository 09/01/2017 [id number] [facility] Ambulatory BMSBuilding:B [place].[facility] Repository 09/01/2017 [id number] [facility] Ambulatory BMSBuilding:B [place] MS.CF.[facility] Repository 09/01/2017 [id number] [facility] Ambulatory BMSBuilding:B [place] MS.CF.[facility] Repository 09/01/2017 [id number] [facility] Ambulatory BMSBuilding:B [place] MS.[facility] Repository 09/01/2017 [id number] [facility] Ambulatory BMSBuilding:B [place] MS.CF.[facility] Repository 09/01/2017 [id number] [facility] Ambulatory BMSBuilding:B [place].[facility] Repository 09/01/2017 [id number] [facility] Ambulatory BMSBuilding:B [place] MS.CF.[facility] Repository 09/01/2017 [id number] [facility] Ambulatory BMSBuilding:B [place].[facility] Repository 09/01/2017 [id number] [facility] Ambulatory BMSBuilding:B [place] MS.CF.[facility] Repository 09/01/2017 [id number] [facility] Ambulatory BMSBuilding:B [place].[facility] Repository 09/01/2017 [id number] [facility] Ambulatory BMSBuilding:B [place] MS.CF.[facility] Repository 09/01/2017 [id number] [facility] Ambulatory BMSBuilding:B [place] MS.[facility] Repository 09/01/2017/09/08/19 [id number] Ambulatory BMSBuilding:W Nery [facility] Repository 09/01/2017/09/02/19 [id number] Ambulatory [address] Repository 09/01/2017/09/03/19 [id number] Ambulatory [address] Repository 08/29/2017/08/30/[id number] Repository 08/29/2017/08/31/[id number] Repository PAYERS PAYERS ENCOUNTER GUARANTOR PAYER SUBSCRIBER SOURCE 06/30/2018 ELISEO Pena Primary ELISEO Gabriel [id number] Insurance:MEDICARE HEGEDUSDOB: [facility] PART A [facility] [id number] Number: Repository 17682Ijs: 330 [id number] [phone] () Date:2017-09-30 06/30/2018 Secondary ELISEO [place] Insurance:MEDICO SANTO HEGEDUSDOB: Community [facility] [id number] Hospital Number: Repository [id number] Date:6202-59-90[address] [address], [place] [address]KB: 06/30/2018 Tertiary NOT GIVENUNK [place] Insurance:SELF PAY [facility] Hospital Number: Effective Repository Date:2018-06-19 06/26/2018 ELISEO Pena Primary ELSIEO Pena Nery [id number] Insurance:MEDICARE HEGEDUSDOB: [facility] PART A [facility] [id number], [place] Number: Repository 48809Rdz: 330 [id number] [phone] () Date:2017-10-28 06/26/2018 Secondary ELISEO Pena [place] Insurance:MEDICO SANTO HEGEDUSDOB: Community [facility] [id number] Hospital Number: Repository [id number] Date:3150-75-93[address] [address], [place] [address]XG: 06/26/2018 Tertiary NOT GIVENUNK [place] Insurance:SELF PAY [facility] Number: Effective Repository Date:2018-06-26 06/02/2018 ELISEO Pena Primary ELISEO [place] [id number] Insurance:MEDICARE HEGEDUSDOB: [facility] PART A [facility] [id number], [place] Number: Repository 54104Ypj: 330 [id number] [phone] (HP) Date:2017-09-30 06/02/2018 Secondary ELISEO Pena Nery Insurance:MEDICO SANTO HEGEDUSDOB: [facility] [id number] Hospital Number: Repository [id number] Date:3171-25-54FY [address] [address]PYDCRZH[address] BARCE[place] [address]IR: 06/02/2018 Tertiary NOT GIVENUNK [place] Insurance:SELF PAY [facility] Hospital Number: Effective Repository Date:2018-05-22 05/05/2018 ELISEO Pena Primary ELISEO [place] [id number] Insurance:MEDICARE HEGEDUSDOB: Community [place] PART A olicy [id number], [place] Number: Repository [address]Hie: 330 [id number] [phone] (HP) Date:2017-09-30 05/05/2018 Secondary ELISEO Pena [place] Insurance:MEDICO SANTO HEGEDUSDOB: Community [facility] [id number] Hospital Number: Repository [id number] Date:9039-37-69AJ [address] [address]XL: 05/05/2018 Tertiary NOT GIVENUNK [place] Insurance:SELF PAY [facility] Hospital Number: Effective Repository Date:2018-04-20 04/06/2018 ELISEO Pena Primary ELISEO [place] [id number] Insurance:MEDICARE HEGEDUSDOB: Community [place] PART A olic [id number], [place] Number: Repository 434[address]Ajo: 330 [id number] [phone] (HP) Date:2017-09-30 04/06/2018 Secondary ELISEO Pena Nery Insurance:MEDICO SANTO HEGEDUSDOB: Community [facility] [id number] Hospital Number: Repository [id number] Date:0694-10-61[address] [address]SX: 04/06/2018 Tertiary NOT GIVENUNK [place] Insurance:SELF PAY [facility] Hospital Number: Effective Repository Date:2018-03-22 03/10/2018 ELISEO Pena Primary ELISEO Pena Nery [id number] Insurance:MEDICARE HEGEDUSDOB: Community [place] PART A [facility] [id number], [place] Number: Repository 61377Otl: 330 [id number] [phone] () Date:2017-09-30 03/10/2018 Secondary ELISEO Pena Nery Insurance:MEDICO SANTO HEGEDUSDOB: Community [facility] [id number] Hospital Number: Repository [id number] Date:8532-59-35DQ [address] [place] [address]ZM: 03/10/2018 Tertiary NOT GIVENUNK [place] Insurance:SELF PAY [facility] Hospital Number: Effective Repository Date:2018-02-21 03/01/2018 ELISEO Pena Primary ELISEO Pena Nery [id number] Insurance:MEDICARE HEGEDUSDOB: Community [place] PART A [facility] [id number] Number: Repository 97493Qbb: 330 [id number] [phone] () Date:2017-10-28 03/01/2018 Secondary ELISEO Pena [place] Insurance:MEDICO SANTO HEGEDUSDOB: Community [facility] [id number] Hospital Number: Repository [id number] Date:5997-43-71IS [address] [place] [address]QP: 03/01/2018 Tertiary NOT GIVENUNK [place] Insurance:SELF PAY [facility] Hospital Number: Effective Repository Date:2017-10-28 03/01/2018 ELISEO Pena Primary ELISEO Pena Nery [id number] Insurance:MEDICARE HEGEDUSDOB: Community [place] PART A [facility] [id number], [place] Number: Repository [address]76Whr: 330 [id number] [phone] (HP) Date:2017-10-28 03/01/2018 Secondary ELISEO Pena Nery Insurance:MEDICO SANTO HEGEDUSDOB: Community [facility] [id number] Hospital Number: Repository [id number] Date:0254-94-84MX [address] [address]KJIQLZHEN [address]TI: 03/01/2018 Tertiary NOT GIVENUNK [place] Insurance:SELF PAY [facility] Hospital Number: Effective Repository Date:2018-03-01 02/10/2018 ELISEO Pena Primary ELISEO Pena Nery [id number] Insurance:MEDICARE HEGEDUSDOB: Community [place] PART A [facility] [id number], [place] Number: Repository [address]Swx: 330 [id number] [phone] () Date:2017-09-30 02/10/2018 Secondary ELISEO Pena [place] Insurance:MEDICO SANTO HEGEDUSDOB: Community [facility] [id number] Hospital Number: Repository [id number] Date:5401-52-24UB [address] [address]IYRZQZH[address] BARCENA[address] [address]IU: 02/10/2018 Tertiary NOT GIVENUNK N[place] Insurance:SELF PAY [facility] Hospital Number: Effective Repository Date:2018-01-19 01/13/2018 ELISEO Pena Primary ELISEO Pena Nery [id number] Insurance:MEDICARE HEGEDUSDOB[facility] [id number], [place] Number: Repository 70000Sfs: 330 [id number] [phone] () Date:2017-09-30 01/13/2018 Secondary ELISEO Pena Nery Insurance:MEDICO SANTO HEGEDUSDOB: Community [facility] [id number] Hospital Number: Repository [id number] Date:2643-46-27CF [address] [address]LB[place], [place] [address]JO: 01/13/2018 Tertiary NOT GIVENUNK [place] Insurance:SELF PAY [facility] Hospital Number: Effective Repository Date:2017-12-16 12/15/2017 LEISEO Pena [place] [id number] Insurance:MEDICARE HEGEDUSDOB: Community [place] PART A olic [id number], [place] Number: Repository [address]Yld: 330 [id number] [phone] (HP) Date:2017-09-30 12/15/2017 Secondary ELISEO Pena Nery Insurance:MEDICO SANTO HEGEDUSDOB: Community [facility] [id number] Hospital Number: Repository [id number] Date:5234-78-11TC [facility] [address] [place] [address]NC: 12/15/2017 Tertiary NOT GIVENUNK [place] Insurance:SELF PAY [facility] Hospital Number: Effective Repository Date:2017-11-17 12/01/2017 ELISEO Pena Nery [id number] Insurance:MEDICARE HEGEDUSDOB: Community [place] PART A [facility] [id number] [place] Number: Repository [address]Msz: 330 [id number] [phone] () Date:2017-10-31 12/01/2017 Secondary ELISEO Pena Nery Insurance:MEDICO SANTO HEGEDUSDOB: Community [facility] [id number] Hospital Number: Repository [id number] Date:4481-87-24SD [address] [address]IJ: 12/01/2017 Tertiary NOT GIVENUNK [place] Insurance:SELF PAY [facility] Hospital Number: Effective Repository Date:2017-10-31 11/11/2017 ELISEO Pena Nery [id number] Insurance:MEDICARE HEGEDUSDOB: Community [place] PART A [facility] [id number] [place] Number: Repository [id number]: 330 [id number] [phone] (HP) Date:2017-09-30 11/11/2017 Secondary ELISEO Pena Nery Insurance:MEDICO SANTO HEGEDUSDOB: Community [facility] [id number] Hospital Number: Repository [id number] Date:0566-05-27UD [address] [address]BRXBOZHEN BARCENAS [address]ZC: 11/11/2017 Tertiary NOT GIVENUNK [place] Insurance:SELF PAY [facility] Hospital Number: Effective Repository Date:2017-10-18 10/28/2017 ELISEO Pena Primary ELISEO Pena [place] [id number] Insurance:MEDICARE HEGEDUSDOB: [facility] [id number], [place] Number: Repository [address]Mpd: 330 [id number] [phone] () Date:2017-09-14 10/28/2017 Secondary ELISEO Pena [place] Insurance:MEDICO SANT[employer] HEGEDUSDOB: Community [facility] [id number] Hospital Number: Repository [id number] Date:2999-09-48[address] [address], [place] [address]MB: 10/28/2017 Tertiary NOT GIVENUNK [place] Insurance:SELF PAY [facility] Hospital Number: Effective Repository Date:2017-10-28 10/24/2017 ELISEO Pena [place] [id number] Insurance:MEDICARE HEGEDUSDOB: [facility] PART A [facility] [id number], [place] Number: Repository [address]Zca: 330 [id number] [phone] () Date:2017-10-24 10/24/2017 Secondary ELISEO Pena Nery Insurance:MEDICO SANTO HEGEDUSDOB: [facility] [id number] Hospital Number: Repository [id number] Date:6893-12-37[address] [address]ZFMPA, [place] [address]XW: 10/24/2017 Tertiary NOT GIVENUNK [place] Insurance:SELF PAY [facility] Hospital Number: Effective Repository Date:2017-10-24 10/07/2017 ELISEO Pena Primary ELISEO Gabriel [id number] Insurance:MEDICARE HEGEDUSDOB: Community [place] PART A [facility] [id number], [place] Number: Repository 00678Gtr: 330 [id number] [phone] (HP) Date:2017-09-30 10/07/2017 Secondary ELISEO Pena Nery Insurance:MEDICO SANTO HEGEDUSDOB: [facility] [id number] Hospital Number: Repository [id number] Date:9708-58-10[address] [address], [place] [address]AA: 10/07/2017 Tertiary NOT [place]IV[place]UNK [place] Insurance:SELF PAY [facility] Hospital Number: Effective Repository Date:2017-09-30 09/29/2017 ELISEO Man[place] [id number] Insurance:MEDICARE HEG[facility]USDOB[facility] [id number] [place] Number: Repository [address]Oeg: 330 [id number] [phone] () Date:2017-09-07 09/29/2017 Secondary ELISEO Gabriel Insurance:MEDICO SANTO HEGEDUSDOB: [facility] [id number] Hospital Number: Repository [id number] Date:9030-92-78RQ [address] [place] [address]LS: 09/29/2017 Tertiary NOT [place]K [place] Insurance:SELF PAY [facility] Hospital Number: Effective Repository Date:2017-09-07 09/29/2017 ELISEO Gabriel [id number] Insurance:MEDICARE HEGEDUSDOB: [facility] PART A [facility] [id number] Number: Repository [id number]: 330 [id number] [phone] () Date:2017-09-07 09/29/2017 Secondary ELISEO M [place] Insurance:MEDICO SANTO HEGEDUSDOB: [facility] [id number] Hospital Number: Repository [id number] Date:2460-75-18NF [address] [address]YLPJXZHEN BARCENAS [address]YQ: 09/29/2017 Tertiary NOT [place]UNK [place] Insurance:SELF PAY [facility] Hospital Number: Effective Repository Date:2017-09-29 09/23/2017 ELISEO Pena Primary ELISEO Pena Nery [id number] Insurance:MEDICARE HEGEDUSDOB: Community [place] PART A [facility] [id number] Number: Repository [address]Xpl: 330 [id number] [phone] () Date:2017-09-23 09/23/2017 Secondary ELISEO Pena [place] Insurance:MEDICO SANTO HEGEDUSDOB: [facility] [id number] Hospital Number: Repository [id number] Date:9115-74-67PF [address] [address], [place] [address]DU: 09/23/2017 Tertiary NOT [place]K [place] Insurance:SELF PAY [facility] Hospital Number: Effective Repository Date:2017-09-23 09/14/2017 ELISEO Pena Primary ELISEO Pena [place] [id number] Insurance:MEDICARE HEGEDUSDOB: [facility] PART A [facility] [id number] Number: Repository [address]Mrv: 330 [id number] [phone] () Date:2017-09-07 09/14/2017 Secondary ELISEO Pena [place] Insurance:MEDICO SANTO HEGEDUSDOB: [facility] [id number] Hospital Number: Repository [id number] Date:9420-13-61[address] [address], [place] [address]OA: 09/14/2017 Tertiary NOT GIVENUNK [place] Insurance:SELF PAY [facility] Hospital Number: Effective Repository Date:2017-09-14 09/12/2017 ELISEO Pena Primary ELISEO Pena [place] [id number] Insurance:MEDICARE HEGEDUSDOB: Community [place] PART A [facility] [id number], [place] Number: Repository [id number]: 330 [id number] [phone] (HP) Date:2017-09-12 09/12/2017 Secondary ELISEO Pena Nery Insurance:MEDICO SANTO HEGEDUSDOB: [facility] [id number] Hospital Number: Repository [id number] Date:7635-63-57BE [address] [address], [place] [address]QK: 09/12/2017 Tertiary NOT GIVENUNK [place] Insurance:SELF PAY [facility] Number: Effective Repository Date:2017-09-12 09/01/2017 ELISEO Pena Primary ELISEO Pena Nery [id number] Insurance:MEDICARE HEGEDUSDOB: [facility] PART A [facility] [id number] Number: Repository [address]Obs: 330 [id number] [phone] (HP) Date:2017-09-01 09/01/2017 Secondary ELISEO Pena Nery Insurance:MEDICO SANTO HEGEDUSDOB: [facility] [id number] Hospital Number: Repository [id number] Date:0540-02-99[address] [address], [place] [address]UZ: 09/01/2017 Tertiary NOT [place] Insurance:SELF PAY [facility] Hospital Number: Effective Repository Date:2017-09-01 09/01/2017 ELISEO Pena Primary ELISEO Pena Nery [id number] Insurance:MEDICARE HEGEDUSDOB: [facility] [id number] Number: Repository [id number]: 330 [id number] [phone] (HP) Date:2017-09-01 09/01/2017 Secondary ELISEO Pena Nery Insurance:MEDICO SANTO HEGEDUSDOB: [facility] [id number] Hospital Number: Repository [id number] Date:6856-17-01CQ [address] [address]BICRIZHEN [address]YL: 09/01/2017 Tertiary NOT [place]K [place] Insurance:SELF PAY [facility] Hospital Number: Effective Repository Date:2017-09-01 09/01/2017 ELISEO Pena Primary ELISEO Pena Nery [id number] Insurance:MEDICARE HEGEDUSDOB: [facility] PART A [facility] [id number], [place] Number: Repository [address]Agm: (658) [id number] [phone] (HP) Date:2017-09-01 09/01/2017 Secondary ELISEO Pena Nery Insurance:MEDICO SANTO HEGEDUSDOB: [facility] [id number] Hospital Number: Repository [id number] Date:1925-98-51ES [address] [address], [place] [address]QG: 09/01/2017 Tertiary NOT GIVENUNK [place] Insurance:SELF PAY [facility] Hospital Number: Effective Repository Date:2017-09-01 09/01/2017 ELISEO Pena Primary ELISEO Pena Nery [id number] Insurance:MEDICARE HEGEDUSDOB: [facility] [id number], [place] Number: Repository [address]Ldy: 330 [id number] [phone] (HP) Date:2017-09-01 09/01/2017 Secondary ELISEO Pena Nery Insurance:MEDICO SANTO HEGEDUSDOB: [facility] [id number] Hospital Number: Repository [id number] Date:3352-28-46AW [address] [address]JJKKJZHEN [address]SG: 09/01/2017 Tertiary NOT GIVENUNK [place] Insurance:SELF PAY [facility] Hospital Number: Effective Repository Date:2017-09-01 09/01/2017 ELISEO Pena Primary ELISEO Pena Nery [id number] Insurance:MEDICARE HEGEDUSDOB: Community [place] PART A [facility] [id number], [place] Number: Repository [address]Zby: 330 [id number] [phone] () Date:2017-09-01 09/01/2017 Secondary ELISEO Pena [place] Insurance:MEDICO SANTO HEGEDUSDOB: [facility] [id number] Hospital Number: Repository [id number] Date:9390-53-24NV [address] [place] [address]TQ: 09/01/2017 Tertiary NOT GIVENUNK [place] Insurance:SELF PAY [facility] Hospital Number: Effective Repository Date:2017-09-01 09/01/2017 ELISEO Pena Primary ELISEO Pena [place] [id number] Insurance:MEDICARE HEGEDUSDOB: [facility] [id number], [place] Number: Repository [address]Qka: 330 [id number] [phone] () Date:2017-09-01 09/01/2017 Secondary ELISEO Pena Neyr Insurance:MEDICO SANTO HEGEDUSDOB: [facility] [id number] Hospital Number: Repository [id number] Date:9219-17-22PX [address] [place] [address]CV: 09/01/2017 Tertiary NOT [place] Insurance:SELF PAY [facility] Hospital Number: Effective Repository Date:2017-09-01 09/01/2017 ELISEO Pena Primary ELISEO Pena [place] [id number] Insurance:MEDICARE HEGEDUSDOB: [facility] [id number], [place] Number: Repository [address]Uoi: 330 [id number] [phone] () Date:2017-09-01 09/01/2017 Secondary ELISEO Pena Nery Insurance:MEDICO SANTO HEGEDUSDOB: [facility] [id number] Hospital Number: Repository [id number] Date:6902-04-13AO [address] [address] [address]SX: 09/01/2017 Tertiary NOT [place]K [place] Insurance:SELF PAY [facility] Hospital Number: Effective Repository Date:2017-09-01 09/01/2017 ELISEO Pena Primary ELISEO Pena Nery [id number] Insurance:MEDICARE HEGEDUSDOB: Community [place] PART A [facility] [id number], [place] Number: Repository [address]Hdz: 330 [id number] [phone] (HP) Date:2017-09-01 09/01/2017 Secondary ELISEO Pena [place] Insurance:MEDICO SANTO HEGEDUSDOB: [facility] [id number] Hospital Number: Repository [id number] Date:8562-51-68IQ [address] [address], [place] [address]UT: 09/01/2017 Tertiary NOT GIVENUNK [place] Insurance:SELF PAY [facility] Hospital Number: Effective Repository Date:2017-09-01 09/01/2017 ELISEO Pena Primary ELISEO Pena Nery [id number] Insurance:MEDICARE HEGEDUSDOB: Community [place] PART A [facility] [id number], [place] Number: Repository [address]Dwc: 330 [id number] [phone] () Date:2017-09-01 09/01/2017 Secondary ELISEO Pena [place] Insurance:MEDICO SANTO HEGEDUSDOB: [facility] [id number] Hospital Number: Repository [id number] Date:8662-20-83EJ [address] [address]NVZTA [place] [address]YP: 09/01/2017 Tertiary NOT [place]K [place] Insurance:SELF PAY [facility] Hospital Number: Effective Repository Date:2017-09-01 09/01/2017 ELISEO Pena Primary ELISEO [place] [id number] Insurance:MEDICARE HEGEDUSDOB: Community [place] PART A olicy [id number], [place] Number: Repository [id number]: 330 [id number] [phone] () Date:2017-09-01 09/01/2017 Secondary ELISEO Pena [place] Insurance:MEDICO SANTO HEGEDUSDOB: [facility] [id number] Hospital Number: Repository [id number] Date:1280-13-43AR [address] [place] [address]YX: 09/01/2017 Tertiary NOT [place]K [place] Insurance:SELF PAY [facility] Hospital Number: Effective Repository Date:2017-09-01 09/01/2017 ELISEO Pena Primary ELISEO Pena Nery [id number] Insurance:MEDICARE HEGEDUSDOB: [facility] [id number], [place] Number: Repository [address]Fjc: 330 [id number] [phone] () Date:2017-09-01 09/01/2017 Secondary ELISEO Pena [place] Insurance:MEDICO SANTO HEGEDUSDOB: [facility] [id number] Hospital Number: Repository [id number] Date:9557-77-81EX [facility] [address] [place] [address]JI: 09/01/2017 Tertiary NOT GIVENUNK [place] Insurance:SELF PAY [facility] Hospital Number: Effective Repository Date:2017-09-01 09/01/2017 ELISEO Pena Primary ELISEO Pena Nery [id number] Insurance:MEDICARE HEGEDUSDOB: [facility] [id number], [place] Number: Repository [address]Mkn: 330 [id number] [phone] () Date:2017-09-01 09/01/2017 Secondary ELISEO Pena [place] Insurance:MEDICO SANTO HEGEDUSDOB: [facility] [id number] Hospital Number: Repository [id number] Date:4085-87-96NV [address] [address]ND[place]K, [place] [address]BK: 09/01/2017 Tertiary NOT GIVENUNK [place] Insurance:SELF PAY [facility] Hospital Number: Effective Repository Date:2017-09-01 09/01/2017 ELISEO Pena Primary ELISEO Pena [place] [id number] Insurance:MEDICARE HEGEDUSDOB: Community [place] PART A [facility] [id number], [place] Number: Repository 21484Qed: 330 [id number] [phone] (HP) Date:2017-09-01 09/01/2017 Secondary ELISEO Pena Nery Insurance:MEDICO SANTO HEGEDUSDOB: [facility] [id number] Hospital Number: Repository [id number] Date:2985-97-50JT [address] [address]SF[place]GB[place], [place] [address]HT: 09/01/2017 Tertiary NOT [place]K [place] Insurance:SELF PAY [facility] Hospital Number: Effective Repository Date:2017-09-01 09/01/2017 ELISEO Pena Primary ELISEO Pena Nery [id number] Insurance:MEDICARE HEGEDUSDOB: Community [place] PART A [facility] [id number], [place] Number: Repository 24[address]Gyt: 330 [id number] [phone] () Date:2017-09-01 09/01/2017 Secondary ELISEO Pena [place] Insurance:MEDICO SANTO HEGEDUSDOB: [facility] [id number] Hospital Number: Repository [id number] Date:0575-49-83UM [address] [address], [place] [address]EM: 09/01/2017 Tertiary NOT GIVENUNK [place] Insurance:SELF PAY [facility] Hospital Number: Effective Repository Date:2017-09-01 09/01/2017 ELISEO Pena Primary ELISEO Pena [place] [id number] Insurance:MEDICARE HEGEDUSDOB: Community [place] PART A [facility] [id number] [place] Number: Repository [address]Unq: (141) [id number] [phone] () Date:2017-09-01 09/01/2017 Secondary ELISEO Gabriel Insurance:MEDICO SANTO HEGEDUSDOB: [facility] [id number] [facility] Number: Repository [id number] Date:3281-64-21GG [address] [address], [place] [address]YH: 09/01/2017 [facility] [place] Insurance:SELF PAY [facility] Number: Effective Repository Date:2017-09-01
== END 2018-06-02 08:00 | disposition home or self-care (01) ==
LOC: LAB 07:25
PROVIDERS: Family Provider Internal Medicine; PCP Internal Medicine; Referring Provider Physician Assistant Medical; Visit Provider Physician Assistant Medical
DX: I50.9 Heart failure, unspecified (principal)
CPT/HCPCS: 36415; 85610

== ENCOUNTER 2018-06-30 09:00 | Outpatient (RCR) | payer MEDICARE, OTHER, SELFPAY ==
[2018-06-26 10:57] VITALS: BMI 24.3
[2018-06-30 09:52] LABS: International Normalized Ratio 2.7; Prothrombin Time (Protime)PT. 28.9 SECONDS (11.7-14.9)
== END 2018-06-30 10:00 | disposition home or self-care (01) ==
LOC: LAB 09:00
PROVIDERS: Family Provider Internal Medicine; PCP Internal Medicine; Referring Provider Physician Assistant Medical; Visit Provider Physician Assistant Medical
DX: I50.9 Heart failure, unspecified (principal)
CPT/HCPCS: 36415; 85610

== ENCOUNTER 2018-07-28 08:14 | Outpatient (RCR) | payer MEDICARE, OTHER, SELFPAY ==
[2018-06-26 10:57] VITALS: BMI 24.3
[2018-07-28 09:52] LABS: International Normalized Ratio 2.3; Prothrombin Time (Protime)PT. 25.3 SECONDS (11.7-14.9)
== END 2018-08-17 13:32 | disposition home or self-care (01) ==
LOC: LAB 08:14
PROVIDERS: Family Provider Internal Medicine; PCP Internal Medicine; Referring Provider Physician Assistant Medical; Visit Provider Physician Assistant Medical
DX: I50.9 Heart failure, unspecified (principal)
CPT/HCPCS: 36415; 85610

== ENCOUNTER 2018-08-25 06:40 | Outpatient (RCR) | payer MEDICARE, OTHER, SELFPAY ==
[2018-06-26 10:57] VITALS: BMI 24.3
[2018-08-25 07:26] LABS: International Normalized Ratio 2.5
== END 2018-08-25 07:40 | disposition home or self-care (01) ==
LOC: LAB 06:40
PROVIDERS: Family Provider Internal Medicine; PCP Internal Medicine; Referring Provider Physician Assistant Medical; Visit Provider Physician Assistant Medical
DX: I50.9 Heart failure, unspecified (principal)
CPT/HCPCS: 36415; 85610

== ENCOUNTER 2018-09-29 06:13 | Outpatient (RCR) | payer MEDICARE, OTHER, SELFPAY ==
[2018-06-26 10:57] VITALS: BMI 24.3
[2018-09-29 08:50] LABS: International Normalized Ratio 2.5; Prothrombin Time (Protime)PT. 27.3 SECONDS (11.7-14.9)
== END 2018-10-17 16:00 | disposition home or self-care (01) ==
LOC: LAB 06:13
PROVIDERS: Family Provider Internal Medicine; PCP Internal Medicine; Referring Provider Physician Assistant Medical; Visit Provider Physician Assistant Medical
DX: I50.9 Heart failure, unspecified (principal)
CPT/HCPCS: 36415; 85610

== ENCOUNTER 2018-11-10 06:32 | Outpatient (RCR) | payer MEDICARE, OTHER, SELFPAY ==
[2018-06-26 10:57] VITALS: BMI 24.3
[2018-11-10 07:31] LABS: International Normalized Ratio 2.6
== END 2018-11-10 08:00 | disposition home or self-care (01) ==
LOC: LAB 06:32
PROVIDERS: Family Provider Internal Medicine; PCP Internal Medicine; Referring Provider Physician Assistant Medical; Visit Provider Physician Assistant Medical
DX: I48.0 Paroxysmal atrial fibrillation (principal); Z95.2 Presence of prosthetic heart valve; Z79.01 Long term (current) use of anticoagulants
CPT/HCPCS: 36415; 85610

== ENCOUNTER 2019-01-08 07:46 | Outpatient (RCR) | payer MEDICARE, OTHER, SELFPAY ==
[2018-06-26 10:57] VITALS: BMI 24.3
[2018-12-22 11:13] LABS: Prothrombin Time (Protime)PT. 39.1 SECONDS (11.7-14.9)
[2018-12-25 08:10] LABS: International Normalized Ratio 2.7; Prothrombin Time (Protime)PT. 28.6 SECONDS (11.7-14.9)
[2019-01-08 08:10] LABS: International Normalized Ratio 2.6; Prothrombin Time (Protime)PT. 28.3 SECONDS (11.7-14.9)
== END 2019-01-17 16:00 | disposition home or self-care (01) ==
LOC: LAB 07:46
PROVIDERS: Internal Medicine Cardiovascular Disease; Family Provider Internal Medicine; PCP Internal Medicine; Referring Provider Physician Assistant Medical; Visit Provider Physician Assistant Medical
DX: I48.0 Paroxysmal atrial fibrillation (principal); Z95.2 Presence of prosthetic heart valve; Z79.01 Long term (current) use of anticoagulants
CPT/HCPCS: 36415; 85610

== ENCOUNTER 2019-02-06 06:59 | Outpatient (RCR) | payer MEDICARE, OTHER, SELFPAY ==
[2018-06-26 10:57] VITALS: BMI 24.3
[2019-01-18 11:26] VITALS: BMI 24.1
[2019-02-06 09:11] LABS: International Normalized Ratio 2.9; Prothrombin Time (Protime)PT. 30.1 SECONDS (11.7-14.9)
== END 2019-02-06 09:00 | disposition home or self-care (01) ==
LOC: LAB 06:59
PROVIDERS: Family Provider Internal Medicine; PCP Internal Medicine; Referring Provider Physician Assistant Medical; Visit Provider Physician Assistant Medical
DX: I48.0 Paroxysmal atrial fibrillation (principal); Z95.2 Presence of prosthetic heart valve; Z79.01 Long term (current) use of anticoagulants
CPT/HCPCS: 36415; 85610

== ENCOUNTER → 2019-02-06 | Outpatient (CLI) | payer MEDICARE, OTHER, SELFPAY ==
[2019-01-18 11:26] VITALS: BMI 24.1
--- NOTE | 2019-02-06 07:16 | ECHOD_ITS ---
Reason For Study: PHTN Procedure This was a 2D Doppler, Color Flow transthoracic echocardiogram. Exam performed in department. Left Ventricle Normal size and thickness. The estimated ejection fraction is 35 %. Septal motion consistent with IVCD. Stage 1 diastolic dysfunction. There is moderate to severe global hypokinesis of the left ventricle. Right Ventricle Normal size and thickness. Normal systolic function. Atria The left atrium is mildly enlarged. Normal right atrium. Normal atrial septum. Mitral Valve The mitral valve is structurally normal. No prolapse or stenosis seen. Mild (1+) mitral valve insufficiency. Tricuspid Valve Normal tricuspid valve. Mild (1+) tricuspid valve insufficiency. Right ventricular systolic pressure estimated to be 42 mmHg. Mild pulmonary hypertension. Aortic Valve Peak aortic valve gradient 54 mmHg. Mean aortic valve gradient 32 mmHg. Calculated aortic valve area (continuity equation) is 0.8 cm2. Moderate aortic stenosis. Mild (1+) aortic valve insufficiency. Bioprosthetic aortic valve. Stable appearing bioprosthetic aortic valve apparatus. Pulmonic Valve Normal pulmonic valve. Great Vessels Normal aortic root. Mild atherosclerosis of the aortic arch. The inferior vena cava is dilated. No collapse of the inferior vena cava. Pericardium/Pleural No pericardial effusion. MMode/2D Measurements & Calculations LVIDd: 5.1 cm IVSd: 0.91 cm LVOT diam: 2.0 cm LVIDs: 4.3 cm LVPWd: 0.75 cm LVOT area: 3.1 cm2 RVDd: 2.8 cm FS: 16.8 % Ao root diam: 3.3 cm LAV(MOD-bp): 64.1 ml LA A4 area: 20.6 cm2 LAV(MOD-bp) Indexed: 40.9 ml/m2 LAV(MOD-sp2): 66.3 ml LAV(MOD-sp4): 61.0 ml LA dimension(2D): 4.1 cm RA A4 area: 10.1 cm2 Time Measurements MV dec time: 0.20 sec Doppler Measurements & Calculations MV E max salo: 83.9 cm/sec Lat Peak E' Salo: 11.4 cm/sec Med Peak E' Salo: 3.2 cm/sec MV A max salo: 77.5 cm/sec E/E' lat: 7.4 E/E' med: 26.5 MV E/A: 1.1 MV V2 max: 89.1 cm/sec Ao V2 max: 368.0 cm/sec AI max salo: 441.6 cm/sec MV max P.2 mmHg Ao max P.3 mmHg AI max P.6 mmHg MV V2 mean: 55.3 cm/sec Ao V2 mean: 272.6 cm/sec AI dec slope: 277.8 cm/sec2 MV mean P.4 mmHg Ao mean P.2 mmHg AI P1/2t: 465.7 msec MV V2 VTI: 38.5 cm Ao V2 VTI: 91.8 cm MVA(VTI): 2.1 cm2 CE(I,D): 0.88 cm2 CE(V,D): 0.83 cm2 LV V1 max: 99.1 cm/sec SV(LVOT): 80.9 ml PA V2 max: 99.4 cm/sec LV V1 max P.9 mmHg LV V1 mean P.6 mmHg LV V1 mean: 77.1 cm/sec LV V1 VTI: 26.3 cm PI end-d salo: 130.7 cm/sec TR max salo: 281.1 cm/sec MV P1/2t-pr_phl: 170.1 msec TR max P.2 mmHg Interpretation Summary The estimated ejection fraction is 35 %. Stage 1 diastolic dysfunction. There is moderate to severe global hypokinesis of the left ventricle. The left atrium is mildly enlarged. Mild (1+) mitral valve insufficiency. Mild (1+) tricuspid valve insufficiency. Right ventricular systolic pressure estimated to be 42 mmHg. Mild pulmonary hypertension. Peak aortic valve gradient 54 mmHg. Mean aortic valve gradient 32 mmHg. Calculated aortic valve area (continuity equation) is 0.8 cm2. Mild (1+) aortic valve insufficiency. Moderate aortic stenosis. The inferior vena cava is dilated Compared to echo report dated 03/01/2018, LV Function has improved from 15% to 35%, but RVSP has worsened from 28 to 42 mm Hg. Aortic valve gradient appears about the same. Stable appearing and normally functioning bioprosthetic aortic valve apparatus. Ordering Physician: Brandt Fernandez Referring Physician: CAITIE VELASQUEZ Performed By: Liss Cazares, JOSECS, RVT
== END | disposition home or self-care (01) ==
LOC: CVS 07:15
PROVIDERS: Family Provider Internal Medicine; PCP Internal Medicine; Referring Provider Internal Medicine Cardiovascular Disease; Visit Provider Internal Medicine Cardiovascular Disease
DX: I42.8 Other cardiomyopathies (principal); I27.20 Pulmonary hypertension, unspecified; I48.0 Paroxysmal atrial fibrillation; I50.23 Acute on chronic systolic (congestive) heart failure; Z95.2 Presence of prosthetic heart valve
CPT/HCPCS: 93306

== ENCOUNTER 2019-11-23 12:10 | Inpatient (IN) | payer MEDICARE, OTHER, SELFPAY ==
[2019-07-26 10:02] VITALS: BMI 24.7
[2019-11-23] VITALS (20 sets, daily range): BP systolic 84–106; BP diastolic 28–55; PULSE 71–87; RESP 16–29; TEMP 36.2–37.8; O2SAT 92–100; BMI 23.6; BMI 26.3
--- NOTE | 2019-11-23 12:41 | EKG12_ITS ---
Test Reason : Blood Pressure : / mmHG Vent. Rate : 080 BPM Atrial Rate : 080 BPM P-R Int : 134 ms QRS Dur : 120 ms QT Int : 382 ms P-R-T Axes : 033 024 167 degrees QTc Int : 440 ms Sinus rhythm with occasional Premature ventricular complexes Left ventricular hypertrophy with QRS widening and repolarization abnormality Abnormal ECG Confirmed by PAM CAPUTO, TONI ([id number]), scientific publications editor FAISAL VERDUGO ([id number]) on 12/05/2019 1:18:58 PM Referred By: SHALA Confirmed By:TONI OROZCO MD
--- NOTE | 2019-11-23 13:01 | ED.VIS.GEN ---
History of Present Illness Informant: Patient, Family Limited by: - - Patient is MRDD Onset: Weeks - 1 week Context: Gradual Onset Timing: Continuous Quality: Diarrhea, generalized weakness Location: Diffuse Current Severity: Severe Maximum Severity: Severe Worsened by: Movement Relieved by: Nothing Associated Symptoms: Dyspnea on exertion Narrative: 74-year-old female history of CHF and MRDD presents to the emergency department with multiple complaints. Family states patient has been getting more dyspneic on exertion than normal. She does have history of congestive heart failure. She is also been having a week of diarrhea and complaining of general weakness with ambulation and fatigue. No fevers no chest pain, no symptoms of bleeding no headache no falls no back pain or abdominal pain eating and drinking normally Prior similar symptoms: Yes Recent Illness/Hospitalization: No <Daniel Gonzalez - Last Filed: 11/23/19 15:43> <Earline Yu - Last Filed: 11/23/19 23:34> Chief Complaint: Weakness Past Medical History Prior records reviewed: Yes Past Medical History: - - MRDD congestive heart failure, paroxysmal atrial fibrillation, TIA Surgical History: - - Colonoscopy Smoking Status: Never smoker - Family History Maternal Family History: Family History (Last Reviewed 07/26/19 @ 10:03 by Ignacia Rodriguez) Father CVA (cerebral vascular accident) Mother CHF (congestive heart failure) Hypertension Sister High cholesterol Sister H/O heart valve replacement with porcine valve Rheumatic fever Family History: Reports: Heart Disease - mom had congestive heart failure <Daniel Gonzalez - Last Filed: 11/23/19 15:43> - Family History Maternal Family History: Family History (Last Reviewed 07/26/19 @ 10:03 by Ignacia Rodriguez) Father CVA (cerebral vascular accident) Mother CHF (congestive heart failure) Hypertension Sister High cholesterol Sister H/O heart valve replacement with porcine valve Rheumatic fever <Earline Yu - Last Filed: 11/23/19 23:34> - Allergies and Home Meds Allergies/Adverse Reactions: Allergies Sulfa (Sulfonamide Antibiotics) Allergy (Verified 11/23/19 12:19) Other Review of Systems All systems negative except as indicated General: Denies: Chills, Fever, Sweats Eyes: Denies: Visual changes - bilaterally, Diplopia ENT: Denies: Rhinorrhea, Sore throat Cardiovascular: Denies: Chest pain, Palpitations Respiratory: Reports: Dyspnea on exertion, Orthopnea. Denies: Dyspnea, Cough, Sputum, Paroxysmal nocturnal dyspnea Gastrointestinal: Reports: Diarrhea. Denies: Abdominal pain, Nausea, Vomiting, Constipation, Melena, Hematochezia Genitourinary: Denies: Dysuria, Hematuria, Frequency Musculoskeletal: Denies: Back pain, Extremity Pain Skin: Denies: Rash, Wounds Neurological: Denies: Headache, Weakness, Numbness <Daniel Gonzalez - Last Filed: 11/23/19 15:43> Physical Exam Vital Signs/Narrative: Vital Signs Temp Pulse Resp BP Pulse Ox 11/23/19 12:12 97.1 F L 82 16 106/45 L 100 Inital Vital Signs reviewed: Yes General: Well nourished, Well developed, No Acute Distress Head: Normocephalic, Atraumatic Eyes: Perrl, EOMI ENT: Moist mucous membranes, No rhinorrhea Neck: Supple, Nontender Cardiovascular: Regular rate, Regular rhythm, No murmurs Respiratory: No distress, CTA bilaterally, Chest nontender Abdomen: Soft, Nontender, Nondistended, Normal bowel sounds Back: Nontender, Normal Inspection Extremities: Nontender, No edema Skin: Normal color, No rash Neurological: Alert, Oriented x3, Cranial nerves II-XII grossly intact, Normal Strength, Normal Sensation Psychological: Normal affect, Normal Mood <Daniel Gonzalez - Last Filed: 11/23/19 15:43> Diagnostic/Tx/Re-eval - Rhythm Strip Rhythm Strip: A-fib Rate: 80 Ectopy: None - EKG Initial EKG Interpretation: No Acute Injury Pattern, Atrial Fibrillation Prior: Unchanged - Medical Decision Making Patient presents to the emergency department with generalized weakness and diarrhea. EKG shows no signs of acute ischemia. Patient's laboratory work-up was remarkable for a hemoglobin of 4. Previous hemoglobin from about 8 months ago was 13. Her troponin was 0.03. Her proBNP was elevated at over 1000. Her renal function was at baseline. Hemoccult was negative for blood. Patient's blood pressure was around 100-110 systolic, after 500 cc of IV fluid. She does get significantly lightheaded with ambulation. At this time we do not have a source for her anemia. I spoke with the hospitalist who agreed to admit but requested I give the patient another liter of fluid as well as order 1/3 unit of blood, to have been ordered previously. She also requested I speak with general surgery. I contacted Dr. Ackerman who requested I get a bleeding scan which is pending at this time but the hospitalist agreed to admit to the intensive care unit. Laboratory Tests 11/23/19 11/23/19 11/23/19 Range/Units 14:10 14:10 13:52 WBC (4.4-11.0) K/mm3 RBC (4.2-5.4) M/mm3 Hgb (12.0-15.0) g/dL Hct (37-47) % MCV (81-99) fL MCH (27.0-32.0) pg MCHC (32-36) g/dL RDW Std Deviation (35.1-43.9) fl RDW Coeff of Sina (11.6-14.6) % Plt Count (150-450) K/mm3 MPV (6.2-12.0) fl Immature Gran % (Auto) (0.0-0.9) % Neut % (Auto) (47-70) % Lymph % (Auto) (19-41) % [place] % (Auto) (0-10) % Eos % (Auto) (0-5) % Baso % (Auto) (0-1) % Absolute Neuts (auto) (2.0-7.7) X10^3/uL Absolute Lymphs (auto) (0.83-4.51) X10^3/uL Nucleated RBC % (0-5) % Hypochromasia Sodium (136-145) mmol/L Potassium (3.5-5.1) mmol/L Chloride (98-107) mmol/L Carbon Dioxide (21.0-32.0) mmol/L Anion Gap (5-15) BUN (7-18) mg/dL Creatinine (0.55-1.02) mg/dL Estim Creat Clear Calc ml/min Est GFR (MDRD) Af Amer (>60) mL/min Est GFR (MDRD) Non-Af (>60) mL/min BUN/Creatinine Ratio (10-20) RATIO Glucose (74-106) mg/dL Calcium (8.5-10.1) mg/dL Total Bilirubin (0.20-1.00) mg/dL AST (15-37) U/L ALT (13-56) U/L Alkaline Phosphatase (45-117) U/L Troponin I (<0.045) ng/mL B-Natriuretic Peptide (0-100) pg/mL Total Protein (6.4-8.2) g/dL Albumin (3.2-5.0) g/dL Globulin (2.2-4.2) g/dL Albumin/Globulin Ratio (0.9-2.4) RATIO Urine Color Yellow (Yellow) Urine Clarity Clear (Clear) Urine pH 7.0 (5.0 - 8.0) Ur Specific [place] 1.010 (1.002-1.030) Urine Protein Negative (Negative) mg/dl Urine Glucose (UA) Normal (Normal) mg/dl Urine Ketones Negative (Negative) mg/dl Urine Occult Blood Negative (Negative) /ul Urine Nitrite Negative (Negative) Urine Bilirubin Negative (Negative) mg/dL Urine Urobilinogen 4 H (Normal) mg/dl Ur Leukocyte Esterase 100 H (Negative) /ul Urine RBC 0 SEEN (0-5) /hpf Urine WBC 0-5 SEEN (0-5) /hpf Ur Squamous Epith Cells 0 SEEN (5-10) /hpf Urine Bacteria 0 SEEN (None Seen) /hpf Urine Mucus 0 SEEN (<or=2+) /hpf Blood Type B POSITIVE Antibody Screen NEGATIVE Crossmatch See Detail See Detail 11/23/19 11/23/19 11/23/19 Range/Units 13:10 13:10 13:10 WBC 6.6 (4.4-11.0) K/mm3 RBC 2.24 L (4.2-5.4) M/mm3 Hgb 4.5 L* (12.0-15.0) g/dL Hct 17.8 L (37-47) % MCV 79.5 L (81-99) fL MCH 20.1 L (27.0-32.0) pg MCHC 25.3 L (32-36) g/dL RDW Std Deviation 56.4 H (35.1-43.9) fl RDW Coeff of Sina 19.9 H (11.6-14.6) % Plt Count 260 (150-450) K/mm3 MPV 10.2 (6.2-12.0) fl Immature Gran % (Auto) 0.500 (0.0-0.9) % Neut % (Auto) 81.2 H (47-70) % Lymph % (Auto) 10.6 L (19-41) % [place] % (Auto) 7.1 (0-10) % Eos % (Auto) 0.3 (0-5) % Baso % (Auto) 0.3 (0-1) % Absolute Neuts (auto) 5.4 (2.0-7.7) X10^3/uL Absolute Lymphs (auto) 0.70 L (0.83-4.51) X10^3/uL Nucleated RBC % 0.6 (0-5) % Hypochromasia 3+ Sodium 142 (136-145) mmol/L Potassium 4.0 (3.5-5.1) mmol/L Chloride 106 (98-107) mmol/L Carbon Dioxide 29.0 (21.0-32.0) mmol/L Anion Gap 7 (5-15) BUN 24 H (7-18) mg/dL Creatinine 1.26 H (0.55-1.02) mg/dL Estim Creat Clear Calc 30.98 ml/min Est GFR (MDRD) Af Amer 53 L (>60) mL/min Est GFR (MDRD) Non-Af 44 L (>60) mL/min BUN/Creatinine Ratio 19.0 (10-20) RATIO Glucose 115 H (74-106) mg/dL Calcium 8.8 (8.5-10.1) mg/dL Total Bilirubin 1.30 H (0.20-1.00) mg/dL AST 18 (15-37) U/L ALT 14 (13-56) U/L Alkaline Phosphatase 67 (45-117) U/L Troponin I 0.038 (<0.045) ng/mL B-Natriuretic Peptide 1071.0 H (0-100) pg/mL Total Protein 6.1 L (6.4-8.2) g/dL Albumin 3.3 (3.2-5.0) g/dL Globulin 2.8 (2.2-4.2) g/dL Albumin/Globulin Ratio 1.2 (0.9-2.4) RATIO Urine Color (Yellow) Urine Clarity (Clear) Urine pH (5.0 - 8.0) Ur Specific [place] (1.002-1.030) Urine Protein (Negative) mg/dl Urine Glucose (UA) (Normal) mg/dl Urine Ketones (Negative) mg/dl Urine Occult Blood (Negative) /ul Urine Nitrite (Negative) Urine Bilirubin (Negative) mg/dL Urine Urobilinogen (Normal) mg/dl Ur Leukocyte Esterase (Negative) /ul Urine RBC (0-5) /hpf Urine WBC (0-5) /hpf Ur Squamous Epith Cells (5-10) /hpf Urine Bacteria (None Seen) /hpf Urine Mucus (<or=2+) /hpf Blood Type Antibody Screen Crossmatch - Critical Care Time Critical care time (excluding procedures): 30-74 minutes <Daniel Gonzalez - Last Filed: 11/23/19 15:43> - Medical Decision Making I have personally performed a [id number] assessment of the patient and have reviewed the PA note. My snow findings include: 74-year-old female presenting with generalized weakness, dyspnea on exertion, and diarrhea. She denies blood in her stool. Vitals are stable. Her abdomen is soft and nontender. Hemoglobin is 4. She was typed and crossed for transfusion. Discussed with hospitalist and surgery for admission. <Earline Yu - Last Filed: 11/23/19 23:34> ED Disposition <Daniel Gonzalez - Last Filed: 11/23/19 15:43> <Earline Yu - Last Filed: 11/23/19 23:34> - Plan for ED Patient: Disposition: Acute Care Hospital [facility] Diagnosis: Acute anemia, Acute on chronic systolic (congestive) heart failure, Non-ischemic cardiomyopathy, General learning disability, H/O aortic valve replacement, History of left heart catheterization, Paroxysmal atrial fibrillation, Hypotension due to blood loss
[2019-11-23 13:16] LABS: Absolute Neutrophil Count 5.4 X10^3/uL (2.0-7.7); Basophil# 0.02 X10^3/uL; Basophil% 0.3 % (0-1); Eosinophil# 0.02 X10^3/uL; Eosinophils% 0.3 % (0-5); Hematocrit 17.8 % (37-47); Hemoglobin 4.5 g/dL (12.0-15.0); Lymphocyte % 10.6 % (19-41); Mean Corp Hgb Conc 25.3 g/dL (32-36); Mean Corpuscular Hgb 20.1 pg (27.0-32.0); Mean Corpuscular Volume 79.5 fL (81-99); Mean Platelet Vol. 10.2 fl (6.2-12.0); Monocyte# 0.47 X10^3/uL; Monocyte% 7.1 % (0-10); NRBC Flagged by Analyzer 0.6 % (0-5); Neutrophil # 5.37 X10^3/uL (2.7-7.7); Neutrophil % 81.2 % (47-70); POSITIVE COUNT YES; Platelet Count 260 K/mm3 (150-450); RBC Distribution Width CV 19.9 % (11.6-14.6); RBC Distribution Width SD 56.4 fl (35.1-43.9); Red Blood Count 2.24 M/mm3 (4.2-5.4); White Blood Count 6.6 K/mm3 (4.4-11.0)
[2019-11-23 13:21] LABS: Differential Indicated SCAN CRITERIA MET
--- NOTE | 2019-11-23 13:31 | RAD_ITS ---
STUDY: X-RAY CHEST REASON FOR EXAM: Female, 74 years old. WEAKNESS TECHNIQUE: Single AP portable view of the chest. COMPARISON: Comparison is made with prior study dated September 05, 2018. FINDINGS: EKG lead projects are seen. The lungs are clear and expanded. There is no demonstrated pleural abnormality. Sternal cerclage wires and vascular clips are present from a prior sternotomy and coronary artery bypass graft procedure (CABG). Normal mediastinum and micaela. Normal visualized pulmonary arteries. There is atherosclerotic calcification of the aortic arch with tortuosity. There are diffuse degenerative changes of the visualized thoracic spine. There is degenerative osteoarthritis of the bilateral shoulders. There is no demonstrated abnormality of the visualized soft tissue structures of the upper abdomen. RAD/Chest 1 View (Portable) IMPRESSION: No acute abnormality is seen. Electronically Signed: Lloyd Johnson, at 13:55 EDT , Service support ,
[2019-11-23 13:34] LABS: ALB/GLOB Ratio 1.2 RATIO (0.9-2.4); AST(SGOT) 18 U/L (15-37); Alanine Aminotransfer ALT/SGPT 14 U/L (13-56); Albumin, Serum 3.3 g/dL (3.2-5.0); Alkaline Phosphatase 67 U/L (45-117); Anion Gap 7 (5-15); BUN 24 mg/dL (7-18); Calcium,Total 8.8 mg/dL (8.5-10.1); Chloride 106 mmol/L (98-107); Creatinine, Serum 1.26 mg/dL (0.55-1.02); EST Glomerular Filtration Rate 44 mL/min (>60); Est Glom Filt Rate - Afr Amer 53 mL/min (>60); Estimated Creatinine Clearance 30.98 ml/min; Globulin 2.8 g/dL (2.2-4.2); Glucose 115 mg/dL (74-106); Protein, Total 6.1 g/dL (6.4-8.2); Sodium Level 142 mmol/L (136-145)
[2019-11-23 13:58] LABS: Hypochromasia 3+
[2019-11-23 14:03] LABS: Bacteria 0 SEEN /hpf (None Seen); Mucous, Urine 0 SEEN /hpf (<or=2+); Red Blood Cells-Urine 0 SEEN /hpf (0-5); Squamous Epithelial Cells - UA 0 SEEN /hpf (5-10)
[2019-11-23 14:05] LABS: Color, Urine Yellow (Yellow); Glucose, Dipstick Normal (Normal); Ketone-Dipstick Negative (Negative); Leukocyte Esterase-Dipstick 100 /ul (Negative); Nitrite-Dipstick Negative (Negative); Occult Blood-Urine Negative /ul (Negative); Protein-Dipstick Negative (Negative); Urine Bilirubin Dipstick Negative (Negative); Urine Clarity Clear (Clear); Urine Urobilinogen 4 mg/dl (Normal)
[2019-11-23 14:11] LABS: White Blood Cells 0-5 SEEN /hpf (0-5)
--- NOTE | 2019-11-23 14:52 | HP.PCM_ITS ---
History of Present Illness Date of Admission: 11/23/19 Chief Complaint: weakness and lethargy The patient is a 74 year old F with a past medical history of A. fib on Coumadin and MRDD. She was admitted via the ED on 11/23/2019 with a complaint of weakness and lethargy for the past 3 days prior to admission. Sister said patient had had some diarrhea and subsequently started feeling weak. Patient looked like she was losing her balance and felt lightheaded and dizzy. Her symptoms were not improving. Her sister also noted that she looked very pale so she decided to bring her to the hospital for evaluation. She initially sent her to an urgent care but was directed to bring her to the ED. She denied any headache, blurred vision, weight loss, chest pain, any dark stools or bright red blood bleeding per rectum or any coffee-ground emesis. In the ED, vitals were significant for respiratory rate of 20 and blood pressure of 97/40. Chemistry showed creatinine of 1.26 and total bilirubin of 1.3. BNP was thousand and 71. Initial troponin was 0.038. CBC showed hemoglobin of 4.5 with MCHC of 25.3 and MCV of 79.5. Platelets were 260. Hemoglobin from 09/07/2017 was 13.4. Patient was started on IV fluids in the ED and general surgery was made aware of the case by ED. She has been admitted to be managed for acute anemia. [] Past Medical History Past Medical History (Chronic Problems): Chronic Problems (Last Reviewed 07/26/19 @ 10:03 by Ignacia Rodriguez) History of left heart catheterization (Chronic 09/07/17) 09/07/[address] Fernandez @ [facility]: Lad 30% stenosis, all other coronaries normal; no significant AI noted; (also prior to AVR in 02/2007 ? facility) Paroxysmal atrial fibrillation (Chronic) snf (current) use of anticoagulants (Chronic) H/O aortic valve replacement (Chronic 02/23/07) 02/23/[address] [facility], as well as closure of PFO per Dr. 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) Z79.01 Stasis dermatitis of both legs (Chronic) I87.2 General learning disability (Chronic) F81.9 Lower extremity edema (Resolved) R60.0 Allergies Sulfa (Sulfonamide Antibiotics) Allergy (Verified 11/23/19 12:19) Other Home Medications: Ambulatory Orders Medication Instructions Recorded Aspirin [Aspirin, Baby] 81 mg PO DAILY@0800 09/01/17 furosemide 40 mg tablet 40 mg PO DAILY #90 tab 06/26/18 potassium chloride 20 mEq 20 meq PO DAILYCM #90 tab 06/26/18 tablet,extended release(part/cryst) rivaroxaban 20 mg tablet 20 mg PO DAILY #30 tab 02/07/19 Carvedilol [Coreg] 3.125 mg PO DAILY 11/23/19 Ferrous Sulfate [Slow Fe] 142 mg PO DAILY PRN PRN 11/23/19 Surgical History: Surgical History (Last Reviewed 07/26/19 @ 10:03 by Ignacia Rodriguez) History of left heart catheterization (Chronic) Onset Date: 09/07/17 Z98.890 09/07/[address] Fernandez @ [facility]: Lad 30% stenosis, all other coronaries normal; no significant AI noted; (also prior to AVR in 02/2007 ? facility) H/O aortic valve replacement (Chronic) Onset Date: 02/23/07 Z95.2 02/23/[address] [facility], as well as closure of PFO per Dr. Alexander Guerrero [facility] Surgical History: - - Colonoscopy Smoking Status: Unknown if ever smoked - *Family History Maternal Family History: Family History (Last Reviewed 07/26/19 @ 10:03 by Ignacia Rodriguez) Father CVA (cerebral vascular accident) Mother CHF (congestive heart failure) Hypertension Sister High cholesterol Sister H/O heart valve replacement with porcine valve Rheumatic fever History Items: Heart Disease - mom had congestive heart failure Review of Systems Constitutional: Reports: Malaise, Weakness, Fatigue. Denies: Chills, Fever, Weight Change Eyes: Denies: Blurred vision HEENT: Denies: Head Aches, Sinus Congestion, Sinus Drainage Cardiovascular: Denies: Chest Pain, Chest Tightness, Palpitations Respiratory: Denies: Cough, Shortness of Breath, Shortness of breath at rest, Shortness of breath upon exertion, Sputum production Gastrointestinal: Denies: Abdominal Pain, Nausea, Vomiting Genitourinary: Denies: Dysuria Musculoskeletal: Denies: Joint Pain, Joint Tenderness Skin: Denies: Rash, Wounds Neurological: Denies: Numbness, Tingling, Focal weakness Psychiatric: Denies: Anxiety, Depression, Homicidal Ideations, Suicidal Ideations Hematologic/ Lymphatic: Denies: Easy Bruising, Easy Bleeding VTE Information - Inpt Only VTE Present on Admission: No VTE Pharm Prophylaxis ordered?: No Reason prophylaxis not ordered:: Medical Contraindication - severe anemia - Physical Exam Vitals/I&O's: Vital Signs Temp Pulse Resp BP Pulse Ox 97.1 F L 78 20 H 97/40 L 100 11/23/19 12:12 11/23/19 14:09 11/23/19 14:09 11/23/19 14:09 11/23/19 14:09 Oxygen Delivery Method Room Air Weight: 129 lb Body Mass Index (BMI) 23.6 General: Alert, Oriented x3, Cooperative, No apparent distress HEENT: Atraumatic, PERRLA, EOMI, Normocephalic Oral: Dry Mucosa Neck: Supple, No JVD, Negative Carotid Bruits Lungs: Clear to auscultation, Normal air movement, No rhonchi, No wheeze, No rales Cardiovascular: Normal S1, Normal S2, No murmurs, Irregular Rate - afib rate, controlled. Abdomen: Bowel Sounds Present, Soft, Non Tender Extremities: No clubbing, No cyanosis, No edema, Capillary Refill Less than 3 Seconds Skin: No rashes, No breakdown Musculoskeletal: No Tenderness to Palpation of Joints or Extremities Lymphatic: No Cervical, Supraclavicular, or Inguinal Adenopathy Neurological: Cranial nerves II-XII grossly intact, Neuro grossly intact, Motor Exam 5/5 strength throughout Psych/Mental Status: Normal Affect, Appropriate, Alert and oriented to time, place, person, mood and affect Microbiology Past 72 Hours 11/23/19 13:52 Stool Stool Occult Blood (ABRAHAM) - Final Laboratory Results 11/23/19 13:10: WBC 6.6, RBC 2.24 L, Hgb 4.5 L*, Hct 17.8 L, MCV 79.5 L, MCH 20.1 L, MCHC 25.3 L, RDW Std Deviation 56.4 H, RDW Coeff of Sina 19.9 H, Plt Count 260, MPV 10.2, Immature Gran % (Auto) 0.500, Neut % (Auto) 81.2 H, Lymph % (Auto) 10.6 L, [place] % (Auto) 7.1, Eos % (Auto) 0.3, Baso % (Auto) 0.3, Absolute Neuts (auto) 5.4, Absolute Lymphs (auto) 0.70 L, Nucleated RBC % 0.6, Hypochromasia 3+ 11/23/19 13:10: Sodium 142, Potassium 4.0, Chloride 106, Carbon Dioxide 29.0, Anion Gap 7, BUN 24 H, Creatinine 1.26 H, Estim Creat Clear Calc 30.98, Est GFR (MDRD) Af Amer 53 L, Est GFR (MDRD) Non-Af 44 L, BUN/Creatinine Ratio 19.0, Glucose 115 H, Calcium 8.8, Total Bilirubin 1.30 H, AST 18, ALT 14, Alkaline Phosphatase 67, Troponin I 0.038, Total Protein 6.1 L, Albumin 3.3, Globulin 2.8, Albumin/Globulin Ratio 1.2 11/23/19 13:10: B-Natriuretic Peptide 1071.0 H 11/23/19 13:52: Urine Color Yellow, Urine Clarity Clear, Urine pH 7.0, Ur Specific [place] 1.010, Urine Protein Negative, Urine Glucose (UA) Normal, Urine Ketones Negative, Urine Occult Blood Negative, Urine Nitrite Negative, Urine Bilirubin Negative, Urine Urobilinogen 4 H, Ur Leukocyte Esterase 100 H, Urine RBC 0 SEEN, Urine WBC 0-5 SEEN, Ur Squamous Epith Cells 0 SEEN, Urine Bacteria 0 SEEN, Urine Mucus 0 SEEN 11/23/19 14:10: Blood Type Pending, Antibody Screen Pending, Crossmatch See Detail Diagnostic Data Chest X-Ray 11/23/19 13:31 IMPRESSION: No acute abnormality is seen. Electronically Signed: Lloyd Johnson, at 13:55 EDT , Service support , Current Medications Sodium Chloride () 500 mls @ 999 mls/hr IV .Q31M BRIANNE Stop: 11/23/19 15:30 Sodium Chloride () 1,000 mls @ 999 mls/hr IV .Q1H1M ONE Stop: 11/23/19 15:51 Assessment/Plan All Active Problems (Last Reviewed 07/26/19 @ 10:03 by Ignacia Rodriguez) Acute on chronic systolic (congestive) heart failure (Acute) Non-ischemic cardiomyopathy (Acute) Lower extremity edema (Resolved) 74 y/o admitted with a complaint of weakness and lethargy and found to be severely anemia 1. Acute anemia * Hb is 4.5; baseline is ~ 13.8 from 2018 * is a microcytic, hypochromic anemia; she's never had a colonoscopy before * stool for occult blood is negative * PT/INR not done in ED; will order * transfuse with 3 units of PRBCs * admit to ICU * hydrate with IVF NS@ 150cc/hr as BP is running low * general surgery on board; for EGD and colonoscopy tomorrow * clear liquid diet from now, and NPO past midnight * hold xarelto * iron panel pending * IV pantoprazole 40mg bid * 2. Afib: rate controlled. Hold xarelto, and hold carvedilol o/a of BP running low 3. Hypotension: BP is in the 80s systolic. Her sister says patient's BP has been low for a while now. Being hydrated with IVF. carvedilol and lasix on hold 4. HFpEF; * BNP is >1000, though patient is not short of breath, and feels well. Clinically, she doesnt seem to be in exacerbation. * on room air. lasix on hold o.a of low BP and patient being hydrated. * DVT prophylaxis; SCDs Code status: DNRCCA * Patient and sister counseled extensively about different types of CODE STATUS including full code, DNR CCA and DNR CCA. Patient elects to be DNRCCA- no intubation * Total [id number] time 17 minutes. Inpatient E&M: 19302 Init Hosp L3 Procedures: 82523 Advncd Care Plan 30 Min
--- NOTE | 2019-11-23 14:56 | NM_ITS ---
PROCEDURE: Nuclear medicine GI bleed study. REASON FOR EXAM: Anemia. COMPARISON: None TECHNIQUE: Red blood cells were labeled using approximately 20 millicuries technetium pertechnetate. There are reinjected and images were obtained for total of one hour. FINDINGS: There is a normal distribution of red blood cells. There are no focal accumulations of tracer to suspect active GI bleeding. Lateral views were not obtained, so the rectum is not optimally visualized. NM/GI Bleed Scan IMPRESSION: No evidence of active GI bleeding. Electronically Signed: Emory Whitmore MD at 19:58 EDT , Service support ,
[2019-11-23] MEDS: 0.9% Normal Saline 1,000 ML 999 ML IV (15:02)
--- NOTE | 2019-11-23 15:07 | NURSING ---
ICU ACUTE ANEMIA KORAM
[2019-11-23 15:48] LABS: Ferritin 4 ng/mL (8-252); Iron 127 ug/dL (50-170); Iron Binding Capacity,Total 386 ug/dL (250-450); PERCENT IRON SATURATION 32.9 % (15.0-55.0)
--- NOTE | 2019-11-23 16:09 | CON.PCM_ITS ---
- Consult Date of Consult: 11/23/19 - Reason for Consult Chief Complaint: weakness, Hgb 4 History of Present Illness: 74 y/o WF with MRDD initially presented to her PCP with complaint of diarrhea for a week. However, also with symptoms of feeling weak and off-balance, could not walk normally. 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 Patient is on chronic anticoagulation for chronic afib - xarelto. No blood noted in stools prior to taking iron supplementation, but has darker stools since taking iron. Patient denies shortness of breath or chest palpitations. Denies previous colonoscopic evaluation. No colon cancer known in family. PAST MEDICAL HISTORY Acute congestive heart failure (HCC) 09/20/2017 History of acquired CHF (congestive heart failure) 01/16/2018 cardiomycopathy presumed viral when was admitted to [facility]; Dr. Fernandez following MRDD Paroxysmal atrial fibrillation (HCC) 09/01/2017 TIA (transient ischemic attack) PAST SURGICAL HISTORY REPLACE AORTIC VALVE OPEN TRANSAORTIC APPROACH 2007 Aortic valve replacement #21 [facility] and closure of patent foramen Neck surgery CURRENT MEDICATIONS rivaroxaban (XARELTO) 20 mg tablet Take 1 tablet by mouth daily with dinner. ?potassium chloride 20 mEq TbER Take 1 tablet by mouth once daily. 90 tablet furosemide (LASIX) 40 mg tablet Take 1 tablet by mouth once daily. 90 tablet 3 carvedilol (COREG) 3.125 mg tablet Take 1 tablet by mouth daily with breakfast. 90 aspirin, enteric coated (ASPIRIN, ENTERIC COATED) 81 mg EC tablet Take 81 mg by mouth once Allergies: sulfa Social history: TOB use denies Lives with sister Review of Systems: General - denies fevers Cardiovascular denies chest pain, denies racing heart sensation Pulmonary denies shortness of breath, denies coughing up blood Gastrointestinal as per HPI, denies blood in stools Neurological feels off balance Genitourinary denies burning with urination, denies blood in urine Hematological on chronic anticoagulants, denies spontaneous/prolonged bleeding Skin denies open non healing wounds Musculoskeletal denies new muscle/bone pain Endocrine denies diabetes Psychological denies hallucinations Physical examination: Vital signs Temp 98F BP 100/54 RR 24 General WD/WN WF in no apparent distress, alert and oriented, not septic appearing HEENT Normocephalic. EOM intact with sclera clear and no icterus noted. Neck is supple with no jugular venous distention noted. Trachea is midline. Lungs normal breath sounds. No rales/rhonchi/wheezing noted. No labored breathing noted, such as retractions. No cough heard. Heart irregular. Abdomen soft and benign. Extremities no pitting edema noted. Genitourinary/Rectal deferred Skin normal skin integrity. Neurological non focal. Psychological normal affect, patient is calm and appropriate IMPRESSION: anemia weakness DISCUSSION/PLAN I have discussed the above with the patient and her sister. Will plan on upper and lower endoscopy tomorrow. Will start colon cleansing preparation today. I have explained the procedure to the patient. I have counseled the patient as to the risks of the procedure, including but not limited to: infection, bleeding, injury to any blood vessels/nerves, scar tissue, injury to any intrabdominal organs, perforation of the GI tract, inability to complete the procedure, complications of COVID, complications of anesthesia, postoperative pneumonia/cardiac problems/blood clots etc. the patient understands. She agrees to proceed. I have answered all questions to the patient?s satisfaction and the patient has no further questions.
--- NOTE | 2019-11-23 17:15 | NURSING ---
Pt taken to Nuclear Med for bleeding scan by this RN who remains in nuclear med w/pt.
[2019-11-23] MEDS: Electrolyte Solution/Peg's 4000 ML PO (21:03)
[2019-11-23 21:09] LABS: Probe Check PASS; Specimen Processing Control PASS
[2019-11-23] MEDS: 0.9% Normal Saline 1,000 ML 125 ML IV (21:38)
[2019-11-24] VITALS (31 sets, daily range): BP systolic 81–114; BP diastolic 43–80; PULSE 70–100; RESP 16–31; TEMP 36.1–37.3; O2SAT 92–100
[2019-11-24] MEDS: Ondansetron 4 MG/2 ML Vial IV (01:56)
[2019-11-24] MEDS: 0.9% Normal Saline 1,000 ML 125 ML IV (05:26)
[2019-11-24 05:37] LABS: Absolute Lymphocyte Count 1.03 X10^3/uL (0.83-4.51); Absolute Neutrophil Count 5.8 X10^3/uL (2.0-7.7); Basophil# 0.02 X10^3/uL; Basophil% 0.3 % (0-1); Eosinophil# 0.05 X10^3/uL; Eosinophils% 0.7 % (0-5); Hematocrit 25.3 % (37-47); Hemoglobin 7.5 g/dL (12.0-15.0); Lymphocyte # 1.03 X10^3/ul (4.0); Lymphocyte % 13.6 % (19-41); Mean Corp Hgb Conc 29.6 g/dL (32-36); Mean Corpuscular Volume 81.1 fL (81-99); Mean Platelet Vol. 10.9 fl (6.2-12.0); Monocyte# 0.63 X10^3/uL; Monocyte% 8.3 % (0-10); NRBC Flagged by Analyzer 0.8 % (0-5); Neutrophil # 5.81 X10^3/uL (2.7-7.7); Neutrophil % 76.6 % (47-70); Platelet Count 218 K/mm3 (150-450); RBC Distribution Width CV 18.4 % (11.6-14.6); RBC Distribution Width SD 53.1 fl (35.1-43.9); Red Blood Count 3.12 M/mm3 (4.2-5.4); White Blood Count 7.6 K/mm3 (4.4-11.0)
[2019-11-24 05:51] LABS: Anion Gap 8 (5-15); BUN 16 mg/dL (7-18); Chloride 111 mmol/L (98-107); EST Glomerular Filtration Rate 58 mL/min (>60); Est Glom Filt Rate - Afr Amer 70 mL/min (>60); Estimated Creatinine Clearance 37.24 ml/min; Glucose 94 mg/dL (74-106); International Normalized Ratio 1.5; Potassium 3.1 mmol/L (3.5-5.1); Prothrombin Time (Protime)PT. 17.4 SECONDS (11.7-14.9); Sodium Level 145 mmol/L (136-145)
--- NOTE | 2019-11-24 06:12 | CON.PCM_ITS ---
Reason for Consult Date of Consultation: 11/24/19 Reason for Consultation: Anemia History of Present Illness: The patient is a 74-year-old female, with a history as outlined below, who presented to the emergency department on November 22 with generalized malaise, weakness, dizziness and lightheadedness. The patient does have an extensive cardiac history including bioprosthetic aortic valve replacement in 2006. She does have underlying combined systolic and diastolic heart failure as well, along with paroxysmal atrial fibrillation. The patient denied the presence of abdominal pain, melena or hematochezia. She is chronically anticoagulated on Xarelto and does take a daily baby aspirin. On presentation to the emergency department, the patient was noted to be afebrile and hemodynamically stable. Initial laboratory evaluation revealed a hemoglobin of 4.5 g/dL. The patient previously was noted to have a hemoglobin of greater than 13 in August 2017. Chemistry profile was notable for a creatinine of 1.26. BNP was elevated to 1071. COVID testing was negative. Plain film chest x-ray revealed no acute cardiopulmonary process. The patient underwent type and screen, which was then followed by transfusion of 3 units of packed red blood cells. The patient was placed on twice daily PPI therapy along with supplemental IV fluids. She was subsequently admitted to the medical intensive care unit for further management. The patient was evaluated by general surgery with plans for both upper and lower endoscopy at some point today. Stool for occult blood was negative. Past Medical History Past Medical History (Chronic Problems): Chronic Problems (Last Reviewed 07/26/19 @ 10:03 by Ignacia Rodriguez) Acute on chronic systolic (congestive) heart failure (Chronic) History of left heart catheterization (Chronic 09/07/17) 09/07/[address] Fernandez @ [facility]: Lad 30% stenosis, all other coronaries normal; no significant AI noted; (also prior to AVR in 02/2007 ? 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, as well as closure of PFO per Dr. 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 (Chronic) Z79.01 Stasis dermatitis of both legs (Chronic) I87.2 General learning disability (Chronic) F81.9 Lower extremity edema (Resolved) R60.0 Allergies Sulfa (Sulfonamide Antibiotics) Allergy (Verified 11/23/19 12:19) Other Home Medications: Ambulatory Orders Medication Instructions Recorded Aspirin [Aspirin, Baby] 81 mg PO DAILY@0800 09/01/17 furosemide 40 mg tablet 40 mg PO DAILY #90 tab 06/26/18 potassium chloride 20 mEq 20 meq PO DAILYCM #90 tab 06/26/18 tablet,extended release(part/cryst) rivaroxaban 20 mg tablet 20 mg PO DAILY #30 tab 02/07/19 Carvedilol [Coreg] 3.125 mg PO DAILY 11/23/19 Ferrous Sulfate [Slow Fe] 142 mg PO DAILY PRN PRN 11/23/19 Surgical History: Surgical History (Last Reviewed 07/26/19 @ 10:03 by Ignacia Rodriguez) History of left heart catheterization (Chronic) Onset Date: 09/07/17 Z98.890 09/07/[address] Fernandez @ [facility]: Lad 30% stenosis, all other coronaries normal; no significant AI noted; (also prior to AVR in 02/2007 ? facility) H/O aortic valve replacement (Chronic) Onset Date: 02/23/07 Z95.2 02/23/[address] #[address] [facility], as well as closure of PFO per Dr. Alexander Guerrero [facility] Surgical History: - - Colonoscopy Smoking Status: Unknown if ever smoked - *Family History Maternal Family History: Family History (Last Reviewed 07/26/19 @ 10:03 by Ignacia Rodriguez) Father CVA (cerebral vascular accident) Mother CHF (congestive heart failure) Hypertension Sister High cholesterol Sister H/O heart valve replacement with porcine valve Rheumatic fever History Items: Heart Disease - mom had congestive heart failure Review of Systems Constitutional: Reports: Malaise, Weakness, Fatigue Eyes: Denies: Blurred vision, Double vision HEENT: Denies: Head Aches, Sinus Congestion, Sinus Drainage Cardiovascular: Denies: Chest Pain, Palpitations Respiratory: Denies: Cough, Shortness of breath at rest, Sputum production Gastrointestinal: Denies: Abdominal Pain, Hematochezia, Nausea, Melena Genitourinary: Denies: Dysuria Musculoskeletal: Denies: Joint Pain, Joint Tenderness Skin: Denies: Rash, Wounds Neurological: Reports: - - Dizziness Psychiatric: Denies: Anxiety, Depression, Homicidal Ideations, Suicidal Ideations Hematologic/ Lymphatic: Reports: Anemia, Hx of blood transfusion Patient Problems: Active and Suspected Problems (Last Reviewed 07/26/19 @ 10:03 by Ignacia Rodriguez) Acute anemia (Acute) Non-ischemic cardiomyopathy (Acute) General learning disability (Acute) H/O aortic valve replacement (Acute) History of left heart catheterization (Acute) Paroxysmal atrial fibrillation (Acute) Hypotension due to blood loss (Acute) Objective: The patient's most recent lab work, culture data and imaging studies have all been personally reviewed. Surface echocardiogram from January 2019 revealed normal LV size with an ejection fraction of 35%, stage I diastolic dysfunction and moderate to severe global hypokinesis of the LV. Right ventricular systolic pressure was estimated to be 42 mmHg. There was moderate aortic stenosis. Nuclear medicine GI bleeding study showed no evidence of active blood loss. - Physical Exam Vitals/I&O's: Vital Signs Temp Pulse Resp BP Pulse Ox 99.2 F H 74 23 H 104/50 L 94 11/24/19 02:33 11/24/19 05:00 11/24/19 05:00 11/24/19 05:00 11/24/19 05:00 Oxygen Delivery Method Room Air Weight: 139 lb 15.896 oz Body Mass Index (BMI) 26.3 Intake and Output for Last 24 Hours 11/22/19 11/23/19 11/24/19 23:59 23:59 23:59 Intake Total 3470 / 4870 3175 / 3175 Output Total 350 / 350 Balance 3470 / 4520 2825 / 2825 General: Alert, Cooperative, No apparent distress HEENT: Atraumatic, Normocephalic Oral: Dry Mucosa Neck: Supple, No Nodes, Trachea Midline Lungs: Normal air movement, No rhonchi, No wheeze, No rales Cardiovascular: Normal S1, Normal S2, Irregular Rate, Murmur Abdomen: Bowel Sounds Present, Soft, Non Tender Extremities: No clubbing, No cyanosis, No edema Skin: No breakdown Musculoskeletal: No Tenderness to Palpation of Joints or Extremities Lymphatic: No Cervical, Supraclavicular, or Inguinal Adenopathy Neurological: Cranial nerves II-XII grossly intact, Neuro grossly intact Psych/Mental Status: Normal Affect, Appropriate Labs (Last 48 Hours) 11/23/19 11/23/19 11/23/19 13:10 13:10 13:10 WBC 6.6 RBC 2.24 L Hgb 4.5 L* Hct 17.8 L MCV 79.5 L MCH 20.1 L MCHC 25.3 L RDW Std Deviation 56.4 H RDW Coeff of Sina 19.9 H Plt Count 260 MPV 10.2 Immature Gran % (Auto) 0.500 Neut % (Auto) 81.2 H Lymph % (Auto) 10.6 L Banks % (Auto) 7.1 Eos % (Auto) 0.3 Baso % (Auto) 0.3 Absolute Neuts (auto) 5.4 Absolute Lymphs (auto) 0.70 L Nucleated RBC % 0.6 Hypochromasia 3+ PT INR Sodium 142 Potassium 4.0 Chloride 106 Carbon Dioxide 29.0 Anion Gap 7 BUN 24 H Creatinine 1.26 H Estim Creat Clear Calc 30.98 Est GFR (MDRD) Af Amer 53 L Est GFR (MDRD) Non-Af 44 L BUN/Creatinine Ratio 19.0 Glucose 115 H Calcium 8.8 Iron TIBC Iron Saturation Ferritin Total Bilirubin 1.30 H AST 18 ALT 14 Alkaline Phosphatase 67 Troponin I 0.038 B-Natriuretic Peptide 1071.0 H Total Protein 6.1 L Albumin 3.3 Globulin 2.8 Albumin/Globulin Ratio 1.2 Urine Color Urine Clarity Urine pH Ur Specific [place] Urine Protein Urine Glucose (UA) Urine Ketones Urine Occult Blood Urine Nitrite Urine Bilirubin Urine Urobilinogen Ur Leukocyte Esterase Urine RBC Urine WBC Ur Squamous Epith Cells Urine Bacteria Urine Mucus COVID-19 (LINA) Blood Type Antibody Screen Crossmatch 11/23/19 11/23/19 11/23/19 13:10 13:52 14:10 WBC RBC Hgb Hct MCV MCH MCHC RDW Std Deviation RDW Coeff of Sina Plt Count MPV Immature Gran % (Auto) Neut % (Auto) Lymph % (Auto) Banks % (Auto) Eos % (Auto) Baso % (Auto) Absolute Neuts (auto) Absolute Lymphs (auto) Nucleated RBC % Hypochromasia PT INR Sodium Potassium Chloride Carbon Dioxide Anion Gap BUN Creatinine Estim Creat Clear Calc Est GFR (MDRD) Af Amer Est GFR (MDRD) Non-Af BUN/Creatinine Ratio Glucose Calcium Iron 127 TIBC 386 Iron Saturation 32.9 Ferritin 4 L Total Bilirubin AST ALT Alkaline Phosphatase Troponin I B-Natriuretic Peptide Total Protein Albumin Globulin Albumin/Globulin Ratio Urine Color Yellow Urine Clarity Clear Urine pH 7.0 Ur Specific [place] 1.010 Urine Protein Negative Urine Glucose (UA) Normal Urine Ketones Negative Urine Occult Blood Negative Urine Nitrite Negative Urine Bilirubin Negative Urine Urobilinogen 4 H Ur Leukocyte Esterase 100 H Urine RBC 0 SEEN Urine WBC 0-5 SEEN Ur Squamous Epith Cells 0 SEEN Urine Bacteria 0 SEEN Urine Mucus 0 SEEN COVID-19 (LINA) Blood Type B POSITIVE Antibody Screen NEGATIVE Crossmatch See Detail 11/23/19 11/23/19 11/24/19 14:10 19:55 05:25 WBC Pending RBC Pending Hgb Pending Hct Pending MCV Pending MCH Pending MCHC Pending RDW Std Deviation Pending RDW Coeff of Sina Pending Plt Count Pending MPV Immature Gran % (Auto) Neut % (Auto) Pending Lymph % (Auto) Banks % (Auto) Eos % (Auto) Baso % (Auto) Absolute Neuts (auto) Pending Absolute Lymphs (auto) Nucleated RBC % Hypochromasia PT INR Sodium Potassium Chloride Carbon Dioxide Anion Gap BUN Creatinine Estim Creat Clear Calc Est GFR (MDRD) Af Amer Est GFR (MDRD) Non-Af BUN/Creatinine Ratio Glucose Calcium Iron TIBC Iron Saturation Ferritin Total Bilirubin AST ALT Alkaline Phosphatase Troponin I B-Natriuretic Peptide Total Protein Albumin Globulin Albumin/Globulin Ratio Urine Color Urine Clarity Urine pH Ur Specific [place] Urine Protein Urine Glucose (UA) Urine Ketones Urine Occult Blood Urine Nitrite Urine Bilirubin Urine Urobilinogen Ur Leukocyte Esterase Urine RBC Urine WBC Ur Squamous Epith Cells Urine Bacteria Urine Mucus COVID-19 (LINA) Not Detected Blood Type Antibody Screen Crossmatch See Detail 11/24/19 11/24/19 05:25 05:25 WBC RBC Hgb Hct MCV MCH MCHC RDW Std Deviation RDW Coeff of Sina Plt Count MPV Immature Gran % (Auto) Neut % (Auto) Lymph % (Auto) Banks % (Auto) Eos % (Auto) Baso % (Auto) Absolute Neuts (auto) Absolute Lymphs (auto) Nucleated RBC % Hypochromasia PT 17.4 H INR 1.5 Sodium 145 Potassium 3.1 L Chloride 111 H Carbon Dioxide 26.0 Anion Gap 8 BUN 16 Creatinine 1.00 Estim Creat Clear Calc 37.24 Est GFR (MDRD) Af Amer 70 Est GFR (MDRD) Non-Af 58 L BUN/Creatinine Ratio 16.0 Glucose 94 Calcium 8.0 L Iron TIBC Iron Saturation Ferritin Total Bilirubin AST ALT Alkaline Phosphatase Troponin I B-Natriuretic Peptide Total Protein Albumin Globulin Albumin/Globulin Ratio Urine Color Urine Clarity Urine pH Ur Specific [place] Urine Protein Urine Glucose (UA) Urine Ketones Urine Occult Blood Urine Nitrite Urine Bilirubin Urine Urobilinogen Ur Leukocyte Esterase Urine RBC Urine WBC Ur Squamous Epith Cells Urine Bacteria Urine Mucus COVID-19 (LINA) Blood Type Antibody Screen Crossmatch Microbiology 11/23/19 13:52 Stool Stool Occult Blood (ABRAHAM) - Final Clinical Impression(s) from Imaging Studies Chest X-Ray 11/23/19 13:31 IMPRESSION: No acute abnormality is seen. Electronically Signed: Lloyd Johnson at 13:55 EDT , Service support , GI Bleed Scan Nuclear Medicine 11/23/19 14:56 IMPRESSION: No evidence of active GI bleeding. 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 Glucagon () 1 mg IM .X1 PRN PRN Reason: Hypoglycemia Sodium Chloride () 1,000 mls @ 125 mls/hr IV .Q8H BRIANNE Stop: 11/24/19 08:09 Last Admin: 11/24/19 05:26 Dose: 125 mls/hr Documented by: Pantoprazole Sodium 40 mg/ (Sodium Chloride) 110 mls @ 330 mls/hr IV Q12 BRIANNE Last Admin: 11/23/19 21:39 Dose: Not Given Documented by: Nutritional Formula (Lactose Free) (Ensure Clear) 120 ml PO TIDCM BRIANNE Ondansetron HCl (Zofran) 4 mg IV Q6H PRN PRN PRN Reason: nausea, emesis Last Admin: 11/24/19 01:56 Dose: 4 mg Documented by: Sodium Chloride () 10 - 40 ml IV UD PRN PRN Reason: SALINE FLUSH Assessment/Plan Active and Suspected Problems (Last Reviewed 07/26/19 @ 10:03 by Ignacia Rodriguez) Acute anemia (Acute) Non-ischemic cardiomyopathy (Acute) General learning disability (Acute) H/O aortic valve replacement (Acute) History of left heart catheterization (Acute) Paroxysmal atrial fibrillation (Acute) Hypotension due to blood loss (Acute) RECOMMENDATIONS: 1. Hold home Xarelto and aspirin. 2. Continue to monitor blood counts and transfuse for hemoglobin less than 7 g/dL. 3. Continue twice daily PPI therapy. 4. Plan for upper and lower endoscopy this morning by general surgery. 5. Potassium repletion as ordered. 6. Give IV Lasix if additional blood products are required, given underlying cardiac dysfunction. IMPRESSIONS: 1. Acute blood loss anemia The patient has been transfused packed red blood cells with plans for upper and lower endoscopic evaluation later this morning. Her systemic anticoagulation is currently on hold. Recommend continuing twice daily PPI therapy. Additional recommendations will be dependent upon the outcome of her endoscopic evaluation. The patient remains hemodynamically stable. 2. History of nonischemic cardiomyopathy/paroxysmal atrial fibrillation/combined systolic and diastolic heart failure Recommend judicious use of supplemental IV fluids and blood products, given the patient's underlying cardiac manifestations. If additional blood products are warranted, recommend administration of IV diuretic therapy. 3. Hypokalemia Potassium repletion as ordered. Recheck levels in the morning. This note was generated with [employer] dictation software. It may contain incorrect words, spelling, and punctuation that were not noted in checking the note before signing. Inpatient E&M: 33941 Init Hosp L3
[2019-11-24] MEDS: Potassium Chloride 10mEq/100mL 10 MEQ/100 ML IV.SOLN. 100 MEQ IV BOLUS ×4 (07:40→14:23)
--- NOTE | 2019-11-24 09:49 | CASEMGMT ---
SW called pt's sister, message left to call this SW back as able. MARY Santana
--- NOTE | 2019-11-24 10:38 | CASEMGMT ---
SW spoke w/pt's sister Sofia on phone in regard to prior level of care and anticipated discharge plan. PCP: Dr. Caban Specialists: [facility] Preferred Pharmacy: [facility] Mail order and [facility] Pharm[facility] Insurance: Medicare, has prescription coverage LW/POA: On file in summary tab, sister Sofia Catherine is pt's Healthcare POA. LNOK: Sister, brother in law, brother Living arrangements: Pt lives with sister Sofia and Sofia's , has her own little place within their home. Pt does her own cleaning, pt's sister helps with cooking, arranging meds, transportation. Otherwise pt is independent with ADLs. DME/HHC: Pt uses no DME, no history of home health care Plan: Home. Pt's sister anticipates pt will be able to return home once they have test results, possibly today . No homegoing needs anticipated. SW/CM available should any needs arise. MARY Santana
--- NOTE | 2019-11-24 10:53 | PN_ITS ---
Patient Problems: Active and Suspected Problems (Last Reviewed 07/26/19 @ 10:03 by Ignacia Rodriguez) Acute anemia (Acute) Non-ischemic cardiomyopathy (Acute) General learning disability (Acute) H/O aortic valve replacement (Acute) History of left heart catheterization (Acute) Paroxysmal atrial fibrillation (Acute) Hypotension due to blood loss (Acute) Subjective: Patient seen and examined. She had no complaints today and felt well. Review of systems otherwise negative. She is due to have EGD and colonoscopy today. Potassium is 3.1. Vitals/I&O's: Vital Signs Temp Pulse Resp BP Pulse Ox 98.0 F 74 28 H 103/52 L 96 11/24/19 08:00 11/24/19 10:00 11/24/19 10:00 11/24/19 10:00 11/24/19 10:00 Oxygen Delivery Method Room Air Weight: 139 lb 15.896 oz Body Mass Index (BMI) 26.3 Intake and Output for Last 24 Hours 11/22/19 11/23/19 11/24/19 23:59 23:59 23:59 Intake Total 3470 / 4870 3556.25 / 3556.25 Output Total 350 / 350 Balance 3470 / 4520 3206.25 / 3206.25 General: Alert, Oriented x3, Cooperative, No apparent distress HEENT: Atraumatic, PERRLA, EOMI, Normocephalic Oral: Dry Mucosa Neck: Supple, No JVD, Negative Carotid Bruits Lungs: Clear to auscultation, Normal air movement, No rhonchi, No wheeze, No rales Cardiovascular: Normal S1, Normal S2, No murmurs, Irregular Rate - afib rate, controlled. Abdomen: Bowel Sounds Present, Soft, Non Tender Extremities: No clubbing, No cyanosis, No edema, Capillary Refill Less than 3 Seconds Skin: No rashes, No breakdown Musculoskeletal: No Tenderness to Palpation of Joints or Extremities Lymphatic: No Cervical, Supraclavicular, or Inguinal Adenopathy Neurological: Cranial nerves II-XII grossly intact, Neuro grossly intact, Motor Exam 5/5 strength throughout Psych/Mental Status: Normal Affect, Appropriate, Alert and oriented to time, place, person, mood and affect Microbiology Past 72 Hours 11/23/19 13:52 Stool Stool Occult Blood (ABRAHAM) - Final Laboratory Results 11/23/19 13:10: WBC 6.6, RBC 2.24 L, Hgb 4.5 L*, Hct 17.8 L, MCV 79.5 L, MCH 20.1 L, MCHC 25.3 L, RDW Std Deviation 56.4 H, RDW Coeff of Sina 19.9 H, Plt Count 260, MPV 10.2, Immature Gran % (Auto) 0.500, Neut % (Auto) 81.2 H, Lymph % (Auto) 10.6 L, Cochran % (Auto) 7.1, Eos % (Auto) 0.3, Baso % (Auto) 0.3, Absolute Neuts (auto) 5.4, Absolute Lymphs (auto) 0.70 L, Nucleated RBC % 0.6, Hypochromasia 3+ 11/23/19 13:10: Sodium 142, Potassium 4.0, Chloride 106, Carbon Dioxide 29.0, Anion Gap 7, BUN 24 H, Creatinine 1.26 H, Estim Creat Clear Calc 30.98, Est GFR (MDRD) Af Amer 53 L, Est GFR (MDRD) Non-Af 44 L, BUN/Creatinine Ratio 19.0, Glucose 115 H, Calcium 8.8, Total Bilirubin 1.30 H, AST 18, ALT 14, Alkaline Phosphatase 67, Troponin I 0.038, Total Protein 6.1 L, Albumin 3.3, Globulin 2.8, Albumin/Globulin Ratio 1.2 11/23/19 13:10: B-Natriuretic Peptide 1071.0 H 11/23/19 13:10: Iron 127, TIBC 386, Iron Saturation 32.9, Ferritin 4 L 11/23/19 13:52: Urine Color Yellow, Urine Clarity Clear, Urine pH 7.0, Ur Specific [place] 1.010, Urine Protein Negative, Urine Glucose (UA) Normal, Urine Ketones Negative, Urine Occult Blood Negative, Urine Nitrite Negative, Urine Bilirubin Negative, Urine Urobilinogen 4 H, Ur Leukocyte Esterase 100 H, Urine RBC 0 SEEN, Urine WBC 0-5 SEEN, Ur Squamous Epith Cells 0 SEEN, Urine Bacteria 0 SEEN, Urine Mucus 0 SEEN 11/23/19 14:10: Blood Type B POSITIVE, Antibody Screen NEGATIVE, Crossmatch See Detail 11/23/19 14:10: Crossmatch See Detail 11/23/19 19:55: COVID-19 (LINA) Not Detected 11/24/19 05:25: WBC 7.6, RBC 3.12 L, Hgb 7.5 L, Hct 25.3 L, MCV 81.1, MCH 24.0 L , MCHC 29.6 L D, RDW Std Deviation 53.1 H, RDW Coeff of Sina 18.4 H, Plt Count 218, MPV 10.9, Immature Gran % (Auto) 0.500, Neut % (Auto) 76.6 H, Lymph % (Auto) 13.6 L, Cochran % (Auto) 8.3, Eos % (Auto) 0.7, Baso % (Auto) 0.3, Absolute Neuts (auto) 5.8, Absolute Lymphs (auto) 1.03, Nucleated RBC % 0.8 11/24/19 05:25: Sodium 145, Potassium 3.1 L, Chloride 111 H, Carbon Dioxide 26.0, Anion Gap 8, BUN 16, Creatinine 1.00, Estim Creat Clear Calc 37.24, Est GFR (MDRD) Af Amer 70, Est GFR (MDRD) Non-Af 58 L, BUN/Creatinine Ratio 16.0, Glucose 94, Calcium 8.0 L 11/24/19 05:25: PT 17.4 H, INR 1.5 Current Medications Dextrose (D50w Syringe) 0 gm IV X1 PRN; Protocol PRN Reason: Hypoglycemia Ferrous Sulfate (Ferrous Sulfate) 325 mg PO DAILY PRN PRN PRN Reason: SUPP[employer]MENT [employer] Glucagon () 1 mg IM .X1 PRN PRN Reason: Hypoglycemia Pantoprazole Sodium 40 mg/ (Sodium Chloride) 110 mls @ 330 mls/hr IV Q12 [facility] Last Admin: 11/23/19 21:39 Dose: Not Given Documented by: Potassium Chloride () 10 meq in 100 mls @ 100 mls/hr IV BOLUS Q1H [facility] Stop: 11/24/19 11:59 Last Admin: 11/24/19 09:38 Dose: 100 mls/hr Documented by: Nutritional Formula (Lactose Free) (Ensure Clear) 120 ml PO TIDCM [facility] Last Admin: 11/24/19 09:39 Dose: Not Given Documented by: Ondansetron HCl (Zofran) 4 mg IV Q6H PRN PRN PRN Reason: nausea, emesis Last Admin: 11/24/19 01:56 Dose: 4 mg Documented by: Sodium Chloride () 10 - 40 ml IV UD PRN PRN Reason: SALINE FLUSH STROKE Vital Signs/Narrative: Vital Signs Temp Pulse Resp BP Pulse Ox 11/24/19 10:00 74 28 H 103/52 L 96 11/24/19 09:00 78 25 H 106/55 L 98 11/24/19 08:00 98.0 F 85 24 H 100/54 L 94 11/24/19 07:00 82 11/24/19 06:59 86 27 H 109/44 L 97 Medical Necessity - Tobacco Use Smoking Status: Unknown if ever smoked Assessment/Plan All Active Problems (Last Reviewed 07/26/19 @ 10:03 by Ignacia Rodriguez) Acute anemia (Acute) Non-ischemic cardiomyopathy (Acute) General learning disability (Acute) H/O aortic valve replacement (Acute) History of left heart catheterization (Acute) Paroxysmal atrial fibrillation (Acute) Hypotension due to blood loss (Acute) Acute on chronic systolic (congestive) heart failure (Acute) Non-ischemic cardiomyopathy (Acute) Lower extremity edema (Resolved) 1. Acute microcytic, hypochromic anemia * Hb today is 7.5. She was transfused 3 units of PRBC * for EGD and colonoscopy today * xarelto on hold * iron level was 127, with iron saturation of 32.9 and TIBC of 386. Ferritin level was very low at 4, indicating very low iron storage * on IV pantoprazole 40mg bid * 2. Hypokalemia: Potassium is 3.1 today. Replace and monitor. 3. Afib: rate controlled. Hold xarelto,. carvedilol also held o/a of BP running low. 4. Hypotension: * BP is now in the 100s systolic. * Carvedilol and lasix on hold. 5. HFpEF; * clinically not in exacerbation. * on room air. lasix on hold due to hypotension on admission * DVT prophylaxis; SCDs Code status: DNRCCA Inpatient E&M: 99300 Subs Hosp L3
--- NOTE | 2019-11-24 11:46 | OP.CCLET_ITS ---
11/24/2019 Pham Caban [address] [place] [address] Re : Upper GI endoscopy procedure for Gerri Mckinley Dear Dr. Caban This procedure was performed on Sunday, November 24, 2019. My impressions and recommendations are as follows: Impressions : - Normal first portion of the duodenum and second portion of the duodenum. - No gross lesions in the stomach. - Small hiatal hernia. - No specimens collected. Recommendations : - Return patient to ICU for ongoing care. Of noted - patient had desaturation and cardiac arrythmia during procedure. - Continue present medications. My findings are described in the full procedure note, which is enclosed. If I can be of further assistance, please feel free to contact me at Doctor phone number(s): , Work: . Sincerely, MD Lila Kennedy MD 11/24/2019 11:46:32 AM This report has been signed electronically.
--- NOTE | 2019-11-24 11:46 | OP.EGD_ITS ---
Patient Name: Gerri Mckinley Procedure Date: 11/24/2019 10:52 AM Date of : 1945 Age: 74 Procedure: Upper GI endoscopy Indications: Iron deficiency anemia Providers: Lila Ackerman MD Medicines: See the Anesthesia note for documentation of the administered medications Patient Profile: Refer to note in patient chart for documentation of history and physical. severe anemia, Hgb 4 Complications: No immediate complications. Procedure: Pre-Anesthesia Assessment: - see anesthesia note After obtaining informed consent, the endoscope was passed under direct vision. Throughout the procedure, the patient's blood pressure, pulse, and oxygen saturations were monitored continuously. The gastroscope was introduced through the mouth, and advanced to the second part of duodenum. The upper GI endoscopy was accomplished without difficulty. The patient tolerated the procedure well. Scope In: 11:03:11 AM Scope Out: 11:07:26 AM Total Procedure Duration Time 0 hours 4 minutes 15 seconds Findings: The first portion of the duodenum and second portion of the duodenum were normal. No gross lesions were noted in the entire examined stomach. No evidence of bleeding noted. A small to medium sized hiatal hernia was present. Impression: - Normal first portion of the duodenum and second portion of the duodenum. - No gross lesions in the stomach. - Small hiatal hernia. - No specimens collected. Recommendation: - Return patient to ICU for ongoing care. Of noted - patient had desaturation and cardiac arrythmia during procedure. - Continue present medications. Procedure Code(s): --- Professional --- 18681, Esophagogastroduodenoscopy, flexible, transoral; diagnostic, including collection of specimen(s) by brushing or washing, when performed (separate procedure) Diagnosis Code(s): --- Professional --- K44.9, Diaphragmatic hernia without obstruction or gangrene D50.9, Iron deficiency anemia, unspecified CPT copyright 2017 [employer]. All rights reserved. The codes documented in this report are preliminary and upon medical records coder review may be revised to meet current compliance requirements. MD Lila Kennedy MD 11/24/2019 11:46:32 AM This report has been signed electronically. Number of Addenda: 0 Note Initiated On: 11/24/2019 10:52 AM
--- NOTE | 2019-11-24 11:46 | PCM.PN.BLA ---
Progress Note Endoscopy note- EGD completed - no evidence of upper GI bleed Colonoscopy aborted due to concern of patient's cardiac arrythmia and desaturation If patient is medically optimized - will proceed with colonoscopy on Tuesday. Since patient has already had colon cleansing preparation - will keep on clear liquid diet STROKE Vital Signs/Narrative: Vital Signs Temp Pulse Resp BP Pulse Ox 11/24/19 10:00 74 28 H 103/52 L 96 11/24/19 09:00 78 25 H 106/55 L 98 11/24/19 08:00 98.0 F 85 24 H 100/54 L 94
[2019-11-24 13:14] LABS: Hematocrit 29.4 % (37-47); Hemoglobin 8.5 g/dL (12.0-15.0)
[2019-11-24] MEDS: 0.9% Saline Lock 10 ML Syringe IV (13:37)
[2019-11-24 13:44] LABS: Magnesium 1.9 mg/dL (1.6-2.6)
[2019-11-24] MEDS: Ensure Clear 120 ML Liquid PO (16:01)
[2019-11-25] VITALS (21 sets, daily range): BP systolic 91–159; BP diastolic 45–108; PULSE 71–109; RESP 16–29; TEMP 36.6–36.8; O2SAT 95–100
[2019-11-25 03:42] LABS: Absolute Lymphocyte Count 0.99 X10^3/uL (0.83-4.51); Absolute Neutrophil Count 6.1 X10^3/uL (2.0-7.7); Basophil# 0.03 X10^3/uL; Basophil% 0.4 % (0-1); Eosinophil# 0.14 X10^3/uL; Eosinophils% 1.7 % (0-5); Hemoglobin 7.8 g/dL (12.0-15.0); Lymphocyte # 0.99 X10^3/ul (4.0); Lymphocyte % 12.4 % (19-41); Mean Corp Hgb Conc 28.9 g/dL (32-36); Mean Corpuscular Hgb 23.8 pg (27.0-32.0); Mean Corpuscular Volume 82.3 fL (81-99); Mean Platelet Vol. 11.6 fl (6.2-12.0); Monocyte# 0.73 X10^3/uL; Monocyte% 9.1 % (0-10); NRBC Flagged by Analyzer 0.2 % (0-5); Neutrophil # 6.08 X10^3/uL (2.7-7.7); Neutrophil % 75.9 % (47-70); Platelet Count 218 K/mm3 (150-450); RBC Distribution Width CV 19.8 % (11.6-14.6); Red Blood Count 3.28 M/mm3 (4.2-5.4)
[2019-11-25 03:50] LABS: Anion Gap 7 (5-15); BUN 13 mg/dL (7-18); BUN/Creat Ratio 13.6 RATIO (10-20); Chloride 112 mmol/L (98-107); Creatinine, Serum 0.96 mg/dL (0.55-1.02); EST Glomerular Filtration Rate 61 mL/min (>60); Est Glom Filt Rate - Afr Amer 73 mL/min (>60); Glucose 100 mg/dL (74-106); Potassium 3.4 mmol/L (3.5-5.1); Sodium Level 144 mmol/L (136-145)
--- NOTE | 2019-11-25 06:17 | PN_ITS ---
Subjective: The patient was seen and examined at the bedside this morning. Events from the last 24 hours have been reviewed. The patient is currently afebrile, hemodynamically stable and maintaining appropriate oxygen saturations on room air. Upper endoscopy completed yesterday revealed no evidence for upper GI bleed. The patient's colonoscopy was terminated as the patient was noted to have desaturated with the procedure and developed a cardiac dysrhythmia. Blood counts are still stable this morning at 7.8 g/dL. Potassium is low at 3.4. The patient is currently sitting in her bedside recliner without any specific complaints. Objective: The patient's most recent lab work, culture data and imaging studies have all been personally reviewed. Surface echocardiogram from January 2019 revealed normal LV size with an ejection fraction of 35%, stage I diastolic dysfunction and moderate to severe global hypokinesis of the LV. Right ventricular systolic pressure was estimated to be 42 mmHg. There was moderate aortic stenosis. Nuclear medicine GI bleeding study showed no evidence of active blood loss. General: Alert, Cooperative, No apparent distress HEENT: Atraumatic, PERRLA, Normocephalic Oral: Moist Mucosa, No Gingival or Mucosal Lesions/ Ulcerations Neck: Supple, No Nodes, Trachea Midline Lungs: Normal air movement, No rhonchi, No wheeze, No rales Cardiovascular: Normal S1, Normal S2, Irregular Rate, Murmur Abdomen: Bowel Sounds Present, Soft, Non Tender Extremities: No clubbing, No cyanosis, No edema Skin: No breakdown Musculoskeletal: No Tenderness to Palpation of Joints or Extremities, No Muscle Wasting Lymphatic: No Cervical, Supraclavicular, or Inguinal Adenopathy Neurological: Cranial nerves II-XII grossly intact, Neuro grossly intact Psych/Mental Status: Normal Affect, Appropriate Vital Signs Temp Pulse Resp BP Pulse Ox 97.8 F 84 27 H 101/59 L 99 11/25/19 00:00 11/25/19 06:00 11/25/19 06:00 11/25/19 06:11/25/19 06:00 Oxygen Flow Rate (L/min) 4 Oxygen Delivery Method Room Air Weight: 148 lb 2.41 oz Body Mass Index (BMI) 26.3 Intake and Output for Last 24 Hours 11/23/19 11/24/19 11/25/19 23:59 23:59 23:59 Intake Total 3470 / 4819 5776.25 / 6256.25 960 / 960 Output Total 385 / 685 300 / 300 Balance 3470 / 4520 5391.25 / 5571.25 660 / 660 Labs (Last 48 Hours) 11/23/19 11/23/19 11/23/19 13:10 13:10 13:10 WBC 6.6 RBC 2.24 L Hgb 4.5 L* Hct 17.8 L MCV 79.5 L MCH 20.1 L MCHC 25.3 L RDW Std Deviation 56.4 H RDW Coeff of Sina 19.9 H Plt Count 260 MPV 10.2 Immature Gran % (Auto) 0.500 Neut % (Auto) 81.2 H Lymph % (Auto) 10.6 L Cross % (Auto) 7.1 Eos % (Auto) 0.3 Baso % (Auto) 0.3 Absolute Neuts (auto) 5.4 Absolute Lymphs (auto) 0.70 L Nucleated RBC % 0.6 Hypochromasia 3+ PT INR Sodium 142 Potassium 4.0 Chloride 106 Carbon Dioxide 29.0 Anion Gap 7 BUN 24 H Creatinine 1.26 H Estim Creat Clear Calc 30.98 Est GFR (MDRD) Af Amer 53 L Est GFR (MDRD) Non-Af 44 L BUN/Creatinine Ratio 19.0 Glucose 115 H Calcium 8.8 Phosphorus Magnesium Iron TIBC Iron Saturation Ferritin Total Bilirubin 1.30 H AST 18 ALT 14 Alkaline Phosphatase 67 Troponin I 0.038 B-Natriuretic Peptide 1071.0 H Total Protein 6.1 L Albumin 3.3 Globulin 2.8 Albumin/Globulin Ratio 1.2 Urine Color Urine Clarity Urine pH Ur Specific [place] Urine Protein Urine Glucose (UA) Urine Ketones Urine Occult Blood Urine Nitrite Urine Bilirubin Urine Urobilinogen Ur Leukocyte Esterase Urine RBC Urine WBC Ur Squamous Epith Cells Urine Bacteria Urine Mucus COVID-19 (LINA) Blood Type Antibody Screen Crossmatch 11/23/19 11/23/19 11/23/19 13:10 13:52 14:10 WBC RBC Hgb Hct MCV MCH MCHC RDW Std Deviation RDW Coeff of Sina Plt Count MPV Immature Gran % (Auto) Neut % (Auto) Lymph % (Auto) Cross % (Auto) Eos % (Auto) Baso % (Auto) Absolute Neuts (auto) Absolute Lymphs (auto) Nucleated RBC % Hypochromasia PT INR Sodium Potassium Chloride Carbon Dioxide Anion Gap BUN Creatinine Estim Creat Clear Calc Est GFR (MDRD) Af Amer Est GFR (MDRD) Non-Af BUN/Creatinine Ratio Glucose Calcium Phosphorus Magnesium Iron 127 TIBC 386 Iron Saturation 32.9 Ferritin 4 L Total Bilirubin AST ALT Alkaline Phosphatase Troponin I B-Natriuretic Peptide Total Protein Albumin Globulin Albumin/Globulin Ratio Urine Color Yellow Urine Clarity Clear Urine pH 7.0 Ur Specific [place] 1.010 Urine Protein Negative Urine Glucose (UA) Normal Urine Ketones Negative Urine Occult Blood Negative Urine Nitrite Negative Urine Bilirubin Negative Urine Urobilinogen 4 H Ur Leukocyte Esterase 100 H Urine RBC 0 SEEN Urine WBC 0-5 SEEN Ur Squamous Epith Cells 0 SEEN Urine Bacteria 0 SEEN Urine Mucus 0 SEEN COVID-19 (LINA) Blood Type B POSITIVE Antibody Screen NEGATIVE Crossmatch See Detail 11/23/19 11/23/19 11/24/19 14:10 19:55 05:25 WBC 7.6 RBC 3.12 L Hgb 7.5 L Hct 25.3 L MCV 81.1 MCH 24.0 L MCHC 29.6 L D RDW Std Deviation 53.1 H RDW Coeff of Sina 18.4 H Plt Count 218 MPV 10.9 Immature Gran % (Auto) 0.500 Neut % (Auto) 76.6 H Lymph % (Auto) 13.6 L Cross % (Auto) 8.3 Eos % (Auto) 0.7 Baso % (Auto) 0.3 Absolute Neuts (auto) 5.8 Absolute Lymphs (auto) 1.03 Nucleated RBC % 0.8 Hypochromasia PT INR Sodium Potassium Chloride Carbon Dioxide Anion Gap BUN Creatinine Estim Creat Clear Calc Est GFR (MDRD) Af Amer Est GFR (MDRD) Non-Af BUN/Creatinine Ratio Glucose Calcium Phosphorus Magnesium Iron TIBC Iron Saturation Ferritin Total Bilirubin AST ALT Alkaline Phosphatase Troponin I B-Natriuretic Peptide Total Protein Albumin Globulin Albumin/Globulin Ratio Urine Color Urine Clarity Urine pH Ur Specific [place] Urine Protein Urine Glucose (UA) Urine Ketones Urine Occult Blood Urine Nitrite Urine Bilirubin Urine Urobilinogen Ur Leukocyte Esterase Urine RBC Urine WBC Ur Squamous Epith Cells Urine Bacteria Urine Mucus COVID-19 (LINA) Not Detected Blood Type Antibody Screen Crossmatch See Detail 11/24/19 11/24/19 11/24/19 05:25 05:25 05:25 WBC RBC Hgb Hct MCV MCH MCHC RDW Std Deviation RDW Coeff of Sina Plt Count MPV Immature Gran % (Auto) Neut % (Auto) Lymph % (Auto) Cross % (Auto) Eos % (Auto) Baso % (Auto) Absolute Neuts (auto) Absolute Lymphs (auto) Nucleated RBC % Hypochromasia PT 17.4 H INR 1.5 Sodium 145 Potassium 3.1 L Chloride 111 H Carbon Dioxide 26.0 Anion Gap 8 BUN 16 Creatinine 1.00 Estim Creat Clear Calc 37.24 Est GFR (MDRD) Af Amer 70 Est GFR (MDRD) Non-Af 58 L BUN/Creatinine Ratio 16.0 Glucose 94 Calcium 8.0 L Phosphorus Magnesium 1.9 Iron TIBC Iron Saturation Ferritin Total Bilirubin AST ALT Alkaline Phosphatase Troponin I B-Natriuretic Peptide Total Protein Albumin Globulin Albumin/Globulin Ratio Urine Color Urine Clarity Urine pH Ur Specific [place] Urine Protein Urine Glucose (UA) Urine Ketones Urine Occult Blood Urine Nitrite Urine Bilirubin Urine Urobilinogen Ur Leukocyte Esterase Urine RBC Urine WBC Ur Squamous Epith Cells Urine Bacteria Urine Mucus COVID-19 (LINA) Blood Type Antibody Screen Crossmatch 11/24/19 11/24/19 11/25/19 05:25 12:45 03:30 WBC 8.0 RBC 3.28 L Hgb 8.5 L 7.8 L Hct 29.4 L 27.0 L MCV 82.3 MCH 23.8 L MCHC 28.9 L RDW Std Deviation 57.0 H RDW Coeff of Sina 19.8 H Plt Count 218 MPV 11.6 Immature Gran % (Auto) 0.500 Neut % (Auto) 75.9 H Lymph % (Auto) 12.4 L Cross % (Auto) 9.1 Eos % (Auto) 1.7 Baso % (Auto) 0.4 Absolute Neuts (auto) 6.1 Absolute Lymphs (auto) 0.99 Nucleated RBC % 0.2 Hypochromasia PT INR Sodium Potassium Chloride Carbon Dioxide Anion Gap BUN Creatinine Estim Creat Clear Calc Est GFR (MDRD) Af Amer Est GFR (MDRD) Non-Af BUN/Creatinine Ratio Glucose Calcium Phosphorus 3.0 Magnesium Iron TIBC Iron Saturation Ferritin Total Bilirubin AST ALT Alkaline Phosphatase Troponin I B-Natriuretic Peptide Total Protein Albumin Globulin Albumin/Globulin Ratio Urine Color Urine Clarity Urine pH Ur Specific [place] Urine Protein Urine Glucose (UA) Urine Ketones Urine Occult Blood Urine Nitrite Urine Bilirubin Urine Urobilinogen Ur Leukocyte Esterase Urine RBC Urine WBC Ur Squamous Epith Cells Urine Bacteria Urine Mucus COVID-19 (LINA) Blood Type Antibody Screen Crossmatch 11/25/19 03:30 WBC RBC Hgb Hct MCV MCH MCHC RDW Std Deviation RDW Coeff of Sina Plt Count MPV Immature Gran % (Auto) Neut % (Auto) Lymph % (Auto) Cross % (Auto) Eos % (Auto) Baso % (Auto) Absolute Neuts (auto) Absolute Lymphs (auto) Nucleated RBC % Hypochromasia PT INR Sodium 144 Potassium 3.4 L Chloride 112 H Carbon Dioxide 25.0 Anion Gap 7 BUN 13 Creatinine 0.96 Estim Creat Clear Calc 38.80 Est GFR (MDRD) Af Amer 73 Est GFR (MDRD) Non-Af 61 BUN/Creatinine Ratio 13.6 Glucose 100 Calcium 8.0 L Phosphorus Magnesium Iron TIBC Iron Saturation Ferritin Total Bilirubin AST ALT Alkaline Phosphatase Troponin I B-Natriuretic Peptide Total Protein Albumin Globulin Albumin/Globulin Ratio Urine Color Urine Clarity Urine pH Ur Specific [place] Urine Protein Urine Glucose (UA) Urine Ketones Urine Occult Blood Urine Nitrite Urine Bilirubin Urine Urobilinogen Ur Leukocyte Esterase Urine RBC Urine WBC Ur Squamous Epith Cells Urine Bacteria Urine Mucus COVID-19 (LINA) Blood Type Antibody Screen Crossmatch Microbiology 11/23/19 13:52 Stool Stool Occult Blood (ABRAHAM) - Final Clinical Impression(s) from Imaging Studies Chest X-Ray 11/23/19 13:31 IMPRESSION: No acute abnormality is seen. Electronically Signed: Lloyd Johnson at 13:55 EDT , Service support , GI Bleed Scan Nuclear Medicine 11/23/19 14:56 IMPRESSION: No evidence of active GI bleeding. Electronically Signed: Emory Whitmore MD at 19:58 EDT , Service support , Medical Necessity - Tobacco Use Smoking Status: Unknown if ever smoked Assessment/Plan All Active Problems (Last Reviewed 07/26/19 @ 10:03 by Ignacia Rodriguez) Acute anemia (Acute) Non-ischemic cardiomyopathy (Acute) General learning disability (Acute) H/O aortic valve replacement (Acute) History of left heart catheterization (Acute) Paroxysmal atrial fibrillation (Acute) Hypotension due to blood loss (Acute) Acute on chronic systolic (congestive) heart failure (Acute) Non-ischemic cardiomyopathy (Acute) Lower extremity edema (Resolved) RECOMMENDATIONS: 1. Continue to hold Xarelto and aspirin. 2. Continue to monitor blood counts daily. Transfuse for hemoglobin less than 7 g/dL. 3. Continue twice daily PPI therapy. 4. Additional potassium repletion as ordered. 5. Plan for colonoscopy tomorrow. IMPRESSIONS: 1. Acute blood loss anemia The patient has been transfused packed red blood cells with improvement in hemoglobin noted. No GI source of blood loss has been identified to date. Recommend continuing twice daily PPI therapy. Monitor blood counts daily and transfuse if hemoglobin drops below 7 g/dL. Plan for lower endoscopy tomorrow with general surgery. The patient remains hemodynamically stable. 2. History of nonischemic cardiomyopathy/paroxysmal atrial fibrillation/combined systolic and diastolic heart failure Recommend judicious use of supplemental IV fluids and blood products, given the patient's underlying cardiac manifestations. If additional blood products are warranted, recommend administration of IV diuretic therapy. 3. Hypokalemia Additional potassium repletion as ordered. Recheck levels in the morning. This note was generated with [employer] dictation software. It may contain incorrect words, spelling, and punctuation that were not noted in checking the note before signing. Inpatient E&M: 93696 [facility] L3
[2019-11-25 07:40] LABS: Magnesium 1.9 mg/dL (1.6-2.6)
[2019-11-25] MEDS: Potassium Chloride 10mEq/100mL 10 MEQ/100 ML IV.SOLN. 100 MEQ IV BOLUS ×4 (07:52→12:08)
[2019-11-25] MEDS: Ensure Clear 120 ML Liquid PO ×3 (07:55→18:04)
--- NOTE | 2019-11-25 07:58 | ECHOD_ITS ---
Reason For Study: ARRHYTHMIA Procedure This was a 2D Doppler, Color Flow transthoracic echocardiogram. Exam performed portable in patient room. Left Ventricle Mildly dilated left ventricle. The estimated ejection fraction is 40 %. Compared to previous study, the left ventricular systolic function has improved.. There is mild to moderate global hypokinesis of the left ventricle. Right Ventricle Normal RV size. Normal systolic function. Atria The left atrium is mildly enlarged. Normal right atrium. Mitral Valve Normal mitral valve. Tricuspid Valve Normal tricuspid valve. Mild (1+) tricuspid valve insufficiency. Pulmonary artery systolic pressure is 34 mmHg. Aortic Valve Peak aortic valve gradient 58 mmHg. Mean aortic valve gradient 34 mmHg. Moderate aortic stenosis. Calculated aortic valve area (continuity equation) is 1.0 cm2. Mild (1+) aortic valve insufficiency. Bioprosthetic aortic valve. Pulmonic Valve The pulmonic valve is not well visualized. Great Vessels Normal aortic root. The pulmonary artery is normal size. Normal inferior vena cava. Pericardium/Pleural No pericardial effusion. MMode/2D Measurements & Calculations LVIDd: 5.7 cm IVSd: 0.98 cm LVOT diam: 1.8 cm LVIDs: 4.9 cm LVPWd: 0.87 cm LVOT area: 2.6 cm2 RVDd: 3.6 cm FS: 14.7 % Ao root diam: 3.1 cm LAV(MOD-bp): 71.9 ml LA A4 area: 21.5 cm2 LAV(MOD-bp) Indexed: 43.3 ml/m2 LAV(MOD-sp2): 68.5 ml LAV(MOD-sp4): 64.1 ml RA A4 area: 11.6 cm2 Time Measurements MV dec time: 0.19 sec Doppler Measurements & Calculations MV E max salo: 89.8 cm/sec Lat Peak E' Salo: 10.6 cm/sec Med Peak E' Salo: 4.6 cm/sec MV A max salo: 90.2 cm/sec E/E' lat: 8.5 E/E' med: 19.3 MV E/A: 1.00 Ao V2 max: 379.3 cm/sec AI max salo: 381.7 cm/sec LV V1 max: 145.6 cm/sec Ao max P.6 mmHg AI max P.4 mmHg LV V1 max P.5 mmHg Ao V2 mean: 282.2 cm/sec AI dec slope: 352.4 cm/sec2 LV V1 mean P.3 mmHg Ao mean P.4 mmHg AI P1/2t: 317.3 msec LV V1 mean: 109.7 cm/sec Ao V2 VTI: 85.5 cm LV V1 VTI: 32.9 cm CE(I,D): 0.99 cm2 CE(V,D): 0.99 cm2 SV(LVOT): 84.7 ml PA V2 max: 101.2 cm/sec TR max salo: 270.7 cm/sec TR max P.4 mmHg Interpretation Summary Mildly dilated left ventricle. The estimated ejection fraction is 40 %. Compared to previous study, the left ventricular systolic function has improved.. Pulmonary artery systolic pressure is 34 mmHg. Bioprosthetic aortic valve. Moderate aortic stenosis. Mean aortic valve gradient 34 mmHg. Ordering Physician: Esua Ríos Referring Physician: Pham Caban Performed By: Crystal Gutierrez, RDCS, RVT
--- NOTE | 2019-11-25 08:50 | CON.PCM_ITS ---
Reason for Consult Date of Consultation: 11/25/19 Reason for Consultation: Cardiac evaluation History of Present Illness: The patient is a 74 year old F with a history of bioprosthetic aortic valve replacement in February 2007. Patient also has a history of nonischemic cardiomyopathy with her last echocardiogram performed in January 2019 demonstrating global left ventricular dysfunction estimated to be 35%. The aortic valve was noted to be stable with a mean gradient of 32 mmHg and a peak gradient of 54 mmHg. The ejection fraction had apparently improved. She was on anticoagulation for reasons which are not entirely clear at this particular time. She had presented with severe anemia was admitted to the intensive care unit she was transfused with blood and then was scheduled to have an EGD and colonoscopy. Apparently after she had been administered propofol according to anesthesiologist she probably had spasm and her saturations dropped and she became bradycardic. Occasional PVCs were noted. For this reason the procedure was aborted and cardiology was asked to consult patient prior to returning for completion of the procedure. Patient did not experience any chest pain before or after the event. There were no additional EKG changes. After discussion with the anesthesiologist she felt that the patient would need at least an echocardiogram before the patient returns for the procedure. It was not clear whether they will be any management changes. The patient did well overnight in the intensive care unit this morning has no complaints. [] Past Medical History Allergies/Adverse Reactions: Allergies Sulfa (Sulfonamide Antibiotics) Allergy (Verified 11/23/19 12:19) Other Home Medications: Ambulatory Orders Medication Instructions Recorded Aspirin [Aspirin, Baby] 81 mg PO DAILY@0800 09/01/17 furosemide 40 mg tablet 40 mg PO DAILY #90 tab 06/26/18 potassium chloride 20 mEq 20 meq PO DAILYCM #90 tab 06/26/18 tablet,extended release(part/cryst) rivaroxaban 20 mg tablet 20 mg PO DAILY #30 tab 02/07/19 Carvedilol [Coreg] 3.125 mg PO DAILY 11/23/19 Ferrous Sulfate [Slow Fe] 142 mg PO DAILY PRN PRN 11/23/19 Past Medical History (Chronic Problems): Chronic Problems (Last Reviewed 07/26/19 @ 10:03 by Ignacia Rodriguez) Acute on chronic systolic (congestive) heart failure (Chronic) History of left heart catheterization (Chronic 09/07/17) 09/07/[address] Fernandez @ [facility]: Lad 30% stenosis, all other coronaries normal; no significant AI noted; (also prior to AVR in 02/2007 ? facility) Paroxysmal atrial fibrillation (Chronic) senior living (current) use of anticoagulants (Chronic) H/O aortic valve replacement (Chronic 02/23/07) 02/23/[address] #[address] [facility] [employer], as well as closure of PFO per Dr. Alexander Guerrero [facility] Stasis dermatitis of both legs (Chronic) General learning disability (Chronic) BMI 32.0-32.9,adult (Chronic) Surgical History: - - Colonoscopy - *Family History Maternal Family History: Family History (Last Reviewed 07/26/19 @ 10:03 by Ignacia Rodriguez) Father CVA (cerebral vascular accident) Mother CHF (congestive heart failure) Hypertension Sister High cholesterol Sister H/O heart valve replacement with porcine valve Rheumatic fever History Items: Heart Disease - mom had congestive heart failure Smoking Status: Unknown if ever smoked Alcohol: None Drugs: None Review of Systems - Review of Systems General: Reports: Fatigue, Weakness. Denies: Fever, Night Sweats HEENT: Denies: Vision Change Cardiovascular: Denies: Chest Discomfort, Shortness of Breath, Orthopnea, PND, Peripheral Edema, Palpitations, Lightheadedness, Dizziness, Near Syncope, Syncope Respiratory: Denies: Cough, Sputum Production, Hemoptysis Gastrointestinal: Denies: Hematemesis, Hematochezia, Melena Genitourinary: Denies: Dysuria, Hematuria Skin: Denies: Rash Neurological: Denies: Dizziness Psychiatric: Denies: Anxiety Endocrine: Denies: Unexplained Weight Loss Hematologic/ Lymphatic: Reports: Anemia Subjectve: Pleasant lady sitting in chair Objective: Vital Signs Temp Pulse Resp BP Pulse Ox 97.8 F 79 18 114/75 99 11/25/19 00:00 11/25/19 08:00 11/25/19 08:00 11/25/19 08:00 11/25/19 08:00 Oxygen Flow Rate (L/min) 4 Oxygen Delivery Method Room Air Weight: 148 lb 2.41 oz Body Mass Index (BMI) 26.3 Intake and Output for Last 24 Hours 11/23/19 11/24/19 11/25/19 23:59 23:59 23:59 Intake Total 2280 / 2168 5776.25 / 6256.25 960 / 960 Output Total 385 / 685 300 / 300 Balance 3470 / 4520 5391.25 / 5571.25 660 / 660 General: Awake, Alert, Oriented x 3 HEENT: PERRL, EOMI, Sclera Non Icteric Neck: Supple, Good ROM, No Lymph Node Enlargement Lungs: Clear to auscultation Cardiovascular: Regular Rhythm, Normal S1, Normal S2, No Rubs, No Gallops, [place] Prosthetic S2 Murmur Murmur: Grade 2/6, Early Systolic, LLSB Vascular: No Carotid Bruits, Normal Femoral Pulses, Normal Radial Pulses, Normal Dorsalis Pedal Pulse, Normal Posterior Tibial Pulses Abdomen: Bowel Sounds Present, Soft, Non Tender, No HSM, No Organomegaly Extremities: No Cyanosis, No Clubbing, No edema Neurological: No Focal Motor or Sensory Deficit Psych/Mental Status: Appropriate 11/24/19 05:25: Magnesium 1.9 11/24/19 05:25: Phosphorus 3.0 11/24/19 12:45: Hgb 8.5 L, Hct 29.4 L 11/25/19 03:30: WBC 8.0, RBC 3.28 L, Hgb 7.8 L, Hct 27.0 L, MCV 82.3, MCH 23.8 L , MCHC 28.9 L, Plt Count 218, MPV 11.6, Immature Gran % (Auto) 0.500, Neut % (Auto) 75.9 H, Lymph % (Auto) 12.4 L, [place] % (Auto) 9.1, Eos % (Auto) 1.7, Baso % (Auto) 0.4, Absolute Neuts (auto) 6.1, Nucleated RBC % 0.2 11/25/19 03:30: Sodium 144, Potassium 3.4 L, Chloride 112 H, Carbon Dioxide 25.0, Anion Gap 7, BUN 13, Creatinine 0.96, Est GFR (MDRD) Af Amer 73, Est GFR (MDRD) Non-Af 61, BUN/Creatinine Ratio 13.6, Glucose 100, Calcium 8.0 L 11/25/19 03:30: Magnesium 1.9 Rhythm: EKG: ECHO: Stress Test: Cardiac Cath: PCI: CT Surgery: Holter monitor: EPS: PPM: CXR: Chest CT Scan: Assessment/Plan 1. Preoperative cardiac evaluation * Patient has known left ventricular systolic dysfunction with the last estimated ejection fraction at 35%. At this time I would not change any therapeutic options. * Would reobtain echocardiogram to reassess left ventricular function and communicate with anesthesiologist. * In the absence of any significant dysfunction would recommend proceeding tomorrow. * Would avoid hypotension due to the aortic valve stenosis 2. Left ventricular systolic dysfunction * Patient has known left ventricular systolic dysfunction which has improved. Would reassess this with the echocardiogram. Postprocedure will resume beta- ramakrishna and SHAISTA inhibitor as well as diuretic. And will follow-up in the office. * 3. Status post aortic bioprosthetic replacement * Patient has known bioprosthetic aortic valve replacement. The last echocardiogram demonstrated moderate stenosis. This will be reevaluated with the present echocardiogram. * * In light of the patient's anemia the necessity for continued anticoagulation would need to be reevaluated. Would recommend discontinuing and following as outpatient. * * Thank you for allowing me to participate in the care of your patient. Please don't hesitate to call if any issues arise.
--- NOTE | 2019-11-25 11:05 | PN_ITS ---
Patient Problems: Active and Suspected Problems (Last Reviewed 07/26/19 @ 10:03 by Ignacia Rodriguez) Acute anemia (Acute) Non-ischemic cardiomyopathy (Acute) General learning disability (Acute) H/O aortic valve replacement (Acute) History of left heart catheterization (Acute) Paroxysmal atrial fibrillation (Acute) Hypotension due to blood loss (Acute) Subjective: Patient seen and examined. She has no complaints today. Review of symptoms otherwise negative. She had EGD yesterday which was negative. Colonoscopy was aborted on account of patient becoming bradycardic and hypoxic. Cardiology consulted. She is to have 2D echo tomorrow and colonoscopy tomorrow. Labs and vitals reviewed. Potassium today is 3.4. Hemoglobin is 7.8. Vitals/I&O's: Vital Signs Temp Pulse Resp BP Pulse Ox 97.8 F 86 21 H 115/54 L 100 11/25/19 00:00 11/25/19 10:00 11/25/19 10:00 11/25/19 10:00 11/25/19 10:00 Oxygen Flow Rate (L/min) 4 Oxygen Delivery Method Room Air Weight: 148 lb 2.41 oz Body Mass Index (BMI) 26.3 Intake and Output for Last 24 Hours 11/23/19 11/24/19 11/25/19 23:59 23:59 23:59 Intake Total 3470 / 4870 5776.25 / 6256.25 1160 / 1160 Output Total 385 / 685 300 / 300 Balance 3470 / 4520 5391.25 / 5571.25 860 / 860 General: Alert, Oriented x3, Cooperative, No apparent distress HEENT: Atraumatic, PERRLA, EOMI, Normocephalic Oral: Dry Mucosa Neck: Supple, No JVD, Negative Carotid Bruits Lungs: Clear to auscultation, Normal air movement, No rhonchi, No wheeze, No rales Cardiovascular: Normal S1, Normal S2, No murmurs, Irregular Rate - afib rate, controlled. Abdomen: Bowel Sounds Present, Soft, Non Tender Extremities: No clubbing, No cyanosis, No edema, Capillary Refill Less than 3 Seconds Skin: No rashes, No breakdown Musculoskeletal: No Tenderness to Palpation of Joints or Extremities Lymphatic: No Cervical, Supraclavicular, or Inguinal Adenopathy Neurological: Cranial nerves II-XII grossly intact, Neuro grossly intact, Motor Exam 5/5 strength throughout Psych/Mental Status: Normal Affect, Appropriate, Alert and oriented to time, place, person, mood and affect Microbiology Past 72 Hours 11/23/19 13:52 Stool Stool Occult Blood (ABRAHAM) - Final Laboratory Results 11/23/19 14:10: Crossmatch See Detail 11/23/19 14:10: Crossmatch See Detail 11/24/19 05:25: Magnesium 1.9 11/24/19 05:25: Phosphorus 3.0 11/24/19 12:45: Hgb 8.5 L, Hct 29.4 L 11/25/19 03:30: WBC 8.0, RBC 3.28 L, Hgb 7.8 L, Hct 27.0 L, MCV 82.3, MCH 23.8 L , MCHC 28.9 L, RDW Std Deviation 57.0 H, RDW Coeff of Sina 19.8 H, Plt Count 218, MPV 11.6, Immature Gran % (Auto) 0.500, Neut % (Auto) 75.9 H, Lymph % (Auto) 12.4 L, [place] % (Auto) 9.1, Eos % (Auto) 1.7, Baso % (Auto) 0.4, Absolute Neuts (auto) 6.1, Absolute Lymphs (auto) 0.99, Nucleated RBC % 0.2 11/25/19 03:30: Sodium 144, Potassium 3.4 L, Chloride 112 H, Carbon Dioxide 25.0, Anion Gap 7, BUN 13, Creatinine 0.96, Estim Creat Clear Calc 38.80, Est GFR (MDRD) Af Amer 73, Est GFR (MDRD) Non-Af 61, BUN/Creatinine Ratio 13.6, Glucose 100, Calcium 8.0 L 11/25/19 03:30: Magnesium 1.9 Current Medications Dextrose (D50w Syringe) 0 gm IV X1 PRN; Protocol PRN Reason: Hypoglycemia Ferrous Sulfate (Ferrous Sulfate) 325 mg PO DAILY PRN PRN 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 Glucagon () 1 mg IM .X1 PRN PRN Reason: Hypoglycemia Pantoprazole Sodium 40 mg/ (Sodium Chloride) 110 mls @ 330 mls/hr IV Q12 BRIANNE Last Infusion: 11/24/19 23:02 Dose: Infused Documented by: Nutritional Formula (Lactose Free) (Ensure Clear) 120 ml PO TIDCM BRIANNE Last Admin: 11/25/19 07:55 Dose: 120 ml Documented by: Ondansetron HCl (Zofran) 4 mg IV Q6H PRN PRN PRN Reason: nausea, emesis Last Admin: 11/24/19 01:56 Dose: 4 mg Documented by: Sodium Chloride () 10 - 40 ml IV UD PRN PRN Reason: SALINE FLUSH Last Admin: 11/24/19 13:37 Dose: 20 ml Documented by: STROKE Vital Signs/Narrative: Vital Signs Pulse Resp BP Pulse Ox 11/25/19 10:00 86 21 H 115/54 L 100 11/25/19 09:00 87 28 H 159/108 H 95 11/25/19 08:00 79 18 114/75 99 Medical Necessity - Tobacco Use Smoking Status: Unknown if ever smoked Assessment/Plan All Active Problems (Last Reviewed 07/26/19 @ 10:03 by Ignacia Rodriguez) Acute anemia (Acute) Non-ischemic cardiomyopathy (Acute) General learning disability (Acute) H/O aortic valve replacement (Acute) History of left heart catheterization (Acute) Paroxysmal atrial fibrillation (Acute) Hypotension due to blood loss (Acute) Acute on chronic systolic (congestive) heart failure (Acute) Non-ischemic cardiomyopathy (Acute) Lower extremity edema (Resolved) 1. Acute microcytic, hypochromic anemia * Hb today is 7.8. She was transfused 3 units of PRBC * Had EGD yesterday which was negative. Colonoscopy could not be done as patient became bradycardic hypotensive during procedure. * xarelto on hold * iron level was 127, with iron saturation of 32.9 and TIBC of 386. Ferritin level was very low at 4, indicating very low iron storage * on IV pantoprazole 40mg bid * Colonoscopy tomorrow. * 2. Hypokalemia: Potassium is 3.4 today. Replace and monitor. 3. Afib: * rate controlled. * Hold xarelto,. * carvedilol also held o/a of BP running low. * Per cardiology, in light of her anemia, continued anticoagulation will need to be reevaluated. * Cardiology recommended discontinuing outpatient follow-up on outpatient basis for decision to be made about whether to resume. 4. Hypotension: * BP is now in the 100s systolic. * Carvedilol and lasix on hold. 5. HFpEF; * clinically not in exacerbation. * on room air. lasix on hold due to hypotension on admission * became bradycardic and hypoxic during EGD yesterday * cardiology on board; for 2D echo tomorrow as part of preoperative cardiac evaluation. Last 2D echo done showed EF of 35%. * 6. History of aortic stenosis: * Has a known bioprosthetic aortic valve replacement. * Last echocardiogram demonstrated moderate stenosis. * Repeat echo tomorrow. * DVT prophylaxis; SCDs Code status: DNRCCA Position: Transfer to PCU today. Inpatient E&M: 85777 Subs Hosp L2
[2019-11-25] MEDS: 0.9% Saline Lock 10 ML Syringe IV (21:22)
[2019-11-26] VITALS (16 sets, daily range): BP systolic 78–117; BP diastolic 39–88; PULSE 64–111; RESP 18–29; TEMP 36.5–37.1; O2SAT 93–100
[2019-11-26 05:45] LABS: Absolute Lymphocyte Count 0.73 X10^3/uL (0.83-4.51); Absolute Neutrophil Count 4.7 X10^3/uL (2.0-7.7); Basophil# 0.04 X10^3/uL; Basophil% 0.6 % (0-1); Eosinophil# 0.19 X10^3/uL; Eosinophils% 3.1 % (0-5); Hematocrit 31.9 % (37-47); Hemoglobin 8.3 g/dL (12.0-15.0); Lymphocyte # 0.73 X10^3/ul (4.0); Lymphocyte % 11.8 % (19-41); Mean Corpuscular Hgb 23.9 pg (27.0-32.0); Mean Corpuscular Volume 91.7 fL (81-99); Mean Platelet Vol. 11.9 fl (6.2-12.0); Monocyte# 0.46 X10^3/uL; Monocyte% 7.5 % (0-10); NRBC Flagged by Analyzer 0.3 % (0-5); Neutrophil # 4.73 X10^3/uL (2.7-7.7); Neutrophil % 76.7 % (47-70); POSITIVE MORPHOLOGY YES; Platelet Count 176 K/mm3 (150-450); RBC Distribution Width CV 21.6 % (11.6-14.6); RBC Distribution Width SD 69.7 fl (35.1-43.9); Red Blood Count 3.48 M/mm3 (4.2-5.4); White Blood Count 6.2 K/mm3 (4.4-11.0)
[2019-11-26 06:00] LABS: International Normalized Ratio 1.3; Partial Thromboplast Time 25.7 Seconds (24.1-36.2); Prothrombin Time (Protime)PT. 15.8 SECONDS (11.7-14.9)
[2019-11-26 06:06] LABS: Anion Gap 5 (5-15); BUN 9 mg/dL (7-18); BUN/Creat Ratio 9.9 RATIO (10-20); Calcium,Total 8.1 mg/dL (8.5-10.1); Chloride 113 mmol/L (98-107); EST Glomerular Filtration Rate 65 mL/min (>60); Est Glom Filt Rate - Afr Amer 78 mL/min (>60); Estimated Creatinine Clearance 41.38 ml/min; Glucose 87 mg/dL (74-106); Potassium 4.7 mmol/L (3.5-5.1); Sodium Level 140 mmol/L (136-145)
[2019-11-26 06:17] LABS: Differential Comment SCANNED; Differential Indicated SCAN CRITERIA MET
[2019-11-26 06:18] LABS: Hypochromasia 1+; Microcytosis RARE; Polychromasia RARE
[2019-11-26] MEDS: 0.9% Saline Lock 10 ML Syringe IV (09:11)
--- NOTE | 2019-11-26 09:16 | PCM.PN.INT ---
Subjective: Patient did well overnight. No acute issues were reported. Patient was transferred out of the intensive care unit and has no complaints this morning. Patient has not reported any bleeding. Patient wants to get this over with (colonoscopy). General: Alert, Oriented x3, Cooperative, No apparent distress, - - No conversational dyspnea noted HEENT: Atraumatic, PERRLA, EOMI, Normocephalic, - - No scleral icterus or injection noted Oral: Moist Mucosa, No Gingival or Mucosal Lesions/ Ulcerations Neck: Supple, No JVD, No Nodes, Trachea Midline Lungs: Clear to auscultation, Normal air movement, No rhonchi, No wheeze, No rales Cardiovascular: Normal S1, Normal S2, Irregular Rate, Murmur, No rub noted, No Gallop Abdomen: Bowel Sounds Present, Soft, Non Tender, Non-Distended Extremities: No clubbing, No cyanosis, No edema Skin: No breakdown Musculoskeletal: No Tenderness to Palpation of Joints or Extremities Lymphatic: No Cervical, Supraclavicular, or Inguinal Adenopathy Neurological: Cranial nerves II-XII grossly intact, Neuro grossly intact, Motor Exam 5/5 strength throughout Psych/Mental Status: Normal Affect, Appropriate Vital Signs Temp Pulse Resp BP Pulse Ox 37.0 C 72 18 106/39 L 97 11/26/19 09:00 11/26/19 09:00 11/26/19 09:00 11/26/19 09:00 11/26/19 09:00 Oxygen Flow Rate (L/min) 4 Oxygen Delivery Method Room Air Weight: 67.2 kg Body Mass Index (BMI) 26.3 Intake and Output for Last 24 Hours 11/24/19 11/25/19 11/26/19 23:59 23:59 23:59 Intake Total 5776.25 / 6256.25 3580 / 3580 0 / 0 Output Total 385 / 685 700 / 700 Balance 5391.25 / 5571.25 2880 / 2880 0 / 0 Labs (Last 48 Hours) 11/23/19 11/23/19 11/24/19 14:10 14:10 05:25 WBC RBC Hgb Hct MCV MCH MCHC RDW Std Deviation RDW Coeff of Sina Plt Count MPV Immature Gran % (Auto) Neut % (Auto) Lymph % (Auto) [place] % (Auto) Eos % (Auto) Baso % (Auto) Absolute Neuts (auto) Absolute Lymphs (auto) Nucleated RBC % Differential Comment Polychromasia Hypochromasia Microcytosis PT INR APTT Sodium Potassium Chloride Carbon Dioxide Anion Gap BUN Creatinine Estim Creat Clear Calc Est GFR (MDRD) Af Amer Est GFR (MDRD) Non-Af BUN/Creatinine Ratio Glucose Calcium Phosphorus Magnesium 1.9 Crossmatch See Detail See Detail 11/24/19 11/24/19 11/25/19 05:25 12:45 03:30 WBC 8.0 RBC 3.28 L Hgb 8.5 L 7.8 L Hct 29.4 L 27.0 L MCV 82.3 MCH 23.8 L MCHC 28.9 L RDW Std Deviation 57.0 H RDW Coeff of Sina 19.8 H Plt Count 218 MPV 11.6 Immature Gran % (Auto) 0.500 Neut % (Auto) 75.9 H Lymph % (Auto) 12.4 L [place] % (Auto) 9.1 Eos % (Auto) 1.7 Baso % (Auto) 0.4 Absolute Neuts (auto) 6.1 Absolute Lymphs (auto) 0.99 Nucleated RBC % 0.2 Differential Comment Polychromasia Hypochromasia Microcytosis PT INR APTT Sodium Potassium Chloride Carbon Dioxide Anion Gap BUN Creatinine Estim Creat Clear Calc Est GFR (MDRD) Af Amer Est GFR (MDRD) Non-Af BUN/Creatinine Ratio Glucose Calcium Phosphorus 3.0 Magnesium Crossmatch 11/25/19 11/25/19 11/26/19 03:30 03:30 05:24 WBC 6.2 RBC 3.48 L Hgb 8.3 L Hct 31.9 L MCV 91.7 D MCH 23.9 L MCHC 26.0 L D RDW Std Deviation 69.7 H RDW Coeff of Sina 21.6 H Plt Count 176 MPV 11.9 Immature Gran % (Auto) 0.300 Neut % (Auto) 76.7 H Lymph % (Auto) 11.8 L [place] % (Auto) 7.5 Eos % (Auto) 3.1 Baso % (Auto) 0.6 Absolute Neuts (auto) 4.7 Absolute Lymphs (auto) 0.73 L Nucleated RBC % 0.3 Differential Comment SCANNED Polychromasia RARE Hypochromasia 1+ Microcytosis RARE PT INR APTT Sodium 144 Potassium 3.4 L Chloride 112 H Carbon Dioxide 25.0 Anion Gap 7 BUN 13 Creatinine 0.96 Estim Creat Clear Calc 38.80 Est GFR (MDRD) Af Amer 73 Est GFR (MDRD) Non-Af 61 BUN/Creatinine Ratio 13.6 Glucose 100 Calcium 8.0 L Phosphorus Magnesium 1.9 Crossmatch 11/26/19 11/26/19 05:24 05:24 WBC RBC Hgb Hct MCV MCH MCHC RDW Std Deviation RDW Coeff of Sina Plt Count MPV Immature Gran % (Auto) Neut % (Auto) Lymph % (Auto) [place] % (Auto) Eos % (Auto) Baso % (Auto) Absolute Neuts (auto) Absolute Lymphs (auto) Nucleated RBC % Differential Comment Polychromasia Hypochromasia Microcytosis PT 15.8 H INR 1.3 APTT 25.7 Sodium 140 Potassium 4.7 Chloride 113 H Carbon Dioxide 22.0 Anion Gap 5 BUN 9 Creatinine 0.90 Estim Creat Clear Calc 41.38 Est GFR (MDRD) Af Amer 78 Est GFR (MDRD) Non-Af 65 BUN/Creatinine Ratio 9.9 L Glucose 87 Calcium 8.1 L Phosphorus Magnesium Crossmatch Medical Necessity - Tobacco Use Smoking Status: Unknown if ever smoked Assessment/Plan All Active Problems (Last Reviewed 07/26/19 @ 10:03 by Ignacia Rodriguez) Acute anemia (Acute) Non-ischemic cardiomyopathy (Acute) General learning disability (Acute) H/O aortic valve replacement (Acute) History of left heart catheterization (Acute) Paroxysmal atrial fibrillation (Acute) Hypotension due to blood loss (Acute) Acute on chronic systolic (congestive) heart failure (Acute) Non-ischemic cardiomyopathy (Acute) Lower extremity edema (Resolved) RECOMMENDATIONS: 1. Continue to hold Xarelto and aspirin. 2. Continue to monitor blood counts daily. Transfuse for hemoglobin less than 7 g/dL. 3. Continue twice daily PPI therapy. 4. Additional potassium repletion not indicated 5. Await results of colonoscopy. If tolerates well, likely sign off from a critical care perspective IMPRESSIONS: 1. Acute blood loss anemia The patient has been transfused packed red blood cells with improvement in hemoglobin noted. No GI source of blood loss has been identified to date. Recommend continuing twice daily PPI therapy. Monitor blood counts daily and transfuse if hemoglobin drops below 7 g/dL. Plan for lower endoscopy today with general surgery. The patient remains hemodynamically stable. If patient is able to tolerate the procedure with no complications, likely sign off from a critical care perspective. 2. History of nonischemic cardiomyopathy/paroxysmal atrial fibrillation/combined systolic and diastolic heart failure Recommend judicious use of supplemental IV fluids and blood products, given the patient's underlying cardiac manifestations. If additional blood products are warranted, recommend administration of IV diuretic therapy. Potassium level is appropriate, so no supplementation is indicated. 3. Hypokalemia Additional potassium repletion not indicated. Recheck levels in the morning. Inpatient E&M: 49573 [facility] [[email or web address]] Hosp L2
[2019-11-26] MEDS: Lactated Ringers 1,000 ML 75 ML IV (11:20)
[2019-11-26 12:15] LABS: Pathologist Review Reviewed
--- NOTE | 2019-11-26 12:56 | OP.CCLET_ITS ---
11/26/2019 Pham Caban [address] [place] [address] Re : Colonoscopy procedure for Gerri Mckinley Dear Dr. Caban This procedure was performed on Tuesday, November 26, 2019. My impressions and recommendations are as follows: Impressions : - Preparation of the colon was unsatisfactory/poor/old retained inspissated solid fecal material, however no obvious large lumenal lesions were seen. - Diverticulosis in the sigmoid colon. - Non-bleeding internal hemorrhoids. - No specimens collected. Recommendations : - Repeat colonoscopy PRN as per discretion of patient and her family. - Return to primary care physician PRN. - Continue present medications. My findings are described in the full procedure note, which is enclosed. If I can be of further assistance, please feel free to contact me at Doctor phone number(s): , Work: . Sincerely, MD Lila Kennedy MD 11/26/2019 12:55:40 PM This report has been signed electronically.
--- NOTE | 2019-11-26 12:56 | OP.COLON_ITS ---
Patient Name: Gerri Mckinley Procedure Date: 11/26/2019 12:00 PM Date of : 1945 Age: 74 Procedure: Colonoscopy Indications: Iron deficiency anemia Providers: Lila Ackerman MD Medicines: See the Anesthesia note for documentation of the administered medications Patient Profile: Refer to note in patient chart for documentation of history and physical. Last Colonoscopy: none. The patient's first colonoscopy is today. Complications: No immediate complications. Procedure: Pre-Anesthesia Assessment: - see anesthesia note After I obtained informed consent, the scope was passed under direct vision. Throughout the procedure, the patient's blood pressure, pulse, and oxygen saturations were monitored continuously. The colonoscope was introduced through the anus and advanced to the cecum, identified by appendiceal orifice and ileocecal valve. The colonoscopy was performed without difficulty. The patient tolerated the procedure well. The quality of the bowel preparation was unsatisfactory. Scope In: 12:11:27 PM Scope Withdrawal Time 0 hours 15 minutes 3 seconds Scope Out: 12:45:07 PM Total Procedure Duration Time 0 hours 33 minutes 40 seconds Findings: The perianal and digital rectal examinations were normal. Pertinent negatives include normal sphincter tone. Multiple small and large-mouthed diverticula were found in the sigmoid colon. Non-bleeding internal hemorrhoids were found. Impression: - Preparation of the colon was unsatisfactory/poor/old retained inspissated solid fecal material, however no obvious large lumenal lesions were seen. - Diverticulosis in the sigmoid colon. - Non-bleeding internal hemorrhoids. - No specimens collected. Recommendation: - Repeat colonoscopy PRN as per discretion of patient and her family. - Return to primary care physician PRN. - Continue present medications. Procedure Code(s): --- Professional --- 56445, Colonoscopy, flexible; diagnostic, including collection of specimen(s) by brushing or washing, when performed (separate procedure) Diagnosis Code(s): --- Professional --- K64.8, Other hemorrhoids D50.9, Iron deficiency anemia, unspecified K57.30, Diverticulosis of large intestine without perforation or abscess without bleeding CPT copyright 2017 [employer]. All rights reserved. The codes documented in this report are preliminary and upon pulley man review may be revised to meet current compliance requirements. MD Lila Kennedy MD 11/26/2019 12:55:40 PM This report has been signed electronically. Number of Addenda: 0 Note Initiated On: 11/26/2019 12:00 PM
--- NOTE | 2019-11-26 14:11 | PCM.PN.BLA ---
Progress Note Colonoscopy done. Poor colon cleansing preparation, however, no obvious large masses seen and no evidence of bleeding. Follow up with patient's PCP, thanks SERVANDO Vital Signs/Narrative: Vital Signs Temp Pulse Resp BP Pulse Ox 11/26/19 13:45 97.8 F 82 19 H 95/48 L 95 11/26/19 13:20 97.9 F 95 18 113/88 H 95 11/26/19 13:15 110 H 18 103/75 93 11/26/19 13:10 111 H 18 78/69 L 97 11/26/19 13:05 108 H 18 117/69 96 11/26/19 13:00 103 H 18 113/79 94 11/26/19 12:55 98.1 F 95 18 103/59 L 96
--- NOTE | 2019-11-26 15:59 | CHAPLAIN ---
Type of Pastoral Visit _x__ Initial Visit ___ Follow-up Visit ___ On-call Visit ___ General Patient Visit ___ Spiritual Assessment ___ Family Conference ___ Bereavement ___ Rapid Response ___ Code Blue ___ Other (describe below) Pastoral Care Referral From _x__ Patient ___ Family ___ Nurse ___ Physician ___ College Sports Coach ___ Side Gluer ___ Other (describe below) Sacrament/Intervention _x__ Active listening ___ Anointing ___ Catholic ___ Bereavement ___ Communion ___ Crystal exploration ___ ___ Life review ___ Prayer ___ Reconciliation ___ Sacrament of Sick _x__ Supportive presence ___ Wedding ___ Other (describe below) Pastoral Comments patient returned from procedure; pt appears to be 'happy' and says that she does not need anything except to find out why she is bleeding
--- NOTE | 2019-11-26 16:12 | DCINST_ITS ---
- Discharge Diagnoses Current Active Problems: Current Active and Chronic Problems (Last Reviewed 07/26/19 @ 10:03 by Ignacia Rodriguez) Acute anemia (Acute) Acute on chronic systolic (congestive) heart failure (Chronic) Non-ischemic cardiomyopathy (Acute) General learning disability (Acute) H/O aortic valve replacement (Acute) History of left heart catheterization (Acute) Paroxysmal atrial fibrillation (Acute) Hypotension due to blood loss (Acute) You will use the following diet at home:: No restrictions Your food should be the consistency of: Regular Your liquids should be the consistency of: Regular/Thin Discharge Activity: Return to Normal Activity Weight Bearing Status: Full weight bearing Additional Instructions: GET CBC DONE ON TUESDAY THIS WEEK Allergies/Adverse Reactions: Allergies Sulfa (Sulfonamide Antibiotics) Allergy (Verified 11/23/19 12:19) Other Medications to take at Discharge furosemide 40 mg tablet 40 mg PO DAILY #90 tab 06/26/18 potassium chloride 20 mEq tablet,extended release(part/cryst) 20 meq PO DAILYCM #90 tab 06/26/18 Carvedilol [Coreg] 3.125 mg PO DAILY 11/23/19 Ferrous Sulfate [Slow Fe] 142 mg PO DAILY PRN PRN 11/23/19 Primary Care Physician: Pham Caban MD [Primary Care Provider] - Please follow up with your Primary Care Physician in: as scheduled Test Results: Test results from this visit will be discussed in further detail at your follow- up appointment, if applicable. Please Follow Up With: Brandt Fernandez MD When: call him next week for follow up regarding aspirin and Xarelto in future
--- NOTE | 2019-11-27 12:41 | CASEMGMT ---
TATE BENEDICT DC PHONE CALL DC DATE: 11/26/2019 DC DISPOSITION: Home DC DIAGNOSIS: anemia, CHF LACE/STRATA: 04/22 F/U APPTS MADE PRIOR TO DC: No PRESCRIPTIONS ACQUIRED BY PT: yes Intro role of CM to patient's sister who assists her with medications and care. Per her sister, pt is doing well, no questions re: medications instructions or f/u. States she spoke with PCP this am and is waiting for call back to schedule appointment. No care improvement suggestions were given. Shyam JACQUES RN ACM
--- NOTE | 2019-11-27 19:21 | PCM.DC.SUM ---
Discharge Date and Diagnosis Date of Admission: 11/23/19 Date of Discharge: 11/26/19 - Primary Discharge Diagnosis Acute Problems: #1 acute blood loss anemia-believed to be secondary to gastrointestinal bleeding from unknown site requiring transfusion #2 paroxysmal atrial fibrillation #3 essential hypertension #4 hypokalemia #5 moderate MRDD #6 nonischemic cardiomyopathy I do not believe the patient had acute on chronic systolic congestive heart failure - Secondary Discharge Diagnosis Chronic Problems: Chronic Problems (Last Reviewed 07/26/19 @ 10:03 by Ignacia Rodriguez) Acute on chronic systolic (congestive) heart failure (Chronic) History of left heart catheterization (Chronic 09/07/17) 09/07/[address] Fernandez @ [facility]: Lad 30% stenosis, all other coronaries normal; no significant AI noted; (also prior to AVR in 02/2007 ? facility) Paroxysmal atrial fibrillation (Chronic) longterm (current) use of anticoagulants (Chronic) H/O aortic valve replacement (Chronic 02/23/07) 02/23/[address] #[address] [employer], as well as closure of PFO per Dr. Alexander Guerrero [facility] Stasis dermatitis of both legs (Chronic) General learning disability (Chronic) BMI 32.0-32.9,adult (Chronic) Hospital Course and Treatment Operations: None Procedures: Blood transfusion, Colonoscopy, EGD Summary of Care Provided: The patient is a 74 year old [facility] after being brought in by her sister whom she lives with-patient has MRDD and her sister takes care of her at home. She complained of shortness of breath and lethargy, labs were obtained which showed a low hemoglobin, potassium was low at 3.1. Patient was admitted to ICU, she was seen in consultation by intensive care service, she was also seen by general surgery and she was given blood transfusions. Patient underwent an EGD which did not show any evidence of bleeding, she then underwent a colonoscopy which did not reveal any evidence of active bleeding but the prep was poor. Patient was also seen in consultation by cardiology. On 11/26/2019, patient was seen and examined: On examination she had apparent cognitive dysfunction, she does not appear to be in any distress. Vital signs as documented. Skin warm and dry and without overt rashes. Neck without JVD, thyroid appears normal, trachea is midline, neck is supple. Lungs clear, normal air movement was noted. Heart exam notable for regular rhythm, normal sounds and absence of murmurs, rubs or gallops. Abdomen unremarkable and without evidence of organomegaly, masses, or abdominal aortic enlargement, bowel sounds are present in all 4 quadrants, no abdominal tenderness was noted. Extremities nonedematous, no cyanosis was noted, no clubbing was noted. Neuro: Cranial nerves II through XII are grossly intact, no focal motor deficits were noted, sensation to light touch and pinprick is intact, motor exam 5/5 throughout. Psych: Patient is alert and oriented x3, she does not appear anxious or depressed, she does not appear agitated. Etiology of the patient's acute anemia was unknown, this examiner felt that she had an occult GI bleed that was not identified. Patient was discharged home in stable condition on 11/26/2019. - Physical Exam Vitals/I&O's: Vital Signs Temp Pulse Resp BP Pulse Ox 98.8 F 90 18 97/55 L 95 11/26/19 15:50 11/26/19 15:50 11/26/19 15:50 11/26/19 15:50 11/26/19 15:50 Oxygen Flow Rate (L/min) 4 Oxygen Delivery Method Room Air Weight: 67.2 kg Body Mass Index (BMI) 26.3 Intake and Output for Last 24 Hours 11/25/19 11/26/19 11/27/19 23:59 23:59 23:59 Intake Total 3580 / 3580 298.75 / 298.75 Output Total 700 / 700 Balance 2880 / 2880 298.75 / 298.75 Discharge Activity: Return to Normal Activity Weight Bearing Status: Full weight bearing Home Medications: Medications to take at Discharge furosemide 40 mg tablet 40 mg PO DAILY #90 tab 06/26/18 potassium chloride 20 mEq tablet,extended release(part/cryst) 20 meq PO DAILYCM #90 tab 06/26/18 Carvedilol [Coreg] 3.125 mg PO DAILY 11/23/19 Ferrous Sulfate [Slow Fe] 142 mg PO DAILY PRN PRN 11/23/19 Primary Care Physician: Pham Caban MD [Primary Care Provider] - Please follow up with your Primary Care Physician in: as scheduled Please Follow Up With: Brandt Fernandez MD When: call him next week for follow up regarding aspirin and Xarelto in future Disposition: Home Minutes spent on discharge:: 31 Patient Condition:: Stable Medical Necessity - Tobacco Use Smoking Status: Unknown if ever smoked Meaningful Use Info Meaningful Use Diagnoses (Choose all that apply): None applicable Inpatient E&M: 32325 Disch Hosp
== END 2019-11-26 16:54 | disposition home or self-care (01) | DRG 378 ==
LOC: ED 15:46 → ICU 16:04 → PCU 11-25 14:18
PROVIDERS: Anesthesiology; Internal Medicine Critical Care Medicine; Surgery; Admitting Provider Student in an Organized Health Care Education/Training Program; Emergency Provider Physician Assistant Medical; PCP Internal Medicine; Visit Provider Internal Medicine
PROC: 0DJD8ZZ Inspection of Lower Intestinal Tract, Via Natural or Artificial Opening Endoscopic (ICD-10-PCS; CPT 45378; principal; 2019-11-24 11:00)
DX: K92.2 Gastrointestinal hemorrhage, unspecified (principal); D62 Acute posthemorrhagic anemia; I42.8 Other cardiomyopathies; I50.42 Chronic combined systolic (congestive) and diastolic (congestive) heart failure; I11.0 Hypertensive heart disease with heart failure; I48.0 Paroxysmal atrial fibrillation; E87.6 Hypokalemia; Z86.73 Personal history of transient ischemic attack (TIA), and cerebral infarction without residual deficits; Z95.3 Presence of xenogenic heart valve; I95.9 Hypotension, unspecified; F81.9 Developmental disorder of scholastic skills, unspecified; Z79.82 Long term (current) use of aspirin; Z79.899 Other long term (current) drug therapy; Z79.02 Long term (current) use of antithrombotics/antiplatelets; K44.9 Diaphragmatic hernia without obstruction or gangrene; K57.30 Diverticulosis of large intestine without perforation or abscess without bleeding; K64.8 Other hemorrhoids; D50.9 Iron deficiency anemia, unspecified; Z66 Do not resuscitate; I35.0 Nonrheumatic aortic (valve) stenosis
CPT/HCPCS: 36415; 71045; 78278; 80048; 80053; 81001; 82274; 82728; 83540; 83550; 83735; 83880; 84100; 84484; 85014; 85018; 85025; 85610; 85730; 86850; 86900; 86901; 86920; 86922; 87635; 93005; 93306; 97162; 97166; 99284; A9560; G2023; J7030; J7120; P9016; Q9957; A4216; J2405; U0003

== ENCOUNTER → 2019-11-29 09:01 | Outpatient (CLI) | payer MEDICARE, OTHER, SELFPAY ==
[2019-11-23 16:46] VITALS: BMI 26.3
[2019-11-29 09:21] LABS: Hematocrit 33.3 % (37-47); Hemoglobin 9.1 g/dL (12.0-15.0); Mean Corp Hgb Conc 27.3 g/dL (32-36); Mean Corpuscular Hgb 23.5 pg (27.0-32.0); Mean Corpuscular Volume 85.8 fL (81-99); Mean Platelet Vol. 10.7 fl (6.2-12.0); POSITIVE MORPHOLOGY YES; Platelet Count 190 K/mm3 (150-450); RBC Distribution Width CV 20.3 % (11.6-14.6); RBC Distribution Width SD 62.6 fl (35.1-43.9); Red Blood Count 3.88 M/mm3 (4.2-5.4); White Blood Count 5.8 K/mm3 (4.4-11.0)
[2019-11-29 09:22] LABS: Scan Indicated on CBC? Y/N YES- FLAGS NOTED
== END ==
PROVIDERS: PCP Internal Medicine; Referring Provider Internal Medicine; Visit Provider Internal Medicine
DX: D62 Acute posthemorrhagic anemia (principal)
CPT/HCPCS: 36415; 85027

== ENCOUNTER → 2021-03-17 10:42 | Outpatient (CLI) | payer MEDICARE, OTHER, SELFPAY ==
--- NOTE | 2021-03-17 10:45 | ECHOD_ITS ---
Reason For Study: VALVE REPLACEMENT EVAL Procedure This was a 2D Doppler, Color Flow transthoracic echocardiogram. The study was technically difficult. Exam performed in department. Left Ventricle Mildly dilated left ventricle. Moderate global left ventricular systolic dysfunction. The estimated ejection fraction is 30 %. There is evidence of diastolic dysfunction. Right Ventricle Normal RV size. Normal systolic function. Atria The left atrium is moderately enlarged. Normal right atrium. No doppler evidence for ASD. Mitral Valve There is mild mitral annular calcification. Moderate diffuse mitral valve thickening. Moderate (2+) mitral valve insufficiency. Tricuspid Valve Normal tricuspid valve. Mild tricuspid valve insufficiency. Unable to estimate RV systolic pressure due to insufficient tricuspid regurgitant envelope. Aortic Valve Moderate to severe aortic valve stenosis. Stable appearing bioprosthetic aortic valve apparatus. Mild transvalvular insufficiency of the aortic valve. Pulmonic Valve The pulmonic valve is not well visualized. Mild (1+) pulmonic valve insufficiency. Great Vessels The aortic root is not well visualized. Pericardium/Pleural No pericardial effusion. MMode/2D Measurements & Calculations LVIDd: 5.5 cm IVSd: 0.82 cm LVOT diam: 1.8 cm LVIDs: 4.4 cm LVPWd: 0.91 cm LVOT area: 2.5 cm2 RVDd: 3.0 cm FS: 20.2 % LAV(MOD-bp): 61.4 ml LA A4 area: 18.2 cm2 LA dimension(2D): 5.2 cm LAV(MOD-bp) Indexed: 38.4 ml/m2 LAV(MOD-sp2): 65.2 ml LAV(MOD-sp4): 53.0 ml RA A4 area: 8.1 cm2 Time Measurements MV dec time: 0.14 sec Doppler Measurements & Calculations MV E max salo: 66.8 cm/sec Lat Peak E' Salo: 7.3 cm/sec Med Peak E' Salo: 3.5 cm/sec MV A max salo: 82.4 cm/sec E/E' lat: 9.2 E/E' med: 19.2 MV E/A: 0.81 Ao V2 max: 376.0 cm/sec AI max salo: 377.6 cm/sec LV V1 max: 78.2 cm/sec Ao max P.6 mmHg AI max P.0 mmHg LV V1 max P.5 mmHg Ao V2 mean: 268.0 cm/sec AI dec slope: 416.3 cm/sec2 LV V1 mean P.3 mmHg Ao mean P.4 mmHg AI P1/2t: 265.6 msec LV V1 mean: 53.2 cm/sec Ao V2 VTI: 79.5 cm LV V1 VTI: 16.5 cm CE(I,D): 0.52 cm2 CE(V,D): 0.52 cm2 SV(LVOT): 41.3 ml PA V2 max: 97.3 cm/sec PI dec slope: 150.0 cm/sec2 ECHO/Echo Complete Interpretation Summary The study was technically difficult. Mildly dilated left ventricle. Moderate global left ventricular systolic dysfunction. The estimated ejection fraction is 30 %. The left atrium is moderately enlarged. There is mild mitral annular calcification. Moderate diffuse mitral valve thickening. Moderate (2+) mitral valve insufficiency. Mild tricuspid valve insufficiency. Stable appearing bioprosthetic aortic valve apparatus. Moderate to severe aortic valve stenosis. Mild transvalvular insufficiency of the aortic valve. Mild (1+) pulmonic valve insufficiency. Unable to estimate RV systolic pressure due to insufficient tricuspid regurgita nt envelope. There is evidence of diastolic dysfunction. Ordering Physician: Jabari Cuenca Referring Physician: Pham Caban Performed By: Crystal Gutierrez, KING, RVT
== END ==
PROVIDERS: PCP Internal Medicine; Referring Provider Internal Medicine Cardiovascular Disease; Visit Provider Internal Medicine Cardiovascular Disease
DX: Z95.2 Presence of prosthetic heart valve (principal)
CPT/HCPCS: 93306

== ENCOUNTER → 2021-04-21 10:00 | Outpatient (CLI) | payer MEDICARE, OTHER, SELFPAY ==
[2021-04-21 12:32] LABS: Absolute Lymphocyte Count 0.91 X10^3/uL (0.83-4.51); Absolute Neutrophil Count 4.8 X10^3/uL (2.0-7.7); Basophil# 0.03 X10^3/uL; Basophil% 0.5 % (0-1); Eosinophil# 0.11 X10^3/uL; Eosinophils% 1.7 % (0-5); Hemoglobin 13.2 g/dL (12.0-15.0); Lymphocyte # 0.91 X10^3/ul (0.83-4.51); Lymphocyte % 14.2 % (19-41); Mean Corp Hgb Conc 30.7 g/dL (32-36); Mean Corpuscular Hgb 26.5 pg (27.0-32.0); Mean Corpuscular Volume 86.3 fL (81-99); Monocyte# 0.53 X10^3/uL; Monocyte% 8.3 % (0-10); NRBC Flagged by Analyzer 0 % (0-5); Neutrophil % 75.1 % (47-70); Platelet Count 165 K/mm3 (150-450); RBC Distribution Width CV 13.8 % (11.6-14.6); RBC Distribution Width SD 43.8 fl (35.1-43.9); Red Blood Count 4.98 M/mm3 (4.2-5.4); White Blood Count 6.4 K/mm3 (4.4-11.0)
[2021-04-21 12:56] LABS: Vitamin B12 310 pg/mL (211-911); Vitamin D,25 Hydroxy 35.4 ng/mL
[2021-04-21 13:08] LABS: ALB/GLOB Ratio 0.9 RATIO (0.9-2.4); AST(SGOT) 21 U/L (15-37); Alanine Aminotransfer ALT/SGPT 16 U/L (13-56); Albumin, Serum 3.5 g/dL (3.2-5.0); Alkaline Phosphatase 112 U/L (45-117); Anion Gap 8 (5-15); BUN 37 mg/dL (7-18); BUN/Creat Ratio 34.9 RATIO (10-20); Calcium,Total 9.3 mg/dL (8.5-10.1); Chloride 104 mmol/L (98-107); Cholesterol 185 mg/dL (200); Creatinine, Serum 1.06 mg/dL (0.55-1.02); EST Glomerular Filtration Rate 54 mL/min (>60); Est Glom Filt Rate - Afr Amer 65 mL/min (>60); Ferritin 94 ng/mL (8-252); Globulin 3.7 g/dL (2.2-4.2); Glucose 88 mg/dL (74-106); High Density Lipoprotein 44 mg/dL; Iron 51 ug/dL (50-170); Iron Binding Capacity,Total 373 ug/dL (250-450); Magnesium 2.4 mg/dL (1.6-2.6); Potassium 4.1 mmol/L (3.5-5.1); Protein, Total 7.2 g/dL (6.4-8.2); Sodium Level 138 mmol/L (136-145); Thyroid Stim Hormone (TSH) 2.84 uIU/mL (0.358-3.74); Triglycerides 124 mg/dL; Very Low Density Lipoprotein 25 mg/dL (5-40)
== END ==
PROVIDERS: PCP Family Medicine; Referring Provider Family Medicine; Visit Provider Family Medicine
DX: D64.9 Anemia, unspecified (principal); E78.5 Hyperlipidemia, unspecified; I48.0 Paroxysmal atrial fibrillation; E55.9 Vitamin D deficiency, unspecified
CPT/HCPCS: 36415; 80053; 80061; 82306; 82607; 82728; 82746; 83540; 83550; 83735; 84443; 85025

== ENCOUNTER → 2021-05-21 11:43 | Outpatient (CLI) | payer MEDICARE, OTHER, SELFPAY ==
[2021-05-21 15:52] LABS: ALB/GLOB Ratio 1.2 RATIO (0.9-2.4); AST(SGOT) 19 U/L (15-37); Alanine Aminotransfer ALT/SGPT 14 U/L (13-56); Albumin, Serum 3.9 g/dL (3.2-5.0); Alkaline Phosphatase 109 U/L (45-117); Anion Gap 8 (5-15); BUN 29 mg/dL (7-18); Calcium,Total 9.2 mg/dL (8.5-10.1); Chloride 106 mmol/L (98-107); EST Glomerular Filtration Rate 57 mL/min (>60); Est Glom Filt Rate - Afr Amer 69 mL/min (>60); Globulin 3.3 g/dL (2.2-4.2); Glucose 80 mg/dL (74-106); Potassium 3.9 mmol/L (3.5-5.1); Protein, Total 7.2 g/dL (6.4-8.2); Sodium Level 141 mmol/L (136-145)
[2021-05-29 14:09] LABS: VITAMIN B6 7.1 ug/L (2.0-32.8)
[2021-05-29 16:10] LABS: Vitamin B1, Thiamine 183.4 nmol/L (66.5-200.0)
== END ==
PROVIDERS: PCP Family Medicine; Referring Provider Family Medicine; Visit Provider Family Medicine
DX: R94.4 Abnormal results of kidney function studies (principal)
CPT/HCPCS: 36415; 80053; 84207; 84425

== ENCOUNTER 2021-07-28 09:30 | Outpatient (RCR) | payer MEDICARE, OTHER, SELFPAY ==
--- NOTE | 2021-06-25 10:28 | HP.PTEVAL ---
Patient's Visit Information ELISEO ZAMORA is a 76 year old F referred to Physical Therapy by Dr. Giorgi Valentin MD with a diagnosis of Loss of balance and neuropathy. Date of Evaluation: 06/25/21 Physical Therapist: Elvis Hicks, DPT, OCS, CSCS - Visit Plan Frequency: 3x /Week Duration: 2-4 Weeks Plan: 3x/week for 3-4 weeks to teach HEP for band core strength, bodyweight LE strength, balance exercises and progress to I at home with pics and list as safety allows, please include recumbent and ellitpical as safety allows as she has access to these at home. Pt is to use cane for safety in the meantime and was trained in that today. She has one at home. - Subjective Sister with her today. Sister talks for her, says balance is not what it should be. has never fallen but walking is unsteady according to patient and sister. Has h/o CHF and was on blood thinner until last spring and it made her goofy. blood work showed problems and scoped and taken off blood thinners. They think the blood thinners effected her balance. Has walked unsteady for a couple years. No cane or walker, has cane. No regular exercises. Spends day walking around apartment as she lives in basement with sister above. Has weights and bike and elliptical in basement but does not use them. Watches alot of TV and reads. Does not drive. Gets groceries brought to her. Very little actviity in winter. Gets outside more in spring. Not employed. Sleeps well. No pain. No dizzyness. No neuropathy. - Objective Walks unsteady slow and hesitant with slight neuropathic gait pattern but I back to PT. Multiple stops to catch balance. Does better when given a cane but still slow, ess unsteady. transfers I needing UE. Steps with one rail reciprocal with weakness but UE for balance, not pulling. Posture is forward head and slightly kyphotic. UE AROM WFL but tends to be stidff at end of elevation adn 4/5 strenght. LE AROM WFL but tightness in HS B, strength is 3 at hip flexion, abd, ext and rotations, knee flex/ext 3+ and ankles 4- but poor motor control at ankles. Tightness present in gastroc at 0 DF actively. reflexes 3/3 patella and achilles B. No clonus. Sensation at deficit in feet and ankles to gross light touch. - Balance/Special Test Scores Functional Gait Assessment Score: 21 % Disability: 30.0000 Lower Extremity Functional Score: 44 - Goals Goal 1:: FGA 25/30 to diminish fall risk. Goal Time Frame: 4-6 Weeks Goal 2:: LEFS 55 to improve mobility Goal Time Frame: 4-6 Weeks Goal 3:: I appropriate HEP to minimze future problems Goal Time Frame: 4-6 Weeks Goal 4:: Walk safely in community without hesitancy Goal Time Frame: 4-6 Weeks - Rehabilitation Potential Physical Therapy Diagnosis: imbalance and sedentarism casuing mobility asn safety deficits. Rehabilitation Potential: Fair - Anticipated Interventions Patient/Client Instruction: Educate patient on: Condition, Plan of Care For the Purpose of:: To improve muscle performance and motor function, To increase tolerance to activity/condition/position, To improve gait and locomotor functions Therapeutic Exercise to Include: Strength training, Balance training, Postural training, Gait and locomotor training For the Purpose of:: To increase tolerance to activity/condition/position, To improve ability of physical actions for home/community/work/leisure, To improve gait and locomotor functions, To improve safety with gait Thank you for the opportunity to evaluate your patient. For Medicare and Medicare HMO plans, please review the plan of care and approve it. It will need to be FAXED BACK to us at [phone] for Medicare purposes. For Medicare only, by signing this I certify the plan of care. Please let me know if there are questions or concerns regarding this plan of care. Physician Signature: Date:
--- NOTE | 2021-07-28 10:27 | HP.PTDCSUM ---
It has been my pleasure to treat ELISEO ZAMORA referred by Dr. Giorgi Valentin MD, with the diagnosis of Loss of balance and neuropathy for a total of 8 visit(s). Discharge Date: 07/28/21 Please see the following information for a summary of their discharge status. Subjective: Getting better. Then says not that good. No falls. Balance is getting a little better but not much. No pain, just in hand. Using cane to get around all the time. Doing home exercises which poop her out a little bit. Pt wants to do her her exercises at home adn commits to doing them daily. L hand Pain Intensity (Out of 10): 2 % Improvement: 10 Objective/Function: FGA is the same. PTIENT APPEARS STRONGER AND MORE CONFIDENT ON FEET. Safer with walker but unwilling to use, does Ok with cane. Goal 1:: FGA 25/30 to diminish fall risk. Goal Progress: Not Progressing Goal 2:: LEFS 55 to improve mobility Goal Progress: Progressing Goal 3:: I appropriate HEP to minimze future problems Goal Progress: Goal Met Goal 4:: Walk safely in community without hesitancy Goal Progress: with cane Plan: d/c to HEP Discharge Comments: to HEP at patient request. If there are questions or concerns regarding this patient's physical therapy, please feel free to call me at [phone]. Thank you for the referral of this patient. Sincerely, Elvis Hicks, DPT, OCS, CSCS Balance/Gait/Functional tests - Balance/Special Test Scores Functional Gait Assessment Score: 21 % Disability: 30.0000 Lower Extremity Functional Score: 53 TUG Test Time Seconds: 14 30 Second Chair Rise Test Seconds: 10
== END 2021-07-28 14:35 | disposition home or self-care (01) ==
LOC: PT 09:30
PROVIDERS: PCP Family Medicine; Referring Provider Family Medicine; Visit Provider Family Medicine
DX: G62.9 Polyneuropathy, unspecified (principal)
CPT/HCPCS: 97110; 97162; 97164

== ENCOUNTER 2021-08-25 08:29 | Outpatient (CLI) | payer MEDICARE, OTHER, SELFPAY ==
[2021-08-25 10:13] LABS: Absolute Lymphocyte Count 0.75 X10^3/uL (0.83-4.51); Absolute Neutrophil Count 4.8 X10^3/uL (2.0-7.7); Basophil# 0.03 X10^3/uL; Basophil% 0.5 % (0-1); Eosinophil# 0.09 X10^3/uL; Eosinophils% 1.5 % (0-5); Hematocrit 41.3 % (37-47); Hemoglobin 12.6 g/dL (12.0-15.0); Lymphocyte # 0.75 X10^3/ul (0.83-4.51); Lymphocyte % 12.2 % (19-41); Mean Corp Hgb Conc 30.5 g/dL (32-36); Mean Corpuscular Hgb 26.2 pg (27.0-32.0); Mean Corpuscular Volume 85.9 fL (81-99); Mean Platelet Vol. 11.3 fl (6.2-12.0); Monocyte# 0.48 X10^3/uL; Monocyte% 7.8 % (0-10); NRBC Flagged by Analyzer 0 % (0-5); Neutrophil # 4.77 X10^3/uL (2.7-7.7); Neutrophil % 77.7 % (47-70); Platelet Count 154 K/mm3 (150-450); RBC Distribution Width CV 14.8 % (11.6-14.6); RBC Distribution Width SD 46.9 fl (35.1-43.9); Red Blood Count 4.81 M/mm3 (4.2-5.4); White Blood Count 6.1 K/mm3 (4.4-11.0)
[2021-08-25 10:43] LABS: Vitamin D,25 Hydroxy 32.1 ng/mL
[2021-08-25 11:03] LABS: BUN 23 mg/dL (7-18); Creatinine, Serum 1.09 mg/dL (0.55-1.02); Glucose 113 mg/dL (74-106)
[2021-08-25 11:04] LABS: AST(SGOT) 21 U/L (15-37); Alanine Aminotransfer ALT/SGPT 15 U/L (13-56); Albumin, Serum 3.6 g/dL (3.2-5.0); Alkaline Phosphatase 85 U/L (45-117); Anion Gap 6 (5-15); BUN/Creat Ratio 21.1 RATIO (10-20); Calcium,Total 9.3 mg/dL (8.5-10.1); Chloride 106 mmol/L (98-107); Cholesterol 88 mg/dL (200); EST Glomerular Filtration Rate 52 mL/min (>60); Est Glom Filt Rate - Afr Amer 63 mL/min (>60); Ferritin 157 ng/mL (8-252); Globulin 3.6 g/dL (2.2-4.2); High Density Lipoprotein 42 mg/dL; Iron 61 ug/dL (50-170); Iron Binding Capacity,Total 325 ug/dL (250-450); Magnesium 2.2 mg/dL (1.6-2.6); Potassium 4.1 mmol/L (3.5-5.1); Protein, Total 7.2 g/dL (6.4-8.2); Sodium Level 140 mmol/L (136-145); Triglycerides 105 mg/dL; Very Low Density Lipoprotein 21 mg/dL (5-40)
[2021-08-26 16:54] LABS: Hemoglobin A1c 5.4 % (3.8-5.6)
== END 2021-08-25 23:59 | disposition home or self-care (01) ==
LOC: MFPLAB 08:33
PROVIDERS: PCP Family Medicine; Referring Provider Family Medicine; Visit Provider Family Medicine
DX: I48.0 Paroxysmal atrial fibrillation (principal); D64.9 Anemia, unspecified; E55.9 Vitamin D deficiency, unspecified; E78.5 Hyperlipidemia, unspecified; R73.09 Other abnormal glucose
CPT/HCPCS: 36415; 80053; 80061; 82306; 82728; 83036; 83540; 83550; 83735; 85025

== ENCOUNTER → 2022-01-15 | Outpatient (CLI) | payer MEDICARE, OTHER, SELFPAY ==
[2022-01-15 12:06] LABS: Erythrocyte Sedimentation Rate 8 mm/hr (0-30)
[2022-01-15 12:07] LABS: Absolute Lymphocyte Count 0.82 X10^3/uL (0.83-4.51); Basophil# 0.04 X10^3/uL; Basophil% 0.7 % (0-1); Eosinophil# 0.12 X10^3/uL; Eosinophils% 2.2 % (0-5); Hematocrit 42.1 % (37-47); Hemoglobin 12.7 g/dL (12.0-15.0); Lymphocyte # 0.82 X10^3/ul (0.83-4.51); Lymphocyte % 14.9 % (19-41); Mean Corp Hgb Conc 30.2 g/dL (32-36); Mean Corpuscular Hgb 25.9 pg (27.0-32.0); Mean Corpuscular Volume 85.9 fL (81-99); Mean Platelet Vol. 11.5 fl (6.2-12.0); Monocyte# 0.55 X10^3/uL; NRBC Flagged by Analyzer 0 % (0-5); Neutrophil # 3.96 X10^3/uL (2.7-7.7); Neutrophil % 71.8 % (47-70); Platelet Count 137 K/mm3 (150-450); RBC Distribution Width CV 15.4 % (11.6-14.6); RBC Distribution Width SD 48.7 fl (35.1-43.9); White Blood Count 5.5 K/mm3 (4.4-11.0)
[2022-01-15 12:21] LABS: Vitamin B12 380 pg/mL (211-911)
[2022-01-15 12:41] LABS: ALB/GLOB Ratio 1.2 RATIO (0.9-2.4); AST(SGOT) 23 U/L (15-37); Alanine Aminotransfer ALT/SGPT 20 U/L (13-56); Albumin, Serum 3.8 g/dL (3.2-5.0); Alkaline Phosphatase 92 U/L (45-117); Anion Gap 4 (5-15); BUN 21 mg/dL (7-18); BUN/Creat Ratio 18.6 RATIO (10-20); Calcium,Total 9.5 mg/dL (8.5-10.1); Chloride 107 mmol/L (98-107); Cholesterol 102 mg/dL (200); Creatinine, Serum 1.13 mg/dL (0.55-1.02); EST Glomerular Filtration Rate 50 mL/min (>60); Est Glom Filt Rate - Afr Amer 60 mL/min (>60); Ferritin 104 ng/mL (8-252); Globulin 3.3 g/dL (2.2-4.2); Glucose 93 mg/dL (74-106); High Density Lipoprotein 49 mg/dL; Iron 61 ug/dL (50-170); Iron Binding Capacity,Total 303 ug/dL (250-450); Magnesium 2.2 mg/dL (1.6-2.6); Potassium 3.8 mmol/L (3.5-5.1); Protein, Total 7.1 g/dL (6.4-8.2); Rheumatoid Factor < 10.0 IU/mL (<15); Sodium Level 141 mmol/L (136-145); Thyroid Stim Hormone (TSH) 2.04 uIU/mL (0.358-3.74); Triglycerides 101 mg/dL; Very Low Density Lipoprotein 20 mg/dL (5-40)
[2022-01-18 13:07] LABS: Anti-Centromere B Ab <0.2 AI (0.0-0.9); Anti-Chromatin <0.2 AI (0.0-0.9); Anti-Jo <0.2 AI (0.0-0.9); Anti-Scleroderma-70 AB <0.2 AI (0.0-0.9); RNP Ab <0.2 AI (0.0-0.9); SJOGREN'S Anti-SS-A test < 0.2 AI (0.0-0.9); SJOGREN'S Anti-SS-B test < 0.2 AI (0.0-0.9); Smith Ab <0.2 AI (0.0-0.9)
[2022-01-18 14:12] LABS: Anti-dsDNA Ab <1 IU/mL (0-9)
[2022-01-19 16:12] LABS: CCP IgG Antibodies 9 units (0-19)
== END | disposition home or self-care (01) ==
LOC: MFPLAB 09:48
PROVIDERS: PCP Family Medicine; Referring Provider Family Medicine; Visit Provider Family Medicine
DX: I48.0 Paroxysmal atrial fibrillation (principal); D64.9 Anemia, unspecified; E78.5 Hyperlipidemia, unspecified; M65.9 Synovitis and tenosynovitis, unspecified; E55.9 Vitamin D deficiency, unspecified
CPT/HCPCS: 36415; 80053; 80061; 82306; 82607; 82728; 82746; 83540; 83550; 83735; 84443; 85025; 85652; 86200; 86225; 86235; 86431

== ENCOUNTER → 2022-01-15 | Outpatient (CLI) | payer MEDICARE, OTHER, SELFPAY ==
--- NOTE | 2022-01-15 09:51 | RAD_ITS ---
STUDY: X-RAY - LEFT HAND REASON FOR EXAM: Female, 76 years old. Hand swelling. TECHNIQUE: 3 view(s) of the hand. COMPARISON: None. FINDINGS: Osteopenia. Mild arthrosis of the radiocarpal articulation. Moderate arthrosis of the radial carpal row. Moderate arthrosis of the first CMC joint. Moderate arthrosis of the MCP and IP joints. Fixed extensor contractures at the PIP joints of the third, fourth and fifth digits. Flexion contracture of the DIP joint of the fifth digit. Diffuse subcutaneous soft tissue edema. RAD/Hand Min 3 Views IMPRESSION: Osteopenia with diffuse moderate osteoarthritic changes. Extensor and flexor contractures as described. Soft tissue swelling. No acute abnormality, chondrocalcinosis or erosive changes. Electronically Signed: Alexander Ji MD at 10:34 EDT ,
--- NOTE | 2022-01-15 09:52 | RAD_ITS ---
STUDY: X-RAY - RIGHT HAND REASON FOR EXAM: Female, 76 years old. Hand swelling. TECHNIQUE: 3 view(s) of the hand. COMPARISON: None. FINDINGS: Osteopenia. Mild arthrosis of the radiocarpal articulation. Mild arthrosis of the distal radioulnar joint. Moderate arthrosis of the radial carpal row. Moderate arthrosis of the first CMC joint. Moderate arthrosis of the MCP and IP joints. Fixed extensor contractures at the PIP joints of the third, fourth and fifth digits. Flexion contracture of the DIP joint of the fifth digit. Diffuse subcutaneous soft tissue edema. RAD/Hand Min 3 Views IMPRESSION: Osteopenia with diffuse moderate osteoarthritic changes. Extensor and flexor contractures as described. Soft tissue swelling. No acute abnormality, chondrocalcinosis or erosive changes. Electronically Signed: Alexander Ji MD at 10:35 EDT ,
== END | disposition home or self-care (01) ==
LOC: MTRAD 09:50
PROVIDERS: PCP Family Medicine; Referring Provider Family Medicine; Visit Provider Family Medicine
DX: I48.0 Paroxysmal atrial fibrillation (principal); D64.9 Anemia, unspecified; E78.5 Hyperlipidemia, unspecified; M65.9 Synovitis and tenosynovitis, unspecified; E55.9 Vitamin D deficiency, unspecified
CPT/HCPCS: 36415; 73130; 80053; 80061; 82306; 82607; 82728; 82746; 83540; 83550; 83735; 84443; 85025; 85652; 86200; 86225; 86235; 86431

== ENCOUNTER → 2022-01-26 | Outpatient (CLI) | payer MEDICARE, OTHER, SELFPAY ==
--- NOTE | 2022-01-26 08:10 | US_ITS ---
STUDY: ABDOMINAL ULTRASOUND - RIGHT LOWER QUADRANT REASON FOR VISIT: Female, 76 years old RLQ PALPABLE MASS X 1 MONTH TECHNIQUE: Ultrasound evaluation of the right upper quadrant was performed with real-time and static webb-scale imaging. TECHNICAL QUALITY: Adequate. COMPARISON: None. FINDINGS: The right lower quadrant was examined with ultrasound. The palpable abnormality corresponds to a 2.6 cm x 2.7 cm x 1.6 cm heterogeneous hypoechoic nodular mass with increased vascularity. Biopsy recommended. US/Abdomen Limited IMPRESSION: The palpable abnormality corresponds to a 2.6 x 2.7 cm and 1.6 cm heterogeneous solid hypoechoic mass with increased vascularity. Biopsy recommended. Electronically Signed: Lloyd Johnson MD at 13:04 EDT ,
== END | disposition home or self-care (01) ==
LOC: US 08:08
PROVIDERS: PCP Family Medicine; Referring Provider Family Medicine; Visit Provider Family Medicine
DX: R22.9 Localized swelling, mass and lump, unspecified (principal)
CPT/HCPCS: 76705

== ENCOUNTER → 2022-02-18 | Outpatient (CLI) | payer MEDICARE, OTHER, SELFPAY ==
--- NOTE | 2022-02-18 | IMM_PTH ---
PATIENT: ELISEO ZAMORA LOC: [facility] U#:[id number] AGE/SX: 76/F ROOM: RE02/18/[address]: Dr. Arnie Hughes MD : 1945 BED: DIS: 02/18/2022 SPEC #: [id number] RECD: 02/23/22 13:16 STATUS: DAE REQ #: [id number] FERNANDO: 02/18/22 00:[address]: Arnie Hughes DEPT: IMMUNOHISTOCHEMISTRY RECD BY: Meg Lopez ENTERED: 02/23/22 13:20 SP TYPE: IMMUNO OTHR DR: Dr. Giorgi Valentin MD Tissues: Abdomen, NOS Procedures: BCL-2 (add) BCL-6 (add) CD10 (add) CD138 (add) CD15 (add) CD20 (add) CD23 (add) CD3 (add) CD30 (add) CD43 (add) CD45 (add) CD5 (add) CD79A (add) CYCLIN (add) KAPPA (add) KI-67 (add) LAMBDA (add) P53 (add) MUM1 (add) C-MYC (add) Pankeratin (initial) PHYSICIAN & INSTITUTION [place] [address] SPECIMEN INFORMATION: Tissue Source: Abdominal mass Clinical Info: Abdominal mass Specimen Number: [id number] #3 CPT code: 87107, 27621 x20 METHODOLOGY: Deparaffinized sections of prefer/formalin-fixed tissue or PAP/DQ stained slides are incubated with monoclonal/polyclonal antibodies/oligonucleotide probes. Localization is made via biotin free immunoperoxidase method. Appropriate controls are performed and reacted as expected. Results on target cell population are indicated in the following table: RESULTS: ANTIBODY / CLONE RESULT Block 3 AE1-3 (AE1/AE3/PCK26) negative CD3 (PS1) negative CD5 (SP10) non-neoplastic T-cells positive CD10 (56C6) germinal center cells positive CD15 (MMA) negative CD20 (L26) positive CD23 (1B12) follicular dendritic cells positive CD30 (Aris-H2) negative CD43 (L60) focally positive CD45 (RP2/18) positive CD79a (11E3) positive CD138 (B-A38) plasma cell positive BCL-2 (bcl-2/100/D5) positive BCL-6 (OX548P/A8) germinal center cells positive Cyclin D1/BCL-1 (SP4) negative MUM1 (MRQ-43) plasma cell positive C-MYC (Y69) negative [place] (polyclonal) positive Lambda (polyclonal) plasma cell subset positive P53 (DO-7) negative Ki-67 (30-9) focally positive These tests were developed and their performance characteristics determined by [facility]. They may not have been cleared or approved by the U.S. Food and Drug Administration. The FDA has determined that such clearance or approval is not necessary. The above immunohistochemical/dualISH markers are ordered by Dr. Boone and reviewed by the Pathologist. 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 See comment. SJ:rg 03/02/2022 Comment: The specimen is sent to [facility] for expert opinion, reviewed by Dr. Spann and the above diagnosis is rendered. Case has been reviewed in consultation with Dr. Boone who concurs with the above diagnosis. IDC:AM
--- NOTE | 2022-02-18 14:45 | MASS_PTH ---
PATIENT: ELISEO ZAMORA LOC: [facility] U#:[id number] AGE/SX: 76/F ROOM: RE02/18/[address]: Dr. Arnie Hughes MD : 1945 BED: DIS: 02/18/2022 SPEC #: [id number] RECD: 02/18/22 15:32 STATUS: DAE REOpal #: [id number] FERNANDO: 02/18/22 14:[address]: Arnie Hughes DEPT: SURGICAL PATHOLOGY RECD BY: Soraya Cardenas ENTERED: 02/19/22 07:55 SP TYPE: Mass OTHR DR: Dr. 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 See microscopic description and comment. HALIMA:mercy 03/02/2022 COMMENT The specimen is sent to [facility] for expert opinion, reviewed by Dr. Spann and the above diagnosis is rendered. Immunohistochemistry ([id number]) and additional stains performed at [facility] supports the above diagnosis. The complete report is viewable in the patient's EMR. Correlation with clinical findings and appropriate follow up are necessary. Case has been reviewed in consultation with Dr. Boone who concurs with the above diagnosis. IDC:AM MICROSCOPIC DESCRIPTION Slides are reviewed. The sections of enlarged lymph node with normal architecture partially effaced by neoplastic B-cell proliferation composed of centrocyte like and monocytoid cells, predominantly small with scattered large transformed cells also present. Remnants of follicular dendritic meshworks and germinal centers are seen, consistent with colonized follicles. Focal increased plasma cells, predominantly kappa positive are also noted, consistent with plasmacytic differentiation. Ki-67 proliferation marker is positive mostly in remnants of germinal centers, in the neoplastic cells it is <10%. Overall, the findings are consistent with august marginal zone lymphoma. GROSS DESCRIPTION Received in fixative is one container labeled with the patient's name and designated right side abdominal mass. The specimen consists of a nodular piece of fibroadipose tissue measuring 3.5 x 2.5 x 2 cm. A strip of zapata-white skin is noted at one edge of the specimen measuring 2.5 x 0.2 cm. Sections reveal yellow adipose cut surfaces without area of hemorrhage, necrosis or cystic degeneration. The specimen is inked and serially sectioned. [facility] sections are submitted in four cassettes. / SJ:rg 02/19/2022 TC:0 CPT: 36899
== END | disposition home or self-care (01) ==
PROVIDERS: PCP Family Medicine; Visit Provider Surgery
DX: R19.00 Intra-abdominal and pelvic swelling, mass and lump, unspecified site (principal)
CPT/HCPCS: 88305; 88341; 88342

== ENCOUNTER → 2022-03-30 | Outpatient (CLI) | payer MEDICARE, OTHER, SELFPAY ==
--- NOTE | 2022-03-30 | IMM_PTH ---
PATIENT: ELISEO ZAMORA LOC: [facility] U#:[id number] AGE/SX: 76/F ROOM: RE03/30/[address]: Dr. Arnie Hughes MD : 1945 BED: DIS: 03/30/2022 SPEC #: [id number] RECD: 04/01/22 09:56 STATUS: DAE REQ #: [id number] FERNANDO: 03/30/22 00:[address]: Arnie Hughes DEPT: IMMUNOHISTOCHEMISTRY RECD BY: Meg Lopez ENTERED: 04/01/22 09:58 SP TYPE: IMMUNO OTHR DR: MD Dr. Giorgi Dill MD Tissues: Chest wall, NOS Procedures: BCL-2 (add) BCL-6 (add) CD10 (add) CD20 (add) CD23 (add) CD3 (add) CD43 (add) CD45 (add) CD5 (add) CD79A (add) CK8 (add) CYCLIN (add) KI-67 (add) Pankeratin (initial) PHYSICIAN & [address] [address] SPECIMEN INFORMATION: Tissue Source: Left chest wall Clinical Info: Left chest wall mass Specimen Number: [id number] CPT code: 82866, 63374 x13 METHODOLOGY: Deparaffinized sections of prefer/formalin-fixed tissue or PAP/DQ stained slides are incubated with monoclonal/polyclonal antibodies/oligonucleotide probes. Localization is made via biotin free immunoperoxidase method. Appropriate controls are performed and reacted as expected. Results on target cell population are indicated in the following table: RESULTS: ANTIBODY / CLONE RESULT AE1-3 (AE1/AE3/PCK26) negative CK8 (95awimY25) negative CD3 (PS1) negative CD5 (SP10) negative CD20 (L26) positive CD43 (L60) negative CD45 (RP2/18) positive CD79a (11E3) positive CD10 (56C6) negative CD23 (1B12) negative (follicular dendritic cell positive) BCL-2 (bcl-2/100/D5) positive BCL-6 (HK615F/A8) negative (germinal center cell positive) Cyclin D1/BCL-1 (SP4) negative Ki-67 (30-9) positive, low These tests were developed and their performance characteristics determined by [facility]. They may not have been cleared or approved by the U.S. Food and Drug Administration. The FDA has determined that such clearance or approval is not necessary. The above immunohistochemical/dualISH markers are ordered and reviewed by the Pathologist. INTERPRETATION: Left chest wall mass, core biopsy: Consistent with involvement by non-Hodgkin B-cell lymphoma, favor natasha marginal zone lymphoma. SJ:mercy 04/02/2022 Case has been reviewed in consultation with Dr. Boone who concurs with the above diagnosis. IDC:AM
--- NOTE | 2022-03-30 14:30 | TISS_PTH ---
PATIENT: ELISEO ZAMORA LOC: [facility] U#:[id number] AGE/SX: 76/F ROOM: RE03/30/[address]: Dr. Arnie Hughes MD : 1945 BED: DIS: 03/30/2022 SPEC #: [id number] RECD: 03/30/22 15:24 STATUS: DAE REOpal #: [id number] FERNANDO: 03/30/22 14:[address]: Arnie Hughes DEPT: SURGICAL PATHOLOGY RECD BY: Mariaelena Augustin ENTERED: 03/31/22 09:32 SP TYPE: Tissue Bx HEIDI DR: MD Dr. Giorgi Dill MD Tissues: TISSUE SURGICALLY REMOVED Procedures: Surgery Specimen Level IV HEADER OPERATION: Left chest mass core biopsy PRE-OP DIAGNOSIS: Left chest wall mass TISSUE SUBMITTED: Left chest tissue MICROSCOPIC DIAGNOSIS Left chest wall mass, core biopsy: Consistent with involvement of non-Hodgkin B-cell lymphoma, favor natasha marginal zone lymphoma. See comment. HALIMA:mercy 04/01/2022 COMMENT Immunohistochemistry ([id number]) supports the above diagnosis. Please make reference to previous specimen ([id number]) abdominal mass, excision with diagnosis of ?natasha marginal zone lymphoma.? The slides of this specimen are reviewed again and the tumor in both specimen shows similar morphology. Case has been reviewed in consultation with Dr. Boone who concurs with the above diagnosis. IDC:AM MICROSCOPIC DESCRIPTION Slides are reviewed. GROSS DESCRIPTION Received in fixative is one container labeled with the patient's name and designated left chest. The specimen consists of two elongated fragments of zapata-yellow fibroadipose tissue that in aggregate measure 1.7 x 0.3 x 0.1 cm. The entire specimen is submitted in one cassette. / HALIMA:mercy 03/31/2022 TC:0 CPT: 50153
== END | disposition home or self-care (01) ==
LOC: LABSPEC 15:32
PROVIDERS: PCP Family Medicine; Visit Provider Surgery
DX: R22.2 Localized swelling, mass and lump, trunk (principal)
CPT/HCPCS: 88305; 88341; 88342

== ENCOUNTER → 2022-07-26 | Outpatient (CLI) | payer MEDICARE, OTHER, SELFPAY ==
[2022-07-26 12:33] LABS: Absolute Lymphocyte Count 0.59 X10^3/uL (0.83-4.51); Absolute Neutrophil Count 4.6 X10^3/uL (2.0-7.7); Basophil# 0.02 X10^3/uL; Basophil% 0.3 % (0-1); Eosinophil# 0.11 X10^3/uL; Eosinophils% 1.9 % (0-5); Hematocrit 36.3 % (37-47); Hemoglobin 10.8 g/dL (12.0-15.0); Lymphocyte # 0.59 X10^3/ul (0.83-4.51); Lymphocyte % 9.9 % (19-41); Mean Corp Hgb Conc 29.8 g/dL (32-36); Mean Corpuscular Hgb 25.8 pg (27.0-32.0); Mean Corpuscular Volume 86.8 fL (81-99); Mean Platelet Vol. 11.5 fl (6.2-12.0); Monocyte# 0.58 X10^3/uL; Monocyte% 9.8 % (0-10); NRBC Flagged by Analyzer 0 % (0-5); Neutrophil # 4.61 X10^3/uL (2.7-7.7); Neutrophil % 77.8 % (47-70); POSITIVE DIFFERENTIAL YES; Platelet Count 182 K/mm3 (150-450); RBC Distribution Width CV 15.7 % (11.6-14.6); Red Blood Count 4.18 M/mm3 (4.2-5.4); White Blood Count 5.9 K/mm3 (4.4-11.0)
[2022-07-26 12:36] LABS: Differential Indicated SCAN CRITERIA MET
[2022-07-26 12:49] LABS: BNP,B-Type NATRIURETIC PEPTIDE 1353.4 pg/mL (0-100)
[2022-07-26 13:14] LABS: Anion Gap 7 (5-15); BUN 27 mg/dL (7-18); BUN/Creat Ratio 23.7 RATIO (10-20); Calcium,Total 9.6 mg/dL (8.5-10.1); Chloride 106 mmol/L (98-107); Creatinine, Serum 1.14 mg/dL (0.55-1.02); EST Glomerular Filtration Rate 49 mL/min (>60); Est Glom Filt Rate - Afr Amer 59 mL/min (>60); Glucose 119 mg/dL (74-106); Potassium 3.8 mmol/L (3.5-5.1); Sodium Level 142 mmol/L (136-145)
[2022-07-26 13:41] LABS: Differential Comment SCANNED
== END | disposition home or self-care (01) ==
LOC: LAB 11:31
PROVIDERS: PCP Family Medicine; Referring Provider Physician Assistant Medical; Visit Provider Physician Assistant Medical
DX: I50.23 Acute on chronic systolic (congestive) heart failure (principal); C85.90 Non-Hodgkin lymphoma, unspecified, unspecified site; I42.8 Other cardiomyopathies; D64.9 Anemia, unspecified; Z79.01 Long term (current) use of anticoagulants
CPT/HCPCS: 36415; 80048; 83880; 85025

== ENCOUNTER → 2022-08-06 | Outpatient (CLI) | payer MEDICARE, OTHER, SELFPAY ==
[2022-08-06 10:29] LABS: Anion Gap 5 (5-15); BUN 25 mg/dL (7-18); BUN/Creat Ratio 25.1 RATIO (10-20); Calcium,Total 9.5 mg/dL (8.5-10.1); Chloride 105 mmol/L (98-107); EST Glomerular Filtration Rate 57 mL/min (>60); Est Glom Filt Rate - Afr Amer 69 mL/min (>60); Glucose 93 mg/dL (74-106); Potassium 3.9 mmol/L (3.5-5.1); Sodium Level 141 mmol/L (136-145)
== END | disposition home or self-care (01) ==
LOC: LAB 09:16
PROVIDERS: PCP Family Medicine; Referring Provider Physician Assistant Medical; Visit Provider Physician Assistant Medical
DX: I42.8 Other cardiomyopathies (principal)
CPT/HCPCS: 36415; 80048

== ENCOUNTER → 2022-08-31 | Outpatient (CLI) | payer MEDICARE, OTHER, SELFPAY ==
[2022-08-31 17:42] LABS: Absolute Lymphocyte Count 0.96 X10^3/uL (0.83-4.51); Absolute Neutrophil Count 4.8 X10^3/uL (2.0-7.7); Basophil# 0.04 X10^3/uL; Basophil% 0.6 % (0-1); Eosinophil# 0.11 X10^3/uL; Eosinophils% 1.7 % (0-5); Hematocrit 43.5 % (37-47); Hemoglobin 12.9 g/dL (12.0-15.0); Lymphocyte # 0.96 X10^3/ul (0.83-4.51); Lymphocyte % 14.7 % (19-41); Mean Corp Hgb Conc 29.7 g/dL (32-36); Mean Corpuscular Hgb 25.3 pg (27.0-32.0); Mean Corpuscular Volume 85.5 fL (81-99); Mean Platelet Vol. 11.7 fl (6.2-12.0); Monocyte# 0.59 X10^3/uL; NRBC Flagged by Analyzer 0 % (0-5); Neutrophil # 4.81 X10^3/uL (2.7-7.7); Neutrophil % 73.8 % (47-70); Platelet Count 191 K/mm3 (150-450); RBC Distribution Width CV 15.2 % (11.6-14.6); RBC Distribution Width SD 47.6 fl (35.1-43.9); Red Blood Count 5.09 M/mm3 (4.2-5.4); White Blood Count 6.5 K/mm3 (4.4-11.0)
[2022-08-31 18:45] LABS: Vitamin B12 313 pg/mL (211-911)
[2022-08-31 18:58] LABS: Hemoglobin A1c 5.2 % (3.8-5.6)
[2022-08-31 19:02] LABS: ALB/GLOB Ratio 1.4 RATIO (0.9-2.4); AST(SGOT) 26 U/L (15-37); Alanine Aminotransfer ALT/SGPT 16 U/L (13-56); Albumin, Serum 4.4 g/dL (3.2-5.0); Alkaline Phosphatase 79 U/L (45-117); Anion Gap 11 (5-15); BUN 30 mg/dL (7-18); BUN/Creat Ratio 30.7 RATIO (10-20); Calcium,Total 9.9 mg/dL (8.5-10.1); Chloride 102 mmol/L (98-107); Creatinine, Serum 0.98 mg/dL (0.55-1.02); EST Glomerular Filtration Rate 59 mL/min (>60); Est Glom Filt Rate - Afr Amer 71 mL/min (>60); Ferritin 142 ng/mL (8-252); Globulin 3.1 g/dL (2.2-4.2); Glucose 88 mg/dL (74-106); Iron 50 ug/dL (50-170); Iron Binding Capacity,Total 336 ug/dL (250-450); Potassium 3.6 mmol/L (3.5-5.1); Protein, Total 7.5 g/dL (6.4-8.2); Sodium Level 141 mmol/L (136-145)
== END | disposition home or self-care (01) ==
LOC: MFPLAB 14:30
PROVIDERS: PCP Family Medicine; Visit Provider Family Medicine
DX: D64.9 Anemia, unspecified (principal); R73.09 Other abnormal glucose
CPT/HCPCS: 36415; 80053; 82607; 82728; 82746; 83036; 83540; 83550; 85025

== ENCOUNTER → 2022-10-26 | Outpatient (CLI) | payer MEDICARE, OTHER, SELFPAY ==
[2022-10-26 10:17] LABS: Mucous, Urine 0 SEEN /hpf (<or=2+); Squamous Epithelial Cells - UA 0 SEEN /hpf (5-10)
[2022-10-26 12:34] LABS: Absolute Lymphocyte Count 0.89 X10^3/uL (0.83-4.51); Absolute Neutrophil Count 4.2 X10^3/uL (2.0-7.7); Basophil# 0.05 X10^3/uL; Basophil% 0.9 % (0-1); Eosinophils% 1.7 % (0-5); Hematocrit 41.3 % (37-47); Hemoglobin 12.4 g/dL (12.0-15.0); Lymphocyte # 0.89 X10^3/ul (0.83-4.51); Lymphocyte % 15.3 % (19-41); Mean Corpuscular Hgb 24.9 pg (27.0-32.0); Mean Corpuscular Volume 82.9 fL (81-99); Mean Platelet Vol. 11.4 fl (6.2-12.0); Monocyte# 0.55 X10^3/uL; Monocyte% 9.5 % (0-10); NRBC Flagged by Analyzer 0 % (0-5); Neutrophil # 4.22 X10^3/uL (2.7-7.7); Neutrophil % 72.6 % (47-70); Platelet Count 157 K/mm3 (150-450); RBC Distribution Width CV 16.7 % (11.6-14.6); RBC Distribution Width SD 50.6 fl (35.1-43.9); Red Blood Count 4.98 M/mm3 (4.2-5.4); White Blood Count 5.8 K/mm3 (4.4-11.0)
[2022-10-26 13:01] LABS: Vitamin B12 294 pg/mL (211-911); Vitamin D,25 Hydroxy 70.3 ng/mL
[2022-10-26 13:13] LABS: ALB/GLOB Ratio 1.2 RATIO (0.9-2.4); AST(SGOT) 30 U/L (15-37); Alanine Aminotransfer ALT/SGPT 20 U/L (13-56); Albumin, Serum 3.8 g/dL (3.2-5.0); Alkaline Phosphatase 98 U/L (45-117); Anion Gap 5 (5-15); BUN 27 mg/dL (7-18); BUN/Creat Ratio 24.5 RATIO (10-20); Calcium,Total 9.6 mg/dL (8.5-10.1); Chloride 107 mmol/L (98-107); EST Glomerular Filtration Rate 51 mL/min (>60); Est Glom Filt Rate - Afr Amer 62 mL/min (>60); Ferritin 180 ng/mL (8-252); Globulin 3.2 g/dL (2.2-4.2); Glucose 116 mg/dL (74-106); Iron 49 ug/dL (50-170); Iron Binding Capacity,Total 348 ug/dL (250-450); Magnesium 2.3 mg/dL (1.6-2.6); Potassium 3.7 mmol/L (3.5-5.1); Sodium Level 139 mmol/L (136-145); Thyroid Stim Hormone (TSH) 2.03 uIU/mL (0.358-3.74)
[2022-10-26 18:11] LABS: Color, Urine Yellow (Yellow); Glucose, Dipstick Normal (Normal); Ketone-Dipstick Negative (Negative); Leukocyte Esterase-Dipstick 500 /ul (Negative); Nitrite-Dipstick Positive (Negative); Occult Blood-Urine 50 /ul (Negative); Protein-Dipstick 30 mg/dl (Negative); Specific Gravity, Urine 1.015 (1.002-1.030); Urine Bilirubin Dipstick Negative (Negative); Urine Clarity Cloudy (Clear); Urine Urobilinogen 1 mg/dl (Normal)
[2022-10-26 18:28] LABS: Bacteria 2+ /hpf (None Seen); White Blood Cells 25-50 SEEN /hpf (0-5)
[2022-10-26 18:29] LABS: Red Blood Cells-Urine 0-5 SEEN /hpf (0-5)
[2022-10-26 18:34] LABS: Protein, Urine (Random) 35.8 mg/dL (<11.9); Protein:Creat Ratio 409 mg/g CRE (0-200)
== END | disposition home or self-care (01) ==
PROVIDERS: PCP Family Medicine; Referring Provider Family Medicine; Visit Provider Family Medicine
DX: I48.0 Paroxysmal atrial fibrillation (principal); E55.9 Vitamin D deficiency, unspecified; D64.9 Anemia, unspecified
CPT/HCPCS: 80053; 81001; 82306; 82570; 82607; 82728; 82746; 83540; 83550; 83735; 84156; 84443; 85025

== ENCOUNTER 2023-07-07 22:27 | Emergency (ER) | payer MEDICARE, OTHER, SELFPAY ==
[2023-07-07] VITALS (7 sets, daily range): BP systolic 88–103; BP diastolic 46–77; PULSE 68–153; RESP 16–30; TEMP 36.4–36.7; O2SAT 95–100
[2023-07-07 23:00] LABS: Absolute Neutrophil Count 6.8 X10^3/uL (2.0-7.7); Basophil# 0.06 X10^3/uL; Basophil% 0.7 % (0-1); Eosinophil# 0.04 X10^3/uL; Eosinophils% 0.5 % (0-5); Hematocrit 42.6 % (37-47); Hemoglobin 12.7 g/dL (12.0-15.0); Lymphocyte % 13.5 % (19-41); Mean Corp Hgb Conc 29.8 g/dL (32-36); Mean Corpuscular Hgb 27.1 pg (27.0-32.0); Mean Corpuscular Volume 90.8 fL (81-99); Mean Platelet Vol. 12.1 fl (6.2-12.0); Monocyte# 0.78 X10^3/uL; Monocyte% 8.8 % (0-10); NRBC Flagged by Analyzer 0 % (0-5); Neutrophil # 6.75 X10^3/uL (2.7-7.7); Platelet Count 154 K/mm3 (150-450); RBC Distribution Width CV 15.9 % (11.6-14.6); RBC Distribution Width SD 51.2 fl (35.1-43.9); Red Blood Count 4.69 M/mm3 (4.2-5.4); White Blood Count 8.9 K/mm3 (4.4-11.0)
--- NOTE | 2023-07-07 23:01 | EKG12_ITS ---
Test Reason : RHYTHM CONVERSION Blood Pressure : / mmHG Vent. Rate : 080 BPM Atrial Rate : 080 BPM P-R Int : 176 ms QRS Dur : 138 ms QT Int : 402 ms P-R-T Axes : 070 026 214 degrees QTc Int : 463 ms Sinus rhythm with Premature supraventricular complexes and with occasional Premature ventricular comp lexes Left ventricular hypertrophy with QRS widening and repolarization abnormality ( Sokolow-Lemus , Romhil t-Mccracken ) Abnormal ECG Confirmed by OSCAR CAPUTO, MAKENZIE ([id number]), editor greeting card FAISAL VERDUGO ([id number]) on 07/08/2023 10:29:38 AM Referred By: Confirmed By:MAKENZIE MOORE MD
--- NOTE | 2023-07-07 23:03 | EDS_ITS ---
HPI History of Present Illness Chief Complaint: Shortness of Breath Informant: patient and family Narrative Narrative: 78-year-old female history of nonischemic cardiopathy, moderate to severe aortic stenosis (status post bioprosthetic valve replacement 2006) paroxysmal atrial fibrillation presenting to the emergency room with dyspnea. Patient states she developed dyspnea this morning and progressed until this evening. She states that she notified her sister who brought her to the emergency department. Her sister notes that on their monitor at home showed a variable fast heart rate as well as a blood pressure in the 60s. Her oxygen level was 88%. Patient denies any cough. She denies any fever. She has elected not to undergo aortic valve repair. She is not on any anticoagulation due to history of internal bleeding/blood transfusion. She also has a history of marginal zone B-cell lymphoma. [facility] Medical History General learning disability correction (current) use of anticoagulants Lower extremity edema Lymphoma Marginal zone B-cell lymphoma Non-Hodgkin lymphoma (~02/18/22) Nonrheumatic aortic (valve) stenosis Paroxysmal atrial fibrillation Stasis dermatitis of both legs Subcutaneous mass Home Medications potassium chloride 20 mEq tablet,extended release(part/cryst) 20 meq PO DAILYCM #90 tabs 06/26/18 [Rx Last Taken 07/07/23] carvedilol 3.125 mg tablet 3.125 mg PO BID HEART 09/17/21 [History Last Taken 07/07/23] rosuvastatin 10 mg tablet 10 mg PO DAILY 09/17/21 [History Last Taken 07/07/23] ascorbate calcium (vitamin C) 500 mg capsule 500 mg PO BID 10/11/22 [History Last Taken 07/07/23] cholecalciferol (vitamin D3) 125 mcg (5,000 unit) capsule 5,000 unit PO DAILY 07/08/23 [History Last Taken Unknown] furosemide 80 mg tablet 80 mg PO .q24 07/08/23 [History Last Taken Unknown] Allergy/AdvReac Type Severity Reaction Status Date / Time Sulfa (Sulfonamide Allergy Other Verified 04/11/23 10:23 Antibiotics) Family History Father CVA (cerebral vascular accident) Mother CHF (congestive heart failure) Hypertension Sister High cholesterol Sister H/O heart valve replacement with porcine valve Rheumatic fever Surgical History H/O aortic valve replacement (02/23/07) History of left heart catheterization (09/07/17) Social History Smoking Status: Unknown if ever smoked alcohol intake: current alcohol intake frequency: holidays/special occasions only Alcohol type: beer, wine and hard liquor substance use type: does not use caffeine: Yes Type: coffee what type of physical activity do you participate in: bicycling frequency: 3-4 times per week duration: 15-30 minutes/day seatbelt use: always do you feel safe at home: Yes ROS ROS ED Constitutional Constitutional ED: Denies chills, fever(s) or weight loss Eyes Eyes: Denies change in vision or diplopia ENT ENT ED: Denies ear pain, rhinorrhea or sore throat Cardiovascular Cardiovascular: Reports palpitations and racing heartbeat; Denies chest pain or orthopnea Respiratory/Chest Respiratory/Chest: Reports dyspnea and dyspnea on exertion; Denies cough or orthopnea Gastrointestinal Gastrointestinal: Denies abdominal pain, diarrhea, nausea or vomiting Genitourinary Genitourinary ED: Denies dysuria, hematuria or urinary frequency Musculoskeletal Musculoskeletal: Denies arthralgias or myalgias Integumentary Denies abscess or rash Neurologic Neurologic: Denies headache(s) or weakness Psychiatric Psychiatric: Denies anxiety, depression, suicidal ideation or suicidal thoughts Endocrine Endocrinology: Denies polydipsia, polyphagia or polyuria Allergic/Immunologic Allergic/Immunologic ED: Denies mouth swelling, tongue swelling or urticaria EXAM Physical Exam Const Vital Signs: 07/07/23 22:29 07/07/23 23:01 07/07/23 23:01 Temperature 98.0 F Temperature Source Temporal Pulse Rate 120 H 142 H Pulse Rate [1 (Initial Baseline)] Pulse Rate [10] Pulse Rate [3] Pulse Rate [5] Pulse Rate [6] Pulse Rate [7] Pulse Rate [8] Pulse Rate [9] Pulse Rate [Lying] Pulse Rate [Sitting (for 1 minute prior to obtaining)] Pulse Rate [Standing (for 1 minute prior to obtaining)] Respiratory Rate 18 21 H 30 H Respiratory Rate [1 (Initial Baseline)] Respiratory Rate [10] Respiratory Rate [3] Respiratory Rate [5] Respiratory Rate [6] Respiratory Rate [7] Respiratory Rate [8] Respiratory Rate [9] Respiratory Effort Respiratory Depth Respiratory Pattern Blood Pressure 88/77 L 97/71 Blood Pressure [1 (Initial Baseline)] Blood Pressure [10] Blood Pressure [3] Blood Pressure [5] Blood Pressure [6] Blood Pressure [7] Blood Pressure [8] Blood Pressure [9] Blood Pressure [Lying] Blood Pressure [Sitting (for 1 minute prior to obtaining)] Blood Pressure [Standing (for 1 minute prior to obtaining)] Blood Pressure Mean 80 79 Blood Pressure Mean [Lying] Blood Pressure Mean [Sitting (for 1 minute prior to obtaining)] Blood Pressure Mean [Standing (for 1 minute prior to obtaining)] Pulse Ox 97 98 97 Oxygen Delivery Method Room Air Room Air Room Air Oxygen Delivery Method [1 (Initial Baseline)] Oxygen Delivery Method [10] Oxygen Delivery Method [3] Oxygen Delivery Method [4] Oxygen Delivery Method [5] Oxygen Delivery Method [6] Oxygen Delivery Method [7] Oxygen Delivery Method [8] Oxygen Delivery Method [9] Oxygen Flow Rate (L/min) Oxygen Flow Rate (L/min) [3] Oxygen Flow Rate (L/min) [4] Oxygen Flow Rate (L/min) [5] Oxygen Flow Rate (L/min) [6] Oxygen Flow Rate (L/min) [7] 07/07/23 23:29 07/07/23 23:35 07/07/23 23:40 Temperature 97.5 F L Temperature Source Pulse Rate 153 H Pulse Rate [1 (Initial Baseline)] Pulse Rate [10] Pulse Rate [3] Pulse Rate [5] Pulse Rate [6] Pulse Rate [7] Pulse Rate [8] Pulse Rate [9] Pulse Rate [Lying] Pulse Rate [Sitting (for 1 minute prior to obtaining)] Pulse Rate [Standing (for 1 minute prior to obtaining)] Respiratory Rate 26 H Respiratory Rate [1 (Initial Baseline)] Respiratory Rate [10] Respiratory Rate [3] Respiratory Rate [5] Respiratory Rate [6] Respiratory Rate [7] Respiratory Rate [8] Respiratory Rate [9] Respiratory Effort Respiratory Depth Respiratory Pattern Blood Pressure 93/73 Blood Pressure [1 (Initial Baseline)] Blood Pressure [10] Blood Pressure [3] Blood Pressure [5] Blood Pressure [6] Blood Pressure [7] Blood Pressure [8] Blood Pressure [9] Blood Pressure [Lying] Blood Pressure [Sitting (for 1 minute prior to obtaining)] Blood Pressure [Standing (for 1 minute prior to obtaining)] Blood Pressure Mean Blood Pressure Mean [Lying] Blood Pressure Mean [Sitting (for 1 minute prior to obtaining)] Blood Pressure Mean [Standing (for 1 minute prior to obtaining)] Pulse Ox 100 Oxygen Delivery Method Room Air Nasal Cannula Nasal Cannula Oxygen Delivery Method [1 (Initial Baseline)] Oxygen Delivery Method [10] Oxygen Delivery Method [3] Oxygen Delivery Method [4] Oxygen Delivery Method [5] Oxygen Delivery Method [6] Oxygen Delivery Method [7] Oxygen Delivery Method [8] Oxygen Delivery Method [9] Oxygen Flow Rate (L/min) 2 2 4 Oxygen Flow Rate (L/min) [3] Oxygen Flow Rate (L/min) [4] Oxygen Flow Rate (L/min) [5] Oxygen Flow Rate (L/min) [6] Oxygen Flow Rate (L/min) [7] 07/07/23 23:45 07/07/23 23:33 07/08/23 00:06 Temperature 96.8 F L Temperature Source Temporal Pulse Rate 80 Pulse Rate [1 (Initial Baseline)] 153 H Pulse Rate [10] 78 Pulse Rate [3] 76 Pulse Rate [5] 72 Pulse Rate [6] 68 Pulse Rate [7] 72 Pulse Rate [8] 100 Pulse Rate [9] 86 Pulse Rate [Lying] Pulse Rate [Sitting (for 1 minute prior to obtaining)] Pulse Rate [Standing (for 1 minute prior to obtaining)] Respiratory Rate 20 H Respiratory Rate [1 (Initial Baseline)] 26 H Respiratory Rate [10] 27 H Respiratory Rate [3] 20 H Respiratory Rate [5] 16 Respiratory Rate [6] 16 Respiratory Rate [7] 20 H Respiratory Rate [8] 22 H Respiratory Rate [9] 25 H Respiratory Effort Respiratory Depth Respiratory Pattern Blood Pressure 103/50 L Blood Pressure [1 (Initial Baseline)] 93/73 Blood Pressure [10] 103/50 L Blood Pressure [3] 94/70 Blood Pressure [5] 94/58 L Blood Pressure [6] 91/53 L Blood Pressure [7] 95/66 Blood Pressure [8] 95/46 L Blood Pressure [9] 102/48 L Blood Pressure [Lying] Blood Pressure [Sitting (for 1 minute prior to obtaining)] Blood Pressure [Standing (for 1 minute prior to obtaining)] Blood Pressure Mean 67 Blood Pressure Mean [Lying] Blood Pressure Mean [Sitting (for 1 minute prior to obtaining)] Blood Pressure Mean [Standing (for 1 minute prior to obtaining)] Pulse Ox 99 Oxygen Delivery Method Nasal Cannula Room Air Oxygen Delivery Method [1 (Initial Baseline)] Room Air Oxygen Delivery Method [10] Room Air Oxygen Delivery Method [3] Nasal Cannula Oxygen Delivery Method [4] Nasal Cannula Oxygen Delivery Method [5] Nasal Cannula Oxygen Delivery Method [6] Nasal Cannula Oxygen Delivery Method [7] Nasal Cannula Oxygen Delivery Method [8] Room Air Oxygen Delivery Method [9] Room Air Oxygen Flow Rate (L/min) 4 Oxygen Flow Rate (L/min) [3] 2 Oxygen Flow Rate (L/min) [4] 4 Oxygen Flow Rate (L/min) [5] 4 Oxygen Flow Rate (L/min) [6] 4 Oxygen Flow Rate (L/min) [7] 4 07/08/23 00:08 07/08/23 00:39 07/08/23 00:58 Temperature 96.8 F L Temperature Source Temporal Pulse Rate 76 72 Pulse Rate [1 (Initial Baseline)] Pulse Rate [10] Pulse Rate [3] Pulse Rate [5] Pulse Rate [6] Pulse Rate [7] Pulse Rate [8] Pulse Rate [9] Pulse Rate [Lying] Pulse Rate [Sitting (for 1 minute prior to obtaining)] Pulse Rate [Standing (for 1 minute prior to obtaining)] Respiratory Rate 23 H 22 H Respiratory Rate [1 (Initial Baseline)] Respiratory Rate [10] Respiratory Rate [3] Respiratory Rate [5] Respiratory Rate [6] Respiratory Rate [7] Respiratory Rate [8] Respiratory Rate [9] Respiratory Effort Short of Breath Respiratory Depth Normal Respiratory Pattern Tachypnea Blood Pressure 99/58 L 90/38 L Blood Pressure [1 (Initial Baseline)] Blood Pressure [10] Blood Pressure [3] Blood Pressure [5] Blood Pressure [6] Blood Pressure [7] Blood Pressure [8] Blood Pressure [9] Blood Pressure [Lying] Blood Pressure [Sitting (for 1 minute prior to obtaining)] Blood Pressure [Standing (for 1 minute prior to obtaining)] Blood Pressure Mean 71 55 Blood Pressure Mean [Lying] Blood Pressure Mean [Sitting (for 1 minute prior to obtaining)] Blood Pressure Mean [Standing (for 1 minute prior to obtaining)] Pulse Ox 90 97 Oxygen Delivery Method Room Air Room Air Room Air Oxygen Delivery Method [1 (Initial Baseline)] Oxygen Delivery Method [10] Oxygen Delivery Method [3] Oxygen Delivery Method [4] Oxygen Delivery Method [5] Oxygen Delivery Method [6] Oxygen Delivery Method [7] Oxygen Delivery Method [8] Oxygen Delivery Method [9] Oxygen Flow Rate (L/min) Oxygen Flow Rate (L/min) [3] Oxygen Flow Rate (L/min) [4] Oxygen Flow Rate (L/min) [5] Oxygen Flow Rate (L/min) [6] Oxygen Flow Rate (L/min) [7] 07/08/23 01:03 07/08/23 02:39 Temperature 97.7 F L Temperature Source Temporal Pulse Rate 89 Pulse Rate [1 (Initial Baseline)] Pulse Rate [10] Pulse Rate [3] Pulse Rate [5] Pulse Rate [6] Pulse Rate [7] Pulse Rate [8] Pulse Rate [9] Pulse Rate [Lying] 78 Pulse Rate [Sitting (for 1 minute prior to obtaining)] 95 Pulse Rate [Standing (for 1 minute prior to obtaining)] 94 Respiratory Rate 19 H Respiratory Rate [1 (Initial Baseline)] Respiratory Rate [10] Respiratory Rate [3] Respiratory Rate [5] Respiratory Rate [6] Respiratory Rate [7] Respiratory Rate [8] Respiratory Rate [9] Respiratory Effort Respiratory Depth Respiratory Pattern Blood Pressure 100/56 L Blood Pressure [1 (Initial Baseline)] Blood Pressure [10] Blood Pressure [3] Blood Pressure [5] Blood Pressure [6] Blood Pressure [7] Blood Pressure [8] Blood Pressure [9] Blood Pressure [Lying] 92/57 L Blood Pressure [Sitting (for 1 minute prior to obtaining)] 101/62 Blood Pressure [Standing (for 1 minute prior to obtaining)] 98/81 H Blood Pressure Mean 70 Blood Pressure Mean [Lying] 68 Blood Pressure Mean [Sitting (for 1 minute prior to obtaining)] 75 Blood Pressure Mean [Standing (for 1 minute prior to obtaining)] 86 Pulse Ox 98 Oxygen Delivery Method Room Air Oxygen Delivery Method [1 (Initial Baseline)] Oxygen Delivery Method [10] Oxygen Delivery Method [3] Oxygen Delivery Method [4] Oxygen Delivery Method [5] Oxygen Delivery Method [6] Oxygen Delivery Method [7] Oxygen Delivery Method [8] Oxygen Delivery Method [9] Oxygen Flow Rate (L/min) Oxygen Flow Rate (L/min) [3] Oxygen Flow Rate (L/min) [4] Oxygen Flow Rate (L/min) [5] Oxygen Flow Rate (L/min) [6] Oxygen Flow Rate (L/min) [7] Positive well nourished and well developed General Appearance ED: well developed HEENT Reports normocephalic, head/scalp atraumatic and moist mucous membranes Eyes PERRL and EOMs intact bilaterally Neck no lymphadenopathy, supple and no JVD Resp normal respiratory effort and clear to auscultation bilaterally Cardio Rate: tachycardic Rhythm: abnormal rhythm irregularly irregular GI normal to inspection, nondistended, normoactive bowel sounds and non-tender Palpation: soft Back/Spine no CVA tenderness and normal ROM Extremity normal to inspection General Extremety ED: Negative for edema General Extremity: Negative for edema Neuro oriented x3 and CN's II-XII intact bilaterally Sensorium / Orientation: alert Motor Exam: strength 5/5 throughout Psych mental status grossly normal Mood & Affect: Negative for depressed or tearful Skin no rashes or lesions noted and no wounds MDM MDM MDM Narrative Medical decision making narrative: Patient is presenting in A-fib with RVR with hypotension. Looking back at her prior blood pressures in the office have been around 120/60. I worry that if we attempt to slow her heart rate with medication this may further worsen her hypotension. The patient is case is difficult as I do not have any EKG since 2019 to look at. I do not have a chest x-ray since 2020 to compare to. The heart seems somewhat enlarged compared to 2020 which would not be unexpected given the moderate to severe aortic stenosis. My interpretation of the chest x- ray besides cardiomegaly is there is evidence on today's chest x-ray of some fluid in the fissure and probable pleural effusion on the right. Patient provided informed written consent after discussion with her and her family regarding emergent cardioversion. They understand the risk of stroke and embolism. Again she is not patient received 25 mcg ofOn anticoagulation due to GI bleed. No followed by 10 mg of etomidate. Once adequate sedation was achieved she received a single 200 J synchronized shock which resulted in return of a sinus rhythm. Repeat EKG does not show a significant change from her last EKG. Patient was allowed to recover. She had some hypoxia which resolved with chin left/jaw thrust. She was allowed to recover Patient continues to complain of dyspnea on exertion. Her blood pressure continues to be slightly lower than normal. She is however not orthostatic. She was taken to CTA of the chest which shows a probable chronic pulmonary embolism as well as right greater than left pleural effusion. Patient continues to complain of dyspnea but is noted that she is 97% on room air and not seemingly having distress while at rest. Family does note that the patient may have some anxiety or fear that is driving the dyspnea. However cannot discount the fact that she did have A-fib with RVR underwent cardioversion and her blood pressure is still lower than normal. I am hesitant to aggressively diurese her as I wonder if the fluid in the thorax would improved now that she is back into a sinus rhythm. Last visit with cardiology they were hesitant to add new medications. The patient is not tachypneic at rest. She starts to breathe fast whenever any staff members into the room and I do think there is an anxiety component here. Organ to give her a dose of albumin. I do not think we need to give her fluid bolus as I do not think that she is volume depleted and with a BNP that is elevated at 1649. Perhaps way increasing the intravascular volume shifting at from extravascular space would be beneficial for her. She is supposed to take an 80 mg Lasix tomorrow morning. Family patient denies spoke at length regarding hospitalization versus discharge. At this point they feel comfortable with her being able to go home. I think this is reasonable. I do worry that the patient is starting t down a path of cardiac decline. She may benefit from earlier discussion with cardiology and primary care regarding palliative care for her cardiac disease before it becomes an emergency. History & Record Review Discussion w/independent historian: Patient and Family Additional record(s) reviewed:: Prior inpatient record, Prior outpatient record, Prior ED visit and Prior labs Lab Data Attestation: I reviewed the patient's lab results. Labs: Laboratory Results - last 24 hr 07/07/23 22:38 WBC 8.9 RBC 4.69 Hgb 12.7 Hct 42.6 MCV 90.8 MCH 27.1 MCHC 29.8 L RDW Std Deviation 51.2 H RDW Coeff of Sina 15.9 H Plt Count 154 MPV 12.1 H Immature Gran % (Auto) 0.500 Neut % (Auto) 76.0 H Lymph % (Auto) 13.5 L [place] % (Auto) 8.8 Eos % (Auto) 0.5 Baso % (Auto) 0.7 Absolute Neuts (auto) 6.8 Absolute Lymphs (auto) 1.20 Nucleated RBC % 0 PT 16.4 H INR 1.3 APTT 35.9 Sodium 138 Potassium 4.3 Chloride 105 Carbon Dioxide 21.0 Anion Gap 12 BUN 28 H Creatinine 1.68 H Est GFR (MDRD) Af Amer 38 L Est GFR (MDRD) Non-Af 31 L BUN/Creatinine Ratio 16.7 Glucose 220 H Calcium 9.7 Magnesium 2.2 Total Bilirubin 1.00 Direct Bilirubin 0.45 H AST 42 H ALT 38 Alkaline Phosphatase 93 Troponin I High Sens 52 B-Natriuretic Peptide 1649.2 H Total Protein 6.7 Albumin 3.8 Globulin 2.9 Radiography Diagnostic Testing: Clinical Impression(s) from Imaging Studies Chest X-Ray 07/07/23 23:12 IMPRESSION: Possible mild vascular congestion, otherwise no acute cardiopulmonary disease. Electronically Signed: Julia Kelly MD at 23:45 EST , Chest CTA 07/08/23 01:19 IMPRESSION: 1. Small amount of eccentric filling defect located peripherally in the interlobar pulmonary artery supplying the right lower lobe, best visualized on series 2 image 90. This is consistent with a small, nonocclusive, chronic pulmonary embolism. There are no central or occlusive filling defects identified to suggest acute pulmonary emboli. 2. Small bilateral pleural effusions. 3. Cardiomegaly and evidence of chronic pulmonary arterial hypertension. Electronically Signed: Yusuf Minaya MD at 2:20 EST , EKG Initial EKG: Attestation: I personally reviewed and interpreted this EKG as follows: Comments: Atrial fibrillation with rapid ventricular response. Ventricular rate of 157 bpm Follow-up EKG: Attestation: I personally reviewed and interpreted this EKG as follows: Comments: Sinus rhythm with PVC ventricular rate of 80 bpm. Prior: Unchanged Discharge Plan Triage Chief Complaint: Shortness of Breath ED Provider: Brandt Guillen Dx/Rx/DC Orders Clinical Impression: Non-ischemic cardiomyopathy, Acute on chronic systolic (congestive) heart failure, Nonrheumatic aortic (valve) stenosis, Marginal zone B-cell lymphoma, Atrial fibrillation with RVR, Chronic kidney disease Prescriptions: No Action potassium chloride 20 mEq tablet,ER particles/crystals 20 meq PO DAILYCM Qty: 90 3RF ascorbate calcium (vitamin C) 500 mg Capsule 500 mg PO BID carvedilol 3.125 mg tablet 3.125 mg PO BID Rx Instructions: give with food (meal/snack) cholecalciferol (vitamin D3) 125 mcg (5,000 unit) capsule 5,000 unit PO DAILY furosemide 80 mg tablet 80 mg PO .q24 rosuvastatin 10 mg tablet 10 mg PO DAILY Primary Care Provider: Giorgi Valentin Referrals: Giorgi Valentin MD [Primary Care Provider] - As soon as possible Activity Restrictions/Additional Instructions: Please schedule follow-up with cardiology and your primary care doctor. I would encourage you to have open and bryson discussion regarding possible palliative ca re as you are not wishing further valve replacement or significant interventional care for the heart. It is best to do this before it becomes an emergency. Continue your home medications. Please return to the emergency room if any concerns or worsening Disposition Disposition: Home, Self Care Capacity Legal Plant Puller Reflex Medical hold order details:: IF a medical hold is selected below, a suggested order for a MEDICAL HOLD will reflex upon signing the document. Next of kin: [place] law dictates a PRIORITY LIST for identifying legal decision-maker/legal next of kin in the following order (LNOK): 1st: The patient?s legal guardian, if any 2nd: The patient's spouse (if status is questionable, consult Risk Management) 3rd: The patient?s adult child(shankar) (majority, if multiple children) 4th: The patient?s parents 5th: The patient?s adult siblings (majority, if multiple children siblings)
--- NOTE | 2023-07-07 23:12 | RAD_ITS ---
STUDY: X-RAY CHEST REASON FOR EXAM: Female, 78 years old. dyspnea TECHNIQUE: Single AP portable view of the chest. COMPARISON: 11/23/2019. FINDINGS: Mild fullness of the central markings suggestive of mild vascular congestion. Otherwise lung [place] are clear. There is no demonstrated pleural abnormality. There is mild cardiac enlargement. Midline sternotomy wires. Normal mediastinum and micaela. Normal visualized pulmonary arteries. Normal visualized aortic arch and descending thoracic aorta. There are diffuse degenerative changes of the visualized thoracic spine. There is degenerative osteoarthritis of the bilateral shoulders. There is no demonstrated abnormality of the visualized soft tissue structures of the upper abdomen. RAD/Chest 1 View (Portable) IMPRESSION: Possible mild vascular congestion, otherwise no acute cardiopulmonary disease. Electronically Signed: Julia Kelly MD at 23:45 EST ,
[2023-07-07 23:13] LABS: Anion Gap 12 (5-15); BUN 28 mg/dL (7-18); BUN/Creat Ratio 16.7 RATIO (10-20); Calcium,Total 9.7 mg/dL (8.5-10.1); Chloride 105 mmol/L (98-107); Creatinine, Serum 1.68 mg/dL (0.55-1.02); EST Glomerular Filtration Rate 31 mL/min (>60); Est Glom Filt Rate - Afr Amer 38 mL/min (>60); Glucose 220 mg/dL (74-106); Potassium 4.3 mmol/L (3.5-5.1); Sodium Level 138 mmol/L (136-145)
--- OUTSIDE RECORDS SUMMARY | 2023-07-07 23:18 | XMS RPT_ITS | CCD ---
Author Name Unknown Address [address] [place] [address] Organization [facility] Care Team Providers Care Sleeping Bag Filler Name Role Phone Unavailable Primary Care Provider Unavailabl e Allergies Allergy Classification Reported Allergen(s) Allergy Type Date of Onset Reaction(s) Facility (1 source) rofecoxib Drug Allergy 7 [facility] (1 source) Sulfonamides (Antibiotic) Propensity to adverse reactions 7 [facility] Medications Completed/Discontinued Medications Medication Drug Class(es) Dates Sig (Normalized) Sig (Original) carvedilol 3.125 mg oral tablet (1 source) alpha-Adrenergic Nirmal, beta-Adrenergic Nirmal Start: 03-02-2021 take 1 tablet by mouth once daily at breakfast carvedilol (COREG) 3.125 mg tablet Indications: Chronic congestive heart failure, unspecified heart failure type (HCC) , Paroxysmal atrial fibrillation (HCC) Take 1 tablet by mouth daily with breakfast. 90 tablet 3 03/02/2021 Active Problems Active Problems Problem Classification Problem Date Documented Da te Episodic/Chronic Cardiac dysrhythmias (1 source) Paroxysmal atrial fibrillation; Translations: [Paroxysmal atrial fibrillation] Onset: 09-01-2017 01-16-2018 Chronic Heart valve disorders (1 source) History of aortic valve replacement; Translations: [Presence of prosthetic heart valve] Onset: 05-16-2020 05-16-2020 Chronic Past or Other Problems Problem Classification Problem Date Documented Date Episodic/Chronic Other circulatory disease (1 source) H/O: heart failure; Translations: [Personal history of other diseases of the circulatory system] Onset: 01-16-2018 01-16-2018 Episodic Other circulatory disease (1 source) History of aortic valve stenosis; Translations: [Personal history of other diseases of the circulatory system] Onset: 05-16-2020 05-16-2020 Episodic Faina-; endo-; and myocarditis; cardiomyopathy (except that caused by tuberculosis or sexually transmitted disease) (1 source) 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; Translations: [Viral cardiomyopathy] Onset: 09-20-2017 09-20-2017 Episodic Results Test Name Value Interpretation Reference Range Facil ity Encounters Encounter Date Encounter Type Care Provider Facility Start: 10-30-2021 ambulatory Kamar Stapleton RN Work Phone: Manager [employer] Procedures Date Procedure Procedure Detail Performing Clinician Start: 01-16-2018 Adult depression screening assessment Kamar Stapleton RN Work Phone: Plan of Treatment Date Care Activity Detail Author Start: 04-11-2023 DIABETES SCREEN DIABETES SCREEN [facility] Start: 02-18-2022 Influenza vaccination INFLUENZA (Sea son Ended) [facility] Start: 11-14-2021 Adult depression scr eening assessment DEPRESSION SCREENING [facility] Immunizations Immunization Date Immunization Notes Care Provider Fa cility 11-14-2020 pneumococcal polysaccharide vaccine, 23 valent Kamar Stapleton RN Work Phone: [facility] 04-18-2020 influenza, high-dose , quadrivalent vaccine (FLUZONE HIGH DOSE QUADRIVALENT) Kamar Stapleton RN Work Phone: [facility] 03-26-2019 Influenza, injectabl e, Madin Milton Canine Kidney, preservative free, quadrivalent Kamar Stapleton RN Work Phone: [facility] 03-26-2019 pneumococcal conjuga te vaccine, 13 valent Kamar Stapleton RN Work Phone: [facility] 08-01-2018 pneumococcal conjuga te vaccine, 13 valent Kamar Stapleton RN Work Phone: [facility] 04-06-2018 influenza, injectabl e, quadrivalent, preservative free Kamar Stapleton RN Work Phone: [facility] 01-18-2012 TD(adult) unspecifie d formulation Kamar Stapleton RN Work Phone: [facility] Payers Date Payer Category Payer Unknown [employer] D [id number] 2017-Present [phone] [address] [address] [place] [address] Indemnity [id number] 2017 Medicare MEDICARE MEDICAR E A AND B [id number] 2017-Present [phone] [place] [address] Medicare [id number] Social History Date Type Detail Facility [facility]: [facility]07[facility] Start: 03-07-2017 Tobacco use and exposure Smokeless tobacco non-user [facility] Start: 11-14-2020 Alcohol intake Current drinke r of alcohol (finding) [facility] Start: 05-09-2017 History SDOH Alcohol Comment occasionally [facility] Start: 1945 Sex Assigned At Not on file [facility] Progress note 10-30-2021 Note Date & Type Note Facility 10-30-2021 Note HNO ID: [id number] Author: Kamar Stapleton RN Service: ? Author Type: Registered Nurse Type: Progress Notes Filed: 10/30/2021 4:10 PM Note Text: [facility] Enrollment Provider Action/FYI: Patient does not have a CC PCP Declined Patient referred by: [facility] Minh Contact made with patient: Patient not outreached at this time. Closing: Patient does not meet criteria. PCC to reassess patient in a month. END OUTREACH [facility] History of Present illness Narrative 10-30-2021 Kamar Stapleton RN - 10/30/2021 4:07 PM EDT Note Date & Type Note Facility 10-30-2021 History of Presen t illness Narrative [facility] Enrollment Provider Action/FYI: Patient does not have a CC PCP Declined Patient referred by: [facility] Minh Contact made with patient: Patient not outreached at this time. Closing: Patient does not meet criteria. PCC to reassess patient in a month. END OUTREACH documented in this encounter [facility] Clinical Note 10-30-2021 Note Date & Type Note Facility 10-30-2021 Note Patient Outreach ([facility] [place] GERRI MCKINLEY ([id number]) 1945 F Date Time Provider Department 10/30/21 KAMAR STAPLETON During your visit today, we recorded the following information about you: Kamar Stapleton RN 10/30/2021 4:10 PM Signed [employer] CD Enrollment Provider Action/FYI: Patient does not have a CC PCP Declined Patient referred by: [facility] Minh Contact made with patient: Patient not outreached at this time. Closing: Patient does not meet criteria. PCC to reassess patient in a month. END OUTREACH Allergies As of Date: 10/30/2021 Noted Allergy Reaction SULFA (SULFONAMIDE ANTIBIOTICS) 02/17/2007 VIOXX (ROFECOXIB) 02/17/2007 Date Reviewed: 11/14/2020 Reviewed by: Venus Damon MA - Fully Assessed Reason for Visit: Community Monitoring Outreach [Other] Cmt: [place] EXTENDED STAYS [facility] Prescriptions as of 10/30/2021 - carvedilol (COREG) 3.125 mg tablet Take 1 tablet by mouth daily with breakfast. - furosemide (LASIX) 40 mg tablet Take 1 tablet by mouth once daily. - potassium chloride 20 mEq TbER Take 1 tablet by mouth once daily. - Cholecalciferol, Vitamin D3, 25 mcg (1,000 unit) cap Take 1 capsule by mouth once daily. 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 Progress note 11-14-2020 Note Date & Type Note Facility 11-14-2020 Note HNO ID: [id number] Author: Pham Caban MD Service: ? Author Type: Physician Type: Progress Notes Filed: 12/14/2020 11:31 AM Note Text: This note was created using TextCornerriter. Subjective Gerri Mckinley is a 75 year old female. Patient presents with: F/U 6 months SUBJECTIVE: Gerri Mckinley is a 75 year old year old lady here today for 6 month follow up appointment for review of medical conditions. Here with sister. No acute concerns to address. Doing well. RX coverage changed mail away pharmacy to [facility]. Blood pressure controlled without adverse effects from medications. Appettite good. Sleeping well. No signs CHF. Noted that sister is opposed to COVID vaccine because does not trust anything the government recommends (because was exposed to agent orange). State that they and the rest of their family has doing fine without anyone minh COVID. PAST MEDICAL HISTORY Diagnosis Date - Acute congestive heart failure (HCC) 09/20/2017 - Anemia, unspecified 11/2019 - History of acquired CHF (congestive heart failure) 01/16/2018 cardiomycopathy presumed viral when was admitted to [facility]; Dr. 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 - furosemide (LASIX) 40 mg tablet Take 1 tablet by mouth once daily. - potassium chloride 20 mEq TbER Take 1 tablet by mouth once daily. No current facility-administered medications for this visit. OBJECTIVE: BP 132/72 Pulse 72 Resp 16 Wt 60.8 kg (134 lb) BMI 25.32 kg/m? Patient is alert, oriented times 3, no apparent distress, affect is bright, reactive. Last 5 Encounter BP Readings: Date: BP: 11/14/2020 132/72 12/03/2019 110/60 11/23/2019 84/52 04/13/2019 90/64 02/21/2019 102/60 11/14/20 1001 11/14/20 1030 BP: 132/72 122/58 Pulse: 72 Resp: 16 Weight: 60.8 kg (134 lb) Physical Exam Assessment and Plan Encounter Diagnosis ICD-10-CM 1. Chronic congestive heart failure, unspecified heart failure type (HCC) I50.9 carvedilol (COREG) 3.125 mg tablet furosemide (LASIX) 40 mg tablet Well compensated 2. Vitamin D deficiency E55.9 Cholecalciferol, Vitamin D3, 25 mcg (1,000 unit) cap VITAMIN D 25 HYDROXY 3. Paroxysmal atrial fibrillation (HCC) I48.0 carvedilol (COREG) 3.125 mg tablet 4. Mixed hyperlipidemia E78.2 LIPID PANEL BASIC 5. Encounter for long-term current use of medication Z79.899 COMP METABOLIC PANEL CBC 6. Need for vaccination Z23 PNEUMOCOCCAL IMMUNIZATION PPSV 23 7. 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 Patient involved in shared decision making for management of medical issues. Stable on current medications/. Continue present management. Further evaluation and treatment as indicated. As noted in HPI, they will not get the COVID vaccine. Taken off Health Maintenance record. Did discuss with them current recommendations are not politically based and recommended medical sites to review recommendations regarding COVID and the vaccine. History and medications reviewed. Epic updated as needed Refills and/or prescriptions taken care of and meds adjusted as indicated after reviewed history, exam and labs. Health Maintenance reviewed. Updated record and/or ordered tests as recorded. Encouraged on efforts at healthy diet and regular exercise and adequate sleep. I spent a total of at least 20 minutes on the date of the service which included [id number] patient care, completing clinical documentation, obtaining and/or reviewing separately obtained history, performing a medically appropriate examination, counseling and educating the patient/family/caregiver, ordering medications, tests, or procedures and communicating results to the patient/family/caregiver. Pham Caban MD Medical Decision Making: Problems: Moderate: 2+ stable chronic illnesses Data: Unique test(s) ordered: 3+ Risk: Moderate: Drug management Medical Decision Making Level: 4 - Moderate [facility] History of Past illness Narrative 09-20-2017 Note Date & Type Note Facility documented as of this encounter (statuses as of 10/30/2021) [facility] Advance Directives No Advanced Directives Records FoundDocuments on File Type Date Recorded Patient Hog Ringer Expl anation Advance Directive(s) Advance Directive(s) 03/09/2007 12:00 AM Summary Purpose Family History No Family History Records Found Additional Source Comments Source Comments (unrecognize d section and content) In the event this informatio n is protected by the Federal Confidentiality of Alcohol and Drug Abuse Patient Records regulations: The Federal rules restrict any use of the information to criminally investigate or prosecute any alcohol or drug abuse patient.[facility] Reason for Visit (unrecogniz ed section and content) INFORMATION SOURCE (unrecogn ized section and content) FOR RECORDS PERTAINING TO PATIENTS WHO ARE OR HAVE BEEN ENROLLED IN A CHEMICAL DEPENDENCY/SUBSTANCEABUSE PROGRAM, SOME INFORMATION MAY BE OMITTED. This clinical summary was aggregated from multiple sources. Caution should be exercised in using it in the provision of clinical care. This summary normalizes information from multiple sources, and as a consequence, information in this document may materially change the coding, format and clinical context of patient data. In addition, data may be omitted in some cases. CLINICAL DECISIONS SHOULD BE BASED ON THE PRIMARY CLINICAL RECORDS. [facility] provides no warranty or guarantee of the accuracy or completeness of information in this document.
[2023-07-07 23:25] LABS: International Normalized Ratio 1.3; Prothrombin Time (Protime)PT. 16.4 SECONDS (11.7-14.9)
[2023-07-07 23:26] LABS: Partial Thromboplast Time 35.9 Seconds (24.1-36.2)
[2023-07-07] MEDS: fentaNYL 100 MCG/2 ML Ampul 25 MCG IV (23:33)
[2023-07-07] MEDS: Etomidate 20 MG/10 ML Vial 10 MG IV (23:33)
[2023-07-07 23:36] LABS: AST(SGOT) 42 U/L (15-37); Alanine Aminotransfer ALT/SGPT 38 U/L (13-56); Albumin, Serum 3.8 g/dL (3.2-5.0); Alkaline Phosphatase 93 U/L (45-117); Bilirubin, Direct 0.45 mg/dL (0.00-0.30); Globulin 2.9 g/dL (2.2-4.2); Magnesium 2.2 mg/dL (1.6-2.6); Protein, Total 6.7 g/dL (6.4-8.2); Troponin-I HS 52 pg/mL (3.0-54.0)
[2023-07-07 23:42] LABS: BNP,B-Type NATRIURETIC PEPTIDE 1649.2 pg/mL (0-100)
--- NOTE | 2023-07-07 23:46 | EKG12_ITS ---
Test Reason : DYSRHYTHMIA Blood Pressure : / mmHG Vent. Rate : 157 BPM Atrial Rate : 000 BPM P-R Int : 000 ms QRS Dur : 128 ms QT Int : 318 ms P-R-T Axes : 000 034 246 degrees QTc Int : 514 ms Critical Test Result: High HR Atrial fibrillation with rapid ventricular response Non-specific intra-ventricular conduction block Minimal voltage criteria for LVH, may be normal variant ( Sokolow-Lemus ) Cannot rule out Anterior infarct , age undetermined T wave abnormality, consider inferolateral ischemia Abnormal ECG Confirmed by OSCAR CAPUTO, MAKENZIE ([id number]), editor school photograph FAISAL VERDUGO ([id number]) on 07/08/2023 10:29:50 AM Referred By: Confirmed By:MAKENZIE MOORE MD
[2023-07-08] VITALS (8 sets, daily range): BP systolic 90–103; BP diastolic 38–81; PULSE 69–95; RESP 19–30; TEMP 36–36.5; O2SAT 90–99
--- NOTE | 2023-07-08 01:19 | CT_ITS ---
EXAM: CT ANGIOGRAPHY CHEST WITHOUT AND WITH INTRAVENOUS CONTRAST CLINICAL INDICATION: pulmonary embolism TECHNIQUE: Helically acquired angiography images were obtained of the chest without and with intravenous contrast. This CT exam was performed using one or more of the following dose reduction techniques: automated exposure control, adjustment of the mA and/or kV according to patient size, and/or use of iterative reconstruction technique. MIP reconstructed images were created and reviewed. CONTRAST: IV 75mL Isovue-370 RADIATION DOSE: CTDIvol = 17.02 mGy, DLP = 360.66 mGy-cm COMPARISON: No relevant prior studies available. FINDINGS: PULMONARY ARTERIES: Small amount of eccentric filling defect located peripherally in the interlobar pulmonary artery supplying the right lower lobe, best visualized on series 2 image 90. Chronic enlargement of the central pulmonary arteries. AORTA: Unremarkable. No evidence of dissection. No aortic aneurysm. GREAT VESSELS OF AORTIC ARCH: Unremarkable. Normal in caliber. No evidence of dissection. LUNGS AND PLEURAL SPACES: Small bilateral pleural effusions. HEART: Moderate cardiomegaly. Coronary artery calcifications. No pericardial effusion. MEDIASTINUM: Surgical changes of the mediastinum. No mediastinal or hilar adenopathy. Esophagus is unremarkable. No hiatal hernia. THYROID: Unremarkable. No thyroid lesions. BONES/JOINTS: Degenerative changes of the spine. No suspicious lytic or blastic abnormality. CT/CTA Chest W/WO Contrast IMPRESSION: 1. Small amount of eccentric filling defect located peripherally in the interlobar pulmonary artery supplying the right lower lobe, best visualized on series 2 image 90. This is consistent with a small, nonocclusive, chronic pulmonary embolism. There are no central or occlusive filling defects identified to suggest acute pulmonary emboli. 2. Small bilateral pleural effusions. 3. Cardiomegaly and evidence of chronic pulmonary arterial hypertension. Electronically Signed: Yusuf Minaya MD at 2:20 EST ,
--- NOTE | 2023-07-08 02:35 | HP.PCM.HOS_ITS ---
[facility] - General General Date of Admission: 07/08/23 Date of Service: 07/08/23 Chief Complaint: SOB. [facility] Narrative ELISEO ZAMORA, is a 78 F with a past medical history of essential hypertension, hyperlipidemia, history of PAF, history of Non-Hodgkin's Lymphoma, history of aortic stenosis; s/p bioprosthetic AVR, chronic LE edema; with chron ic venous stasis who presents to [facility] ER [facility] Medical History General learning disability [facility] (current) use of anticoagulants Lower extremity edema Lymphoma Marginal zone B-cell lymphoma Non-Hodgkin lymphoma (~02/18/22) Nonrheumatic aortic (valve) stenosis Paroxysmal atrial fibrillation Stasis dermatitis of both legs Subcutaneous mass Home Medications potassium chloride 20 mEq tablet,extended release(part/cryst) 20 meq PO DAILYCM #90 tabs 06/26/18 [Rx Last Taken 11/23/19] carvedilol 3.125 mg tablet 3.125 mg PO BID HEART 09/17/21 [History Last Taken Unknown] rosuvastatin 10 mg tablet 10 mg PO DAILY 09/17/21 [History Last Taken Unknown] cholecalciferol (vitamin D3) 10 mcg (400 unit) capsule 10 mcg PO DAILY 03/18/22 [History Last Taken Unknown] ferrous sulfate 142 mg (45 mg iron) tablet,extended release 142 mg PO QMWF Supplement [employer] 03/23/22 [History Last Taken Unknown] furosemide 40 mg tablet 40 mg PO BID #180 tabs 08/09/22 [Rx Last Taken Unknown] ascorbate calcium (vitamin C) 500 mg capsule 500 mg PO BID 10/11/22 [History Last Taken Unknown] Allergy/AdvReac Type Severity Reaction Status Date / Time Sulfa (Sulfonamide Allergy Other Verified 04/11/23 10:23 Antibiotics) Family History Father CVA (cerebral vascular accident) Mother CHF (congestive heart failure) Hypertension Sister High cholesterol Sister H/O heart valve replacement with porcine valve Rheumatic fever Surgical History H/O aortic valve replacement (02/23/07) History of left heart catheterization (09/07/17) Social History Smoking Status: Unknown if ever smoked alcohol intake: current alcohol intake frequency: holidays/special occasions only Alcohol type: beer, wine and hard liquor substance use type: does not use caffeine: Yes Type: coffee what type of physical activity do you participate in: bicycling frequency: 3-4 times per week duration: 15-30 minutes/day seatbelt use: always do you feel safe at home: Yes Vital Signs Vital Signs Vital Signs: 07/07/23 22:29 07/07/23 23:01 07/07/23 23:01 Temperature 98.0 F Temperature Source Temporal Pulse Rate 120 H 142 H Pulse Rate [1 (Initial Baseline)] Pulse Rate [10] Pulse Rate [3] Pulse Rate [5] Pulse Rate [6] Pulse Rate [7] Pulse Rate [8] Pulse Rate [9] Pulse Rate [Lying] Pulse Rate [Sitting (for 1 minute prior to obtaining)] Pulse Rate [Standing (for 1 minute prior to obtaining)] Respiratory Rate 18 21 H 30 H Respiratory Rate [1 (Initial Baseline)] Respiratory Rate [10] Respiratory Rate [3] Respiratory Rate [5] Respiratory Rate [6] Respiratory Rate [7] Respiratory Rate [8] Respiratory Rate [9] Respiratory Effort Respiratory Depth Respiratory Pattern Blood Pressure 88/77 L 97/71 Blood Pressure [1 (Initial Baseline)] Blood Pressure [10] Blood Pressure [3] Blood Pressure [5] Blood Pressure [6] Blood Pressure [7] Blood Pressure [8] Blood Pressure [9] Blood Pressure [Lying] Blood Pressure [Sitting (for 1 minute prior to obtaining)] Blood Pressure [Standing (for 1 minute prior to obtaining)] Blood Pressure Mean 80 79 Blood Pressure Mean [Lying] Blood Pressure Mean [Sitting (for 1 minute prior to obtaining)] Blood Pressure Mean [Standing (for 1 minute prior to obtaining)] Pulse Ox 97 98 97 Oxygen Delivery Method Room Air Room Air Room Air Oxygen Delivery Method [1 (Initial Baseline)] Oxygen Delivery Method [10] Oxygen Delivery Method [3] Oxygen Delivery Method [4] Oxygen Delivery Method [5] Oxygen Delivery Method [6] Oxygen Delivery Method [7] Oxygen Delivery Method [8] Oxygen Delivery Method [9] Oxygen Flow Rate (L/min) Oxygen Flow Rate (L/min) [3] Oxygen Flow Rate (L/min) [4] Oxygen Flow Rate (L/min) [5] Oxygen Flow Rate (L/min) [6] Oxygen Flow Rate (L/min) [7] 07/07/23 23:29 07/07/23 23:35 07/07/23 23:40 Temperature 97.5 F L Temperature Source Pulse Rate 153 H Pulse Rate [1 (Initial Baseline)] Pulse Rate [10] Pulse Rate [3] Pulse Rate [5] Pulse Rate [6] Pulse Rate [7] Pulse Rate [8] Pulse Rate [9] Pulse Rate [Lying] Pulse Rate [Sitting (for 1 minute prior to obtaining)] Pulse Rate [Standing (for 1 minute prior to obtaining)] Respiratory Rate 26 H Respiratory Rate [1 (Initial Baseline)] Respiratory Rate [10] Respiratory Rate [3] Respiratory Rate [5] Respiratory Rate [6] Respiratory Rate [7] Respiratory Rate [8] Respiratory Rate [9] Respiratory Effort Respiratory Depth Respiratory Pattern Blood Pressure 93/73 Blood Pressure [1 (Initial Baseline)] Blood Pressure [10] Blood Pressure [3] Blood Pressure [5] Blood Pressure [6] Blood Pressure [7] Blood Pressure [8] Blood Pressure [9] Blood Pressure [Lying] Blood Pressure [Sitting (for 1 minute prior to obtaining)] Blood Pressure [Standing (for 1 minute prior to obtaining)] Blood Pressure Mean Blood Pressure Mean [Lying] Blood Pressure Mean [Sitting (for 1 minute prior to obtaining)] Blood Pressure Mean [Standing (for 1 minute prior to obtaining)] Pulse Ox 100 Oxygen Delivery Method Room Air Nasal Cannula Nasal Cannula Oxygen Delivery Method [1 (Initial Baseline)] Oxygen Delivery Method [10] Oxygen Delivery Method [3] Oxygen Delivery Method [4] Oxygen Delivery Method [5] Oxygen Delivery Method [6] Oxygen Delivery Method [7] Oxygen Delivery Method [8] Oxygen Delivery Method [9] Oxygen Flow Rate (L/min) 2 2 4 Oxygen Flow Rate (L/min) [3] Oxygen Flow Rate (L/min) [4] Oxygen Flow Rate (L/min) [5] Oxygen Flow Rate (L/min) [6] Oxygen Flow Rate (L/min) [7] 07/07/23 23:45 07/07/23 23:33 07/08/23 00:06 Temperature 96.8 F L Temperature Source Temporal Pulse Rate 80 Pulse Rate [1 (Initial Baseline)] 153 H Pulse Rate [10] 78 Pulse Rate [3] 76 Pulse Rate [5] 72 Pulse Rate [6] 68 Pulse Rate [7] 72 Pulse Rate [8] 100 Pulse Rate [9] 86 Pulse Rate [Lying] Pulse Rate [Sitting (for 1 minute prior to obtaining)] Pulse Rate [Standing (for 1 minute prior to obtaining)] Respiratory Rate 20 H Respiratory Rate [1 (Initial Baseline)] 26 H Respiratory Rate [10] 27 H Respiratory Rate [3] 20 H Respiratory Rate [5] 16 Respiratory Rate [6] 16 Respiratory Rate [7] 20 H Respiratory Rate [8] 22 H Respiratory Rate [9] 25 H Respiratory Effort Respiratory Depth Respiratory Pattern Blood Pressure 103/50 L Blood Pressure [1 (Initial Baseline)] 93/73 Blood Pressure [10] 103/50 L Blood Pressure [3] 94/70 Blood Pressure [5] 94/58 L Blood Pressure [6] 91/53 L Blood Pressure [7] 95/66 Blood Pressure [8] 95/46 L Blood Pressure [9] 102/48 L Blood Pressure [Lying] Blood Pressure [Sitting (for 1 minute prior to obtaining)] Blood Pressure [Standing (for 1 minute prior to obtaining)] Blood Pressure Mean 67 Blood Pressure Mean [Lying] Blood Pressure Mean [Sitting (for 1 minute prior to obtaining)] Blood Pressure Mean [Standing (for 1 minute prior to obtaining)] Pulse Ox 99 Oxygen Delivery Method Nasal Cannula Room Air Oxygen Delivery Method [1 (Initial Baseline)] Room Air Oxygen Delivery Method [10] Room Air Oxygen Delivery Method [3] Nasal Cannula Oxygen Delivery Method [4] Nasal Cannula Oxygen Delivery Method [5] Nasal Cannula Oxygen Delivery Method [6] Nasal Cannula Oxygen Delivery Method [7] Nasal Cannula Oxygen Delivery Method [8] Room Air Oxygen Delivery Method [9] Room Air Oxygen Flow Rate (L/min) 4 Oxygen Flow Rate (L/min) [3] 2 Oxygen Flow Rate (L/min) [4] 4 Oxygen Flow Rate (L/min) [5] 4 Oxygen Flow Rate (L/min) [6] 4 Oxygen Flow Rate (L/min) [7] 4 07/08/23 00:08 07/08/23 00:39 07/08/23 00:58 Temperature 96.8 F L Temperature Source Temporal Pulse Rate 76 72 Pulse Rate [1 (Initial Baseline)] Pulse Rate [10] Pulse Rate [3] Pulse Rate [5] Pulse Rate [6] Pulse Rate [7] Pulse Rate [8] Pulse Rate [9] Pulse Rate [Lying] Pulse Rate [Sitting (for 1 minute prior to obtaining)] Pulse Rate [Standing (for 1 minute prior to obtaining)] Respiratory Rate 23 H 22 H Respiratory Rate [1 (Initial Baseline)] Respiratory Rate [10] Respiratory Rate [3] Respiratory Rate [5] Respiratory Rate [6] Respiratory Rate [7] Respiratory Rate [8] Respiratory Rate [9] Respiratory Effort Short of Breath Respiratory Depth Normal Respiratory Pattern Tachypnea Blood Pressure 99/58 L 90/38 L Blood Pressure [1 (Initial Baseline)] Blood Pressure [10] Blood Pressure [3] Blood Pressure [5] Blood Pressure [6] Blood Pressure [7] Blood Pressure [8] Blood Pressure [9] Blood Pressure [Lying] Blood Pressure [Sitting (for 1 minute prior to obtaining)] Blood Pressure [Standing (for 1 minute prior to obtaining)] Blood Pressure Mean 71 55 Blood Pressure Mean [Lying] Blood Pressure Mean [Sitting (for 1 minute prior to obtaining)] Blood Pressure Mean [Standing (for 1 minute prior to obtaining)] Pulse Ox 90 97 Oxygen Delivery Method Room Air Room Air Room Air Oxygen Delivery Method [1 (Initial Baseline)] Oxygen Delivery Method [10] Oxygen Delivery Method [3] Oxygen Delivery Method [4] Oxygen Delivery Method [5] Oxygen Delivery Method [6] Oxygen Delivery Method [7] Oxygen Delivery Method [8] Oxygen Delivery Method [9] Oxygen Flow Rate (L/min) Oxygen Flow Rate (L/min) [3] Oxygen Flow Rate (L/min) [4] Oxygen Flow Rate (L/min) [5] Oxygen Flow Rate (L/min) [6] Oxygen Flow Rate (L/min) [7] 07/08/23 01:03 Temperature Temperature Source Pulse Rate Pulse Rate [1 (Initial Baseline)] Pulse Rate [10] Pulse Rate [3] Pulse Rate [5] Pulse Rate [6] Pulse Rate [7] Pulse Rate [8] Pulse Rate [9] Pulse Rate [Lying] 78 Pulse Rate [Sitting (for 1 minute prior to obtaining)] 95 Pulse Rate [Standing (for 1 minute prior to obtaining)] 94 Respiratory Rate Respiratory Rate [1 (Initial Baseline)] Respiratory Rate [10] Respiratory Rate [3] Respiratory Rate [5] Respiratory Rate [6] Respiratory Rate [7] Respiratory Rate [8] Respiratory Rate [9] Respiratory Effort Respiratory Depth Respiratory Pattern Blood Pressure Blood Pressure [1 (Initial Baseline)] Blood Pressure [10] Blood Pressure [3] Blood Pressure [5] Blood Pressure [6] Blood Pressure [7] Blood Pressure [8] Blood Pressure [9] Blood Pressure [Lying] 92/57 L Blood Pressure [Sitting (for 1 minute prior to obtaining)] 101/62 Blood Pressure [Standing (for 1 minute prior to obtaining)] 98/81 H Blood Pressure Mean Blood Pressure Mean [Lying] 68 Blood Pressure Mean [Sitting (for 1 minute prior to obtaining)] 75 Blood Pressure Mean [Standing (for 1 minute prior to obtaining)] 86 Pulse Ox Oxygen Delivery Method Oxygen Delivery Method [1 (Initial Baseline)] Oxygen Delivery Method [10] Oxygen Delivery Method [3] Oxygen Delivery Method [4] Oxygen Delivery Method [5] Oxygen Delivery Method [6] Oxygen Delivery Method [7] Oxygen Delivery Method [8] Oxygen Delivery Method [9] Oxygen Flow Rate (L/min) Oxygen Flow Rate (L/min) [3] Oxygen Flow Rate (L/min) [4] Oxygen Flow Rate (L/min) [5] Oxygen Flow Rate (L/min) [6] Oxygen Flow Rate (L/min) [7] Results Lab / Micro Data 07/07/23 22:38 07/07/23 22:38 Labs: Laboratory Results - last 24 hr 07/07/23 22:38: WBC 8.9, RBC 4.69, Hgb 12.7, Hct 42.6, MCV 90.8, MCH 27.1, MCHC 29.8 L, RDW Std Deviation 51.2 H, RDW Coeff of Sina 15.9 H, Plt Count 154, MPV 1 2.1 H, Immature Gran % (Auto) 0.500, Neut % (Auto) 76.0 H, Lymph % (Auto) 13.5 L , [place] % (Auto) 8.8, Eos % (Auto) 0.5, Baso % (Auto) 0.7, Absolute Neuts (auto) 6.8, Absolute Lymphs (auto) 1.20, Nucleated RBC % 0, PT 16.4 H, INR 1.3, APTT 35.9, Sodium 138, Potassium 4.3, Chloride 105, Carbon Dioxide 21.0, Anion Gap 12, BUN 28 H, Creatinine 1.68 H, Est GFR (MDRD) Af Amer 38 L, Est GFR (MDRD) Non-Af 31 L, BUN/Creatinine Ratio 16.7, Glucose 220 H, Calcium 9.7, Magnesium 2.2, Total Bilirubin 1.00, Direct Bilirubin 0.45 H, AST 42 H, ALT 38, Alkaline Phosphatase 93, Troponin I High Sens 52, B-Natriuretic Peptide 1649.2 H, Total Protein 6.7, Albumin 3.8, Globulin 2.9 Imagaing Radiology Impression Chest X-Ray 07/07/23 23:12 IMPRESSION: Possible mild vascular congestion, otherwise no acute cardiopulmonary disease. Electronically Signed: Julia Kelly MD at 23:45 EST , Chest CTA 07/08/23 01:19 IMPRESSION: 1. Small amount of eccentric filling defect located peripherally in the interlobar pulmonary artery supplying the right lower lobe, best visualized on series 2 image 90. This is consistent with a small, nonocclusive, chronic pulmonary embolism. There are no central or occlusive filling defects identified to suggest acute pulmonary emboli. 2. Small bilateral pleural effusions. 3. Cardiomegaly and evidence of chronic pulmonary arterial hypertension. Electronically Signed: Yusuf Minaya MD at 2:20 EST ,
[2023-07-08] MEDS: Albumin Human 25% (100 mL) 25 GM/100 ML BAG IV (03:25)
== END 2023-07-08 04:44 | disposition home or self-care (01) ==
PROVIDERS: Emergency Provider Emergency Medicine; PCP Family Medicine; Visit Provider Emergency Medicine
DX: I42.8 Other cardiomyopathies (principal); C85.10 Unspecified B-cell lymphoma, unspecified site; I50.23 Acute on chronic systolic (congestive) heart failure; I13.0 Hypertensive heart and chronic kidney disease with heart failure and stage 1 through stage 4 chronic kidney disease, or unspecified chronic kidney disease; I48.0 Paroxysmal atrial fibrillation; I35.0 Nonrheumatic aortic (valve) stenosis; N18.9 Chronic kidney disease, unspecified; Z79.899 Other long term (current) drug therapy
CPT/HCPCS: 71045; 71275; 80048; 80076; 83735; 83880; 84484; 85025; 85610; 85730; 92960; 93005; 94760; 96365; 96375; 99152; 99285; J7030; P9047; Q9967; A4216

== ENCOUNTER → 2023-11-01 | Outpatient (CLI) | payer MEDICARE, OTHER, SELFPAY ==
[2023-11-01 10:34] LABS: Absolute Lymphocyte Count 0.67 X10^3/uL (0.83-4.51); Basophil# 0.04 X10^3/uL; Basophil% 0.6 % (0-1); Eosinophil# 0.12 X10^3/uL; Eosinophils% 1.9 % (0-5); Hematocrit 39.2 % (37-47); Hemoglobin 11.8 g/dL (12.0-15.0); Lymphocyte # 0.67 X10^3/ul (0.83-4.51); Lymphocyte % 10.6 % (19-41); Mean Corp Hgb Conc 30.1 g/dL (32-36); Mean Corpuscular Hgb 26.6 pg (27.0-32.0); Mean Corpuscular Volume 88.5 fL (81-99); Monocyte# 0.46 X10^3/uL; Monocyte% 7.2 % (0-10); NRBC Flagged by Analyzer 0 % (0-5); Neutrophil # 5.04 X10^3/uL (2.7-7.7); Neutrophil % 79.4 % (47-70); Platelet Count 130 K/mm3 (150-450); RBC Distribution Width CV 15.3 % (11.6-14.6); RBC Distribution Width SD 50.3 fl (35.1-43.9); Red Blood Count 4.43 M/mm3 (4.2-5.4); White Blood Count 6.4 K/mm3 (4.4-11.0)
[2023-11-01 10:58] LABS: Vitamin B12 261 pg/mL (211-911); Vitamin D,25 Hydroxy 89.5 ng/mL
[2023-11-01 11:21] LABS: ALB/GLOB Ratio 1.2 RATIO (0.9-2.4); AST(SGOT) 24 U/L (15-37); Alanine Aminotransfer ALT/SGPT 18 U/L (13-56); Albumin, Serum 3.9 g/dL (3.2-5.0); Alkaline Phosphatase 92 U/L (45-117); Anion Gap 7 (5-15); BUN 34 mg/dL (7-18); BUN/Creat Ratio 34.8 RATIO (10-20); Calcium,Total 9.3 mg/dL (8.5-10.1); Chloride 109 mmol/L (98-107); Cholesterol 96 mg/dL (200); Creatinine, Serum 0.98 mg/dL (0.55-1.02); EST Glomerular Filtration Rate 58 mL/min (>60); Est Glom Filt Rate - Afr Amer 71 mL/min (>60); Ferritin 360 ng/mL (8-252); Globulin 3.2 g/dL (2.2-4.2); Glucose 113 mg/dL (74-106); High Density Lipoprotein 52 mg/dL; Iron 55 ug/dL (50-170); Iron Binding Capacity,Total 284 ug/dL (250-450); Magnesium 2.2 mg/dL (1.6-2.6); Potassium 4.1 mmol/L (3.5-5.1); Protein, Total 7.1 g/dL (6.4-8.2); Sodium Level 143 mmol/L (136-145); Thyroid Stim Hormone (TSH) 2.35 uIU/mL (0.358-3.74); Triglycerides 81 mg/dL; Very Low Density Lipoprotein 16 mg/dL (5-40)
[2023-11-02 16:35] LABS: Hemoglobin A1c 5.7 % (3.8-5.6)
== END | disposition home or self-care (01) ==
LOC: MFPLAB 08:12
PROVIDERS: PCP Family Medicine; Visit Provider Family Medicine
DX: I48.0 Paroxysmal atrial fibrillation (principal); D64.9 Anemia, unspecified; R73.09 Other abnormal glucose; E55.9 Vitamin D deficiency, unspecified
CPT/HCPCS: 36415; 80053; 80061; 82306; 82607; 82728; 82746; 83036; 83540; 83550; 83735; 84443; 85025

== ENCOUNTER 2024-01-14 22:28 | Emergency (ER) | payer MEDICARE, OTHER, SELFPAY ==
[2024-01-14 22:29] VITALS: BP 134/54; PULSE 66; RESP 15; TEMP 36.1; O2SAT 99
--- NOTE | 2024-01-14 22:54 | EKG12_ITS ---
Test Reason : CP Blood Pressure : / mmHG Vent. Rate : 078 BPM Atrial Rate : 000 BPM P-R Int : 000 ms QRS Dur : 138 ms QT Int : 402 ms P-R-T Axes : 000 049 249 degrees QTc Int : 458 ms Sinus Rhythm Left ventricular hypertrophy with QRS widening and repolarization abnormality ( Sokolow-Lemus , Ambrocio l product , Romhilt-Mccracken ) Abnormal ECG Confirmed by SANDHYA CAPUTO, CHERELLE ([id number]), food editor RAHEEM DAMON ([id number]) on 01/17/2024 2:23:06 PM Referred By: EJ Confirmed By:SETH ARTHUR MD
--- NOTE | 2024-01-14 22:54 | RAD_ITS ---
INDICATION: chest pain COMPARISON: 07/07/2023 chest radiograph and 07/08/2023 chest CTA. Findings: Single frontal view of the chest. LUNG PARENCHYMA: Bilateral perihilar interstitial thickening, newly obscuring the right cardiac border. PLEURA: No pleural effusion. No pneumothorax. HEART/GREAT VESSELS: Cardiomegaly. Again noted enlarged bilateral micaela consistent with enlarged pulmonary arteries, likely pulmonary artery hypertension. Prominence of the central vasculature suggesting venous congestion. BONES: Median sternotomy wires. RAD/Chest 1 View (Portable) IMPRESSION: Bilateral perihilar interstitial process, suggesting pulmonary edema given venous congestion and cardiomegaly. Infectious etiology is not excluded. Again noted enlarged bilateral micaela consistent with enlarged pulmonary arteries, likely pulmonary artery hypertension. Electronically Signed: Daniel Mendes MD at 23:39 EDT ,
[2024-01-14 23:19] LABS: Absolute Lymphocyte Count 0.96 X10^3/uL (0.83-4.51); Absolute Neutrophil Count 5.3 X10^3/uL (2.0-7.7); Basophil# 0.05 X10^3/uL; Basophil% 0.7 % (0-1); Eosinophil# 0.23 X10^3/uL; Eosinophils% 3.2 % (0-5); Hematocrit 39.2 % (37-47); Lymphocyte # 0.96 X10^3/ul (0.83-4.51); Lymphocyte % 13.5 % (19-41); Mean Corp Hgb Conc 30.6 g/dL (32-36); Mean Corpuscular Hgb 27.3 pg (27.0-32.0); Mean Corpuscular Volume 89.3 fL (81-99); Mean Platelet Vol. 11.6 fl (6.2-12.0); Monocyte% 8.4 % (0-10); NRBC Flagged by Analyzer 0 % (0-5); Neutrophil # 5.26 X10^3/uL (2.7-7.7); Neutrophil % 73.9 % (47-70); Platelet Count 178 K/mm3 (150-450); RBC Distribution Width CV 14.6 % (11.6-14.6); RBC Distribution Width SD 47.7 fl (35.1-43.9); Red Blood Count 4.39 M/mm3 (4.2-5.4); White Blood Count 7.1 K/mm3 (4.4-11.0)
[2024-01-14 23:29] VITALS: BP 99/52; PULSE 65; RESP 14; O2SAT 95
--- NOTE | 2024-01-14 23:43 | EDS_ITS ---
HPI History of Present Illness Chief Complaint: Chest Pain Informant: patient and family Narrative Narrative: Patient is a 78-year-old female with past medical history of nonischemic cardiomyopathy as well as pulmonary edema and paroxysmal atrial fibrillation with previous aortic valve replacement. Family states that this evening she complained of some midsternal chest pain and they checked her blood pressure and it was running low. They state that there is been no fevers or chills or trauma or cough or shortness of breath but based on her blood pressure running low and her report of chest discomfort and her known history of cardiac disease she was brought in for evaluation. Patient does not offer much history as she does have a history of learning disability. [facility] Medical History General learning disability half-way (current) use of anticoagulants Lower extremity edema Lymphoma Marginal zone B-cell lymphoma Non-Hodgkin lymphoma (~02/18/22) Nonrheumatic aortic (valve) stenosis Paroxysmal atrial fibrillation Stasis dermatitis of both legs Subcutaneous mass Home Medications ?Medication ?Instructions ?Recorded ?Last Taken ?Type potassium chloride 20 mEq 20 meq PO DAILYCM #90 tabs 06/26/18 07/07/23 Rx tablet,extended release(part/cryst) carvedilol 3.125 mg tablet 3.125 mg PO BID HEART 09/17/21 07/07/23 History rosuvastatin 10 mg tablet 10 mg PO DAILY 09/17/21 07/07/23 History ascorbate calcium (vitamin C) 500 500 mg PO BID 10/11/22 07/07/23 History mg capsule cholecalciferol (vitamin D3) 125 5,000 unit PO DAILY 07/08/23 Unknown History mcg (5,000 unit) capsule furosemide 80 mg tablet 80 mg PO .q24 07/08/23 Unknown History Allergy/AdvReac Type Severity Reaction Status Date / Time Sulfa (Sulfonamide Allergy Other Verified 01/14/24 22:34 Antibiotics) Family History Father CVA (cerebral vascular accident) Mother CHF (congestive heart failure) Hypertension Sister High cholesterol Sister H/O heart valve replacement with porcine valve Rheumatic fever Surgical History H/O aortic valve replacement (02/23/07) History of left heart catheterization (09/07/17) Social History Smoking Status: Never smoker alcohol intake: current alcohol intake frequency: holidays/special occasions only Alcohol type: beer, wine and hard liquor substance use type: does not use caffeine: Yes Type: coffee what type of physical activity do you participate in: bicycling frequency: 3-4 times per week duration: 15-30 minutes/day seatbelt use: always do you feel safe at home: Yes ROS ROS ED Constitutional Constitutional ED: Denies chills or fever(s) Eyes Eyes: Denies blurry vision or change in vision ENT ENT ED: Denies sore throat Cardiovascular Cardiovascular: Reports chest pain; Denies palpitations or racing heartbeat Respiratory/Chest Respiratory/Chest: Denies cough or dyspnea Gastrointestinal Gastrointestinal: Denies abdominal pain, diarrhea, nausea or vomiting Genitourinary Genitourinary ED: Denies dysuria Musculoskeletal Musculoskeletal: Denies back pain or myalgias Integumentary Denies rash Neurologic Neurologic: Denies headache(s) Hematologic/Lymphatic Hematologic/Lymphatic: Denies easy bleeding or easy bruising EXAM Physical Exam Const Vital Signs: 01/14/24 22:29 01/14/24 23:05 01/14/24 23:29 Temperature 97.0 F L Temperature Source Temporal Pulse Rate 66 65 Respiratory Rate 15 14 Respiratory Effort Normal Blood Pressure 134/54 H 99/52 L Blood Pressure Mean 80 67 Pulse Ox 99 95 Oxygen Delivery Method Room Air Room Air 01/15/24 00:00 Temperature Temperature Source Pulse Rate 65 Respiratory Rate 17 Respiratory Effort Blood Pressure 111/45 L Blood Pressure Mean 67 Pulse Ox 96 Oxygen Delivery Method Room Air Positive well nourished and well developed General Appearance ED: well developed; Negative for pallor HEENT HEENT Narrative: Normocephalic atraumatic Eyes PERRL and EOMs intact bilaterally General Eye ED: Negative for pale conjunctiva or scleral icterus Neck supple and no JVD Chest Wall Chest Narrative: There is reproducible anterior midsternal pain with palpation that patient states is the same pain she has been experiencing There is no bony deformity or crepitance No overlying soft tissue changes to suggest trauma or infection Resp normal respiratory effort and clear to auscultation bilaterally Resp Narrative: No nasal flaring retractions tachypnea or accessory muscle use Cardio regular rate and regular rhythm Rate: other Other Details: Heart is regular rate and rhythm with grade 3 out of 6 holosystolic murmur Carotid and radial pulses are equal and symmetric GI normal to inspection, nondistended, normoactive bowel sounds, non-tender, non- distended and no masses GI Narrative: No voluntary guarding or rigidity or pulsatile mass Auscultation: normoactive bowel sounds Palpation: soft Extremity normal to inspection Extremity Narrative: No asymmetric edema no pitting edema negative Homans' sign bilaterally Neuro CN's II-XII intact bilaterally and no sensory deficits noted Neuro Narrative: Patient is at her baseline mental status without focal neurologic deficit Sensorium / Orientation: alert Motor Exam: strength 5/5 throughout Psych Psych Narrative: Patient has a flat affect Skin no rashes or lesions noted General Skin Exam: Negative for jaundice or pallor MDM MDM MDM Narrative Medical decision making narrative: Patient arrived to ER with stable vitals and in no acute distress. She reported along with family some midsternal chest discomfort and on exam there is reproducible pain on palpation without obvious findings to suggest infection or trauma. As she does have a history of cardiomyopathy as well as paroxysmal A- fib there is concern for acute coronary syndrome versus paroxysmal cardiac dysrhythmia or infectious process. Therefore basic labs were obtained. Initial troponin is normal at 36 and we discussed a delta troponin but as the value was less than roughly 6 months ago in June they do not want a repeat value drawn. Chest x-ray revealed pulmonary edema changes and radiologist states he can have 100% rule out infection but the patient does not have a fever or white count and she is not coughing and therefore her history and exam is most consistent with pulmonary edema. There is also no signs of acute kidney injury or acute blood loss anemia or electrolyte abnormality. Therefore at this time with normal heart rate and rhythm stable vitals and no signs of acute coronary syndrome there is no need for further workup and patient is otherwise safe for discharge. History & Record Review Discussion w/independent historian: Patient and Family Lab Data Attestation: I reviewed the patient's lab results. Labs: Laboratory Results - last 24 hr 01/14/24 22:58 WBC 7.1 RBC 4.39 Hgb 12.0 Hct 39.2 MCV 89.3 MCH 27.3 MCHC 30.6 L RDW Std Deviation 47.7 H RDW Coeff of Sina 14.6 Plt Count 178 MPV 11.6 Immature Gran % (Auto) 0.300 Neut % (Auto) 73.9 H Lymph % (Auto) 13.5 L [place] % (Auto) 8.4 Eos % (Auto) 3.2 Baso % (Auto) 0.7 Absolute Neuts (auto) 5.3 Absolute Lymphs (auto) 0.96 Nucleated RBC % 0 Sodium 140 Potassium 4.6 Chloride 106 Carbon Dioxide 28.0 Anion Gap 6 BUN 34 H Creatinine 1.27 H Est GFR (MDRD) Af Amer 52 L Est GFR (MDRD) Non-Af 43 L BUN/Creatinine Ratio 26.8 H Glucose 101 Calcium 9.8 Magnesium 2.3 Troponin I High Sens 36 Radiography Diagnostic Testing: Clinical Impression(s) from Imaging Studies Chest X-Ray 01/14/24 22:54 IMPRESSION: Bilateral perihilar interstitial process, suggesting pulmonary edema given venous congestion and cardiomegaly. Infectious etiology is not excluded. Again noted enlarged bilateral micaela consistent with enlarged pulmonary arteries, likely pulmonary artery hypertension. Electronically Signed: Daniel Mendes MD at 23:39 EDT , 1 view chest x-ray as interpreted by the emergency medicine physician reveals bilateral perihilar haziness consistent with pulmonary edema without acute infiltrate or pneumothorax Discharge Plan Triage Chief Complaint: Chest Pain ED Provider: Giovany Ellison Dx/Rx/DC Orders Clinical Impression: Nonspecific chest pain, H/O aortic valve replacement, Nonrheumatic aortic (valve) stenosis, Paroxysmal atrial fibrillation, Pulmonary edema Instructions: ED Chest Pain, Uncertain Cause Prescriptions: No Action potassium chloride 20 mEq tablet,ER particles/crystals 20 meq PO DAILYCM Qty: 90 3RF ascorbate calcium (vitamin C) 500 mg Capsule 500 mg PO BID carvedilol 3.125 mg tablet 3.125 mg PO BID Rx Instructions: give with food (meal/snack) cholecalciferol (vitamin D3) 125 mcg (5,000 unit) capsule 5,000 unit PO DAILY furosemide 80 mg tablet 80 mg PO .q24 rosuvastatin 10 mg tablet 10 mg PO DAILY Primary Care Provider: Giorgi Valentin Referrals: Giorgi Valentin MD [Primary Care Provider] - Activity Restrictions/Additional Instructions: Please follow-up with your family doctor for repeat evaluation and return to the ER should you have any further concerns Print Language: Frisian Disposition Disposition: Home, Self Care
[2024-01-14 23:52] LABS: Anion Gap 6 (5-15); BUN 34 mg/dL (7-18); BUN/Creat Ratio 26.8 RATIO (10-20); Calcium,Total 9.8 mg/dL (8.5-10.1); Chloride 106 mmol/L (98-107); Creatinine, Serum 1.27 mg/dL (0.55-1.02); EST Glomerular Filtration Rate 43 mL/min (>60); Est Glom Filt Rate - Afr Amer 52 mL/min (>60); Glucose 101 mg/dL (74-106); Magnesium 2.3 mg/dL (1.6-2.6); Potassium 4.6 mmol/L (3.5-5.1); Sodium Level 140 mmol/L (136-145); Troponin-I HS 36 pg/mL (3.0-54.0)
[2024-01-15] VITALS: BP 111/45; PULSE 65; RESP 17; O2SAT 96
--- NOTE | 2024-01-15 00:03 | ED.RN ---
2 unsuccessful IV attempts by perez RN, 2 unsuccessful attempts by Oumou Alatorre RN. Dr. Ellison notified.
[2024-01-15 00:26] VITALS: BP 103/41; PULSE 65; RESP 17; TEMP 36.4; O2SAT 97
== END 2024-01-15 00:33 | disposition home or self-care (01) ==
PROVIDERS: Emergency Provider Emergency Medicine; PCP Family Medicine; Visit Provider Emergency Medicine
DX: R07.9 Chest pain, unspecified (principal); I48.0 Paroxysmal atrial fibrillation; I35.0 Nonrheumatic aortic (valve) stenosis; J81.1 Chronic pulmonary edema
CPT/HCPCS: 71045; 80048; 83735; 84484; 85025; 93005; 99282; A4216

== ENCOUNTER → 2024-06-22 | Outpatient (CLI) | payer MEDICARE, OTHER, SELFPAY ==
[2024-06-22 16:12] LABS: Color, Urine Yellow (Yellow); Glucose, Dipstick Normal (Normal); Ketone-Dipstick Negative (Negative); Leukocyte Esterase-Dipstick 500 /ul (Negative); Nitrite-Dipstick Negative (Negative); Occult Blood-Urine 25 /ul (Negative); Protein-Dipstick Negative (Negative); Urine Bilirubin Dipstick Negative (Negative); Urine Clarity Sl. Cloudy (Clear); Urine Urobilinogen Normal (Normal)
== END | disposition home or self-care (01) ==
LOC: LABSPEC 15:18
PROVIDERS: PCP Family Medicine; Referring Provider Nurse Practitioner Primary Care; Visit Provider Nurse Practitioner Primary Care
DX: R30.0 Dysuria (principal)
CPT/HCPCS: 81002; 87086; 87088